=== PATIENT | female | born 1940 | race Caucasian/White ===

== ENCOUNTER 2016-07-26 13:57 | Inpatient (IN) | payer MEDICARE, OTHER ==
[~2016-07-26] VITALS: Ht 165.1 cm; Wt 104.6 kg
[~2016-07-26 13:57] MED LIST: BLOO-129 IN; BUDE10.2 INH; DIAZ5TAB4 PO; ETOMIDATE 20 MG/10 ML VIAL MC ONE; FLUO15CR2 TP; INSU100C4 SQ; INSU3INS6 SQ; KETO120S2 TP; LISI-607 PO; METF10002 PO; NAPR220T66 PO; SENN-92 PO; SIMV40TA2 PO; SUCCINYLCHOLINE CHLORIDE 200 MG/10 ML VIAL MC ONE; [UNRECOGNIZED DRUG - CODE] PO; [UNRECOGNIZED DRUG - MIXTURE] PO
--- NOTE | 2016-07-26 14:03 | NUR ---
Pt brought to bed 1a via ra 88, pt on monitor, dr santana at bedside for exam.
[2016-07-26] MEDS ORDERED: methylPREDNISolone SOD SUCC 125 MG/2 ML VIAL IV ONE (14:15)
[2016-07-26] MEDS ORDERED: ALBUTEROL SULFATE 2.5 MG/3 ML NEBU NEB ONE ×2 (14:15→15:30)
[2016-07-26] MEDS ORDERED: IPRATROPIUM BROMIDE 0.5 MG/2.5 ML NEBU NEB ONE ×2 (14:15→15:30)
[2016-07-26] MEDS ORDERED: IPRATROPIUM BROMIDE 0.5 MG/2.5 ML NEBU ONE ×2 (14:26→18:23)
[2016-07-26] MEDS ORDERED: ALBUTEROL SULFATE 2.5 MG/ 0.5 ML NEBU ONE ×2 (14:27→18:24)
--- NOTE | 2016-07-26 14:31 | NUR ---
IV #20 inserted via right posterior arm, sam snowden
--- NOTE | 2016-07-26 14:32 | NUR ---
is receiving breathing treatment at present.
[2016-07-26 14:36] LABS: BASOPHILS % (AUTO) 0.3 % (0.0-2.0); EOSINOPHILS # (AUTO) 0.1 K/uL (0.0-0.7); EOSINOPHILS % (AUTO) 1.3 % (0.0-7.0); HEMATOCRIT 33.3 % (31.2-41.9); HEMOGLOBIN 10.4 g/dL (10.9-14.3); LYMPHOCYTES # (AUTO) 0.9 K/uL (20.0-40.0); LYMPHOCYTES % (AUTO) 8.7 % (20.5-51.5); MEAN CORPUSCULAR HEMOGLOBIN 25.3 uug (24.7-32.8); MEAN CORPUSCULAR HGB CONC 31 g/dL (32.3-35.6); MEAN CORPUSCULAR VOLUME 81.5 fL (75.5-95.3); MONOCYTES # (AUTO) 0.2 K/uL (2.0-10.0); MONOCYTES % (AUTO) 2.1 % (0.0-11.0); NEUTROPHILS # (AUTO) 9.1 K/uL (1.8-8.9); NEUTROPHILS % (AUTO) 87.6 % (38.5-71.5); PLATELET COUNT (AUTO) 321 K/uL (179-408); RED BLOOD CELL COUNT(AUTO) 4.09 MIL/uL (3.63-4.92); RED CELL DISTRIBUTION WIDTH 16.3 % (12.3-17.7); WHITE BLOOD COUNT (AUTO) 10.3 K/uL (3.8-11.8)
[2016-07-26 15:01] LABS: TROPONIN I 0.022 ng/mL (0.00-0.056)
[2016-07-26 15:02] LABS: ALBUMIN 3.3 g/dL (3.4-5.0); BILIRUBIN,DIRECT 0.1 mg/dL (0.0-0.2); BILIRUBIN,TOTAL 0.5 mg/dL (0.2-1.0); CALCIUM 8.5 mg/dL (8.5-10.1); TOTAL PROTEIN, SERUM 7.5 g/dL (6.4-8.2)
[2016-07-26 15:06] LABS: LACTIC ACID 1.2 mmol/L (0.4-2.0)
[2016-07-26 15:13] LABS: CREATININE 1.5 mg/dL (0.6-1.3)
[2016-07-26 15:14] LABS: POTASSIUM 6.8 mmol/L (3.5-5.1)
[2016-07-26] MEDS ORDERED: INSULIN REGULAR, HUMAN 1,000 UNITS/10 ML VIAL IV ONE (15:30)
[2016-07-26] MEDS ORDERED: DEXTROSE 50% 50 ML DISP.SYRIN IV ONE (15:30)
[2016-07-26] MEDS ORDERED: methylPREDNISolone SOD SUCC 125 MG/2 ML VIAL ONE (15:38)
[2016-07-26] MEDS ORDERED: DEXTROSE 50% 50 ML DISP.SYRIN ONE (15:39)
[2016-07-26] MEDS ORDERED: INSULIN REGULAR, HUMAN 300 UNIT/3 ML VIAL ONE (15:51)
--- NOTE | 2016-07-26 15:51 | NUR ---
methylprednisolone, insulin and d50% given IV.
[2016-07-26 15:59] LABS: ABG BASE EXCESS -5.2 mmol/L; ABG PCO2 70.5 mmHg (35.0-45.0); ABG PH 7.168 (7.350-7.450); ABG PO2 63.3 mmHg (75.0-100.0); ABG SITE RIGHT BRACHIAL; VENT MODE Nasal Cannula
--- NOTE | 2016-07-26 16:00 | NUR ---
patient desaturating down to 78% on 2lnc. MD aware. orders received. placed on 10l mask. to keep sat above 94%
--- NOTE | 2016-07-26 16:15 | NUR ---
placed on bipap / rate 12 fio2 100%
[2016-07-26] MEDS ORDERED: LEVO50TA8 PO (16:34)
[2016-07-26] MEDS ORDERED: LEVA15HF5 INH (16:34)
[2016-07-26] MEDS ORDERED: INSU100C SQ (16:34)
[2016-07-26] MEDS ORDERED: ALBU8HFA4 IH (16:34)
[2016-07-26] MEDS ORDERED: PIOG30TA2 PO (16:34)
[2016-07-26] MEDS ORDERED: FURO20TA4 PO (16:34)
--- NOTE | 2016-07-26 16:35 | NUR ---
PLACED ON BIPAP WITH SETTINGS OF 12/5, RATE 12 AND FI02 100%
[2016-07-26] MEDS ORDERED: PROPOFOL 100 ML IV ONE (16:39)
[2016-07-26] MEDS ORDERED: SUCCINYLCHOLINE CHLORIDE 200 MG/10 ML VIAL IV ONE (16:45)
[2016-07-26] MEDS ORDERED: ETOMIDATE 20 MG/10 ML VIAL IV ONE (16:45)
--- NOTE | 2016-07-26 16:45 | NUR ---
medicated with etomidate and succinylcholine prior to intubation. ett 7.5cm taped at 23cm lip line.vent settings are tv 600, ac 20 [id number], fio2 100%. started on propofol drip at 5mcg and titrated forcomfort.
[2016-07-26] MEDS ORDERED: PROPOFOL 200 MG/20 ML BOTTLE ONE (16:56)
--- NOTE | 2016-07-26 17:00 | NUR ---
propofol titrated up, now at 20mcg/kg/min
--- NOTE | 2016-07-26 17:00 | NUR ---
new IV #20 inserted by Rahel TOLBERT. herminiaribeverly drip started thru this site
[2016-07-26] MEDS ORDERED: PROPOFOL 100 ML ONE ×3 (17:01→23:23)
--- NOTE | 2016-07-26 17:39 | NUR ---
PT IS INTUBATED WITH ET TUBE SIZE 7.5 , TAPED AT APPROX. 23 CM AT MID LIP. PLACED ON SETTINGS OF AC 20, VT 600, FIO2 100% AND PEEP 5. PT IS SEDATED AND LESS RESPONSIVE AT THIS TIME. SUCTIONED FOR SMALL AMOUNT OF THICK WHITISH SECRETION ,SAMPLE COLLECTED FOR SOUND PRINTER. WILL WAIT FOR MORE ORDERS.
--- NOTE | 2016-07-26 18:00 | NUR ---
propofol titrated up to 40mcg/kg/min
[2016-07-26 18:34] LABS: ABG BASE EXCESS -3.3 mmol/L; ABG HCO3 21.3 mmol/L; ABG PCO2 36.6 mmHg (35.0-45.0); ABG PH 7.383 (7.350-7.450); ABG PO2 242.8 mmHg (75.0-100.0); ABG SITE RIGHT RADIAL; ABG TOTAL HEMOGLOBIN 10.3 G/dL (12.0-16.0); COHb 0.6 % (0.5-1.5); MetHb 0.2 % (0.0-1.5); O2Hb 98.4 % (94.0-97.0); VENT MODE VENT - A/C; VT, ABG 600 mL
--- NOTE | 2016-07-26 19:03 | NUR ---
propofol titrated at 50mcg/kg/min patient is comfortable. wrist restraints are intact.
--- NOTE | 2016-07-26 19:05 | NUR ---
fio2 decreased down to 60% per RT OLit
--- NOTE | 2016-07-26 19:06 | NUR ---
report given to pms
--- NOTE | 2016-07-26 20:46 | NUR ---
Pt. admitted to CCU 1 , under care of Dr. Phelan. Dx: Exacerbation of COPD Belongs List completed,
[2016-07-26 21:00] VITALS: BP 142/96
[2016-07-26] MEDS ORDERED: ACETAMINOPHEN 325 MG TABLET NG PRN (21:00)
[2016-07-26 21:23] LABS: CALCIUM 8.6 mg/dL (8.5-10.1)
[2016-07-26 21:26] LABS: CREATININE 1.6 mg/dL (0.6-1.3)
[2016-07-26 21:28] LABS: POTASSIUM 6.4 mmol/L (3.5-5.1)
[2016-07-26] MEDS ORDERED: DEXTROSE 50% 50 ML DISP.SYRIN IV PRN (21:30)
[2016-07-26 21:32] LABS: TROPONIN I 0.026 ng/mL (0.00-0.056)
[2016-07-26 21:34] LABS: LACTIC ACID 2.2 mmol/L (0.4-2.0)
[2016-07-26 21:49] LABS: *OCCULT BLOOD STOOL POSITIVE (NEGATIVE)
[2016-07-26 22:00] VITALS: BP 140/57
[2016-07-26 23:00] VITALS: BP 153/64
[2016-07-26] MEDS: methylPREDNISolone SOD SUCC 40 MG/ML VIAL IV SCH (23:14)
[2016-07-26] MEDS ORDERED: methylPREDNISolone SOD SUCC 40 MG/ML VIAL ONE (23:18)
[2016-07-26 23:23] LABS: *BILIRUBIN,URIN NEGATIVE (NEGATIVE); *BLOOD, URINE NEGATIVE (NEGATIVE); *CLARITY,URINE SLIGHTLY CLOUDY (CLEAR); *COLOR,URINE YELLOW (YELLOW); *KETONES,URINE TRACE (NEGATIVE); *PROTEIN,URINE 1+ (NEGATIVE); *UROBILINOGEN,URINE 0.2 E.U./dl (NORMAL); LEUKOCYTE ESTERASE ,URINE NEGATIVE (NEGATIVE); NITRITE, URINE NEGATIVE (NEGATIVE); UGLUCOSE NEGATIVE (NEGATIVE)
[2016-07-26] MEDS: PROPOFOL 100 ML IV PRN (23:25)
[2016-07-26 23:43] LABS: BACTERIA,URINE MODERATE /HPF (NONE SEEN); SQUAMOUS EPITHELIAL CELL,UR FEW /HPF (NONE SEEN); URINE AMORPHOUS URATE MODERATE /HPF; WBC,URINE 0-3 /HPF (0-3)
[2016-07-27] VITALS (24 sets, daily range): BP systolic 91–166; BP diastolic 37–89
[2016-07-27] MEDS: BLOOD SUGAR DIAGNOSTIC 1 EACH STRIP VI SCH ×5 (00:10→23:47)
--- NOTE | 2016-07-27 00:21 | NUR ---
PT RECEIVED IN ER. TRANSFERRED PT FROM ER TO CCU. ASSISTED BY CURB SETTER AND RT ROSALEE. TRANSFERRED WITH VENT. NO COMPLICATIONS DURING AND AFTER TRANSFER. PATIENT IS INTUBATED WITH ETT SIZE 7.5. SECURED WITH ANCHOR FAST ON THE RIGHT LIP. ETT IS APROX. 23 CM AT THE LIP LASHAWN. PT IS ON THE FOLLOWING SETTINGS THAT ARE CHARTED ON THE MECHANICAL VENT NOTES. ASSISTED DIDI COLON WITH ORAL CARE. SUCTIONED SMALL AMOUNTS OF WHITE SECRETIONS. MOVED ETT TO THE MIDDLE OF THE LIP. NO SOB NOTED AT THIS TIME. WILL CONTINUE TO MONITOR.
[2016-07-27] MEDS ORDERED: INSULIN REGULAR, HUMAN 300 UNIT/3 ML VIAL ONE (00:33)
[2016-07-27] MEDS: INSULIN REGULAR, HUMAN 300 UNIT/3 ML VIAL SQ PRN ×5 (00:43→23:50)
[2016-07-27] MEDS: PROPOFOL 100 ML IV PRN ×8 (02:57→22:17)
[2016-07-27] MEDS ORDERED: PROPOFOL 100 ML ONE ×2 (03:05→06:12)
--- NOTE | 2016-07-27 03:49 | NUR ---
Propofol removed from pyxis at 0305, administered as ordered. See eMAR
[2016-07-27 05:23] LABS: ALBUMIN 2.8 g/dL (3.4-5.0); BILIRUBIN,TOTAL 0.7 mg/dL (0.2-1.0); CALCIUM 8.3 mg/dL (8.5-10.1); CREATININE 1.3 mg/dL (0.6-1.3); PHOSPHOROUS 1.8 mg/dL (2.5-4.9); TOTAL PROTEIN, SERUM 6.1 g/dL (6.4-8.2)
[2016-07-27 05:50] LABS: BASOPHILS % (AUTO) 0.3 % (0.0-2.0); EOSINOPHILS % (AUTO) 0.1 % (0.0-7.0); HEMOGLOBIN 10.1 g/dL (10.9-14.3); LYMPHOCYTES % (AUTO) 8.9 % (20.5-51.5); MEAN CORPUSCULAR HEMOGLOBIN 25.7 uug (24.7-32.8); MEAN CORPUSCULAR HGB CONC 33 g/dL (32.3-35.6); MEAN CORPUSCULAR VOLUME 79.2 fL (75.5-95.3); MONOCYTES # (AUTO) 0.2 K/uL (2.0-10.0); NEUTROPHILS # (AUTO) 9.9 K/uL (1.8-8.9); NEUTROPHILS % (AUTO) 88.7 % (38.5-71.5); PLATELET COUNT (AUTO) 304 K/uL (179-408); RED BLOOD CELL COUNT(AUTO) 3.92 MIL/uL (3.63-4.92); RED CELL DISTRIBUTION WIDTH 15.7 % (12.3-17.7); WHITE BLOOD COUNT (AUTO) 11.1 K/uL (3.8-11.8)
[2016-07-27 06:05] LABS: ABG BASE EXCESS 1.3 mmol/L; ABG HCO3 22.9 mmol/L; ABG PCO2 26.8 mmHg (35.0-45.0); ABG PO2 101.5 mmHg (75.0-100.0); ABG SITE LEFT RADIAL; ABG TOTAL HEMOGLOBIN 10.4 G/dL (12.0-16.0); COHb 0.6 % (0.5-1.5); MetHb 0.2 % (0.0-1.5); O2Hb 97.2 % (94.0-97.0); VENT MODE VENT - A/C; VT, ABG 600 mL
[2016-07-27 06:07] LABS: LYMPHOCYTES % (MANUAL) 14 % (20-40); MONOCYTES % (MANUAL) 3 % (2-10); NEUTROPHILS % (MANUAL) 83 % (42-75)
[2016-07-27 06:08] LABS: ANISOCYTOSIS 1+; HYPOCHROMASIA 1+; PLATELET ESTIMATE ADEQUATE
[2016-07-27] MEDS: methylPREDNISolone SOD SUCC 40 MG/ML VIAL IV SCH ×3 (06:13→22:16)
[2016-07-27] MEDS ORDERED: methylPREDNISolone SOD SUCC 40 MG/ML VIAL ONE (06:20)
--- NOTE | 2016-07-27 06:55 | NUR ---
Propofol and Solumedrol removed from pyxis. Administered as ordered, see eMAR
[2016-07-27] MEDS ORDERED: ALBUTEROL SULFATE 2.5 MG/3 ML NEBU NEB SCH (07:35)
--- NOTE | 2016-07-27 08:06 | NUR ---
RECEIVED ON CURRENT SETTINGS OF AC 20,VT600, PEEP 5AND FI02 60%. IN LINE MEDICATION GIVEN. ORAL CARE GIVEN AND SUCTIONED FOR MINIMAL AMOUNT OF THICK WHITISH SECRETIONS, MINIMAL STREAK OF RED BLOOD OBSERVED DURING SUCTIONING. MOVED ET TUBE TO THE RIGHT AT THIS TIME WILL MONITOR PROGRESS ALL DAY.
[2016-07-27] MEDS ORDERED: FUROSEMIDE 20 MG/2 ML VIAL IV SCH ×2 (09:00→17:00)
[2016-07-27] MEDS: PANTOPRAZOLE SODIUM 40 MG VIAL IV SCH (09:14)
[2016-07-27] MEDS: MORPHINE SULFATE 2 MG/1 ML DISP.SYRIN IV PRN ×2 (09:25→10:51)
[2016-07-27 10:57] LABS: *BILIRUBIN,URIN NEGATIVE (NEGATIVE); *BLOOD, URINE NEGATIVE (NEGATIVE); *CLARITY,URINE CLEAR (CLEAR); *COLOR,URINE YELLOW (YELLOW); *KETONES,URINE 1+ (NEGATIVE); *PROTEIN,URINE NEGATIVE (NEGATIVE); *UROBILINOGEN,URINE 0.2 E.U./dl (NORMAL); LEUKOCYTE ESTERASE ,URINE NEGATIVE (NEGATIVE); NITRITE, URINE NEGATIVE (NEGATIVE); UGLUCOSE NEGATIVE (NEGATIVE)
[2016-07-27 11:01] LABS: *CREATININE,URINE 46.9 mg/dL (30-125); *URINE TOTAL PROTEIN RANDOM 9.7 mg/dL (<150/24HR)
[2016-07-27 11:14] LABS: RBC,URINE 0-3 /HPF (0-3); SQUAMOUS EPITHELIAL CELL,UR FEW /HPF (NONE SEEN); URIC ACID CRYSTALS,URINE RARE /HPF (NONE SEEN); WBC,URINE 0-3 /HPF (0-3)
[2016-07-27 11:15] LABS: BACTERIA,URINE FEW /HPF (NONE SEEN)
[2016-07-27] MEDS ORDERED: FUROSEMIDE 20 MG/2 ML VIAL IV ONE (12:45)
--- NOTE | 2016-07-27 13:54 | NUR ---
WOUND CARE CONSULT: PT PRESENTS WITH FRAGILE SKIN WITH MULTIPLE DRY SCRATCHES. HEALED G TUBE SITE NOTED WITH PSORIATIC PATCH OF SKIN. PT HAS PSORIASIS AND SCRATCHES HER SKIN PER DAUGHTER AT BEDSIDE. RECOMMEND Z GUARD FOR SKIN FOLDS AND BUTTOCK PROTECTION. DISCUSSED WITH NURSING STAFF. PT ON FIRST STEP MATTRESS. PT TO BE TURNED AND REPOSITIONED EVERY 2 HRS PT CONDITION PERMITS, HEELS FLOATED. Addendum: 07/27/16 at 1356 by LARON CARROLL RN Amended: Links added.
[2016-07-27] MEDS: ASPIRIN 81 MG TAB.CHEW GT SCH (14:33)
[2016-07-27] MEDS ORDERED: NEUTRA PHOS PACKET GT ONE (15:00)
[2016-07-27] MEDS: ALBUTEROL SULFATE 2.5 MG/3 ML NEBU NEB SCH ×2 (16:24→20:54)
--- NOTE | 2016-07-27 19:30 | NUR ---
Report received. Patient orally intubated and to mechanical ventilator with settings: AC=15, FIO2=50%, EN=526 ml, PEEP=5cm. Sat above 95%. Sedated; on continuous Diprivan drip currently at 70 mcg/kg/min. Assessment completed. Addendum: 07/27/16 at 2139 by JATINDER COE RN Amended: Links added.
--- NOTE | 2016-07-27 20:00 | NUR ---
Patient's daughter visited. Updated of condition. Addendum: 07/27/16 at 2141 by JATINDER COE RN Amended: Links added.
[2016-07-27] MEDS: ATORVASTATIN 40 MG TABLET PO SCH (20:40)
[2016-07-27] MEDS: FUROSEMIDE 40 MG/4 ML VIAL IVP SCH (20:40)
--- NOTE | 2016-07-27 21:04 | NUR ---
PT ON CONT MIRANDA VENT WITH 7.5 ET/TUBE IN PLACE AND SECURED. SLIGHT MIDLINE ET/TUBE IN PLACE AND SECURED, PT WITH MOSTLY CONTROLLED VENTILATION, DOES ASSIST AFTER YOU SUCTION HER SETTINGS ON VENT, A/C 15, VT 600ML, 50%, PEEP 5, ALL ALARMS OK, AMBU BAG , NEB INLINE Q6 HOURS WITH ALBUTEROL TOLL WELL, PT STABLE AT THIS TIME.Glenny DAILEY RCP Addendum: 07/27/16 at 2108 by ROCK DAILEY RT Amended: Links added.
[2016-07-28] VITALS (24 sets, daily range): BP systolic 86–149; BP diastolic 34–74
--- NOTE | 2016-07-28 | NUR ---
Sedation vacation done: after 5 minutes patient started opening eyes to name, shaking head, gagging on the ETT, coughing and bucking the ventilator. Diprivan drip resumed at 55 mcg/kg/min. Addendum: 07/28/16 at 0129 by JATINDER COE RN Amended: Links added.
[2016-07-28] MEDS: PROPOFOL 100 ML IV PRN ×8 (01:16→23:06)
--- NOTE | 2016-07-28 01:30 | NUR ---
Monitor: SB rate 47-50's with PACS. BP stable.
[2016-07-28] MEDS: ALBUTEROL SULFATE 2.5 MG/3 ML NEBU NEB SCH ×4 (01:37→20:02)
[2016-07-28] MEDS: MORPHINE SULFATE 2 MG/1 ML DISP.SYRIN IV PRN (02:35)
--- NOTE | 2016-07-28 03:42 | NUR ---
PT ON CONT MIRANDA VENT WITH 7.5 ET/TUBE IN PLACE AND SECURED,BAILEY ON LEFT LIP AND SECURED, ORAL CARE DONE, PT DOES ASSIST AT TIMES, WITH SETTINGS, A/C 15, VT 600ML, PEEP 5, 50%, SUCTIONED VERY LIGHT PALE YELL TINGE SECRETIONS, SLIGHTLY WEAK COUGH EFFORT, PT IS SEDATED, ALL ALARMS OK, AMBU BAG AT BEDSIDE, NEB INLINE Q6 WITH ALBUTEROL TOLL WELL, NO VENT CHANGES MADE AT THIS TIME.Glenny DAILEY RCP Addendum: 07/28/16 at 0348 by ROCK DAILEY RT Amended: Links added.
[2016-07-28 05:20] LABS: BASOPHILS % (AUTO) 0.1 % (0.0-2.0); EOSINOPHILS # (AUTO) 0.1 K/uL (0.0-0.7); EOSINOPHILS % (AUTO) 0.7 % (0.0-7.0); HEMATOCRIT 31.4 % (31.2-41.9); LYMPHOCYTES # (AUTO) 0.8 K/uL (20.0-40.0); MEAN CORPUSCULAR HEMOGLOBIN 25.2 uug (24.7-32.8); MEAN CORPUSCULAR HGB CONC 32 g/dL (32.3-35.6); MEAN CORPUSCULAR VOLUME 79.1 fL (75.5-95.3); MONOCYTES # (AUTO) 0.4 K/uL (2.0-10.0); MONOCYTES % (AUTO) 4.3 % (0.0-11.0); NEUTROPHILS # (AUTO) 7.8 K/uL (1.8-8.9); NEUTROPHILS % (AUTO) 85.9 % (38.5-71.5); PLATELET COUNT (AUTO) 320 K/uL (179-408); RED BLOOD CELL COUNT(AUTO) 3.96 MIL/uL (3.63-4.92); RED CELL DISTRIBUTION WIDTH 15.7 % (12.3-17.7); WHITE BLOOD COUNT (AUTO) 9.1 K/uL (3.8-11.8)
[2016-07-28 05:23] LABS: ANISOCYTOSIS 1+
[2016-07-28 05:24] LABS: HYPOCHROMASIA 1+
[2016-07-28 05:29] LABS: ALBUMIN 2.7 g/dL (3.4-5.0); BILIRUBIN,TOTAL 0.7 mg/dL (0.2-1.0); CALCIUM 8.2 mg/dL (8.5-10.1); MAGNESIUM 1.8 mg/dL (1.8-2.4); POTASSIUM 5.4 mmol/L (3.5-5.1); TOTAL PROTEIN, SERUM 6.1 g/dL (6.4-8.2)
[2016-07-28 05:31] LABS: CREATININE 1.5 mg/dL (0.6-1.3)
[2016-07-28] MEDS: BLOOD SUGAR DIAGNOSTIC 1 EACH STRIP VI SCH ×4 (05:50→23:57)
[2016-07-28] MEDS: methylPREDNISolone SOD SUCC 40 MG/ML VIAL IV SCH ×3 (05:52→22:45)
[2016-07-28] MEDS: INSULIN REGULAR, HUMAN 300 UNIT/3 ML VIAL SQ PRN ×4 (05:53→23:59)
--- NOTE | 2016-07-28 06:00 | NUR ---
Remains on Diprivan drip at 55 mcg/kg/min for adequate sedation. Addendum: 07/28/16 at 0733 by JATINDER COE RN Amended: Links added.
[2016-07-28] MEDS: PANTOPRAZOLE SODIUM 40 MG VIAL IV SCH (06:47)
--- NOTE | 2016-07-28 07:45 | NUR ---
Pt.sedated on diprivan,no s/s of acute distress.
[2016-07-28] MEDS: Z GUARD REMEDY PASTE 57 GM TUBE TOP PRN ×2 (08:14→17:14)
[2016-07-28] MEDS: FUROSEMIDE 40 MG/4 ML VIAL IVP SCH (08:14)
[2016-07-28] MEDS: ASPIRIN 81 MG TAB.CHEW GT SCH (08:14)
--- NOTE | 2016-07-28 09:26 | NUR ---
FAMILY AT BEDSIDE,UPDATED WITH PT.CONDITION AND PLAN OF CARE.
--- NOTE | 2016-07-28 09:50 | NUR ---
PT RECEIVED ON MIRANDA VENT, SETTINGS AC 15, Vt 600, +5, FIO2 50%. 7.5 ETT IS PATENT AND SECURED WITH BAILEY TO LEFT SIDE APPROX 23CM AT THE LIP. NO SOB NOTED. PT TOLERATING VENT SETTINGS WELL. SUCTIONED AND LAVAGED SMALL AMOUNT OF WHITE THICK SECRETIONS. ORAL CARE DONE. ALARMS ARE ON AND AUDIBLE, BVM AT BEDSIDE. WILL CONTINUE TO MONITOR.
[2016-07-28 10:38] LABS: ABG BASE EXCESS 2.8 mmol/L; ABG HCO3 25.7 mmol/L; ABG PCO2 33.3 mmHg (35.0-45.0); ABG PH 7.505 (7.350-7.450); ABG PO2 90.5 mmHg (75.0-100.0); ABG SITE RIGHT RADIAL; COHb 0.2 % (0.5-1.5); MetHb 0.1 % (0.0-1.5); O2Hb 96.2 % (94.0-97.0); VENT MODE VENT - A/C; VT, ABG 600 mL
--- NOTE | 2016-07-28 10:55 | NUR ---
PT.WAS SEEN BYHECTOR TONG MD DAUGHTER AT BEDSIDE,UPDATED WITH PT.CONDITION.
--- NOTE | 2016-07-28 12:55 | NUR ---
Pt.was seen by Mylene with new orders.
--- NOTE | 2016-07-28 13:00 | NUR ---
Sedation vacation done pt .following directions,moving all BUE & BLE.diprivan restarted for pt.comfort at lower rate
--- NOTE | 2016-07-28 17:30 | NUR ---
No changes in pt.condition,no s/s of acute distress,daughter at bedside.
--- NOTE | 2016-07-28 19:30 | NUR ---
Report received. Patient orally intubated and to mechanical vent with same settings. Sat above 95%. On continuous Diprivan drip for sedation.
--- NOTE | 2016-07-28 20:40 | NUR ---
Patient's daughter called; updated of condition. Addendum: 07/28/16 at 2041 by JATINDER COE RN Amended: Links added.
[2016-07-28] MEDS ORDERED: FUROSEMIDE 40 MG/4 ML VIAL IVP SCH (21:00)
[2016-07-28] MEDS: FUROSEMIDE 20 MG/2 ML VIAL IV SCH (21:30)
[2016-07-28] MEDS: ATORVASTATIN 40 MG TABLET PO SCH (21:30)
[2016-07-29] VITALS (25 sets, daily range): BP systolic 88–175; BP diastolic 36–96
[2016-07-29] MEDS: INSULIN DETEMIR 300 UNIT/3 ML CARTRIDGE SQ SCH ×2 (00:32→21:00)
[2016-07-29] MEDS ORDERED: INSULIN DETEMIR 300 UNIT/3 ML CARTRIDGE SQ ONE (00:36)
[2016-07-29] MEDS: ALBUTEROL SULFATE 2.5 MG/3 ML NEBU NEB SCH ×4 (00:56→19:12)
[2016-07-29] MEDS: PROPOFOL 100 ML IV PRN ×6 (03:35→22:54)
--- NOTE | 2016-07-29 04:34 | NUR ---
PT ON CONT MIRANDA VENT WITH 7.5 ET/TUBE IN PLACE AND SECURED/ LEFT LIP ANCHOR FAST IN PLACE, SAME CURRENT VENT SETTING, A/C 15, VT 600ML, PEEP 5,40%, PT WAKING UP AT TIMES, SUCTIONED LIGHT PALE YELL TINGE SECRETIONS, WITH GOOD COUGH EFFORT, NEB INLINE WITH ALBUTEROL TOLL WELL, ALL ALARMS OK, AMBU BAG AT BEDSIDE, CHANGE HME AND ORAL CARE DONE, WEAN AT 0600 ON TRIAL ON SIMV 10, PSV 8. D ASHLIE MCINTOSH Addendum: 07/29/16 at 0437 by ROCK DAILEY RT Amended: Links added.
[2016-07-29 05:33] LABS: BASOPHILS % (AUTO) 0.2 % (0.0-2.0); EOSINOPHILS % (AUTO) 0.2 % (0.0-7.0); HEMATOCRIT 38.5 % (31.2-41.9); LYMPHOCYTES # (AUTO) 0.8 K/uL (20.0-40.0); LYMPHOCYTES % (AUTO) 6.7 % (20.5-51.5); MEAN CORPUSCULAR HEMOGLOBIN 24.6 uug (24.7-32.8); MEAN CORPUSCULAR HGB CONC 31 g/dL (32.3-35.6); MEAN CORPUSCULAR VOLUME 78.9 fL (75.5-95.3); MONOCYTES # (AUTO) 0.7 K/uL (2.0-10.0); MONOCYTES % (AUTO) 6.3 % (0.0-11.0); NEUTROPHILS # (AUTO) 10.4 K/uL (1.8-8.9); NEUTROPHILS % (AUTO) 86.6 % (38.5-71.5); PLATELET COUNT (AUTO) 360 K/uL (179-408); RED BLOOD CELL COUNT(AUTO) 4.88 MIL/uL (3.63-4.92); RED CELL DISTRIBUTION WIDTH 15.7 % (12.3-17.7); WHITE BLOOD COUNT (AUTO) 11.9 K/uL (3.8-11.8)
[2016-07-29 05:37] LABS: ALBUMIN 3.2 g/dL (3.4-5.0); BILIRUBIN,TOTAL 0.8 mg/dL (0.2-1.0); CALCIUM 8.7 mg/dL (8.5-10.1); MAGNESIUM 1.9 mg/dL (1.8-2.4); PHOSPHOROUS 6.6 mg/dL (2.5-4.9); POTASSIUM 5.4 mmol/L (3.5-5.1); TOTAL PROTEIN, SERUM 7.3 g/dL (6.4-8.2)
[2016-07-29 05:44] LABS: CREATININE 1.5 mg/dL (0.6-1.3)
--- NOTE | 2016-07-29 06:00 | NUR ---
Khalif haddad titrated down. Placed on SIMV 10, PS=8. Monitored closely. Addendum: 07/29/16 at 0653 by JATINDER COE RN Amended: Links added.
[2016-07-29] MEDS: methylPREDNISolone SOD SUCC 40 MG/ML VIAL IV SCH ×3 (06:29→21:27)
[2016-07-29] MEDS: BLOOD SUGAR DIAGNOSTIC 1 EACH STRIP VI SCH ×3 (06:30→17:29)
[2016-07-29] MEDS: PANTOPRAZOLE SODIUM 40 MG VIAL IV SCH (06:31)
[2016-07-29] MEDS: INSULIN REGULAR, HUMAN 300 UNIT/3 ML VIAL SQ PRN ×3 (06:34→17:31)
--- NOTE | 2016-07-29 07:00 | NUR ---
Patient AA, anxious, clapping hands. Advised appropriately. ABGS drawn.
--- NOTE | 2016-07-29 07:01 | NUR ---
PT WAS RECEIVED ON MIRANDA VENT #006 WITH WEANING SETTING PER INCOME TAX RETURN PREPARER. PT ON SIMV 10, VT 600, PS 8, PEEP +5, FIO2 40%. PT ETT SECURED WITH ANCHOR FAST AT 23CM ETT 7.5 AT CENTER. PT ABG WAS DONE EARLY PER INCOME TAX RETURN PREPARER RN DUE TO PT AGITATION. PT AT THIS TIME IS AWAKE AND ALERT. PT HME WAS CHANGED PT WAS SUCTION. ORAL CARE WAS DONE. TX WAS GIVEN. PT ABG RESULTS ARE IN SYSTEM MD WAS CALLED AT THIS TIME BY RN. PT VENT ALARMS ON AND AUDIBLE, AMBU-BAG AT BED SIDE. PT WILL CONTINUE TO MONITOR PT THROUGHOUT SHIFT AND WAIT FOR MD ORDER TO EXTUBATE.
[2016-07-29 07:05] LABS: ABG HCO3 30.2 mmol/L; ABG PCO2 47.2 mmHg (35.0-45.0); ABG PH 7.424 (7.350-7.450); ABG PO2 99.7 mmHg (75.0-100.0); ABG SITE RIGHT RADIAL; ABG TOTAL HEMOGLOBIN 11.9 G/dL (12.0-16.0); COHb 1.1 % (0.5-1.5); MetHb 0.1 % (0.0-1.5); VENT MODE VENT - SIMV; VT, ABG 600 mL
--- NOTE | 2016-07-29 07:10 | NUR ---
Call placed to Dr. Ramey'sexchange re: ABG results. Awaiting for call back. Patient remains anxious.
--- NOTE | 2016-07-29 07:20 | NUR ---
Placed on high gordon's. Sat 100%. But patient very anxious.
--- NOTE | 2016-07-29 07:23 | NUR ---
Patient received with weaning mode in progress, patient restless agitated, attempting to remove ETT forcefully, educated on weaning criteria and at this point not following commands, Inspector [employer] called and notified by reporting rn. awaiting call back.
--- NOTE | 2016-07-29 07:25 | NUR ---
PT WAS SEDATED AND PLACE BACK TO AC 15, VT 600, PEEP +5, FIO2 40% DUE TO AGITATION. PT AT THIS TIME IS SEDATED AND TOLERATING AC MODE WELL HAS NOT CALLED BACK. WILL CONTINUE TO MONITOR PT RN AWARE OF CHANGES.
--- NOTE | 2016-07-29 07:35 | NUR ---
Patient placed back on previous vent setting due restlessness and agitation.
[2016-07-29] MEDS: ASPIRIN 81 MG TAB.CHEW GT SCH (08:37)
[2016-07-29] MEDS: FUROSEMIDE 20 MG/2 ML VIAL IV SCH (08:37)
--- NOTE | 2016-07-29 10:55 | NUR ---
PER MD, KEEP PT ON SIMV UNTIL TOMORROW TO KEEP WEANING. PER PT IS NOT READY FOR EXTUBATION AT THIS TIME. PER ETT WAS CUT 1 1/2" WAS CUT AT THE 28cm LASHAWN. REMAINING TUBE WAS TAPED ON LEFT SIDE OF VENT RN AWARE PT WAS PLACE BACK ON SEDATION WILL CONTINUE TO MONITOR PT THROUGHOUT SHIFT.
--- NOTE | 2016-07-29 11:00 | NUR ---
Dr. Vincent in the unit to see patient report given, see orders.
[2016-07-29] MEDS ORDERED: hydrALAZINE HCL 20 MG/1 ML VIAL IV PRN (11:15)
--- NOTE | 2016-07-29 11:24 | NUR ---
Dr. Ramey int unit to see patient full report given orders to maintain patient on SIM of 10 PS 8, TV600 , Pee 5 FIO2 of 40%. Patient remains sedated due to restlessness.
[2016-07-29] MEDS: MORPHINE SULFATE 2 MG/1 ML DISP.SYRIN IV PRN (14:06)
--- NOTE | 2016-07-29 17:00 | NUR ---
PT VENT CHECK WAS DONE NO CHANGES A THIS TIME PT TOLERATED VENT WELL WILL CONTINUE WEANING TOMORROW PER MD.
[2016-07-29] MEDS: FUROSEMIDE 20 MG TABLET PO SCH (17:23)
--- NOTE | 2016-07-29 19:12 | NUR ---
Pt received on Dunbar vent with settings of SIMV 10, VT 600, PSV 8, Peep +5, FiO2 40%. Pt is orally intubated with a 7.5 ETT located at the right side of lip, moved to center at this time. Oral care done. No signs of respiratory distress noted at this time. Pt appears to be tolerating vent settings well. Inline tx given per md orders. Suctioned and lavaged pt with moderate amount of thick yellowish secretions. Vent alarms checked, is functioning and audible. Ambu-bag at bedside. Will continue to monitor pt throughout shift.
[2016-07-29] MEDS: ATORVASTATIN 40 MG TABLET PO SCH (21:27)
[2016-07-30] VITALS (26 sets, daily range): BP systolic 85–152; BP diastolic 44–84
[2016-07-30] MEDS: BLOOD SUGAR DIAGNOSTIC 1 EACH STRIP VI SCH ×5 (00:39→21:56)
[2016-07-30] MEDS: INSULIN REGULAR, HUMAN 300 UNIT/3 ML VIAL SQ PRN ×5 (00:44→21:57)
[2016-07-30] MEDS: PROPOFOL 100 ML IV PRN ×3 (01:18→07:41)
[2016-07-30] MEDS: ALBUTEROL SULFATE 2.5 MG/3 ML NEBU NEB SCH ×5 (01:33→19:01)
[2016-07-30] MEDS: PANTOPRAZOLE SODIUM 40 MG VIAL IV SCH (06:02)
[2016-07-30] MEDS: methylPREDNISolone SOD SUCC 40 MG/ML VIAL IV SCH ×3 (06:02→21:15)
[2016-07-30 06:08] LABS: BASOPHILS % (AUTO) 0.2 % (0.0-2.0); EOSINOPHILS % (AUTO) 0.1 % (0.0-7.0); HEMATOCRIT 35.8 % (31.2-41.9); HEMOGLOBIN 11.5 g/dL (10.9-14.3); LYMPHOCYTES # (AUTO) 0.9 K/uL (20.0-40.0); LYMPHOCYTES % (AUTO) 6.1 % (20.5-51.5); MEAN CORPUSCULAR HEMOGLOBIN 25.5 uug (24.7-32.8); MEAN CORPUSCULAR HGB CONC 32 g/dL (32.3-35.6); MEAN CORPUSCULAR VOLUME 79.2 fL (75.5-95.3); MONOCYTES # (AUTO) 1.5 K/uL (2.0-10.0); MONOCYTES % (AUTO) 9.6 % (0.0-11.0); PLATELET COUNT (AUTO) 297 K/uL (179-408); RED BLOOD CELL COUNT(AUTO) 4.51 MIL/uL (3.63-4.92); RED CELL DISTRIBUTION WIDTH 15.6 % (12.3-17.7); WHITE BLOOD COUNT (AUTO) 15.4 K/uL (3.8-11.8)
[2016-07-30 06:12] LABS: CALCIUM 7.6 mg/dL (8.5-10.1); MAGNESIUM 1.8 mg/dL (1.8-2.4); PHOSPHOROUS 7.2 mg/dL (2.5-4.9); POTASSIUM 5.6 mmol/L (3.5-5.1)
[2016-07-30 06:16] LABS: CREATININE 1.5 mg/dL (0.6-1.3)
--- NOTE | 2016-07-30 08:21 | NUR ---
PT RECEIVED ON MIRANDA VENT, SETTINGS SIMV 10, VT 600, PSV 8, Peep +5, FiO2 40%. 7.5 ETT IS PATENT AND SECURED TO LEFT SIDE APPROX 23CM AT THE LIP. INLINE TX TOLERATED WELL. PER ORDERS PLACED ON CPAP PSV 8. ABG TO FOLLOW. DOING WELL AT THIS TIME, NO SOB NOTED. BVM AT BEDSIDE. ALARMS ARE ON AND AUDIBLE. WILL CONTINUE TO MONITOR.
[2016-07-30] MEDS: ASPIRIN 81 MG TAB.CHEW GT SCH (08:24)
[2016-07-30] MEDS: FUROSEMIDE 20 MG TABLET PO SCH ×2 (08:25→17:06)
[2016-07-30 10:10] LABS: ABG BASE EXCESS 0.3 mmol/L; ABG HCO3 27.4 mmol/L; ABG PCO2 56.3 mmHg (35.0-45.0); ABG PH 7.305 (7.350-7.450); ABG PO2 98.5 mmHg (75.0-100.0); ABG SITE RIGHT RADIAL; ABG TOTAL HEMOGLOBIN 11.2 G/dL (12.0-16.0); COHb 1.1 % (0.5-1.5); MetHb 0.2 % (0.0-1.5); O2Hb 94.7 % (94.0-97.0); VENT MODE VENT - CPAP
[2016-07-30] MEDS ORDERED: DC PROPOFOL ONCE EXTUBATED XX PRN (10:45)
--- NOTE | 2016-07-30 11:14 | NUR ---
PT EXTUBATED PER MD ORDERS, PLACED ON 3 LPM VIA NASAL CANNULA, NO SOB AT THIS TIME. WILL CONTINUE TO MONITOR.
[2016-07-30] MEDS: IPRATROPIUM BROMIDE 0.5 MG/2.5 ML NEBU NEB SCH ×3 (12:16→19:01)
[2016-07-30] MEDS: ACETYLCYSTEINE 20% 800 MG/4 ML VIAL NEB SCH ×2 (15:30→22:30)
[2016-07-30] MEDS ORDERED: INSULIN DETEMIR 300 UNIT/3 ML CARTRIDGE SQ SCH (21:00)
[2016-07-30] MEDS: ATORVASTATIN 40 MG TABLET PO SCH (21:09)
--- NOTE | 2016-07-30 21:30 | NUR ---
pt anxious and yelling out md paged new orders given see mar.
[2016-07-30] MEDS ORDERED: INSULIN DETEMIR 300 UNIT/3 ML CARTRIDGE SQ ONE (21:44)
[2016-07-30] MEDS ORDERED: CLOBETASOL PROPIONATE 0.05% CREAM 15 GM TUBE TOP SCH (21:45)
[2016-07-30] MEDS ORDERED: DEXTROSE 50% 50 ML DISP.SYRIN IV PRN (21:45)
[2016-07-30] MEDS: LORAZEPAM 2 MG/1 ML VIAL IV PRN (21:58)
[2016-07-30] MEDS ORDERED: LORAZEPAM 2 MG/1 ML VIAL ONE (22:01)
[2016-07-31] VITALS (15 sets, daily range): BP systolic 103–146; BP diastolic 42–82
[2016-07-31 05:34] LABS: ALBUMIN 3.1 g/dL (3.4-5.0); BILIRUBIN,TOTAL 0.9 mg/dL (0.2-1.0); CALCIUM 8.2 mg/dL (8.5-10.1); MAGNESIUM 2.1 mg/dL (1.8-2.4); PHOSPHOROUS 5.2 mg/dL (2.5-4.9); POTASSIUM 4.7 mmol/L (3.5-5.1); TOTAL PROTEIN, SERUM 7.2 g/dL (6.4-8.2)
[2016-07-31 05:50] LABS: CREATININE 1.4 mg/dL (0.6-1.3)
[2016-07-31 06:01] LABS: ANISOCYTOSIS 1+; HYPOCHROMASIA 1+
[2016-07-31] MEDS: methylPREDNISolone SOD SUCC 40 MG/ML VIAL IV SCH ×3 (06:10→22:46)
[2016-07-31] MEDS: PANTOPRAZOLE SODIUM 40 MG VIAL IV SCH (06:10)
[2016-07-31] MEDS: IPRATROPIUM BROMIDE 0.5 MG/2.5 ML NEBU NEB SCH ×4 (07:07→20:57)
[2016-07-31] MEDS: ACETYLCYSTEINE 20% 800 MG/4 ML VIAL NEB SCH ×3 (07:07→23:22)
[2016-07-31] MEDS: ALBUTEROL SULFATE 2.5 MG/3 ML NEBU NEB SCH ×4 (07:07→20:57)
[2016-07-31] MEDS: BLOOD SUGAR DIAGNOSTIC 1 EACH STRIP VI SCH ×4 (07:49→21:33)
[2016-07-31] MEDS: LORAZEPAM 2 MG/1 ML VIAL IV PRN (08:00)
[2016-07-31] MEDS: FUROSEMIDE 20 MG TABLET PO SCH ×2 (08:00→18:59)
[2016-07-31] MEDS: ASPIRIN 81 MG TAB.CHEW GT SCH (08:00)
[2016-07-31 09:10] LABS: ABG HCO3 33.7 mmol/L; ABG PCO2 67.3 mmHg (35.0-45.0); ABG PH 7.318 (7.350-7.450); ABG PO2 58.2 mmHg (75.0-100.0); ABG SITE RIGHT RADIAL; ABG TOTAL HEMOGLOBIN 10.6 G/dL (12.0-16.0); COHb 1.6 % (0.5-1.5); MetHb 0.2 % (0.0-1.5); O2Hb 85.1 % (94.0-97.0); VENT MODE Nasal Cannula
[2016-07-31] MEDS: CLOBETASOL PROPIONATE 0.05% CREAM 15 GM TUBE TOP SCH ×2 (10:21→21:40)
[2016-07-31 11:39] LABS: LYMPHOCYTES # (AUTO) 0.8 K/uL (20.0-40.0); MEAN CORPUSCULAR HGB CONC 31 g/dL (32.3-35.6); MONOCYTES # (AUTO) 0.9 K/uL (2.0-10.0)
[2016-07-31 11:43] LABS: HEMATOCRIT 33.9 % (31.2-41.9); HEMOGLOBIN 10.5 g/dL (10.9-14.3); MEAN CORPUSCULAR VOLUME 80.6 fL (75.5-95.3); PLATELET COUNT (AUTO) 258 K/uL (179-408); RED CELL DISTRIBUTION WIDTH 15.4 % (12.3-17.7); WHITE BLOOD COUNT (AUTO) 9.9 K/uL (3.8-11.8)
[2016-07-31 11:44] LABS: BASOPHILS % (AUTO) 0.1 % (0.0-2.0); EOSINOPHILS % (AUTO) 0.4 % (0.0-7.0); LYMPHOCYTES % (AUTO) 8.4 % (20.5-51.5); MONOCYTES % (AUTO) 9.3 % (0.0-11.0); NEUTROPHILS # (AUTO) 8.2 K/uL (1.8-8.9); NEUTROPHILS % (AUTO) 81.8 % (38.5-71.5)
[2016-07-31] MEDS: INSULIN REGULAR, HUMAN 300 UNIT/3 ML VIAL SQ PRN ×2 (12:14→19:00)
[2016-07-31 13:20] LABS: BAND % (MANUAL) 7 % (0-10); LYMPHOCYTES % (MANUAL) 11 % (20-40); MONOCYTES % (MANUAL) 9 % (2-10); MYELOCYTES % 1 % (0-0); NEUTROPHILS % (MANUAL) 72 % (42-75)
[2016-07-31 13:21] LABS: PLATELET ESTIMATE ADEQUATE
[2016-07-31] MEDS ORDERED: RIVAROXABAN 15 MG TABLET PO SCH (18:00)
--- NOTE | 2016-07-31 20:00 | NUR ---
PATIENT RECEIVED SITTING UP IN BED AWAKE AND COMFORTABLE WITH DAUGHTER AT BEDSIDE. PT IS AOX3 HYPERVERBAL AND ANXIOUS BUT REFUSING PRN MEDICATION. PATIENT IS ON 3 LITERS OXYGEN VIA NASAL CANULA. MONIQUE CATHETER INTACT AND IN PLACE, URINE YELLOW IN COLOR. PATIENT ALSO HAS HEP LOCK IN LEFT ARM #20 INTACT AND PATENT. HEP LOCK IN RIGHT ARM REMOVED. PATIENT SITTING UP IN BED AND RECEIVING RESPIRATORY TREATMENT ORDERED. BED IN LOW AND LOCKED POSITION, HEAD OF BEAD UP AND CALL LIGHT WITHIN REACH.
[2016-07-31] MEDS ORDERED: INSULIN DETEMIR 300 UNIT/3 ML CARTRIDGE SQ SCH (21:00)
[2016-07-31] MEDS: INSULIN REGULAR, HUMAN 300 UNITS/3 ML VIAL SQ PRN (21:36)
[2016-07-31] MEDS: ATORVASTATIN 40 MG TABLET PO SCH (21:37)
--- NOTE | 2016-07-31 22:30 | NUR ---
PATIENT COMPLIANT WITH MEDICATIONS PO, FINGERSTICK AT BEDTIME 235, REGULAR INSULIN SLIDING SCALE COVERAGE GIVEN AND LEVIMIR ORDERED. NOTED REDNESS TO ABDOMINAL FOLDS AND GROIN AREA, CREAM APPLIED ORDERED. PATIENT ON TELE MONITOR AT THIS TIME, SINUS RHYTH. NO ACUTE DISTRESS NOTED. SAFETY MEASURES MAINTAINED.
[2016-08-01 00:20] VITALS: BP 130/59
--- NOTE | 2016-08-01 02:30 | NUR ---
PATENT AWAKE IN BED, OBSERVED TO BE ANXIOUS/RESTLESS BUT REFUSING PRN MEDICATIONS. PATIENT REPOSITION EVERY TWO HOURS AND ON AIR MATTRESS. COUGH NOTED, RESPIRATORY THERAPY CALLED FOR PRN NEBULIZER TREATMENT. NO ACUTE DISTRESS NOTED. SAFETY MEASURES MAINTAINED.
[2016-08-01] MEDS: ALBUTEROL SULFATE 1.25 MG/3 ML NEBU NEB PRN (03:48)
[2016-08-01 04:00] VITALS: BP 125/54
--- NOTE | 2016-08-01 05:50 | NUR ---
PATIENT SITTING UP IN BED SLEEPING, OBSERVED COUGHING AT TIMES, PATIENT GIVEN NEBULIZER TREATMENT BY RESPIRATORY THERAPY. MONIQUE CATHETER INTACT. REMAINS ON OXYGEN AT 3 LITERS VIA NASAL CANULA. NO ACUTE DISTRESS NOTED. SAFETY MEASURES MAINTAINED.
[2016-08-01] MEDS: PANTOPRAZOLE SODIUM 40 MG VIAL IV SCH (06:14)
[2016-08-01] MEDS: methylPREDNISolone SOD SUCC 40 MG/ML VIAL IV SCH ×3 (06:14→21:00)
[2016-08-01] MEDS: BLOOD SUGAR DIAGNOSTIC 1 EACH STRIP VI SCH ×4 (06:30→21:08)
[2016-08-01] MEDS: ACETYLCYSTEINE 20% 800 MG/4 ML VIAL NEB SCH ×3 (07:11→22:47)
[2016-08-01] MEDS: ALBUTEROL SULFATE 2.5 MG/3 ML NEBU NEB SCH ×4 (07:11→19:54)
[2016-08-01] MEDS: IPRATROPIUM BROMIDE 0.5 MG/2.5 ML NEBU NEB SCH ×4 (07:12→19:54)
[2016-08-01 07:44] LABS: CALCIUM 8.9 mg/dL (8.5-10.1); CREATININE 1.2 mg/dL (0.6-1.3); MAGNESIUM 1.9 mg/dL (1.8-2.4); PHOSPHOROUS 3.9 mg/dL (2.5-4.9); POTASSIUM 5.2 mmol/L (3.5-5.1)
[2016-08-01] MEDS: FUROSEMIDE 20 MG TABLET PO SCH ×2 (07:44→16:13)
[2016-08-01] MEDS: ASPIRIN 81 MG TAB.CHEW GT SCH (07:44)
[2016-08-01 07:49] LABS: BASOPHILS % (AUTO) 0.3 % (0.0-2.0); EOSINOPHILS % (AUTO) 0.4 % (0.0-7.0); HEMATOCRIT 32.8 % (31.2-41.9); HEMOGLOBIN 10.3 g/dL (10.9-14.3); LYMPHOCYTES # (AUTO) 0.7 K/uL (20.0-40.0); LYMPHOCYTES % (AUTO) 8.1 % (20.5-51.5); MEAN CORPUSCULAR HEMOGLOBIN 25.1 uug (24.7-32.8); MEAN CORPUSCULAR HGB CONC 31 g/dL (32.3-35.6); MEAN CORPUSCULAR VOLUME 79.8 fL (75.5-95.3); MONOCYTES # (AUTO) 0.5 K/uL (2.0-10.0); MONOCYTES % (AUTO) 5.9 % (0.0-11.0); NEUTROPHILS # (AUTO) 7.2 K/uL (1.8-8.9); NEUTROPHILS % (AUTO) 85.3 % (38.5-71.5); PLATELET COUNT (AUTO) 292 K/uL (179-408); RED BLOOD CELL COUNT(AUTO) 4.11 MIL/uL (3.63-4.92); RED CELL DISTRIBUTION WIDTH 14.8 % (12.3-17.7); WHITE BLOOD COUNT (AUTO) 8.4 K/uL (3.8-11.8)
[2016-08-01] MEDS: CLOBETASOL PROPIONATE 0.05% CREAM 15 GM TUBE TOP SCH ×2 (07:51→21:06)
[2016-08-01] MEDS: INSULIN REGULAR, HUMAN 300 UNIT/3 ML VIAL SQ PRN ×3 (07:53→16:15)
--- NOTE | 2016-08-01 08:00 | NUR ---
Pt is in no acute distress. Pt alert and oriented. Noted multiple scabs on bilateral arms. IV on left arm intact and patent. Aspiration and Fall precautions implemented. Call light is within reach.
[2016-08-01 09:06] LABS: ABG HCO3 32.2 mmol/L; ABG PH 7.386 (7.350-7.450); ABG PO2 56.7 mmHg (75.0-100.0); ABG SITE RIGHT RADIAL; ABG TOTAL HEMOGLOBIN 11.3 G/dL (12.0-16.0); COHb 1.4 % (0.5-1.5); MetHb 0.2 % (0.0-1.5); O2Hb 87.2 % (94.0-97.0); VENT MODE Nasal Cannula
[2016-08-01 12:00] VITALS: BP 115/50
--- NOTE | 2016-08-01 12:00 | NUR ---
OT saw pt. per OT pt states that she poops on the floor at home and needs frequent help at home. Pt tolerated physical therapy. Call light is within reach.
--- NOTE | 2016-08-01 13:00 | NUR ---
Notified Dr pak that pt's BS has been elevated this am and lunch time above bs 300's and that we are already on agressive sliding scale. New order received to increase her Lantus to 65 units. Call light is within reach.
[2016-08-01] MEDS: GUAIFENESIN/DEXTROMETHORPHAN 5 ML UDC PO PRN ×2 (13:11→22:33)
[2016-08-01 16:00] VITALS: BP 126/62
--- NOTE | 2016-08-01 18:39 | NUR ---
Pt is in no acute distress. Call light is within reach. Pt had good appetite for dinner. Prune Juice non effective and no result of BM. New order received to start colace HS.
--- NOTE | 2016-08-01 20:00 | NUR ---
PATIENT RECEIVED IN BED HEAD OF BED ELEVATED. PT IS AOX3 AND COOPERATIVE. WHEEZING NOTED WITH AUSCULTATION, PT RECEIVING BREATHING TREATMENT VIA RT. HEP LOCK IN LEFT FOREARM, INTACT AND PATENT. MONIQUE CATHETER IN PLACE AND PATENT. NO ACUTE DISTRESS NOTED. DAUGHTER AT BEDSIDE. SAFETY MEASURES MAINTAINED.
[2016-08-01 20:11] VITALS: BP 134/57
[2016-08-01] MEDS: ATORVASTATIN 40 MG TABLET PO SCH (21:00)
[2016-08-01] MEDS ORDERED: INSULIN DETEMIR 300 UNIT/3 ML CARTRIDGE SQ SCH (21:00)
[2016-08-01] MEDS ORDERED: DOCUSATE SODIUM 100 MG CAPSULE PO SCH (21:00)
[2016-08-01] MEDS: INSULIN REGULAR, HUMAN 300 UNITS/3 ML VIAL SQ PRN (21:14)
--- NOTE | 2016-08-01 21:59 | NUR ---
PT LEFT HAND HEP LOCK INFILTRATED, HEP LOCK REMOVED. IV INITIATED IN RIGHT FOREARM #20, INTACT AND PATENT.
--- NOTE | 2016-08-01 23:00 | NUR ---
PATIENT AWAKE AND SITTING UP IN BED. COMPLIANT WITH MEDICATIONS. FINGERSTICK 414MG/DL AT BEDTIME, 10 UNITS REGULAR INSULIN COVERAGE GIVEN AND MD AWARE OF 414MG/DL FINGERSTICK. REMAINS ON O2 AT 3 LITERS VIA NASAL CANULA, COUGH NOTED AND WILL RECEIVED ROBITUSSIN ORDERED. PT TURNED EVERY TWO HOURS. SAFETY MEASURES PROVIDED.
[2016-08-02 00:32] VITALS: BP 157/70
[2016-08-02] MEDS: ALBUTEROL SULFATE 1.25 MG/3 ML NEBU NEB PRN (02:40)
[2016-08-02 04:00] VITALS: BP 137/65
[2016-08-02] MEDS: GUAIFENESIN/DEXTROMETHORPHAN 5 ML UDC PO PRN (05:19)
--- NOTE | 2016-08-02 05:51 | NUR ---
PT AWAKE, SITTING UP IN BED. PT CONTINUES TO COUGH, GIVEN ROBITUSSIN ORDERED. VITAL SIGNS WNL. PT ON OXYGEN 3 LITERS VIA NASAL CANULA. NO ACUTE DISTRESS NOTED. SAFETY MEASURES PROVIDED.
[2016-08-02] MEDS: PANTOPRAZOLE SODIUM 40 MG VIAL IV SCH (06:24)
[2016-08-02] MEDS: methylPREDNISolone SOD SUCC 40 MG/ML VIAL IV SCH (06:25)
[2016-08-02] MEDS: BLOOD SUGAR DIAGNOSTIC 1 EACH STRIP VI SCH (06:31)
--- NOTE | 2016-08-02 06:57 | NUR ---
PT AWAKE AND SITTING UP IN BED. FINGERSTICK 322MG/DL, NO S/S HYPERGLYCEMIA NOTED. COMPLIANT WITH MEDICATIONS. NO ACUTE DISTRESS NOTED. SAFETY MEASURES MAINTAINED.
[2016-08-02 06:58] LABS: BASOPHILS % (AUTO) 0.2 % (0.0-2.0); EOSINOPHILS % (AUTO) 0.5 % (0.0-7.0); HEMATOCRIT 36.4 % (31.2-41.9); HEMOGLOBIN 11.4 g/dL (10.9-14.3); LYMPHOCYTES # (AUTO) 1.1 K/uL (20.0-40.0); LYMPHOCYTES % (AUTO) 12.3 % (20.5-51.5); MEAN CORPUSCULAR HGB CONC 31 g/dL (32.3-35.6); MONOCYTES # (AUTO) 0.6 K/uL (2.0-10.0); MONOCYTES % (AUTO) 6.9 % (0.0-11.0); NEUTROPHILS # (AUTO) 7.6 K/uL (1.8-8.9); NEUTROPHILS % (AUTO) 80.1 % (38.5-71.5); PLATELET COUNT (AUTO) 267 K/uL (179-408); RED BLOOD CELL COUNT(AUTO) 4.55 MIL/uL (3.63-4.92); RED CELL DISTRIBUTION WIDTH 14.6 % (12.3-17.7); WHITE BLOOD COUNT (AUTO) 9.3 K/uL (3.8-11.8)
[2016-08-02] MEDS: ACETYLCYSTEINE 20% 800 MG/4 ML VIAL NEB SCH (07:06)
[2016-08-02] MEDS: ALBUTEROL SULFATE 2.5 MG/3 ML NEBU NEB SCH (07:06)
[2016-08-02 07:16] LABS: CALCIUM 9.5 mg/dL (8.5-10.1); CREATININE 1.2 mg/dL (0.6-1.3); MAGNESIUM 1.8 mg/dL (1.8-2.4); POTASSIUM 4.9 mmol/L (3.5-5.1)
[2016-08-02] MEDS ORDERED: BISACODYL 10 MG SUPP.RECT RC PRN (07:45)
[2016-08-02] MEDS ORDERED: MAGNESIUM HYDROXIDE 30 ML LIQUID UDC PO PRN (07:45)
[2016-08-02] MEDS: INSULIN REGULAR, HUMAN 300 UNIT/3 ML VIAL SQ PRN (07:59)
[2016-08-02] MEDS: FUROSEMIDE 20 MG TABLET PO SCH (08:00)
[2016-08-02] MEDS: ASPIRIN 81 MG TAB.CHEW GT SCH (08:00)
[2016-08-02] MEDS: CLOBETASOL PROPIONATE 0.05% CREAM 15 GM TUBE TOP SCH (08:01)
--- NOTE | 2016-08-02 08:44 | NUR ---
Clinical Provider Trainer: The patient's daughter is currently refusing for her to go to a SNF. [facility] [ ; ] was providing services in the past. Patient will be be transported via private cab arranged by the daughter. The patient and daughter are aware and agreeable with the discharge plans. CM/SW will follow-up.
--- NOTE | 2016-08-02 09:00 | NUR ---
Pt had small bm MOM effective with prune juice.
[2016-08-02 10:03] LABS: ABG BASE EXCESS 8.3 mmol/L; ABG HCO3 34.7 mmol/L; ABG PCO2 57.3 mmHg (35.0-45.0); ABG PO2 62.1 mmHg (75.0-100.0); ABG SITE RIGHT BRACHIAL; ABG TOTAL HEMOGLOBIN 11.6 G/dL (12.0-16.0); COHb 1.4 % (0.5-1.5); MetHb 0.1 % (0.0-1.5); O2Hb 89.4 % (94.0-97.0); VENT MODE Nasal Cannula
--- NOTE | 2016-08-02 11:30 | NUR ---
Discharge instructions given to pt and daughter. Verbalized understanding. Pharmacist educated pt and daughter about medications for home. Notified high school social science teacher that pt was only able to walk a few feet and to check on PT's recommendations. Per industrial workers- pt is to go home with oxygen and home health [facility] set up. Pt is in no acute distress. IV d/c. Pt voided after f/c d/c d @730. Daughter in a hurry to take pt home. Pt refused for pictures of skin updates. "we r leaving now and we dont have time for that". No sob noted upon discharge pt went home through taxi. Pt to f/u with pmd within 1 week.
== END 2016-08-02 11:30 | disposition home health service (06) | DRG 208 ==
LOC: ER 13:57 → CCU 20:07 → TELE 07-31 13:57
PROVIDERS: ADMIT Internal Medicine; ATTEND Internal Medicine
PROC: 5A1945Z Respiratory Ventilation, 24-96 Consecutive Hours (ICD-10-PCS; principal; 2016-07-26)
PROC: 0BH17EZ Insertion of Endotracheal Airway into Trachea, Via Natural or Artificial Opening (ICD-10-PCS; 2016-07-26)
PROC: 5A09357 Assistance with Respiratory Ventilation, Less than 24 Consecutive Hours, Continuous Positive Airway Pressure (ICD-10-PCS; 2016-07-26)
DX: J96.21 Acute and chronic respiratory failure with hypoxia (principal); I50.33 Acute on chronic diastolic (congestive) heart failure; N17.0 Acute kidney failure with tubular necrosis; I13.0 Hypertensive heart and chronic kidney disease with heart failure and stage 1 through stage 4 chronic kidney disease, or unspecified chronic kidney disease; E66.2 Morbid (severe) obesity with alveolar hypoventilation; I48.92 Unspecified atrial flutter; K92.2 Gastrointestinal hemorrhage, unspecified; D68.59 Other primary thrombophilia; E44.0 Moderate protein-calorie malnutrition; J98.11 Atelectasis; J44.1 Chronic obstructive pulmonary disease with (acute) exacerbation; J96.22 Acute and chronic respiratory failure with hypercapnia; N18.9 Chronic kidney disease, unspecified; E87.5 Hyperkalemia; I25.2 Old myocardial infarction; Z87.891 Personal history of nicotine dependence; G47.33 Obstructive sleep apnea (adult) (pediatric); E11.65 Type 2 diabetes mellitus with hyperglycemia; T38.0X5A Adverse effect of glucocorticoids and synthetic analogues, initial encounter; Y92.89 Other specified places as the place of occurrence of the external cause; K59.09 Other constipation; Z68.38 Body mass index [BMI] 38.0-38.9, adult; Z90.49 Acquired absence of other specified parts of digestive tract; G89.4 Chronic pain syndrome; Z87.892 Personal history of anaphylaxis; Z88.1 Allergy status to other antibiotic agents; I25.10 Atherosclerotic heart disease of native coronary artery without angina pectoris; I48.0 Paroxysmal atrial fibrillation; Z86.19 Personal history of other infectious and parasitic diseases; Z79.4 Long term (current) use of insulin; K64.9 Unspecified hemorrhoids; L40.9 Psoriasis, unspecified; Z82.49 Family history of ischemic heart disease and other diseases of the circulatory system; M48.00 Spinal stenosis, site unspecified; I89.0 Lymphedema, not elsewhere classified; T24.30 Burn of third degree of unspecified site of lower limb, except ankle and foot; D50.0 Iron deficiency anemia secondary to blood loss (chronic); Z85.828 Personal history of other malignant neoplasm of skin; I70.0 Atherosclerosis of aorta; E78.5 Hyperlipidemia, unspecified; V89.2XXS Person injured in unspecified motor-vehicle accident, traffic, sequela; Z74.09 Other reduced mobility; T14.90 Injury, unspecified; F41.0 Panic disorder [episodic paroxysmal anxiety]; Z88.0 Allergy status to penicillin; Z88.2 Allergy status to sulfonamides; Z79.84 Long term (current) use of oral hypoglycemic drugs; Z87.01 Personal history of pneumonia (recurrent); Z87.440 Personal history of urinary (tract) infections; Z99.81 Dependence on supplemental oxygen
CPT/HCPCS: 36415; 36600; 70030-TC; 71010; 74000; 76770; 83605; 83735; 84100; 84133; 84156; 84300; 85025; 87040; 87070; 87086; 93005; 93307; 94002; 94003; 94640; 97001; 97003; 97110; 97116; 97530; A4663; C9113; J0330; J1815; J1940; J2060; J2270; J2920; J2930; J3490; J3590; J7050

== ENCOUNTER 2016-12-24 02:34 | Inpatient (IN) | payer MEDICARE, OTHER ==
[~2016-12-24] VITALS: Ht 165.1 cm; Wt 133.8 kg
[2016-12-24] VITALS (32 sets, daily range): BP systolic 69–152; BP diastolic 32–106
[~2016-12-24 02:34] MED LIST changes: +ALBU8HFA4 IH; -ETOMIDATE 20 MG/10 ML VIAL MC ONE; -FLUO15CR2 TP; +INSU100C SQ; -INSU100C4 SQ; -KETO120S2 TP; +LEVA15HF5 INH; +LEVO50TA8 PO; -SUCCINYLCHOLINE CHLORIDE 200 MG/10 ML VIAL MC ONE; -[UNRECOGNIZED DRUG - MIXTURE] PO
[2016-12-24] MEDS ORDERED: FURO20TA4 PO ×2 (03:05)
[2016-12-24] MEDS ORDERED: SIMV10TA6 PO (03:05)
[2016-12-24] MEDS ORDERED: ASPI81TA31 PO (03:05)
[2016-12-24 03:36] LABS: ALANINE AMINOTRANSFERASE 23 U/L (14-59); ALKALINE PHOSPHATASE 43 U/L (50-136); ASPARTATE AMINOTRANSFERASE 22 U/L (15-37); BILIRUBIN,DIRECT 0.1 mg/dL (0.0-0.2); BILIRUBIN,TOTAL 0.4 mg/dL (0.2-1.0); TOTAL PROTEIN, SERUM 7.7 g/dL (6.4-8.2)
--- NOTE | 2016-12-24 03:51 | NUR ---
Pt biba from home for c/o sob. Pt arrived on a NRB on 15L and tachypnic. When removed pt's O2 sats dropped to 77% on RA with in 1-2 mins. Pt placed on monitor, ST. EKG obtained. IV established, labs drawn and sent. Pt seen by Dr. Martini for MSE. Pt received and completed breathing treatment from RT. RT now at bedside to obtain ABG. Pt medicated for sob and discomfort, will monitor for effects of medication. Fluid bolus and magnesium infusing via pump. Family at bedside.
[2016-12-24 04:02] LABS: ABG BASE EXCESS -11.5 mmol/L; ABG HCO3 17.1 mmol/L; ABG PCO2 55.4 mmHg (35.0-45.0); ABG PH 7.107 (7.350-7.450); ABG PO2 48.3 mmHg (75.0-100.0); ABG SITE LEFT BRACHIAL; ABG TOTAL HEMOGLOBIN 6.2 G/dL (12.0-16.0); COHb 1.9 % (0.5-1.5); MetHb 1.4 % (0.0-1.5); VENT MODE Nasal Cannula
[2016-12-24 04:23] LABS: BASOPHILS # (AUTO) 0.1 K/uL (0.0-8.0); BASOPHILS % (AUTO) 0.7 % (0.0-2.0); EOSINOPHILS # (AUTO) 0.3 K/uL (0.0-0.7); EOSINOPHILS % (AUTO) 2.4 % (0.0-7.0); HEMATOCRIT 36.2 % (37-47); HEMOGLOBIN 10.9 G/DL (12.0-16.0); LYMPHOCYTES # (AUTO) 1.4 K/UL (0.8-4.8); LYMPHOCYTES % (AUTO) 11.2 % (20.5-51.5); MEAN CORPUSCULAR HEMOGLOBIN 24.6 UUG (27.0-31.0); MEAN CORPUSCULAR HGB CONC 30 g/dL (32.0-37.0); MEAN CORPUSCULAR VOLUME 81.6 FL (81.0-99.0); MONOCYTES % (AUTO) 7.8 % (0.0-11.0); NEUTROPHILS # (AUTO) 10.1 K/UL (1.8-8.9); NEUTROPHILS % (AUTO) 77.9 % (38.5-71.5); PLATELET COUNT (AUTO) 345 K/UL (150-450); RED BLOOD CELL COUNT(AUTO) 4.44 MIL/UL (4.2-5.4); WHITE BLOOD COUNT (AUTO) 12.9 K/UL (4.0-11.2)
[2016-12-24 04:26] LABS: CARBON DIOXIDE 31 mmol/L (21-32); CHLORIDE 104 mmol/L (98-107); CREATININE 1.3 mg/dL (0.6-1.3); GLUCOSE 265 mg/dL (74-106); UREA NITROGEN, BLOOD 41 mg/dL (7-18)
[2016-12-24 04:28] LABS: POTASSIUM 6.9 mmol/L (3.5-5.1)
--- NOTE | 2016-12-24 04:30 | NUR ---
Pt resting in position of comfort for self. Pt remains tachypnic but maintaining O2 sats > 87% on 3L NC.
--- NOTE | 2016-12-24 05:15 | NUR ---
Pt medicated for elevated potassium. Remains NSR to ST on monitor. Pt appears to be sleeping and intermittently wakes up yelling out but is calmed and reoriented easily. Pt remains diaphortic but is afebrile. Daughter remains at bedside. Admission pending.
--- NOTE | 2016-12-24 05:35 | NUR ---
Report given to DIDI Cartagena. Preparing to transfer pt to the floor.
--- NOTE | 2016-12-24 05:55 | NUR ---
ABT infusion completed, no adverse reactions noted.
--- NOTE | 2016-12-24 07:00 | NUR ---
PT RECEIVED FROM ED, PT WAS DIAPHORETIC, AND TACHYPNEIC, PT WAS CLEANED AND SETTLED INTO ROOM, CALLED MD FOR ADMIT ORDERS, ENDORSED THE PLAN OF CARE TO DAY SHIFT NURSE.
--- NOTE | 2016-12-24 07:40 | NUR ---
PATIENT RECEIVED IN ROOM RESTING IN BED LETHARGIC. SR ON DRIVER SALESMAN. RESPIRATIONS EVEN AND LABORED. 02 SAT 88% IN 4L/NC. SIMPLE MASK APPLIED AND O2 INCREASED TO 6L/NC. UP TO SAT 93%. RT CALLED FOR HHNEB TX.
--- NOTE | 2016-12-24 08:20 | NUR ---
PATIENT DESATURATING LOW 80s. PLACED ON 15L/NON REBREATHER MASK. OXYGEN UP TO 93%. PATIENT ON CONTINUES PULSE OX.
--- NOTE | 2016-12-24 08:30 | NUR ---
PATIENT'S BS [address] CASTILLO NOTIFED. DETAILED REPORT GIVEN. SEE NEW ORDERS. Addendum: 12/24/16 at 1533 by BUBBA THAKUR RN ABG RESULTS GIVEN TO DR. CASTILLO. NO NEW ORDERS RECEIVED. PATIENT CONTINUES ON 15L NON-REBREATHER MASK AT THIS TIME.
--- NOTE | 2016-12-24 09:34 | NUR ---
PATIENT SEEN BY DR. COBB.
--- NOTE | 2016-12-24 10:32 | NUR ---
Pharmacy clinical notes (Vancomycin dosing): S: 75 yo female; admitted with primary diagnosis of hyperkalemia due to Raul-inhibitor and acute renal insufficiency; she is also suffering from COPD exacerbation and PNA. O: BUN/SCR 41/1.3; WBC 12.9, TEMP 98.9 A/P: Since pt has compromised renal fxn; will dose vancomycin by fall of level; will dose @ 1500 mg x 1 dose; will order a level tomorrow and will adjust the dose accordingly
[2016-12-24 11:07] LABS: *CREATININE,URINE 18.9 mg/dL (30-125)
[2016-12-24 11:35] LABS: BASOPHILS % (AUTO) 0.3 % (0.0-2.0); EOSINOPHILS % (AUTO) 0.3 % (0.0-7.0); HEMATOCRIT 38.7 % (37-47); HEMOGLOBIN 11.2 G/DL (12.0-16.0); LYMPHOCYTES # (AUTO) 0.4 K/UL (0.8-4.8); LYMPHOCYTES % (AUTO) 3.7 % (20.5-51.5); MEAN CORPUSCULAR HEMOGLOBIN 24.1 UUG (27.0-31.0); MEAN CORPUSCULAR HGB CONC 29 g/dL (32.0-37.0); MEAN CORPUSCULAR VOLUME 83.6 FL (81.0-99.0); MONOCYTES # (AUTO) 0.2 K/UL (0.1-1.30); MONOCYTES % (AUTO) 1.8 % (0.0-11.0); NEUTROPHILS # (AUTO) 9.4 K/UL (1.8-8.9); NEUTROPHILS % (AUTO) 93.9 % (38.5-71.5); PLATELET COUNT (AUTO) 341 K/UL (150-450); RED BLOOD CELL COUNT(AUTO) 4.63 MIL/UL (4.2-5.4)
[2016-12-24 12:00] LABS: CARBON DIOXIDE 30 mmol/L (21-32); CHLORIDE 102 mmol/L (98-107); CREATININE 1.6 mg/dL (0.6-1.3); UREA NITROGEN, BLOOD 46 mg/dL (7-18)
[2016-12-24 12:02] LABS: GLUCOSE 544 mg/dL (74-106); POTASSIUM 7.6 mmol/L (3.5-5.1)
--- NOTE | 2016-12-24 12:08 | NUR ---
K 7.[address] CASTILLO NOTIFIED. SEE NEW ORDERS.
--- NOTE | 2016-12-24 12:49 | NUR ---
Bedside report received from mike Headley. Patient move from VALDEZ to ICU status at this time. Patient restless agitated and at times screaming. responsive to name only. Attempting to remove face mask and iv line. Edgar banerjee. notified. Addendum: 12/24/16 at 1348 by NASRIN CARR RN IV line to right thumb area noted to be infiltrated upon admitting patient to the unit. IV dcd at this time and a new one restarted to LFA. Right thumb noted to be black purplish cold to touch. Addendum: 12/24/16 at 1359 by NASRIN CARR RN Left thumb. where also another IV that was leaking . Left thumb noted to be purplish in color.
--- NOTE | 2016-12-24 13:59 | NUR ---
left thumb color noted to be increasing with time to other fingers. Dr. Gonzalez notified. Orders for aterial doppler received. Also Orders for picc line received.
--- NOTE | 2016-12-24 14:30 | NUR ---
At this time Dr. Bravo in the unit to examine patient, report given, orders received.
--- NOTE | 2016-12-24 14:50 | NUR ---
Dr. Gonzalez in the unit to examine patient, Dr. Bravo still in the unit.
--- NOTE | 2016-12-24 15:00 | NUR ---
With [address]. Bravo notified and orders to intubate patient, received. Dr. Parker from ER. notified.
--- NOTE | 2016-12-24 15:00 | NUR ---
At this time patient placed on BIPAP of 15/5 Rate of 20, FIO2 of 40% with orders for repeat ABG at 1610.
--- NOTE | 2016-12-24 15:14 | NUR ---
At this time Dr. Parker in the unit and patient placed. on bipap. with her been here, and nursing chief maintenance supervisor. in and aware of pt's condition. Dr. Bravo notified that Dr. Parker is suggested to put patient on BIPAP. Dr. Bravo notified of Dr. Parker suggestion and stated that patient needed to be intubated and did not meet criteria for BIPAP at this time. Dr. Parker informed and aware of plan.
--- NOTE | 2016-12-24 15:15 | NUR ---
PT PLACED ON BIPAP PER DR. BYRNES'S ORDERS. CURRENT BIPAP SETTINGS ARE 15/5, RR 20, 40% FIO2 WITH NO ISSUES. NO S/S OF RESPIRATORY DISTRESS AT THIS TIME. SPO2 93%. AMBU BAG IS AT BEDSIDE. ABG TO BE DONE IN ONE HOUR. WILL CONTINUE TO MONITOR.
--- NOTE | 2016-12-24 15:17 | NUR ---
At this time patient placed on BIPAP 15/5 and 40% FIO2.
--- NOTE | 2016-12-24 15:46 | NUR ---
Dr. Gonzalez called to be notified of low blood pressure.
--- NOTE | 2016-12-24 16:51 | NUR ---
A call from Dr. Bravo and orders to call Dr. Gonzalez and notify abnormal Duplex to ARSENIOE. Dr. Gonzalez called and notified.
--- NOTE | 2016-12-24 17:15 | NUR ---
Dr. Parker in the unit and notified of Repeated ABG's.
--- NOTE | 2016-12-24 17:20 | NUR ---
ATTEMPTED TO INTUBATE PER ABG/DR. BYRNES. ATTEMPT NOT SUCCESSFUL. INTUBATION ATTEMPT ENDED AT 1820. PT PLACED BACK ON BIPAP WITH SAME SETTINGS. WILL REATTEMPT LATER TONIGHT PER DR. BYRNES. AMBU BAG AT BEDSIDE.
--- NOTE | 2016-12-24 17:20 | NUR ---
At this time Dr. Elena HARRY. Physician in the unit and intubation process started. at exactly 1725 Etomidate 20 mg x1 dose administered as ordered. At the 1740 2nd dose of 20mg Etomidate given as ordered, with a total of 2 doses. After more than 5 failed attempts to intubate patient. And X 3 attempts to insert NG/OG tube to decompress stomach that slightly filled with air. Patient placed back on BIPAP 15/5 Rate of 20 and 40% FIO2. saturation above 92%. Heart rate of 78 and SBP of 97/47. will attempt intubation later. Addendum: 12/26/16 at 1918 by NASRIN CARR RN Attempts to intubated X2 with capnography. during intubation process pt's saturation between 88-95%.
[2016-12-24 18:13] LABS: ABG BASE EXCESS -5.5 mmol/L; ABG PCO2 134.3 mmHg (35.0-45.0); ABG PH 6.952 (7.350-7.450); ABG PO2 73.3 mmHg (75.0-100.0); ABG SITE RIGHT BRACHIAL; ABG TOTAL HEMOGLOBIN 11.3 G/dL (12.0-16.0); COHb 1.3 % (0.5-1.5); MetHb 0.4 % (0.0-1.5); O2Hb 90.2 % (94.0-97.0); VENT MODE BIPAP
[2016-12-24 18:18] LABS: ABG HCO3 28.1 mmol/L; ABG PCO2 141.6 mmHg (35.0-45.0); ABG PH 6.916 (7.350-7.450); ABG PO2 87.2 mmHg (75.0-100.0); ABG SITE RIGHT RADIAL; ABG TOTAL HEMOGLOBIN 11.4 G/dL (12.0-16.0); COHb 1.3 % (0.5-1.5); MetHb 0.3 % (0.0-1.5); O2Hb 92.9 % (94.0-97.0)
--- NOTE | 2016-12-24 18:33 | NUR ---
Dr. Gonzalez called to be notified of Blood sugar of 515mmhg. Insulin administered following the protocol. Awaiting call back. Addendum: 12/24/16 at 1905 by NASRIN CARR RN A call back at 1837 and orders to change levemir to 20units Sub Q Q12 hours with first dose to be given at 2100.
--- NOTE | 2016-12-24 18:45 | NUR ---
At this time both Dr. Kohler and Dr. Parker in the unit and patient intubated, 20mg of Etomidate given. patient intubated with first attempt with the help of Glydoscope. Addendum: 12/24/16 at 1854 by NASRIN CARR RN A/C 24 TV 600 FIO2 100%, PEEP of 5.
--- NOTE | 2016-12-24 18:50 | NUR ---
PT INTUBATED AT THIS TIME. DR. STALEY AND DR. BYRNES BOTH PRESENT. INTUBATION ATTEMPT SUCCESSFUL. CHEST RISE IS PRESENT. CO2 DETECTOR POSITIVE. BILATERAL BREATH SOUNDS ARE PRESENT. PT INTUBATED WITH 7.5 ETT, APPROXIMATELY 22CM AT THE LIP. VENT SETTINGS PER DR. STALEY'S ORDERS ARE AC 24, VT 600, PEEP +5, 100% FIO2. AMBU BAG IS AT BEDSIDE. HOSE COUPLING JOINER RT'S PRESENT/ASSISTING IN INTUBATION. HOSE COUPLING JOINER RT'S TO TAKE OVER DUTIES.
--- NOTE | 2016-12-24 19:36 | NUR ---
Pt intubated by ED MD's TS and HL and subsequently placed on Dunbar on settings of AC 24, VT 600, FIO2-100% and PEEP+5. 7.5 ETT is patent and secure at approx. 22cm at the lip. Pt to be monitored throughout the shift. Dunbar alarm parameters have been checked and remain audible at this time. BVM at bedside.
--- NOTE | 2016-12-24 20:00 | NUR ---
RECEIVED PT ORALLY INTUBATED TO VENT W/ SETTINGS OF AC-24,TV-600, FIO2-100%, PEEP-+5, W/ O2 SAT OF 100%.SUCTIONED VIA ETT & ORALLY W/ SCANTY AMT. OF THIN WHITISH MUCOUS. PICC LINE INSERTED ON DEEP. ON LEVOPHED DRIP @ 4MC/MIN. C-SCOPE SR W/ FIRST DEGREE AV BLOCK. F/C IN PLACE DRAINING TO CLEAR KAILA URINE. KEPT HOB ELEVATED.
--- NOTE | 2016-12-24 20:02 | NUR ---
ALDO WARREN DRIP @ 10MCQ/KG/MIN VIA ONE PORT OF PICC LINE. PT TRIED TO PULLED OUT ETT TUBE. ON GUANACO. SOFT WRIST RESTRAINTS.
[2016-12-24 20:20] LABS: ABG BASE EXCESS -6.4 mmol/L; ABG HCO3 21.1 mmol/L; ABG PCO2 50.5 mmHg (35.0-45.0); ABG PH 7.238 (7.350-7.450); ABG PO2 214.5 mmHg (75.0-100.0); ABG SITE LEFT BRACHIAL; ABG TOTAL HEMOGLOBIN 11.5 G/dL (12.0-16.0); MetHb 0.3 % (0.0-1.5); O2Hb 98.3 % (94.0-97.0); VENT MODE VENT - A/C
--- NOTE | 2016-12-24 20:30 | NUR ---
FIO2 to 60% per ABG results. RN RV aware/notified. No resp. distress noted at this time.
[2016-12-24 23:13] LABS: CARBON DIOXIDE 25 mmol/L (21-32); CHLORIDE 102 mmol/L (98-107); UREA NITROGEN, BLOOD 52 mg/dL (7-18)
[2016-12-24 23:17] LABS: GLUCOSE 424 mg/dL (74-106); POTASSIUM 6.9 mmol/L (3.5-5.1)
--- NOTE | 2016-12-24 23:25 | NUR ---
DR. CASTILLO CALLED & NOTIFIED OF REPEAT K+ LEVEL-6.9 W/ ORDERS. D50 1 AMP GIVEN IVP & FOLLOWED BY 10 UNITS OF REGULAR INSULIN IVP ORDERED.
[2016-12-25] VITALS (24 sets, daily range): BP systolic 96–155; BP diastolic 38–76
--- NOTE | 2016-12-25 04:00 | NUR ---
AM CARE DONE. ORAL CARE DONE. REPOSITIONED ON HER SIDE W/ HOB ELEVATED.
[2016-12-25 05:09] LABS: BASOPHILS % (AUTO) 0.4 % (0.0-2.0); EOSINOPHILS % (AUTO) 0.2 % (0.0-7.0); HEMATOCRIT 32.4 % (37-47); HEMOGLOBIN 9.9 G/DL (12.0-16.0); LYMPHOCYTES # (AUTO) 0.8 K/UL (0.8-4.8); LYMPHOCYTES % (AUTO) 7.5 % (20.5-51.5); MEAN CORPUSCULAR HEMOGLOBIN 24.7 UUG (27.0-31.0); MEAN CORPUSCULAR HGB CONC 30 g/dL (32.0-37.0); MEAN CORPUSCULAR VOLUME 81.1 FL (81.0-99.0); MONOCYTES # (AUTO) 0.5 K/UL (0.1-1.30); MONOCYTES % (AUTO) 4.7 % (0.0-11.0); NEUTROPHILS # (AUTO) 9.1 K/UL (1.8-8.9); NEUTROPHILS % (AUTO) 87.2 % (38.5-71.5); PLATELET COUNT (AUTO) 253 K/UL (150-450); RED BLOOD CELL COUNT(AUTO) 3.99 MIL/UL (4.2-5.4); WHITE BLOOD COUNT (AUTO) 10.4 K/UL (4.0-11.2)
--- NOTE | 2016-12-25 05:13 | NUR ---
Pt remains on Dunbar settings AC 24, VT 600, FIO2-60% and PEEP +5. 7.5 ETT remains patent and secure now at the left lip line at approx. 22cm. No resp. distress noted throughout the shift. Pt appeared to tolerate ventilator settings and resp neb txs well. BVM at bedside. Dunbar alarm parameters have been checked and are audible.
[2016-12-25 05:27] LABS: ALANINE AMINOTRANSFERASE 19 U/L (14-59); ALKALINE PHOSPHATASE 45 U/L (50-136); ASPARTATE AMINOTRANSFERASE 22 U/L (15-37); BILIRUBIN,TOTAL 0.9 mg/dL (0.2-1.0); CARBON DIOXIDE 27 mmol/L (21-32); CHLORIDE 105 mmol/L (98-107); CREATININE 1.8 mg/dL (0.6-1.3); GLUCOSE 198 mg/dL (74-106); MAGNESIUM 1.7 mg/dL (1.8-2.4); POTASSIUM 5.6 mmol/L (3.5-5.1); TOTAL PROTEIN, SERUM 6.6 g/dL (6.4-8.2); UREA NITROGEN, BLOOD 52 mg/dL (7-18)
--- NOTE | 2016-12-25 06:13 | NUR ---
PT. REMAINS SEDATED. V/S STABLE . REMAINS OFF OF LEVOPHED.
--- NOTE | 2016-12-25 07:30 | NUR ---
Pt received orally intubated on continuous mechanical ventilation via 7.5 ETT secured at 22cm lip line. Pt received in semi gordon position on Dunbar vent with ordered settings of A/C 24, VT-600, FIO2-60%, PEEP +5. ETT moved from left to right side of mouth. Tolerating vent settings well. Vent alarm parameters checked, on and audible. Bag/valve/mask at bedside. Sxn'd small amts of clear/white secretion. HME changed. PPE used.
[2016-12-25 08:25] LABS: ABG BASE EXCESS 2.5 mmol/L; ABG PCO2 27.2 mmHg (35.0-45.0); ABG PH 7.563 (7.350-7.450); ABG PO2 100.2 mmHg (75.0-100.0); ABG SITE LEFT BRACHIAL; ABG TOTAL HEMOGLOBIN 10.6 G/dL (12.0-16.0); COHb 0.9 % (0.5-1.5); MetHb 0.3 % (0.0-1.5); O2Hb 97.6 % (94.0-97.0); VENT MODE VENT - A/C; VT, ABG 600 mL
--- NOTE | 2016-12-25 10:30 | NUR ---
Krystle Freedman pt's daughter at bedside, and updated on her mother's condition.
--- NOTE | 2016-12-25 10:50 | NUR ---
Dr. Roldan nephrology services in to examine patient; full report given.
--- NOTE | 2016-12-25 11:09 | NUR ---
Clinical Pharmacy Note: Vancomycin Pharmacy to Dose Subjective: To continue vancomycin in this 75 y/o female for indication of r/o pna Objective: height 165 cm weight 231 lb BUN 52 Scr 1.8 Wbc 10.4 temp 97.9 Vanco random level: 17 (drawn at 0600- post 1500mg dose given on 12/24 at 1200) Assessment/Plan Due to unstable (increasing srcr), will continue to dose by fall off level. Since vanco random level is within therapeutic rang of 15-20 mcg/ml this am, will given vancomycin 1500mg IVPB x1 dose today at 1600. Pharmacist shall check srcr in am & decide when to order next random level for further dosing. Will continue to monitor
--- NOTE | 2016-12-25 12:00 | NUR ---
Dr. Long in the unit to examine patient, report given.
--- NOTE | 2016-12-25 12:44 | NUR ---
Dr. Bravo pulmonary services in the unit to examine patient; and pt's daughter updated by . Addendum: 12/25/16 at 1248 by NASRIN CARR RN Ventilator changes received and carried out by RT Ny who is present in the unit. A/C, Rate of 16, TV 550, 50% FIO2, and PEEP of 5.
--- NOTE | 2016-12-25 12:45 | NUR ---
Vent changes made per MD orders. Pt is now on A/C-16, VT-550, FIO2-50%, PEEP +5. Tolerating vent changes well. DIDI glaser.
--- NOTE | 2016-12-25 13:26 | NUR ---
Dr. Gonzalez in to examine patient; report given. and as stated he will up date pt's daughter Ms. MENA in the evening.
--- NOTE | 2016-12-25 19:22 | NUR ---
Pt rec'd on Dunbar settings of AC 16, VT 550, FIO2-40% and PEEP+5. 7.5 ETT is patent and secure at approx. 22cm at the left lip side. Pt to be monitored throughout the shift. Dunbar alarm parameters have been checked and remain audible at this time. BVM at bedside.
--- NOTE | 2016-12-25 20:00 | NUR ---
RECEIVED PT REMAINS SEDATED, ORALLY INTUBATED TO VENT W/ SETTINGS OF AC-16, TV-600, FIO2-40%, PEEP-+5. O2 SAT OF 100%. SUCTIONED ORALLY & VIA ETT W/ SCANTY THIN WHITISH MUCOUS. NGT ON R NARE INTACT & PATENT, REMAINS CLAMPED. PICC LINE ON DEEP INTACT & PATENT. IVF NS @ 100CC/HR. DIPRIVAN DRIP @ 50MCQ/KG/MIN.REPOSITIONED ON HER SIDE W/ HOB.
--- NOTE | 2016-12-25 20:10 | NUR ---
DR FREED CAME IN & SEEN THE RIGHT ARM W/ ORDER. TRIPLE ANTIBIOTIC APPLIED ON R HAND & WRAPPED W/ KERLIX DRSG. PICC LINE DRSG CHANGED.
[2016-12-25 21:42] LABS: *BILIRUBIN,URIN NEGATIVE (NEGATIVE); *BLOOD, URINE NEGATIVE (NEGATIVE); *CLARITY,URINE SLIGHTLY CLOUDY (CLEAR); *COLOR,URINE YELLOW (YELLOW); *KETONES,URINE NEGATIVE (NEGATIVE); *PROTEIN,URINE NEGATIVE (NEGATIVE); *UROBILINOGEN,URINE 0.2 E.U./dl (NORMAL); LEUKOCYTE ESTERASE ,URINE 2+ (NEGATIVE); NITRITE, URINE NEGATIVE (NEGATIVE); PH,URINE 5.5 (5.0-8.0); UGLUCOSE TRACE (NEGATIVE)
[2016-12-25 21:47] LABS: BACTERIA,URINE FEW /HPF (NONE SEEN); RBC,URINE 0-3 /HPF (0-3); SQUAMOUS EPITHELIAL CELL,UR FEW /HPF (NONE SEEN); WBC,URINE 50-80 /HPF (0-3)
--- NOTE | 2016-12-25 22:00 | NUR ---
HS CARE DONE. ORAL CARE DONE. REPOSITIONED W/ HOB ELEVATED.
[2016-12-26] VITALS (24 sets, daily range): BP systolic 92–153; BP diastolic 39–75
--- NOTE | 2016-12-26 04:00 | NUR ---
AM CARE DONE. SUCTIONED VIA ETT & ORALLY. ORAL CARE DONE. REPOSITIONED ON HER FOR CXR.
[2016-12-26 04:57] LABS: ALANINE AMINOTRANSFERASE 18 U/L (14-59); ALKALINE PHOSPHATASE 35 U/L (50-136); ASPARTATE AMINOTRANSFERASE 16 U/L (15-37); BILIRUBIN,TOTAL 0.4 mg/dL (0.2-1.0); CARBON DIOXIDE 25 mmol/L (21-32); CHLORIDE 107 mmol/L (98-107); CREATININE 1.6 mg/dL (0.6-1.3); MAGNESIUM 1.9 mg/dL (1.8-2.4); POTASSIUM 5.2 mmol/L (3.5-5.1); TOTAL PROTEIN, SERUM 5.9 g/dL (6.4-8.2); UREA NITROGEN, BLOOD 50 mg/dL (7-18)
[2016-12-26 05:15] LABS: GLUCOSE 341 mg/dL (74-106)
--- NOTE | 2016-12-26 05:57 | NUR ---
Patient remains on Viasys Dunbar with no changes made to the ventilator settings. No resp. distress noted throughout the shift. 7.[address], patent and secure now at the right lip line at approx. 22cm. Patient appeared to tolerate ventilator settings and resp neb txs well. Resusc. bag is at bedside. Viasys Dunbar alarm parameters have been checked and are audible.
--- NOTE | 2016-12-26 06:00 | NUR ---
SUCTIONED & REPOSITIONED ON HER SIDE W/ HOB ELEVATED. PT. REMAINS SEDATED.
--- NOTE | 2016-12-26 06:55 | NUR ---
Pt received in CCU bed 3, laying semi-Amaya's, sedated - unable to communicate.. Orally intubated with ETT 7.5, aprox 22 at the lip, ETT moved to left side of mouth, minor discoloration / skin abrasion on right side under ETT placement, RN aware.. ETT in place and secure with [place] Fast, no discoloration / irritation under / around face pads.. Mechanically ventilated, vent: Dunbar with settings: A/C 16, Vt 550, PEEP +5, FiO2 40%, tolerating well, no changes made to vent settings at this time.. Vent alarms checked, alarms functioning normally at this time.. Resp meds: 2.5 mg Albuterol + 0.5 mg Atrovent will be given Q6 as ordered by MD.. No s/s of respiratory distress at this time, will continue to monitor..
[2016-12-26 08:03] LABS: RED BLOOD CELL COUNT(AUTO) 3.93 MIL/UL (4.2-5.4); WHITE BLOOD COUNT (AUTO) 9.5 K/UL (4.0-11.2)
[2016-12-26 08:04] LABS: HEMATOCRIT 31.7 % (37-47); HEMOGLOBIN 9.8 G/DL (12.0-16.0); MEAN CORPUSCULAR HGB CONC 31 g/dL (32.0-37.0); MEAN CORPUSCULAR VOLUME 80.6 FL (81.0-99.0); PLATELET COUNT (AUTO) 254 K/UL (150-450)
[2016-12-26 08:05] LABS: LYMPHOCYTES % (AUTO) 6.1 % (20.5-51.5); MONOCYTES % (AUTO) 3.3 % (0.0-11.0); NEUTROPHILS % (AUTO) 90.5 % (38.5-71.5)
[2016-12-26 09:18] LABS: ABG BASE EXCESS -4.6 mmol/L; ABG HCO3 20.1 mmol/L; ABG PCO2 35.7 mmHg (35.0-45.0); ABG PH 7.369 (7.350-7.450); ABG PO2 83.9 mmHg (75.0-100.0); ABG SITE RIGHT BRACHIAL; ABG TOTAL HEMOGLOBIN 10.6 G/dL (12.0-16.0); COHb 0.6 % (0.5-1.5); MetHb 0.3 % (0.0-1.5); O2Hb 95.4 % (94.0-97.0); VENT MODE VENT - A/C; VT, ABG 550 mL
--- NOTE | 2016-12-26 14:05 | NUR ---
Dr. Ramey pulmonary services in the unit; full report given. see orders.
--- NOTE | 2016-12-26 15:57 | NUR ---
Clinical Pharmacy Note: Vancomycin Pharmacy to Dose Subjective: To continue vancomycin in this 75 y/o female for indication of r/o pna Objective: height 165 cm weight 231 lb BUN 50 Scr 1.6 Wbc 9.5 temp 98.9 Vanco random level: 20.1 (drawn at 0600- post 1500mg dose given on 12/25 at 1600) Assessment/Plan Due to unstable (still elevated), will continue to dose by fall off level. Since vanco random level is 20.1 mcg/ml this am, will give vancomycin 1500mg IVPB x1 dose today at 1600. Next Vancomycin random is scheduled to check tomorrow at 1600. Will continue to follow.
--- NOTE | 2016-12-26 19:20 | NUR ---
Pt received orally intubated in semi gordon position, sedated and on continuous mechanical ventilation. Receiving CMV via 7.5 ETT secured at 22cm lip line with [place] fast. No redness, irritation or skin tears noted around areas of [place] fast application. Pt is on Dunbar vent with ordered settings of A/C-16, VT-550, FIO2-30%, PEEP +5. ETT moved from left to right side of mouth. Tolerating vent settings well. In-line nebulizer Txs given as ordered Q6 with Albutero/Atrovent. Txs tolerated well, with no adverse reactions noted. Vent alarm parameters checked, on and audible. Bag/valve/mask at bedside. Sxn'd small amts of clear/white secretion. HME changed. PPE used.
--- NOTE | 2016-12-26 19:30 | NUR ---
Report received. Patient orally intubated and to mechanical ventilator with settings: AC=16, SU=312 ml, FIO2=30% and PEEP=5 cm. Sat above 96%. On continuous Diprivan drip for sedation. Withdraws to pain and with good cough reflex during suctioning, but doesn't open eyes. Assessment completed; see flow sheet for details. Addendum: 12/26/16 at 2312 by JATINDER COE RN Amended: Links added.
--- NOTE | 2016-12-26 22:30 | NUR ---
BP labile. Diprivan drip titrated down. BPs monitored closely. Tips of fingers mildly cyanotic. Radial pulses by doppler. Addendum: 12/27/16 at 0318 by JATINDER COE RN Amended: Links added.
--- NOTE | 2016-12-26 23:00 | NUR ---
Patient's daughter called. Updated of condition.
[2016-12-27] VITALS (51 sets, daily range): BP systolic 76–171; BP diastolic 35–85
--- NOTE | 2016-12-27 01:30 | NUR ---
Mildly agitated, bucking the vent. Still doesn't open eyes to name or painful stimuli. Diprivan drip titrated up for adequate sedation. Addendum: 12/27/16 at 0632 by JATINDER COE RN Amended: Links added.
[2016-12-27 04:56] LABS: CARBON DIOXIDE 24 mmol/L (21-32); CHLORIDE 109 mmol/L (98-107); CREATININE 1.4 mg/dL (0.6-1.3); GLUCOSE 258 mg/dL (74-106); MAGNESIUM 2.1 mg/dL (1.8-2.4); PHOSPHOROUS 4.6 mg/dL (2.5-4.9); POTASSIUM 4.9 mmol/L (3.5-5.1); UREA NITROGEN, BLOOD 46 mg/dL (7-18)
[2016-12-27 06:19] LABS: BASOPHILS % (AUTO) 0.1 % (0.0-2.0); HEMATOCRIT 34.2 % (37-47); HEMOGLOBIN 10.4 G/DL (12.0-16.0); LYMPHOCYTES % (AUTO) 8.9 % (20.5-51.5); MEAN CORPUSCULAR HEMOGLOBIN 24.4 UUG (27.0-31.0); MEAN CORPUSCULAR HGB CONC 31 g/dL (32.0-37.0); MEAN CORPUSCULAR VOLUME 79.9 FL (81.0-99.0); MONOCYTES % (AUTO) 4.1 % (0.0-11.0); NEUTROPHILS % (AUTO) 86.9 % (38.5-71.5); PLATELET COUNT (AUTO) 290 K/UL (150-450); RED BLOOD CELL COUNT(AUTO) 4.28 MIL/UL (4.2-5.4); WHITE BLOOD COUNT (AUTO) 10.2 K/UL (4.0-11.2)
--- NOTE | 2016-12-27 06:19 | NUR ---
No neuro changes. Diprivan drip remains at 50 mcg/kg/min. Continues to grimace to pain such as suctioning but doesn't open eyes. Dressing to L hand/thumb changed. Fingers and hand are edematous with blisters and areas of purple discoloration. Sat 96% and above on current vent settings.
[2016-12-27 06:20] LABS: LYMPHOCYTES # (AUTO) 0.9 K/UL (0.8-4.8); MONOCYTES # (AUTO) 0.4 K/UL (0.1-1.30); NEUTROPHILS # (AUTO) 8.9 K/UL (1.8-8.9)
--- NOTE | 2016-12-27 07:15 | NUR ---
76 yr old female admitted on 12/24/16 for chf to [facility], was readily transferred to CCU for respiratoy distress. Patient is sedated and intubated. IV NS at 100ml/hr. ewing catheter intact with goood urinary output. ngt clamped. arms and legs are elevated secondary to edema. dvt left radial vein noted.PICC line sly intact.ekg is sinus lori to sinus rhythm Addendum: 12/27/16 at 1109 by NANCY MCMAHON RN Amended: Links added.
--- NOTE | 2016-12-27 07:40 | NUR ---
PT REC'D ORALLY INTUBATED 7.0 ETT SECURE WITH TUBE BAILEY @ APPROX 22 LIP LINE, PT SEDATED ON MIRANDA VENT AC16 550VT PEEP5 30%FiO2. CONDITION OF SKIN AROUND TUBE HOLD INTACT NO REDNESS NOTED. PT TOLERATING CURRENT VENT SETTINGS WELL. IN LINE NEB MEDS TO BE GIVEN PER MD ORDER. ORAL CARE TO BE PERFORMED. BS GUANACO DIM CRACKLES NOTED, SXN'ING DONE THICK WHITISH SECRETIONS NOTED. NO WEANING ORDERED FOR THIS AM. VENT ALARMS AUDIBLE CHECKED AND RESET. BVM AT BEDSIDE.
--- NOTE | 2016-12-27 08:42 | NUR ---
medicated for restlessness while off diprivan drip for sedation vacation Addendum: 12/27/16 at 1229 by NANCY MCMAHON RN Amended: Links added. Addendum: 12/27/16 at 1230 by NANCY MCMAHON RN Amended: Links added.
--- NOTE | 2016-12-27 08:45 | NUR ---
seen by dr isabel with no new orders Addendum: 12/27/16 at 1113 by NANCY MCMAHON RN Amended: Angelito latif. Addendum: 12/27/16 at 1116 by NANCY MCMAHON RN Amended: Angelito latif.
[2016-12-27 09:38] LABS: ABG BASE EXCESS -4.3 mmol/L; ABG HCO3 20.3 mmol/L; ABG PCO2 35.6 mmHg (35.0-45.0); ABG PH 7.374 (7.350-7.450); ABG PO2 79.2 mmHg (75.0-100.0); ABG SITE LEFT RADIAL; COHb 0.8 % (0.5-1.5); MetHb 0.3 % (0.0-1.5); O2Hb 94.5 % (94.0-97.0); VENT MODE VENT - A/C16; VT, ABG 550 mL
--- NOTE | 2016-12-27 10:45 | NUR ---
seen by RAMIN Balderas. MILD DISABILITIES TEACHER talked to patient's daughter re plan of care. Family allowed to ask questions. daughter mainly concerned with DVT and swelling of the arm. Addendum: 12/27/16 at 1116 by NANCY MCMAHON RN Amended: Links added.
--- NOTE | 2016-12-27 12:20 | NUR ---
lj Zhao, covered with 8units katerine R SQ Addendum: 12/27/16 at 1230 by NANCY MCMAHON RN Amended: Links added.
--- NOTE | 2016-12-27 13:55 | NUR ---
Sherrie FAUSTIN here, reevaluated patient. bumex 1 mg given IV, IV fluid NS decreased to 75ml/hr as ordered Addendum: 12/27/16 at 1425 by NANCY MCMAHON RN Amended: Links added.
--- NOTE | 2016-12-27 15:30 | NUR ---
had hypotensive episodes from 78-80/30-50 with lori 39/min. levophed drip started at 1 mcg and titrated tokeep sbp >90 Addendum: 12/27/16 at 1552 by NANCY MCMAHON RN Amended: Links added.
--- NOTE | 2016-12-27 16:30 | NUR ---
seen by dr Ramey. orders received. ac down to 12. tomorrow will attempt cpap Addendum: 12/27/16 at 1812 by NANCY MCMAHON RN Amended: Links added.
--- NOTE | 2016-12-27 16:59 | NUR ---
Clinical Pharmacy Note: Vancomycin Pharmacy to Dose Subjective: To continue vancomycin in this 75 y/o female for indication of r/o pna Objective: height 165 cm weight 231 lb BUN 46 Scr 1.4 Wbc 10.2 temp 97.8 Vanco random level: 19.8 (drawn at 1600- post 1500mg dose given on 12/26 at 1600) Assessment/Plan Due to unstable (still elevated), will continue to dose by fall off level. Since vanco random level is 19.8 mcg/ml this am, will give vancomycin 1500mg IVPB x1 dose today at 1800. Next Vancomycin random is scheduled to check tomorrow at 1800. Will continue to follow.
--- NOTE | 2016-12-27 17:30 | NUR ---
lj 184, covered with 4 units humulin R SQ Addendum: 12/27/16 at 1810 by NANCY MCMAHON RN Amended: Links added. Addendum: 12/27/16 at 1812 by NANCY MCMAHON RN Amended: Links added.
--- NOTE | 2016-12-27 19:00 | NUR ---
Patient was received on Dunbar ventilator with prescribed settings of AC 12, Vt 550, +5, 30% FiO2. She is orally intubated with a size 7.5 Ettube, ~22cm Lip line, secured with Anchorfast. No signs of respiratory distress noted at this time. Inline HHN Txs administered and tolerated well; no adverse reactions noted. Suctioned small amounts of pale white thin secretions. Oral care rendered. HME changed. Alarm parameters assessed and are on and audible. Ambu bag at bedside. Will continue to monitor throughout shift.
--- NOTE | 2016-12-27 19:12 | NUR ---
CLAUDE report given to [email or web address]. Addendum: 12/27/16 at 1913 by NANCY MCMAHON RN Amended: Links added.
--- NOTE | 2016-12-27 19:30 | NUR ---
Report received. Patient orally intubated, mechanically ventilated with settings: AC=12, FIO2=30%, DA=905 ml and PEEP=5 cm. Sat above 96%. Sedated, with continuous Diprivan drip @ 35 mcg/kg/min. BOI=577's. Levophed drip dc'd. Will monitor BPs closely. Assessment completed. Addendum: 12/27/16 at 4160 by JATINDER COE RN Amended: Links added.
--- NOTE | 2016-12-27 20:00 | NUR ---
NGT feedings in progress at 10 ml/H. Residual=5ml. Suctioned; with good cough and gag reflexes during oral care and suctioning. Able to move arms up toward ETT. Still doesn't open eyes. HOB elevated above 30 degrees at all times. Addendum: 12/27/16 at 2240 by JATINDER COE RN Amended: Links added.
--- NOTE | 2016-12-27 21:00 | NUR ---
BP 70's systole. Levophed drip restarted at 0.5 mcg/min for BP support. Addendum: 12/27/16 at 2243 by JATINDER COE RN Amended: Links added.
--- NOTE | 2016-12-27 23:00 | NUR ---
Coughing, grimacing. Medicated with Ativan. BPs in the 140's-150's systole with Levophed drip @ only 0.5 mcg/min. Will continue to monitor for now. Addendum: 12/28/16 at 0140 by JATINDER COE RN Amended: Links added.
--- NOTE | 2016-12-27 23:30 | NUR ---
Ativan effective. Levophed drip turned off. BPs 130's-150's systole.
[2016-12-28] VITALS (45 sets, daily range): BP systolic 83–153; BP diastolic 40–92
--- NOTE | 2016-12-28 01:30 | NUR ---
BPs very labile; now in the 80's systole when off Levophed. Drip restarted @ 0.3 mcg/min.
[2016-12-28 04:50] LABS: BASOPHILS # (AUTO) 0.1 K/uL (0.0-8.0); BASOPHILS % (AUTO) 0.9 % (0.0-2.0); EOSINOPHILS % (AUTO) 0.1 % (0.0-7.0); HEMATOCRIT 33.9 % (37-47); HEMOGLOBIN 10.4 G/DL (12.0-16.0); LYMPHOCYTES # (AUTO) 0.7 K/UL (0.8-4.8); LYMPHOCYTES % (AUTO) 7.9 % (20.5-51.5); MEAN CORPUSCULAR HEMOGLOBIN 24.4 UUG (27.0-31.0); MEAN CORPUSCULAR HGB CONC 31 g/dL (32.0-37.0); MEAN CORPUSCULAR VOLUME 79.8 FL (81.0-99.0); MONOCYTES # (AUTO) 0.4 K/UL (0.1-1.30); MONOCYTES % (AUTO) 4.8 % (0.0-11.0); NEUTROPHILS # (AUTO) 7.6 K/UL (1.8-8.9); NEUTROPHILS % (AUTO) 86.3 % (38.5-71.5); PLATELET COUNT (AUTO) 334 K/UL (150-450); RED BLOOD CELL COUNT(AUTO) 4.25 MIL/UL (4.2-5.4); WHITE BLOOD COUNT (AUTO) 8.8 K/UL (4.0-11.2)
[2016-12-28 04:56] LABS: CARBON DIOXIDE 24 mmol/L (21-32); CHLORIDE 110 mmol/L (98-107); CREATININE 1.3 mg/dL (0.6-1.3); POTASSIUM 4.9 mmol/L (3.5-5.1); UREA NITROGEN, BLOOD 45 mg/dL (7-18)
[2016-12-28 04:59] LABS: GLUCOSE 301 mg/dL (74-106)
--- NOTE | 2016-12-28 06:45 | NUR ---
Levophed drip dc'd. BPs monitored closely. Diprivan drip titrated down to 25 mcg/kg/min. CPAP this am.Tolerating NGT feedings at 20 ml/H. HOB above 30 degrees at all times. Monitor: SB rate 50's. Addendum: 12/28/16 at 0650 by JATINDER COE RN Amended: Links added.
--- NOTE | 2016-12-28 07:20 | NUR ---
Patient received intubated with vent settings AC 12, TV 550, PEEP 5, FiO2 30% With oxygen sat 100%. E. Tube 7.5, at 22cm Lip line. Sinus Navneet with hr 47-56 on bed side monitor. Sedated on Diprivan drip at 25 mcg/min. Patient able to follow simple commands. NGT in place to right nare receiving Diabeticsource at 20 ml/hr. hob elevated. Ewing cath in place with yellow clear urine in ewing cath bag. C/d/i dressing to left first finger. Picture in chart. Heels elevated on pillows. PICC line to DEEP with dressing C/D/I. Running NS at 75c/hr. First step mattress and dvt pumps in place. Will continue monitoring.
--- NOTE | 2016-12-28 07:36 | NUR ---
PT RECEIVED ON CMV WITH ETT SECURED AND AIRWAY PATENT. PT COMFORTABLE AND REMAINS SEDATED . VENT ALARM SET AND AUDIBLE. PT TO BE WEANED AND PLACED ON CPAP AT 0900.
--- NOTE | 2016-12-28 07:40 | NUR ---
GT feedings off.
--- NOTE | 2016-12-28 08:47 | NUR ---
Patient attempting to reach for ETTube. Acute medical restrains ordered for safety. Addendum: 12/28/16 at 0849 by BUBBA THAKUR RN To prevent forceful extubation.
[2016-12-28 09:21] LABS: ABG BASE EXCESS -5.8 mmol/L; ABG HCO3 23.5 mmol/L; ABG PCO2 66.5 mmHg (35.0-45.0); ABG PH 7.166 (7.350-7.450); ABG PO2 61.7 mmHg (75.0-100.0); ABG SITE RIGHT RADIAL; ABG TOTAL HEMOGLOBIN 11.5 G/dL (12.0-16.0); COHb 0.9 % (0.5-1.5); CPAP,BG 8 cmH20; MetHb 0.3 % (0.0-1.5); VENT MODE CPAP
--- NOTE | 2016-12-28 09:26 | NUR ---
0900 PT PLACED ON CPAP 8. PT DID NOT APPEAR COMFORTABLE ON CPAP TRIAL. PT BECAME TACHYPNEIC AND ADEQUATE TIDAL VOLUMES WERE NOT BEING MET. SPO2 WAS FALLING BELOW 88%. 0915 ABG DRAWN. PER RESULTS, PT PLACED BACK ON PREVIOUS AC MODE. RN DEEP AWARE AND NOTIFIED. PT MORE COMFORTABLE WITH SPO2 96%.
--- NOTE | 2016-12-28 09:30 | NUR ---
Weaning trial started at 0900. Patient able to follow commands. At 0910 Patient 02 sat down to 78%- 84%, rr 33, HR 85. Patient with labored and shallow breathing, restlessness, agitation and coughing observed. 15 ABG drawn. Patient placed back on previous vent settings. VSS at this time. Awaiting for book repairer to arrive. Will continue monitoring.
--- NOTE | 2016-12-28 09:50 | NUR ---
Patient seen by Saadia Bañuelos NP. Detailed report given.
--- NOTE | 2016-12-28 10:00 | NUR ---
Patient back on AC mode. Diprivan titrated up for adequate sedation per protocol.
--- NOTE | 2016-12-28 10:10 | NUR ---
Call received from DR. Ramey. ABG results after weaning trial reported. No new orders at this time.
--- NOTE | 2016-12-28 13:38 | NUR ---
Patient seen by dr. Ramey. Report given.
--- NOTE | 2016-12-28 13:47 | NUR ---
Clinical Pharmacy Note: Vancomycin Pharmacy to Dose Subjective: To continue vancomycin in this 75 y/o female for indication of r/o pna Objective: height 165 cm weight 231 lb BUN 45 Scr 1.3 Wbc 10.4 temp 97.8 Vanco random level: pending today at 1800 Assessment/Plan Due to unstable (still elevated), will continue to dose by fall off level. Last dose of vancomycin 1500mg IVPB x1 was given yesterday at 1800. Next Vancomycin random is scheduled to check today at 1800. Will check level later today and re-dose as needed. Will continue to follow. Addendum: 12/28/16 at 1904 by PUNEET LUBIN VANCOMYCIN RANDOM IS 20.0 TODAY AT 1800. WILL GIVE 1500MGX 1 TONIGHT AT 2300. CONTINUE DOSING BY LEVEL ( NOT ORDERED YET). WILL CONTINUE TO FOLLOW.
--- NOTE | 2016-12-28 19:10 | NUR ---
Report received. Spoke to Carine Bañuelos NP re: result of MRSA swab and Bumex dose. Orders received. 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 Addendum: 12/28/16 at 2106 by JATINDER COE RN Amended: Links added.
--- NOTE | 2016-12-28 19:12 | NUR ---
PT RECEIVED ON MIRANDA VENT WITH CURRENT SETTINGS OF AC 12, VT 550, PEEP +5, 30% FIO2. PT APPEARS TO BE TOLERATING CURRENT SETTINGS AT THIS TIME. NO CHANGES MADE. PT IS ORALLY INTUBATED WITH SIZE 7.5 ETT, APPROXIMATELY 23CM AT THE LIP. ORAL CARE WAS DONE. ADMINISTERED Q6 ALBUTEROL/ATROVENT TX ORDERED. PT TOLERATED WELL. SUCTIONED A SMALL AMOUNT OF THIN, PALE SECRETIONS. HME CHANGED. ALARMS CHECKED, ARE ON AND AUDIBLE. AMBU BAG IS AT BEDSIDE. VENT IS PLUGGED INTO RED EMERGENCY OUTLET. NO S/S OF RESPIRATORY DISTRESS AT THIS TIME. WILL CONTINUE TO MONITOR.
--- NOTE | 2016-12-28 19:30 | NUR ---
Patient mildly restless; coughing and bucking the vent. Able to follow simple commands; reoriented. RT at bedside. Suctioned. Diprivan drip titrated for adequate sedation. Addendum: 12/28/16 at 2114 by JATINDER COE RN Amended: Links added.
--- NOTE | 2016-12-28 21:00 | NUR ---
Adequately sedated now with Diprivan drip @ 40mcg/kg/min. chemical laboratory tester: SB rate 50's. Addendum: 12/29/16 at 0011 by JATINDER COE RN Amended: Links added. Addendum: 12/29/16 at 0012 by JATINDER COE RN Amended: Links added.
--- NOTE | 2016-12-28 23:00 | NUR ---
Diprivan drip titrated down to 35 mcg/kg/min; SAS=3. Addendum: 12/29/16 at 0644 by JATINDER COE RN Amended: Links added. Addendum: 12/29/16 at 0646 by JATINDER COE RN Amended: Links added.
[2016-12-29] VITALS (25 sets, daily range): BP systolic 77–158; BP diastolic 41–72
--- NOTE | 2016-12-29 01:02 | NUR ---
Stable on current vent settings. Sat above 95%. Diprivan drip titrated down. SAS =3 Addendum: 12/29/16 at 0646 by JATINDER COE RN Amended: Links added.
[2016-12-29 05:06] LABS: BASOPHILS # (AUTO) 0.1 K/uL (0.0-8.0); BASOPHILS % (AUTO) 0.9 % (0.0-2.0); EOSINOPHILS % (AUTO) 0.1 % (0.0-7.0); HEMATOCRIT 31.9 % (37-47); HEMOGLOBIN 9.8 G/DL (12.0-16.0); LYMPHOCYTES # (AUTO) 0.7 K/UL (0.8-4.8); MEAN CORPUSCULAR HEMOGLOBIN 24.5 UUG (27.0-31.0); MEAN CORPUSCULAR HGB CONC 31 g/dL (32.0-37.0); MEAN CORPUSCULAR VOLUME 79.8 FL (81.0-99.0); MONOCYTES # (AUTO) 0.5 K/UL (0.1-1.30); MONOCYTES % (AUTO) 7.1 % (0.0-11.0); NEUTROPHILS # (AUTO) 5.9 K/UL (1.8-8.9); NEUTROPHILS % (AUTO) 82.9 % (38.5-71.5); PLATELET COUNT (AUTO) 283 K/UL (150-450); WHITE BLOOD COUNT (AUTO) 7.2 K/UL (4.0-11.2)
[2016-12-29 05:14] LABS: ALANINE AMINOTRANSFERASE 27 U/L (14-59); ALKALINE PHOSPHATASE 33 U/L (50-136); ASPARTATE AMINOTRANSFERASE 28 U/L (15-37); BILIRUBIN,TOTAL 0.4 mg/dL (0.2-1.0); CARBON DIOXIDE 26 mmol/L (21-32); CHLORIDE 110 mmol/L (98-107); CREATININE 1.2 mg/dL (0.6-1.3); MAGNESIUM 2.2 mg/dL (1.8-2.4); POTASSIUM 4.6 mmol/L (3.5-5.1); TOTAL PROTEIN, SERUM 5.5 g/dL (6.4-8.2); UREA NITROGEN, BLOOD 47 mg/dL (7-18)
[2016-12-29 05:19] LABS: GLUCOSE 317 mg/dL (74-106)
--- NOTE | 2016-12-29 06:00 | NUR ---
Am care rendered. Patient coughs when stimulated. Able to move both arms up to the level of the ETT but weak. Remains on Diprivan drip at 30 mcg/kg/min. Responded well to Bumex 1 mg IV. Tolerating NGT feedings; rate is now at 50 ml/H; HOB elevated above 30 degrees at all times. Contact isolation maintained. Addendum: 12/29/16 at 0616 by JATINDER COE RN Amended: Links added.
--- NOTE | 2016-12-29 07:10 | NUR ---
PATIENT RECEIVED SEDATED. SB ON BEDSIDE MONITOR. TOLERATING VENT SETTINGS. VSS. CONTINUES WITH G- TUBE FEEDINGS, DIABETICSOURCE RUNNING AT 50 CC/HR. HOB ELEVATED. MONIQUE CATH IN PLACE WITH URINE YELLOW AND CLEAR NOTED IN MONIQUE CATH BAG. C/D/I DRESSING NOTED TO RIGHT HAND AND ELEVATED ON PILLOWS. HEELS FLOATED ON PILLOWS. DVT PUMPS IN PLACE.
--- NOTE | 2016-12-29 07:37 | NUR ---
PT RECEIVED ON MIRANDA VENT, SETTINGS AC 12, Vt 550, +5, 30% FIO2. 7.5 ETT IS PATENT AND SECURED APPROX. 23CM AT THE LIP WITH ANCHOR FAST. PT TOLERATING VENT SETTINGS WELL AT THIS TIME. INLINE TX TOLERATED WELL. MINIMAL AMOUNT OF WHITE THIN SECRETIONS. ALARMS ARE ON AND AUDIBLE, BVM AT BEDSIDE. WILL CONTINUE TO MONITOR.
--- NOTE | 2016-12-29 10:00 | NUR ---
PATIENT SEEN BY ARIELLE DE DIOS. DETAILED REPORT GIVEN.
[2016-12-29 10:10] LABS: ABG BASE EXCESS -1.9 mmol/L; ABG HCO3 25.7 mmol/L; ABG PCO2 57.7 mmHg (35.0-45.0); ABG PH 7.266 (7.350-7.450); ABG PO2 82.4 mmHg (75.0-100.0); ABG SITE RIGHT RADIAL; COHb 0.8 % (0.5-1.5); MetHb 0.2 % (0.0-1.5); O2Hb 93.9 % (94.0-97.0); VENT MODE CPAP
--- NOTE | 2016-12-29 10:18 | NUR ---
ABG RESULTS RECEIVED. PATIENT PLACED BACK ON AC MODE ORDERED. DIPRIVAN DRIP TITRATED PER PROTOCOL.
--- NOTE | 2016-12-29 11:00 | NUR ---
DIPRIVAN TITRATED UP PER PROTOCOL UNTIL ADEQUATE SEDATION ACHIEVED.
--- NOTE | 2016-12-29 11:03 | NUR ---
Clinical Pharmacy Note: Vancomycin Pharmacy to Dose Subjective: To continue vancomycin in this 75 y/o female for indication of r/o pna Objective: height 165 cm weight 231 lb BUN 47 Scr 1.2 Wbc 7.2 temp 98.6 Vanco random level: 20.0 yesterday at 1800 Assessment/Plan Due to unstable (still elevated), will continue to dose by fall off level. Last dose of vancomycin 1500mg IVPB x1 was given yesterday at 2300. Next Vancomycin random is scheduled for tomorrow at 0600 with am labs. Will check level tomorrow am and re-dose as needed. Will continue to follow.
--- NOTE | 2016-12-29 14:54 | NUR ---
PATIENT WITH LOW BP 81/40. G-TUBE FEEDINGS STOPPED, LOWERED HOB AND DIPRIVAN TITRATED DOWN PER PROTOCOL. BP IMPROVED 107/51.
--- NOTE | 2016-12-29 17:50 | NUR ---
SPUTUM RESULTS REPORTED TO ARIELLE DE DIOS NP. SEE NEW ORDERS.
--- NOTE | 2016-12-29 19:25 | NUR ---
PT RECEIVED AND REPORT FROM DAY SHIFT DIDI MAC ; PT REASSESSED AND NO CHGS RT AT BEDSIDE TO CHECK PT AND VENT VSS AND SATS WNL PT SEDATED ON DIPRIVAN IV ALL LINES AND TUBES PATENT ; GAG REFLEX POSITIVE
--- NOTE | 2016-12-29 19:56 | NUR ---
Patient received on Viasys Dunbar settings of AC 12, VT 550, FIO2-30% and PEEP +5. 7.5 ETT is patent and secure at approx. 23cm at the lip. No resp. distress noted at this time. Oral care done. Patient to be administered resp neb txs per MD orders and monitored throughout the shift. Dunbar alarm parameters have been checked and remain audible at this time. Resusc. bag is at bedside.
--- NOTE | 2016-12-29 21:00 | NUR ---
pt skin care given as ordered
--- NOTE | 2016-12-29 21:30 | NUR ---
ORAL CARE PM CARE GIVEN REPOSITIONED
[2016-12-30] VITALS (23 sets, daily range): BP systolic 94–155; BP diastolic 34–64
--- NOTE | 2016-12-30 | NUR ---
pt accu ck 274 humulin R 12 units given as ordered sq and after checked with nursing staff development coordinator
--- NOTE | 2016-12-30 02:00 | NUR ---
ORAL CARE REPOSITIONED PT
--- NOTE | 2016-12-30 04:35 | NUR ---
LAB HERE AND BLOOD DRAW FROM PICC LINE PER PROTOCOL
--- NOTE | 2016-12-30 05:00 | NUR ---
RT TO CHECK ON PT AND VENT
--- NOTE | 2016-12-30 05:01 | NUR ---
Patient remains on Dunbar with no changes made to the ventilator settings. No resp. distress noted throughout the shift. 7.[address], patent and secure now at the right lip line at approx. 23 cm. Patient appeared to tolerate ventilator settings and resp neb txs well. BVM at bedside. Dunbar alarm parameters have been checked and are audible.
--- NOTE | 2016-12-30 05:19 | NUR ---
PCXRAY DONE PER RADIOLOGY
[2016-12-30 09:07] LABS: ABG BASE EXCESS 1.1 mmol/L; ABG HCO3 27.3 mmol/L; ABG PCO2 50.9 mmHg (35.0-45.0); ABG PH 7.347 (7.350-7.450); ABG PO2 70.1 mmHg (75.0-100.0); ABG SITE LEFT RADIAL; ABG TOTAL HEMOGLOBIN 10.6 G/dL (12.0-16.0); COHb 0.9 % (0.5-1.5); MetHb 0.2 % (0.0-1.5); O2Hb 92.4 % (94.0-97.0); VENT MODE VENT - A/C; VT, ABG 550 mL
[2016-12-30 09:10] LABS: EOSINOPHILS % (AUTO) 0.1 % (0.0-7.0); HEMATOCRIT 31.2 % (31.2-41.9); HEMOGLOBIN 9.7 g/dL (10.9-14.3); LYMPHOCYTES # (AUTO) 0.6 K/uL (20.0-40.0); LYMPHOCYTES % (AUTO) 9.3 % (20.5-51.5); MEAN CORPUSCULAR HEMOGLOBIN 24.9 uug (24.7-32.8); MEAN CORPUSCULAR HGB CONC 31 g/dL (32.3-35.6); MEAN CORPUSCULAR VOLUME 79.7 fL (75.5-95.3); MONOCYTES # (AUTO) 0.5 K/uL (2.0-10.0); MONOCYTES % (AUTO) 6.7 % (0.0-11.0); NEUTROPHILS # (AUTO) 5.7 K/uL (1.8-8.9); NEUTROPHILS % (AUTO) 83.9 % (38.5-71.5); PLATELET COUNT (AUTO) 218 K/uL (179-408); RED BLOOD CELL COUNT(AUTO) 3.92 MIL/uL (3.63-4.92); WHITE BLOOD COUNT (AUTO) 6.8 K/uL (3.8-11.8)
[2016-12-30 09:11] LABS: CARBON DIOXIDE 30 mmol/L (21-32); CHLORIDE 112 mmol/L (98-107); CREATININE 1.1 mg/dL (0.6-1.3); GLUCOSE 260 mg/dL (74-106); POTASSIUM 5.2 mmol/L (3.5-5.1); UREA NITROGEN, BLOOD 50 mg/dL (7-18)
--- NOTE | 2016-12-30 10:44 | NUR ---
RAMIN DE DIOS came and visited pt .updated with pts status and condition .informed about patients labs and vital signs .see orders
--- NOTE | 2016-12-30 11:23 | NUR ---
FARM CONTRACTOR MD DOCTOR STEINBERG came and updated with patients condition see orders.
--- NOTE | 2016-12-30 11:29 | NUR ---
:DUC came and spoked with pts daughter with regards to patients condition and plan of treatment updated md with patient condition.
--- NOTE | 2016-12-30 14:12 | NUR ---
Clinical Pharmacy Note: Vancomycin Pharmacy to Dose Subjective: To continue vancomycin in this 75 y/o female for indication of pneumonia, uti with early sepsis Objective: height 165 cm weight 231 lb BUN 50 Scr 1.1 Wbc 6.8 temp 99.2 Vanco random level: 20.4 today at 0440 Assessment/Plan Due to unstable (still elevated), will continue to dose by fall off level. Vancomycin 1500mg IVPB x1 was given today at 1300. Next Vancomycin random is not ordered yet(will decide upon getting tomorrow's lab result). Will continue to follow.
--- NOTE | 2016-12-30 14:16 | NUR ---
pt transported to cat scan department via bed with 2 RN ,respiratory therapist and cat scan fire extinguisher technician for chest ct with out contrast,pt tolerated the text back to room .
--- NOTE | 2016-12-30 15:26 | NUR ---
DR: GEOVANNA came and visited pt ,updated md with patients condition .
--- NOTE | 2016-12-30 16:23 | NUR ---
Received pt stable on current settings. In line treatment given and tolerated well. Suctioned as needed for small amount of thick whitish secretions. transferred to CCU bed 2 due to monitor not working in CCU 3. Brought down to CT for chest scan and back to room CCU 2 without incident. Weaning order was cancelled in the morning. abg was drawn with result called to Kim High RN.
[2016-12-30 16:26] LABS: CARBON DIOXIDE 30 mmol/L (21-32); CHLORIDE 110 mmol/L (98-107); CREATININE 1.1 mg/dL (0.6-1.3); POTASSIUM 4.6 mmol/L (3.5-5.1); UREA NITROGEN, BLOOD 50 mg/dL (7-18)
[2016-12-30 16:37] LABS: GLUCOSE 307 mg/dL (74-106)
--- NOTE | 2016-12-30 19:26 | NUR ---
Pt received on Dunbar settings of AC 12, VT 550, FIO2-30% and PEEP +5. 7.5 ETT is patent and secure at approx. 23cm at the lip. No resp. distress noted at this time. Oral care done. Patient to be administered resp neb txs per MD orders and monitored throughout the shift. Dunbar alarm parameters have been checked and remain audible at this time. Resusc. bag is at bedside.
[2016-12-31] VITALS (24 sets, daily range): BP systolic 90–177; BP diastolic 34–73
--- NOTE | 2016-12-31 00:01 | NUR ---
Left hand color has improved still swollen. Continues aggressive scale / Insulin coverage. Adequate urine output per Jain. Tolerates NGT feeding; with minimal residual. ETT to vent; settings as ordered. Right upper arm PICC; site clear. SCD leg squeezers. Woke up easily & responded appropriately, during sedation vacation. Daughter had called to check on patient.
[2016-12-31 05:00] LABS: BASOPHILS % (AUTO) 0.3 % (0.0-2.0); EOSINOPHILS % (AUTO) 0.8 % (0.0-7.0); HEMATOCRIT 30.9 % (37-47); HEMOGLOBIN 9.2 G/DL (12.0-16.0); LYMPHOCYTES # (AUTO) 0.8 K/UL (0.8-4.8); LYMPHOCYTES % (AUTO) 13.3 % (20.5-51.5); MEAN CORPUSCULAR HEMOGLOBIN 24.1 UUG (27.0-31.0); MEAN CORPUSCULAR HGB CONC 30 g/dL (32.0-37.0); MEAN CORPUSCULAR VOLUME 80.4 FL (81.0-99.0); MONOCYTES # (AUTO) 0.4 K/UL (0.1-1.30); MONOCYTES % (AUTO) 6.2 % (0.0-11.0); NEUTROPHILS % (AUTO) 79.4 % (38.5-71.5); PLATELET COUNT (AUTO) 230 K/UL (150-450); RED BLOOD CELL COUNT(AUTO) 3.84 MIL/UL (4.2-5.4); WHITE BLOOD COUNT (AUTO) 6.2 K/UL (4.0-11.2)
[2016-12-31 05:08] LABS: CARBON DIOXIDE 31 mmol/L (21-32); CHLORIDE 110 mmol/L (98-107); CREATININE 1.1 mg/dL (0.6-1.3); MAGNESIUM 2.4 mg/dL (1.8-2.4); PHOSPHOROUS 3.4 mg/dL (2.5-4.9); POTASSIUM 4.8 mmol/L (3.5-5.1); TRIGLYCERIDES 173 MG/DL (30-150); UREA NITROGEN, BLOOD 48 mg/dL (7-18)
[2016-12-31 05:12] LABS: GLUCOSE 326 mg/dL (74-106)
--- NOTE | 2016-12-31 06:04 | NUR ---
Patient remains on Dunbar with no changes made to the ventilator settings. No resp. distress noted throughout the shift. 7.[address], patent and secure now at left side of the pt's mouth at approx. 23 cm at the lip. Patient appeared to tolerate ventilator settings and resp neb txs well. BVM at bedside. Dunbar alarm parameters have been checked and are audible.
[2016-12-31 09:19] LABS: ABG BASE EXCESS 3.6 mmol/L; ABG HCO3 29.4 mmol/L; ABG PCO2 50.4 mmHg (35.0-45.0); ABG PH 7.384 (7.350-7.450); ABG SITE LEFT BRACHIAL; ABG TOTAL HEMOGLOBIN 10.9 G/dL (12.0-16.0); COHb 0.9 % (0.5-1.5); MetHb 0.1 % (0.0-1.5); O2Hb 93.2 % (94.0-97.0); VENT MODE VENT - A/C; VT, ABG 550 mL
--- NOTE | 2016-12-31 13:10 | NUR ---
seen by Sherrie FAUSTIN, talked to patient's daughter at the bedside re plan of care. Propofol drip decreased down to 5 mcg for ventilator weaning procedure. Addendum: 12/31/16 at 1310 by NANCY MCMAHON RN Amended: Links added.
--- NOTE | 2016-12-31 13:36 | NUR ---
IV propofol turned off per weaning trial protocol. Pt placed on CPAP, PSV-8 by respiratory therapist. ABG to be done in 2hrs.
[2016-12-31 15:41] LABS: ABG BASE EXCESS 3.2 mmol/L; ABG HCO3 30.1 mmol/L; ABG PCO2 57.8 mmHg (35.0-45.0); ABG PH 7.335 (7.350-7.450); ABG SITE LEFT BRACHIAL; CPAP,BG 8 cmH20; MetHb 0.4 % (0.0-1.5); O2Hb 93.5 % (94.0-97.0); VENT MODE CPAP
--- NOTE | 2016-12-31 15:59 | NUR ---
Spoke with RAMIN Bañuelos and made aware of pt's ABG results. PRECISION AGRONOMIST stated to let pt rest and place pt back on AC 12, TV-550, 30% FiO2, and PEEP-5. Addendum: 12/31/16 at 1602 by ALANA WESTBROOK RN AC-14 not 12*
--- NOTE | 2016-12-31 16:10 | NUR ---
Pt placed back on continuous ventilation settings as follows by respiratory therapist: AC 14, TV-550ml, 30% FiO2, and PEEP-5. IV propofol resumed per protocol for pt comfort and safety.
--- NOTE | 2016-12-31 19:25 | NUR ---
RECEIVED PT ON CONTINUOUS VENT AC 14 VT 550 PEEP 5 FIO2 30% . ETT 7.5 SECURED VIA ANCHOR FAST AT 23 CM LIP LINE. BS DIMINISHED BILAT. IN LINE TX GIVEN WITH UD ALBUTEROL + UD ATROVENT ORDERED. ORAL CARE DONE. SUCTION PRN. VENT CHECKED, ALARMS WORKING WELL AND AUDIBLE. AMBU BAG AT BEDSIDE. NO VENT CHANGES MADE AT THIS TIME. WILL CONTINUE TO MONITOR.
[2017-01-01] VITALS (23 sets, daily range): BP systolic 95–158; BP diastolic 51–79
--- NOTE | 2017-01-01 00:01 | NUR ---
Adequate urine output per Jain. Left hand color has improved still swollen. Continues aggressive scale / Insulin coverage. Tolerates NGT feeding; with minimal residual. ETT to vent; settings as ordered. Right upper arm PICC; site clear. SCD leg squeezers. Woke up easily & responded appropriately, during sedation vacation. Daughter had called to check on patient.
[2017-01-01 05:02] LABS: BASOPHILS % (AUTO) 0.3 % (0.0-2.0); EOSINOPHILS % (AUTO) 0.1 % (0.0-7.0); HEMATOCRIT 29.9 % (37-47); HEMOGLOBIN 9.5 G/DL (12.0-16.0); LYMPHOCYTES # (AUTO) 0.8 K/UL (0.8-4.8); LYMPHOCYTES % (AUTO) 8.5 % (20.5-51.5); MEAN CORPUSCULAR HEMOGLOBIN 25.2 UUG (27.0-31.0); MEAN CORPUSCULAR HGB CONC 32 g/dL (32.0-37.0); MEAN CORPUSCULAR VOLUME 79.5 FL (81.0-99.0); MONOCYTES # (AUTO) 0.6 K/UL (0.1-1.30); MONOCYTES % (AUTO) 6.7 % (0.0-11.0); NEUTROPHILS # (AUTO) 7.7 K/UL (1.8-8.9); NEUTROPHILS % (AUTO) 84.4 % (38.5-71.5); PLATELET COUNT (AUTO) 228 K/UL (150-450); RED BLOOD CELL COUNT(AUTO) 3.76 MIL/UL (4.2-5.4); WHITE BLOOD COUNT (AUTO) 9.1 K/UL (4.0-11.2)
[2017-01-01 05:15] LABS: CARBON DIOXIDE 33 mmol/L (21-32); CHLORIDE 108 mmol/L (98-107); CREATININE 1.2 mg/dL (0.6-1.3); MAGNESIUM 2.2 mg/dL (1.8-2.4); PHOSPHOROUS 4.3 mg/dL (2.5-4.9); POTASSIUM 4.5 mmol/L (3.5-5.1); UREA NITROGEN, BLOOD 53 mg/dL (7-18)
[2017-01-01 05:19] LABS: GLUCOSE 333 mg/dL (74-106)
--- NOTE | 2017-01-01 07:45 | NUR ---
Pt received orally intubated on continuous mechanical ventilation via 7.5 ETT secured at approximately 23cm lip line. Pt received in semi gordon position on Dunbar vent with ordered settings of A/C 14, VT-550, FIO2-30%, PEEP +5. ETT moved from left to right side of mouth. Tolerating vent settings well. Sxn'd for small amts of white/yellowish secretions. Vent alarm parameters checked, on and audible. Bag/valve/mask at bedside. Sxn'd small amts of clear/white secretion. HME changed. Oral care done. Proper isolation precaution equipment used. Will continue to monitor.
--- NOTE | 2017-01-01 07:45 | NUR ---
Pt received this am on ETT 7.5 @ 22cm lip on continuous ventilation settings as follows: AC-14, TV-550ml, 30% FiO2, and PEEP-5. client relationship consultant and ventilation alarms working properly wnl. IV propofol at 40mcg/kg/min. IVF tko. Jain catheter intact and draining properly. Right nares nasogastric tube with 10ml of gastric residual and kept clamped and turned off in light of cpap weaning trial for 0800. Pt stable and nad noted.
--- NOTE | 2017-01-01 08:00 | NUR ---
IV propofol turned off per cpap weaning trial protocol. Pt placed on CPAP with PSV-8 as ordered. ABG's to be done in 1hr.
--- NOTE | 2017-01-01 08:00 | NUR ---
Pt placed on CPAP PS 8, PEEP +5, FIO2 35%. Will continue monitoring.
[2017-01-01 08:58] LABS: ABG BASE EXCESS 4.4 mmol/L; ABG HCO3 30.2 mmol/L; ABG PCO2 51.1 mmHg (35.0-45.0); ABG PO2 78.2 mmHg (75.0-100.0); ABG SITE LEFT BRACHIAL; ABG TOTAL HEMOGLOBIN 10.6 G/dL (12.0-16.0); CPAP,BG 8 cmH20; MetHb 0.4 % (0.0-1.5); O2Hb 93.6 % (94.0-97.0); VENT MODE CPAP
--- NOTE | 2017-01-01 09:25 | NUR ---
Dr. Ramey here to see pt and daughter at the bedside. All questions answered by MD. Pt to be extubated today per MD. New orders received and carried out.
--- NOTE | 2017-01-01 09:40 | NUR ---
Pt extubated and placed on 4L NC by respiratory therapist as ordered by Dr. Ramey.
--- NOTE | 2017-01-01 09:45 | NUR ---
Pt extubated and placed on 3LPM Nasal cannula. No complications. No respiratory distress noted. Daughter at bedsided. Will continue to monitor.
--- NOTE | 2017-01-01 18:51 | NUR ---
End of shift: Pt resting and dozing off in bed on 0.5L nasal cannula oxygen. rehab therapist and alarms working properly wnl. IVF tko. Jain catheter intact and draining properly. Tube feeding infusing as ordered with gastric residual less than 10ml. HOB kept elevated. Pt hemodynamically stable and nad noted.
--- NOTE | 2017-01-01 23:16 | NUR ---
Note to pharmacy: Morphine given & charted; elsewhere, in eMar.
--- NOTE | 2017-01-01 23:36 | NUR ---
Note to pharmacy: Tylenol given & charted; elsewhere, in eMar.
[2017-01-02] VITALS (23 sets, daily range): BP systolic 111–180; BP diastolic 50–81
--- NOTE | 2017-01-02 00:01 | NUR ---
Daughter had called to check on patient; this evening. Adequate urine output per Jain. Left hand color has improved still swollen. Continues aggressive scale / Insulin coverage. Tolerates NGT feeding; with minimal residual. Right upper arm PICC; site clear. SCD leg squeezers.
[2017-01-02 05:05] LABS: HEMATOCRIT 30.6 % (37-47); HEMOGLOBIN 9.2 G/DL (12.0-16.0); MEAN CORPUSCULAR HEMOGLOBIN 24.1 UUG (27.0-31.0); MEAN CORPUSCULAR HGB CONC 30 g/dL (32.0-37.0); MEAN CORPUSCULAR VOLUME 80.3 FL (81.0-99.0); NEUTROPHILS % (AUTO) 84.2 % (38.5-71.5); PLATELET COUNT (AUTO) 263 K/UL (150-450); RED BLOOD CELL COUNT(AUTO) 3.81 MIL/UL (4.2-5.4); WHITE BLOOD COUNT (AUTO) 7.6 K/UL (4.0-11.2)
[2017-01-02 05:06] LABS: BASOPHILS % (AUTO) 0.3 % (0.0-2.0); EOSINOPHILS % (AUTO) 0.1 % (0.0-7.0); LYMPHOCYTES # (AUTO) 0.7 K/UL (0.8-4.8); LYMPHOCYTES % (AUTO) 9.2 % (20.5-51.5); MONOCYTES # (AUTO) 0.5 K/UL (0.1-1.30); MONOCYTES % (AUTO) 6.2 % (0.0-11.0); NEUTROPHILS # (AUTO) 6.4 K/UL (1.8-8.9)
[2017-01-02 05:20] LABS: CARBON DIOXIDE 38 mmol/L (21-32); CHLORIDE 108 mmol/L (98-107); CREATININE 0.9 mg/dL (0.6-1.3); GLUCOSE 244 mg/dL (74-106); MAGNESIUM 2.6 mg/dL (1.8-2.4); PHOSPHOROUS 5.1 mg/dL (2.5-4.9); UREA NITROGEN, BLOOD 49 mg/dL (7-18)
[2017-01-02 09:44] LABS: ABG BASE EXCESS 8.1 mmol/L; ABG HCO3 34.8 mmol/L; ABG PCO2 61.5 mmHg (35.0-45.0); ABG PH 7.371 (7.350-7.450); ABG PO2 51.6 mmHg (75.0-100.0); ABG SITE RIGHT RADIAL; ABG TOTAL HEMOGLOBIN 9.9 G/dL (12.0-16.0); COHb 1.1 % (0.5-1.5); MetHb 0.4 % (0.0-1.5); O2Hb 83.6 % (94.0-97.0); VENT MODE Nasal Cannula
--- NOTE | 2017-01-02 11:54 | NUR ---
Dr. Ramey pulmonary services in the unit to examine patient, and also updated pt's daughter who remains at bedside. Report given, see orders.
--- NOTE | 2017-01-02 13:10 | NUR ---
Speech therapist in the unit to evaluate patient. After the rest recommendations for 1 ounce of ice chip received. During this time patient desaturated all the way down to 78-79 oxygen increased to 1 liter since it was done to 1/2 liter via nasal canula.
--- NOTE | 2017-01-02 15:45 | NUR ---
Saadia Bañuelos [employer] at bedside examining patient, report given. Orders received.
--- NOTE | 2017-01-02 19:30 | NUR ---
report received on nasal cannula at 1 liter /min. no sob tolerating oxygen saturation 88 % to 89 %. Addendum: 01/03/17 at 0158 by ALYSON DALE RN Amended: Links added.
--- NOTE | 2017-01-02 20:00 | NUR ---
turned and repositioned ,skin care provided .found right lower abdomen with small raise area and discoloration picture taken and documented. Addendum: 01/03/17 at 0206 by ALYSON DALE RN Amended: Links added.
--- NOTE | 2017-01-02 21:00 | NUR ---
pt desaturating to 87% to 88% ,pt mouth breathing o2 titrated to 2 liters pt saturation improved. Addendum: 01/03/17 at 0212 by ALYSON DALE RN Amended: Angelito added. Addendum: 01/03/17 at 217 by ALYSON DALE RN Amended: Links added. Addendum: 01/03/17 at 0221 by ALYSON DALE RN Amended: Links added. Addendum: 01/03/17 at 0224 by ALYSON DALE RN Amended: Links added.
--- NOTE | 2017-01-02 23:22 | NUR ---
pt was restless,screaming and facial grimace noted .bp elevated .unable to described pain levels medicated with morphine prn with good results for pain control after 30 minutes patient was quiet and calm intermittently.advised pt to sleep . Addendum: 01/03/17 at 0218 by ALYSON DALE RN Amended: Links added. Addendum: 01/03/17 at 0221 by ALYSON DALE RN Amended: Links added. Addendum: 09/26/17 at 0224 by ALYSON DALE RN Amended: Links added.
--- NOTE | 2017-01-02 23:22 | NUR ---
pt in bed restless ,screaming , facial grimace and patient started to cry patient is very anxious and bp 180/76 map 114,when asked if she is in pain pt unable to described pain levels medicated with Morphine prn for pain and continue to monitor levels of comfort and vital signs .
[2017-01-03] VITALS (8 sets, daily range): BP systolic 130–163; BP diastolic 61–84
--- NOTE | 2017-01-03 01:00 | NUR ---
continue to observed MRSA isolation . respiratory therapist at bedside for treatment . pt advised to sleep so that she can participate with plan of care in am . Addendum: 01/03/17 at 0221 by ALYSON DALE RN Amended: Links added. Addendum: 01/03/17 at 0224 by ALYSON DALE RN Amended: Links added.
[2017-01-03 04:51] LABS: BASOPHILS % (AUTO) 0.8 % (0.0-2.0); EOSINOPHILS % (AUTO) 0.1 % (0.0-7.0); HEMATOCRIT 28.8 % (37-47); HEMOGLOBIN 8.6 G/DL (12.0-16.0); LYMPHOCYTES # (AUTO) 0.6 K/UL (0.8-4.8); LYMPHOCYTES % (AUTO) 10.1 % (20.5-51.5); MEAN CORPUSCULAR HGB CONC 30 g/dL (32.0-37.0); MEAN CORPUSCULAR VOLUME 80.1 FL (81.0-99.0); MONOCYTES # (AUTO) 0.4 K/UL (0.1-1.30); MONOCYTES % (AUTO) 6.3 % (0.0-11.0); NEUTROPHILS # (AUTO) 5.1 K/UL (1.8-8.9); NEUTROPHILS % (AUTO) 82.7 % (38.5-71.5); PLATELET COUNT (AUTO) 236 K/UL (150-450); WHITE BLOOD COUNT (AUTO) 6.1 K/UL (4.0-11.2)
[2017-01-03 05:00] LABS: CARBON DIOXIDE 39 mmol/L (21-32); CHLORIDE 109 mmol/L (98-107); CREATININE 0.9 mg/dL (0.6-1.3); GLUCOSE 269 mg/dL (74-106); MAGNESIUM 2.5 mg/dL (1.8-2.4); PHOSPHOROUS 3.8 mg/dL (2.5-4.9); POTASSIUM 5.1 mmol/L (3.5-5.1); UREA NITROGEN, BLOOD 47 mg/dL (7-18)
--- NOTE | 2017-01-03 06:38 | NUR ---
stable on 1 liter nasal cannula . saturation at 96 %.pt on off emotionally labile, uses profanity at times. patient states sobbing "i spent my birthday in the hospital". patient advised appropriately. tolerated tube feedings all night; stopped at 0600 and will resume at 0800. morning care done patient tolerated will. left hand dressing changed no unusual drainage. Addendum: 01/03/17 at 0648 by ALYSON DALE RN Amended: Links added.
--- NOTE | 2017-01-03 08:40 | NUR ---
Dr. Urbano in the unit to examine patient, report given see orders.
--- NOTE | 2017-01-03 10:10 | NUR ---
Dr. Ramey pulmonary services in the unit to examine patient; and at the same time updating pt's daughter Wendy Nugent who arrived at this minute.
[2017-01-03 10:32] LABS: MetHb 0.3 % (0.0-1.5)
[2017-01-03 12:15] LABS: ABG BASE EXCESS 11.7 mmol/L; ABG HCO3 36.9 mmol/L; ABG PCO2 52.7 mmHg (35.0-45.0); ABG PH 7.463 (7.350-7.450); ABG PO2 71.8 mmHg (75.0-100.0); ABG SITE LEFT BRACHIAL; ABG TOTAL HEMOGLOBIN 9.2 G/dL (12.0-16.0); COHb 1.5 % (0.5-1.5); O2Hb 93.1 % (94.0-97.0); VENT MODE Nasal Cannula
--- NOTE | 2017-01-03 12:45 | NUR ---
Speech storm sash maker at bedside as follow up on swallow eval. As reported and observed patient passed swallow evaluation. and recommendations received. Dr. Urbano callled, awaiting call back.
--- NOTE | 2017-01-03 13:30 | NUR ---
Physical therapist in the unit to assess patient.
--- NOTE | 2017-01-03 13:35 | NUR ---
As reported by nursing supervisor functional testing Agustin Urbano returned call and orders for mechanical soft diet received and patient down graded to telemetry.
--- NOTE | 2017-01-03 14:58 | NUR ---
Bedside report given to mike Nova. patient awake, alert oriented X3. just ate a late lunch orders.
--- NOTE | 2017-01-03 18:46 | NUR ---
Pt tolerated mechanical soft diet. No aspiration noted. Pt is in no acute distress. Call light is within reach.
--- NOTE | 2017-01-03 19:30 | NUR ---
RECEIVED PATIENT LAYING IN BED. HOB ELEVATED. NO ACUTE DISTRESS NOTED. PATIENT IS A&O X 4 BUT FORGETFUL. PATIENT STARTED TO CRY, SHE FEELS SAD BECAUSE BEST FRIEND IS DYING. NOTED DRY SCALP. PICC LINE OIN THE RIGHT UPPER ARM TRIPLE LUMEN PATENT AND INTACT. NOTED LEFT THUMB KIRLEX DRESSING WITH BROWNISH DRAINAGE. TELE SR WITH PVC PAC. NOTED MULTIPLE BRUISING ON BILATERAL ARMS AND ABDOMEN. DVT PUMPS IN PLACE. MONIQUE CARE PROVIDED. NON AMBULATORY. PATIENT IS CONTACT ISOLATION FOR MRSA ON THE NARES. SAFETY INITIATED. CALL LIGHT WITHIN REACH. WILL CONTINUE TO MONITOR.
--- NOTE | 2017-01-03 21:50 | NUR ---
NEW ORDERS FOR SEROQUEL 25 MG. FOR DEPRESSION.
--- NOTE | 2017-01-03 23:00 | NUR ---
PATIENT C/O BUTTOCKS PAIN 11/17. REFUSED PAIN MEDS. REPOSITIONED AND RELEASE PRESSURE FROM HER BUTTOCKS.
[2017-01-04] VITALS (74 sets, daily range): BP systolic 38–125; BP diastolic 25–70
--- NOTE | 2017-01-04 01:30 | NUR ---
B/P DECREASED FROM BASELINE OF 130/61. 0000 B/P: 108/49 HR: 69 O2: 97 ON 2L O2 TEMP: 98.8 TELE: SR, PATIENT AWAKE AND ORIENTED X4. ABLE TO ANSWER QUESTIONS. RAISED LOWER EXTREMITIES 0030 B/P: 83/36 HR: 70 O2: 98 ON 2L O2 TEMP: 98.8 TELE: SR 0100 B/P 83/53 HR: 68 O2: 95 ON 2L O2 TEMP: 98.8 TELE: SR 0105 ICU NURSE TRINY AT BEDSIDE FOR RE-ASSESSMENT. PATIENT REMAINS AWAKE AND ORIENTED X4. ABLE TO ANSWER QUESTIONS. [address] XIAO OSMAN, NEW ORDERS PLACED NS @ 100 ML/HR. WILL CONTINUE TO MONITOR.
--- NOTE | 2017-01-04 03:23 | NUR ---
PAGED DR. XIAO OSMAN. PATIENT BP WAS 86/29. TELE SR AT 66. NEW ORDERS: BLADDER SCAN AND IF BLADDER IS NOT FULL. GIVE 500 CC BOLUS. WILL CONTINUE TO MONITOR.
--- NOTE | 2017-01-04 03:41 | NUR ---
CALLED BACK DR. XIAO OSMAN. REPORTED B/P NOT INCREASING. NEW ORDERS TO GIVE 1L BOLUS. WILL CONTINUE TO MONITOR.
--- NOTE | 2017-01-04 04:15 | NUR ---
DR. OSMAN ORDERS TO TRANSFER TO CCU. B/P WAS NOT CLIMBING DESPITE IV BOLUS AND REVERSE TRENDELENBURG. GAVE REPORT TO DIDI AGOSTO.
--- NOTE | 2017-01-04 04:45 | NUR ---
Received patient from MS2 via bed to CCU 2 due to hypotension. AA but disoriented. Follows commands well. C/o being hungry. Attached to bedside monitor. Assessment completed. On contact isolation for MRSA nares.
--- NOTE | 2017-01-04 05:00 | NUR ---
Sugar free Jell-o served. Patient ate well, no swallowing difficulty. HOB elevated as tolerated.
[2017-01-04 05:01] LABS: BASOPHILS % (AUTO) 0.3 % (0.0-2.0); EOSINOPHILS % (AUTO) 0.1 % (0.0-7.0); LYMPHOCYTES # (AUTO) 1.6 K/UL (0.8-4.8); LYMPHOCYTES % (AUTO) 15.1 % (20.5-51.5); MEAN CORPUSCULAR HEMOGLOBIN 25.1 UUG (27.0-31.0); MEAN CORPUSCULAR HGB CONC 31 g/dL (32.0-37.0); MEAN CORPUSCULAR VOLUME 79.8 FL (81.0-99.0); MONOCYTES % (AUTO) 9.6 % (0.0-11.0); NEUTROPHILS # (AUTO) 7.8 K/UL (1.8-8.9); NEUTROPHILS % (AUTO) 74.9 % (38.5-71.5); PLATELET COUNT (AUTO) 214 K/UL (150-450); WHITE BLOOD COUNT (AUTO) 10.4 K/UL (4.0-11.2)
[2017-01-04 05:14] LABS: CARBON DIOXIDE 39 mmol/L (21-32); CHLORIDE 104 mmol/L (98-107); CREATININE 1.4 mg/dL (0.6-1.3); GLUCOSE 285 mg/dL (74-106); POTASSIUM 5.5 mmol/L (3.5-5.1); UREA NITROGEN, BLOOD 55 mg/dL (7-18)
[2017-01-04 05:33] LABS: RED BLOOD CELL COUNT(AUTO) 2.29 MIL/UL (4.2-5.4)
[2017-01-04 05:34] LABS: HEMATOCRIT 18.3 % (37-47)
[2017-01-04 05:35] LABS: HEMOGLOBIN 5.7 G/DL (12.0-16.0)
[2017-01-04 05:45] LABS: EOSINOPHILS % (MANUAL) 1 % (0-8); LYMPHOCYTES % (MANUAL) 16 % (20-40); MONOCYTES % (MANUAL) 9 % (2-10); NEUTROPHILS % (MANUAL) 74 % (42-75)
--- NOTE | 2017-01-04 05:45 | NUR ---
Spoke to Dr. Lee re: H/H. Orders received. Stat repeat CBC ordered; lab notified. Am care rendered.
[2017-01-04 06:04] LABS: MAGNESIUM 2.3 mg/dL (1.8-2.4); PHOSPHOROUS 4.6 mg/dL (2.5-4.9)
[2017-01-04 06:20] LABS: BASOPHILS % (AUTO) 0.5 % (0.0-2.0); EOSINOPHILS % (AUTO) 0.1 % (0.0-7.0); LYMPHOCYTES # (AUTO) 1.4 K/UL (0.8-4.8); LYMPHOCYTES % (AUTO) 14.9 % (20.5-51.5); MEAN CORPUSCULAR HEMOGLOBIN 23.9 UUG (27.0-31.0); MEAN CORPUSCULAR HGB CONC 30 g/dL (32.0-37.0); MEAN CORPUSCULAR VOLUME 79.3 FL (81.0-99.0); MONOCYTES # (AUTO) 0.9 K/UL (0.1-1.30); MONOCYTES % (AUTO) 9.1 % (0.0-11.0); NEUTROPHILS # (AUTO) 7.2 K/UL (1.8-8.9); NEUTROPHILS % (AUTO) 75.4 % (38.5-71.5); PLATELET COUNT (AUTO) 234 K/UL (150-450); WHITE BLOOD COUNT (AUTO) 9.5 K/UL (4.0-11.2)
--- NOTE | 2017-01-04 06:30 | NUR ---
laborer cook house here for repeat CBC.
[2017-01-04 06:44] LABS: HEMATOCRIT 19.4 % (37-47); HEMOGLOBIN 5.9 G/DL (12.0-16.0); RED BLOOD CELL COUNT(AUTO) 2.44 MIL/UL (4.2-5.4)
--- NOTE | 2017-01-04 06:45 | NUR ---
Repeated H/H=5.9/19.4. No active bleeding. Patient's daughter notified of transfer. Consent for blood transfusion obtained.
--- NOTE | 2017-01-04 06:55 | NUR ---
Blood ordered. Spoke to blood bank re: order. Patient sleeping; easily arouses to name.
[2017-01-04 08:58] LABS: IRON, SERUM 57 ug/dL (50-175)
[2017-01-04 09:25] LABS: FERRITIN 32 ng/mL (8-252)
[2017-01-04 11:02] LABS: BAND % (MANUAL) 4 % (0-10); LYMPHOCYTES % (MANUAL) 12 % (20-40); MONOCYTES % (MANUAL) 9 % (2-10); NEUTROPHILS % (MANUAL) 75 % (42-75)
--- NOTE | 2017-01-04 11:11 | NUR ---
Dr. Ramiro gomez in the unit to examine patient; report given and he draw a blood gas ordered stat. Rt department notified to bean picker the specimen.
[2017-01-04 11:20] LABS: ABG BASE EXCESS 6.7 mmol/L; ABG HCO3 30.9 mmol/L; ABG PCO2 42.8 mmHg (35.0-45.0); ABG PH 7.476 (7.350-7.450); ABG PO2 59.1 mmHg (75.0-100.0); ABG SITE RIGHT RADIAL; MetHb 1.2 % (0.0-1.5); O2Hb 86.9 % (94.0-97.0); VENT MODE Nasal Cannula 0.5L
--- NOTE | 2017-01-04 12:00 | NUR ---
Dr. Rubio informed of zero urine output for the last 2 hours. No orders received.
--- NOTE | 2017-01-04 12:17 | NUR ---
Dr. Ramey pulmonary services in the unit to examine patient; full report given. See orders.
--- NOTE | 2017-01-04 12:18 | NUR ---
Dr. Ramiro Mejia in the unit. ABG's reported orders to stop lovenox.
--- NOTE | 2017-01-04 13:03 | NUR ---
Blood sugar of [address] Rubio for further orders. Awaiting call back. Report for lunch given at this time mike Headley will follow up. Addendum: 01/04/17 at 1623 by NASRIN CARR RN 1630. 8 additonal units ordered medication administered by mike Headley
--- NOTE | 2017-01-04 20:00 | NUR ---
received patient in bed verbally responsive alert x2 needs reorientation to time and place. noted patient very weak . on oxygen nasal cannula at 0.5 liter /min . no respiratory distress noted.hob up .norepinephrine drip on progress to keep SBP >90 MM/HG . pm care done ,turned and reposition patient .skin care done and elevated upper and lower extremities with pillow .called blood band still waitig for the blood from red [facility]od[facility] . Addendum: 01/04/17 at 2256 by ALYSON DALE RN Amended: Links added.
--- NOTE | 2017-01-04 21:00 | NUR ---
continue to monitor labs and continue to follow up with blood bank with regards to the PRBC availability . Addendum: 01/04/17 at 2258 by ALYSON DALE RN Amended: Links added.
--- NOTE | 2017-01-04 21:00 | NUR ---
excoriation to bilateral breast area resolved.keep skin clean and dry . Addendum: 01/05/17 at 0136 by ALYSON DALE RN Amended: Links added. Addendum: 01/05/17 at 0137 by ALYSON DALE RN Amended: Links added.
--- NOTE | 2017-01-04 22:00 | NUR ---
continue to monitor vital signs and continue with norepinephrine drip to keep sbp >90 mm/hg Addendum: 01/04/17 at 2301 by ALYSON DALE RN Amended: Links added.
--- NOTE | 2017-01-04 23:12 | NUR ---
no respiratory distress noted.no sob .continue with oxygen nasal cannula at 0.5 liter /min.patient in bed sleeping no signs and symptoms of pain or discomfort. Addendum: 01/04/17 at 2313 by ALYSON DALE RN Amended: Links added.
--- NOTE | 2017-01-04 23:30 | NUR ---
afebrile. continue with antibiotic and continue to monitor signs and symptoms of infection . Addendum: 01/04/17 at 2357 by ALYSON DALE RN Amended: Links added.
[2017-01-05] VITALS (98 sets, daily range): BP systolic 58–197; BP diastolic 3–101
--- NOTE | 2017-01-05 | NUR ---
medicated patient for pain noted to be very anxious ,agitated when asked patient claimed shes in pain but unable to locate pain but claimed its a generalized pain.patient unable to described the intensity of pain . continue to monitor and levels of comfort. Addendum: 01/05/17 at 0005 by ALYSON DALE RN Amended: Links added.
--- NOTE | 2017-01-05 00:51 | NUR ---
called blood bank and checked PRBC as per photo equipment technician 10 more minutes .
--- NOTE | 2017-01-05 01:10 | NUR ---
1 unit of PRBC started ,vital signs monitoring done and monitor for blood transfusion reaction. Addendum: 01/05/17 at 0129 by ALYSON DALE RN Amended: Links added. Addendum: 01/05/17 at 0136 by ALYSON DALE RN Amended: Links added. Addendum: 01/05/17 at 0137 by ALYSON DALE RN Amended: Links added.
--- NOTE | 2017-01-05 04:00 | NUR ---
blood transfusion completed no blood transfusion reaction observed .
--- NOTE | 2017-01-05 05:00 | NUR ---
am labs drawn from [facility] LINE .
--- NOTE | 2017-01-05 06:15 | NUR ---
LAB called blood sample hemolyze will redraw.
--- NOTE | 2017-01-05 06:20 | NUR ---
collaborative teacher at bedside attempted to stick for blood draw but unable pt is very hard stick .so bllod sample was taken from PICC line .
--- NOTE | 2017-01-05 06:45 | NUR ---
syrup machine laborer MEHRAN called and stated that the lab results are unreadable need to re draw am labs again .
--- NOTE | 2017-01-05 06:50 | NUR ---
called [facility] service .awaiting for call back .
--- NOTE | 2017-01-05 07:20 | NUR ---
second call to [facility] service .
--- NOTE | 2017-01-05 07:30 | NUR ---
DR: GAURANG called back and updated of patient's status including low bp despite norepinephrine drip at 22mcg /min,low urinary output,accucheck 410 mg/dl,on and off pain even after morphine prn given and still awaiting for am labs to be drawn .orders received .am RN made aware of all new orders.
[2017-01-05 09:04] LABS: EOSINOPHILS % (AUTO) 0.1 % (0.0-7.0); LYMPHOCYTES # (AUTO) 3.1 K/UL (0.8-4.8); LYMPHOCYTES % (AUTO) 7.1 % (20.5-51.5); MEAN CORPUSCULAR HEMOGLOBIN 28.7 UUG (27.0-31.0); MEAN CORPUSCULAR HGB CONC 34 g/dL (32.0-37.0); MEAN CORPUSCULAR VOLUME 85.1 FL (81.0-99.0); MONOCYTES # (AUTO) 3.8 K/UL (0.1-1.30); MONOCYTES % (AUTO) 8.6 % (0.0-11.0); NEUTROPHILS # (AUTO) 37.3 K/UL (1.8-8.9); NEUTROPHILS % (AUTO) 84.2 % (38.5-71.5)
[2017-01-05 09:16] LABS: WHITE BLOOD COUNT (AUTO) 44.2 K/UL (4.0-11.2)
[2017-01-05 09:17] LABS: HEMOGLOBIN 6.6 G/DL (12.0-16.0); RED BLOOD CELL COUNT(AUTO) 2.29 MIL/UL (4.2-5.4)
[2017-01-05 09:18] LABS: HEMATOCRIT 19.5 % (37-47); PLATELET COUNT (AUTO) 300 K/UL (150-450)
[2017-01-05 09:30] LABS: ALANINE AMINOTRANSFERASE 144 U/L (14-59); ALKALINE PHOSPHATASE 34 U/L (50-136); ASPARTATE AMINOTRANSFERASE 163 U/L (15-37); BILIRUBIN,TOTAL 1.2 mg/dL (0.2-1.0); CARBON DIOXIDE 17 mmol/L (21-32); CHLORIDE 99 mmol/L (98-107); CREATININE 3.1 mg/dL (0.6-1.3); MAGNESIUM 2.7 mg/dL (1.8-2.4); TOTAL PROTEIN, SERUM 4.9 g/dL (6.4-8.2)
[2017-01-05 09:48] LABS: GLUCOSE 440 mg/dL (74-106); POTASSIUM 6.5 mmol/L (3.5-5.1)
[2017-01-05 09:49] LABS: PHOSPHOROUS 10.1 mg/dL (2.5-4.9); UREA NITROGEN, BLOOD 87 mg/dL (7-18)
--- NOTE | 2017-01-05 12:15 | NUR ---
hemo dialysis line placed by dr. gomez RN at [facility] tolerated well no s/s of distress no complaints vs stable. RRR.
--- NOTE | 2017-01-05 13:15 | NUR ---
art line placed by dr. gomez with rn at bedside. no s/s of distress not complaints noted tolerated well. SK
[2017-01-05 14:18] LABS: ABG BASE EXCESS -18.2 mmol/L; ABG HCO3 9.4 mmol/L; ABG PCO2 28.6 mmHg (35.0-45.0); ABG PH 7.133 (7.350-7.450); ABG PO2 133.1 mmHg (75.0-100.0); ABG SITE RIGHT BRACHIAL; ABG TOTAL HEMOGLOBIN 8.1 G/dL (12.0-16.0); COHb 1.6 % (0.5-1.5); MetHb 0.5 % (0.0-1.5); O2Hb 96.3 % (94.0-97.0); VENT MODE Nasal Cannula
[2017-01-05 14:55] LABS: BAND % (MANUAL) 3 % (0-10); LYMPHOCYTES % (MANUAL) 1 % (20-40); MONOCYTES % (MANUAL) 4 % (2-10); MYELOCYTES % 1 % (0-0); NEUTROPHILS % (MANUAL) 91 % (42-75)
--- NOTE | 2017-01-05 19:45 | NUR ---
Received call from radiologist, Dr. Rachel Rocha, regarding results of CT abdomen at 1920. Per radiologist request, informed Dr. Yolie Lee of results. Orders received and implemented.
[2017-01-05 20:49] LABS: CREATINE KINASE, TOTAL 171 U/L (26-192)
--- NOTE | 2017-01-05 21:50 | NUR ---
SOLU-MEDROL PULLED FROM [facility], OVERRIDE DUE TO DRAWER MALFUNCTION IN UNIT. ADMINISTERED ORDERED
--- NOTE | 2017-01-05 23:06 | NUR ---
Per radiology, STAT US of Abdomen will be done in AM; needs NPO status
[2017-01-06] VITALS (94 sets, daily range): BP systolic 62–177; BP diastolic 19–115
--- NOTE | 2017-01-06 | NUR ---
NG tube placed to right nare for low-intermittent suction, per MD order. Positive placement via auscultation/aspiration with two RNs. CXR to be completed. Manual disimpaction done as ordered by MD. However, no impacted stool present. Will continue to monitor.
[2017-01-06 05:12] LABS: LYMPHOCYTES # (AUTO) 2.5 K/UL (0.8-4.8); LYMPHOCYTES % (AUTO) 4.7 % (20.5-51.5); MEAN CORPUSCULAR HEMOGLOBIN 29.1 UUG (27.0-31.0); MEAN CORPUSCULAR HGB CONC 35 g/dL (32.0-37.0); MEAN CORPUSCULAR VOLUME 83.8 FL (81.0-99.0); MONOCYTES % (AUTO) 3.7 % (0.0-11.0); NEUTROPHILS # (AUTO) 48.6 K/UL (1.8-8.9); NEUTROPHILS % (AUTO) 91.6 % (38.5-71.5); PLATELET COUNT (AUTO) 133 K/UL (150-450)
[2017-01-06 05:17] LABS: WHITE BLOOD COUNT (AUTO) 53.1 K/UL (4.0-11.2)
[2017-01-06 05:18] LABS: HEMATOCRIT 16.3 % (37-47); HEMOGLOBIN 5.7 G/DL (12.0-16.0); RED BLOOD CELL COUNT(AUTO) 1.94 MIL/UL (4.2-5.4)
[2017-01-06 05:25] LABS: ALANINE AMINOTRANSFERASE 756 U/L (14-59); ALKALINE PHOSPHATASE 34 U/L (50-136); ASPARTATE AMINOTRANSFERASE 791 U/L (15-37); BILIRUBIN,TOTAL 1.5 mg/dL (0.2-1.0); CARBON DIOXIDE 28 mmol/L (21-32); CHLORIDE 99 mmol/L (98-107); CREATININE 2.8 mg/dL (0.6-1.3); GLUCOSE 203 mg/dL (74-106); MAGNESIUM 2.1 mg/dL (1.8-2.4); PHOSPHOROUS 7.1 mg/dL (2.5-4.9); TOTAL PROTEIN, SERUM 4.9 g/dL (6.4-8.2); UREA NITROGEN, BLOOD 79 mg/dL (7-18)
--- NOTE | 2017-01-06 07:45 | NUR ---
shift superintendent unable to place order for blood transf. of 2 units of PRBC-blue slip BYPASS form was send for stat 2 units of PRBC
[2017-01-06 08:31] LABS: BAND % (MANUAL) 4 % (0-10); LYMPHOCYTES % (MANUAL) 2 % (20-40); MONOCYTES % (MANUAL) 5 % (2-10); NEUTROPHILS % (MANUAL) 89 % (42-75)
--- NOTE | 2017-01-06 08:47 | NUR ---
X-ray/Radiologist call with notification that NG -tube not in good place and PICC LINE need to be advance, DNP:Ramiro Mejia was notified,will see Pt.
[2017-01-06 09:15] LABS: HEMATOCRIT 15.3 % (37-47); HEMOGLOBIN 4.9 G/DL (12.0-16.0)
--- NOTE | 2017-01-06 09:15 | NUR ---
Pt was seen by ,Family at bedside,updated with pt.condition and plan of care.
[2017-01-06 09:40] LABS: ABG BASE EXCESS 0.2 mmol/L; ABG HCO3 25.3 mmol/L; ABG PCO2 43.2 mmHg (35.0-45.0); ABG PH 7.385 (7.350-7.450); ABG PO2 70.8 mmHg (75.0-100.0); ABG SITE LEFT BRACHIAL; ABG TOTAL HEMOGLOBIN 5.1 G/dL (12.0-16.0); COHb 2.4 % (0.5-1.5); MetHb 1.2 % (0.0-1.5); O2Hb 88.6 % (94.0-97.0); VENT MODE Nasal Cannula
--- NOTE | 2017-01-06 11:00 | NUR ---
Pt.was seen by with new orders,ask to call to order 3rd unit of PRBC, call back,ordered to give one foreman unit of PRBC total of 3units with HD.Was'nt able to order blood on computer ,IT was notified,working on it to fix system problem.blue slip/bypass done,for stat blood.
--- NOTE | 2017-01-06 11:00 | NUR ---
HD was started, 3units of PRBC was double check with me and 2nd RN:Rachel Coulter,unable to chart due system blocking. IT was notified. total of 3 units PRBC was given by HD RN. 04/1114- [id number]; 05/1144-[id number]; 06/1204-[id number].see HD-record for charting.
--- NOTE | 2017-01-06 14:10 | NUR ---
[id number] under playground monitor,tolerated well.
--- NOTE | 2017-01-06 15:00 | NUR ---
Pt.was seen by DNP:Ramiro Mejia with new orders. Addendum: 01/06/17 at 195 by SHANIQUA CALDERA RN DNP:Ramiro Mejia will reinsert PICC line in AM.OK to keep PICC line till.
--- NOTE | 2017-01-06 16:00 | NUR ---
Family at bedside,updated with CT scan and pt.condition.
--- NOTE | 2017-01-06 18:55 | NUR ---
Pt.was seen by with new orders.
--- NOTE | 2017-01-06 21:00 | NUR ---
Levemir held for low glucose
[2017-01-06 21:59] LABS: HEMOGLOBIN 7.8 G/DL (12.0-16.0)
[2017-01-06 22:11] LABS: HEMATOCRIT 23.4 % (37-47)
--- NOTE | 2017-01-06 23:04 | NUR ---
Order of cryoprecipitate administration will be delayed. Requires special send out, per lab team. Will administer as soon as available. Currently pending. Standing order to transfuse 1 unit of PRBCs fulfilled, Hgb 7.8 at this time. Unable to order via [employer] due to computer/communication error. Paper order sent to blood bank, copy placed in chart.
[2017-01-07] VITALS (48 sets, daily range): BP systolic 93–145; BP diastolic 31–65
--- NOTE | 2017-01-07 01:38 | NUR ---
CRYOPRECIPITATE ORDER No available 5 unit bags of cryoprecipitate. Order changed from 2 orders of 5 unit bags to 10 orders of 1 unit bags. TOTAL TO BE TRANSFUSED REMAINS THE SAME, 10 UNITS
--- NOTE | 2017-01-07 05:00 | NUR ---
Glucose 139, however insulin held for trend of lower glucose levels through shift and no meals at this time. Schedule Accu-check to be done again at 0800
[2017-01-07 08:22] LABS: ALANINE AMINOTRANSFERASE 712 U/L (14-59); ALKALINE PHOSPHATASE 40 U/L (50-136); ASPARTATE AMINOTRANSFERASE 494 U/L (15-37); BILIRUBIN,TOTAL 1.3 mg/dL (0.2-1.0); CARBON DIOXIDE 31 mmol/L (21-32); CHLORIDE 106 mmol/L (98-107); CREATININE 1.8 mg/dL (0.6-1.3); GLUCOSE 146 mg/dL (74-106); POTASSIUM 3.5 mmol/L (3.5-5.1); TOTAL PROTEIN, SERUM 4.5 g/dL (6.4-8.2); UREA NITROGEN, BLOOD 55 mg/dL (7-18)
[2017-01-07 08:26] LABS: BASOPHILS # (AUTO) 0.1 K/uL (0.0-8.0); BASOPHILS % (AUTO) 0.3 % (0.0-2.0); EOSINOPHILS % (AUTO) 0.1 % (0.0-7.0); HEMATOCRIT 24.2 % (37-47); HEMOGLOBIN 8.1 G/DL (12.0-16.0); LYMPHOCYTES # (AUTO) 0.6 K/UL (0.8-4.8); LYMPHOCYTES % (AUTO) 3.5 % (20.5-51.5); MEAN CORPUSCULAR HEMOGLOBIN 29.1 UUG (27.0-31.0); MEAN CORPUSCULAR HGB CONC 33 g/dL (32.0-37.0); MEAN CORPUSCULAR VOLUME 87.1 FL (81.0-99.0); MONOCYTES # (AUTO) 1.2 K/UL (0.1-1.30); MONOCYTES % (AUTO) 6.8 % (0.0-11.0); NEUTROPHILS # (AUTO) 15.9 K/UL (1.8-8.9); NEUTROPHILS % (AUTO) 89.3 % (38.5-71.5)
[2017-01-07 09:07] LABS: WHITE BLOOD COUNT (AUTO) 17.8 K/UL (4.0-11.2)
[2017-01-07 09:08] LABS: PLATELET COUNT (AUTO) 50 K/UL (150-450); RED BLOOD CELL COUNT(AUTO) 2.78 MIL/UL (4.2-5.4)
[2017-01-07 09:15] LABS: BAND % (MANUAL) 1 % (0-10); LYMPHOCYTES % (MANUAL) 5 % (20-40); MONOCYTES % (MANUAL) 5 % (2-10); NEUTROPHILS % (MANUAL) 89 % (42-75)
--- NOTE | 2017-01-07 09:30 | NUR ---
Dr. mehta ID in the unit to examine patient; full report given. No orders received.
--- NOTE | 2017-01-07 10:20 | NUR ---
Dr. Hugo Capellan. in the unit to examine patient, report given with no orders received.
--- NOTE | 2017-01-07 12:15 | NUR ---
Dr. rey Mejia in the unit to examine patient; and updated pt's daughter TRINA. who remains at bedside.
--- NOTE | 2017-01-07 13:38 | NUR ---
hands off report given to mike Ramos.
--- NOTE | 2017-01-07 17:33 | NUR ---
TOLERATING CURRENT DIET,EATING <50% OF MEALS. INOCULATOR OBTAINED FOOD PREFERENCES, OFFER BOOST GLUCOSE, PATIENT AGREE, WILL SEND ONE BOOST W/DINNER AND F/U ON PO INTAKE. LAB : WBC 17.8-TRENDING DOWN,RBC-2.78,HGB/HCT-8.1/24.2, POC 191, ON STEROID, PATIENT NON COMPLIANCE WITH CURRENT DIET ORDER, REQUESTING TOO MUCH FOOD. SPOKE TO THE NURSE, AND REQUEST CHANGE DIET TO CCHO 75 GM PER MD IF PATIENT C/O OF BEING HUNGRY WILL F/U WITH PO AND NEW LABS Addendum: 01/07/17 at [address] Amended: Links added.
[2017-01-08] VITALS (23 sets, daily range): BP systolic 108–167; BP diastolic 47–78
[2017-01-08 05:21] LABS: BASOPHILS % (AUTO) 0.1 % (0.0-2.0); HEMATOCRIT 25.1 % (37-47); HEMOGLOBIN 8.2 G/DL (12.0-16.0); LYMPHOCYTES # (AUTO) 0.4 K/UL (0.8-4.8); LYMPHOCYTES % (AUTO) 2.9 % (20.5-51.5); MEAN CORPUSCULAR HEMOGLOBIN 28.9 UUG (27.0-31.0); MEAN CORPUSCULAR HGB CONC 33 g/dL (32.0-37.0); MEAN CORPUSCULAR VOLUME 88.5 FL (81.0-99.0); MONOCYTES # (AUTO) 0.8 K/UL (0.1-1.30); MONOCYTES % (AUTO) 5.1 % (0.0-11.0); NEUTROPHILS # (AUTO) 14.3 K/UL (1.8-8.9); NEUTROPHILS % (AUTO) 91.9 % (38.5-71.5); PLATELET COUNT (AUTO) 52 K/UL (150-450); RED BLOOD CELL COUNT(AUTO) 2.84 MIL/UL (4.2-5.4); WHITE BLOOD COUNT (AUTO) 15.5 K/UL (4.0-11.2)
[2017-01-08 05:39] LABS: PHOSPHOROUS 4.2 mg/dL (2.5-4.9)
[2017-01-08 05:45] LABS: ALANINE AMINOTRANSFERASE 734 U/L (14-59); ALKALINE PHOSPHATASE 51 U/L (50-136); ASPARTATE AMINOTRANSFERASE 354 U/L (15-37); BILIRUBIN,TOTAL 1.3 mg/dL (0.2-1.0); CARBON DIOXIDE 32 mmol/L (21-32); CHLORIDE 107 mmol/L (98-107); CREATININE 1.6 mg/dL (0.6-1.3); GLUCOSE 210 mg/dL (74-106); POTASSIUM 3.1 mmol/L (3.5-5.1); TOTAL PROTEIN, SERUM 4.8 g/dL (6.4-8.2); UREA NITROGEN, BLOOD 46 mg/dL (7-18)
--- NOTE | 2017-01-08 11:55 | NUR ---
Dr. Roldan in the unit to examine patient. Report given no orders received.
--- NOTE | 2017-01-08 12:00 | NUR ---
Jon FAUSTIN for Infectious Disease in the unit to examine patient and update pt's daughter who remains at bedside.
--- NOTE | 2017-01-08 12:23 | NUR ---
Dr. Rubio in the unit to examine patient; full report given and also updated MJ. pt's daughter who remains at bedside.
[2017-01-09] VITALS (21 sets, daily range): BP systolic 146–183; BP diastolic 62–91
--- NOTE | 2017-01-09 02:09 | NUR ---
Pt is a/o x4. No cardiopulmonary distress. NSR on monitor. voiding per urinal. at midnight pt put on his CPAP. Sats in high 90s. Addendum: 01/09/17 at 0213 by FORTUNATO PEREZ RN ignore above note. Charted on wrong pt.
--- NOTE | 2017-01-09 02:13 | NUR ---
Shift note. Pt is A/O x 4, No respiratory distress. on 1L Oxygen NC, Sats low to mid 90s. talks to herself. needy. NSR with PACs on monitor. denies any pain at this time. ewing output qs. continue to loose stools. skin red on buttocks cream applied. assessment done and charted. Continue to monitor. Addendum: 01/09/17 at 0509 by FORTUNATO PEREZ RN 0500: Pt slept on and off. She is anxious. Talked to her daughter on phone, she too is very anxious and concern about her mother. Reassured both mother and daughter. please reevaluated for her anxiety issue. will endorse it to day shift. No changes. continue to monitor. Addendum: 01/09/17 at 0511 by FORTUNATO PEREZ RN Please ignore above note. charted on wrong pt. Mr. Villalba is resting comfortably. He is on CPAP. No issues tonight. NSR.
--- NOTE | 2017-01-09 05:12 | NUR ---
Shift note. Pt is A/O x 4, No respiratory distress. on 1L Oxygen NC, Sats low to mid 90s. talks to herself. needy. NSR with PACs on monitor. denies any pain at this time. ewing output qs. continue to loose stools. skin red on buttocks cream applied. assessment done and charted. Continue to monitor.
[2017-01-09 05:18] LABS: BASOPHILS # (AUTO) 0.2 K/uL (0.0-8.0); BASOPHILS % (AUTO) 1.6 % (0.0-2.0); EOSINOPHILS % (AUTO) 0.1 % (0.0-7.0); HEMATOCRIT 25.4 % (37-47); HEMOGLOBIN 8.3 G/DL (12.0-16.0); LYMPHOCYTES # (AUTO) 0.5 K/UL (0.8-4.8); LYMPHOCYTES % (AUTO) 3.5 % (20.5-51.5); MEAN CORPUSCULAR HEMOGLOBIN 29.1 UUG (27.0-31.0); MEAN CORPUSCULAR HGB CONC 33 g/dL (32.0-37.0); MEAN CORPUSCULAR VOLUME 89.5 FL (81.0-99.0); MONOCYTES # (AUTO) 0.7 K/UL (0.1-1.30); MONOCYTES % (AUTO) 4.6 % (0.0-11.0); NEUTROPHILS # (AUTO) 13.1 K/UL (1.8-8.9); NEUTROPHILS % (AUTO) 90.2 % (38.5-71.5); PLATELET COUNT (AUTO) 62 K/UL (150-450); RED BLOOD CELL COUNT(AUTO) 2.84 MIL/UL (4.2-5.4); WHITE BLOOD COUNT (AUTO) 14.5 K/UL (4.0-11.2)
[2017-01-09 05:24] LABS: ALANINE AMINOTRANSFERASE 643 U/L (14-59); ALKALINE PHOSPHATASE 48 U/L (50-136); ASPARTATE AMINOTRANSFERASE 211 U/L (15-37); BILIRUBIN,TOTAL 0.9 mg/dL (0.2-1.0); CARBON DIOXIDE 30 mmol/L (21-32); CHLORIDE 113 mmol/L (98-107); CREATININE 1.4 mg/dL (0.6-1.3); GLUCOSE 106 mg/dL (74-106); PHOSPHOROUS 3.8 mg/dL (2.5-4.9); POTASSIUM 3.4 mmol/L (3.5-5.1); TOTAL PROTEIN, SERUM 5.1 g/dL (6.4-8.2); UREA NITROGEN, BLOOD 43 mg/dL (7-18)
--- NOTE | 2017-01-09 19:00 | NUR ---
Received SBAR report from DIDI Doe. Patient is A/O x 3, however forgetful. Anxiety and restlessness noted. NSR with PAC on monitor technician. Hypertensive, will notify MD. RR and SpO2 WNL with 2L/min O2 via NC. Jain cath in place, draining. DEEP PICC line in place and patent running IVF as ordered. Will continue plan of care.
--- NOTE | 2017-01-09 20:18 | NUR ---
Dr. Munoz at bedside for assessment. Updates given.
--- NOTE | 2017-01-09 20:48 | NUR ---
Call to Dr. Yolie Lee. Notified of consistently high BP with SBP > 160 since this afternoon. New orders received and implemented. Will continue to monitor.
--- NOTE | 2017-01-09 21:05 | NUR ---
Metoprolol removed from pyxis, administered as ordered. See eMAR
[2017-01-10] VITALS (23 sets, daily range): BP systolic 130–178; BP diastolic 56–81
--- NOTE | 2017-01-10 03:56 | NUR ---
Accu-check done, glucose 90. No coverage per ordered insulin scale. Encouraged patient to drink juice
[2017-01-10 05:02] LABS: BASOPHILS # (AUTO) 0.1 K/uL (0.0-8.0); BASOPHILS % (AUTO) 0.7 % (0.0-2.0); EOSINOPHILS % (AUTO) 0.1 % (0.0-7.0); HEMATOCRIT 27.1 % (37-47); HEMOGLOBIN 8.7 G/DL (12.0-16.0); LYMPHOCYTES # (AUTO) 0.6 K/UL (0.8-4.8); LYMPHOCYTES % (AUTO) 4.3 % (20.5-51.5); MEAN CORPUSCULAR HEMOGLOBIN 29.1 UUG (27.0-31.0); MEAN CORPUSCULAR HGB CONC 32 g/dL (32.0-37.0); MEAN CORPUSCULAR VOLUME 90.5 FL (81.0-99.0); MONOCYTES # (AUTO) 0.9 K/UL (0.1-1.30); MONOCYTES % (AUTO) 5.9 % (0.0-11.0); NEUTROPHILS # (AUTO) 13.3 K/UL (1.8-8.9); PLATELET COUNT (AUTO) 84 K/UL (150-450); RED BLOOD CELL COUNT(AUTO) 2.99 MIL/UL (4.2-5.4); WHITE BLOOD COUNT (AUTO) 14.9 K/UL (4.0-11.2)
[2017-01-10 05:20] LABS: CARBON DIOXIDE 33 mmol/L (21-32); CHLORIDE 113 mmol/L (98-107); CREATININE 1.1 mg/dL (0.6-1.3); GLUCOSE 76 mg/dL (74-106); PHOSPHOROUS 3.5 mg/dL (2.5-4.9); POTASSIUM 3.8 mmol/L (3.5-5.1); UREA NITROGEN, BLOOD 41 mg/dL (7-18)
--- NOTE | 2017-01-10 08:00 | NUR ---
Pt received this am resting and dozing off in bed with fall precautions and safety measures maintained. computer technical support specialist and alarms working properly wnl. Pt on 2L with humidifier. Jain catheter intact and draining properly. IVF infusing as ordered. Pt hemodynamically stable and nad noted.
[2017-01-10 09:13] LABS: ABG BASE EXCESS 0.1 mmol/L; ABG HCO3 27.2 mmol/L; ABG PCO2 57.1 mmHg (35.0-45.0); ABG PH 7.295 (7.350-7.450); ABG PO2 57.2 mmHg (75.0-100.0); ABG SITE RIGHT RADIAL; ABG TOTAL HEMOGLOBIN 9.7 G/dL (12.0-16.0); COHb 1.8 % (0.5-1.5); MetHb 0.4 % (0.0-1.5); O2Hb 87.5 % (94.0-97.0); VENT MODE Nasal Cannula
--- NOTE | 2017-01-10 09:35 | NUR ---
At 0915, pt's BS was 55. IV D50 given as ordered per protocol. At 0935, pt's BS 145. IVD50 proven effective.
--- NOTE | 2017-01-10 09:40 | NUR ---
Pt placed on BiPAP per respiratory therapist with settings as follows: 15/5, rate of 16, and 30% FiO2.
--- NOTE | 2017-01-10 09:49 | NUR ---
MORNING ABG DONE AND IS VIEWABLE ON [facility]. PER RESULTS PT PLACED ON PREVIOUS BIPAP SETTINGS OF 15/5/ RATE 16. PT PLACED ON 30% FIO2 WITH SPO2 AT 95%. PT AWAKE ALERT RESPONSIVE AND IS SPONTANEOUSLY BREATHING. DIDI WESTBROOK AWARE AND NOTIFIED. PT COMFORTABLE ON BIPAP . PROTECTA GEL PLACED ON PT FACE. WILL CONTINUE TO MONITOR.
[2017-01-10 10:14] LABS: BAND % (MANUAL) 2 % (0-10); LYMPHOCYTES % (MANUAL) 4 % (20-40); MONOCYTES % (MANUAL) 4 % (2-10); NEUTROPHILS % (MANUAL) 90 % (42-75)
[2017-01-10 12:05] LABS: ABG BASE EXCESS 1.9 mmol/L; ABG HCO3 29.4 mmol/L; ABG PCO2 62.7 mmHg (35.0-45.0); ABG PH 7.289 (7.350-7.450); ABG PO2 66.1 mmHg (75.0-100.0); ABG SITE RIGHT RADIAL; ABG TOTAL HEMOGLOBIN 9.6 G/dL (12.0-16.0); COHb 1.7 % (0.5-1.5); MetHb 0.3 % (0.0-1.5); O2Hb 91.4 % (94.0-97.0); VENT MODE BIPAP
--- NOTE | 2017-01-10 12:25 | NUR ---
POST BIPAP ABG DONE. RESULTS VIEWABLE ON [facility]. DR REYNA NOTIFIED BY DIDI CRUZ. PER DR REYNA BIPAP SETTING CHANGES WERE CHANGED TO 18/5/RATE 18/ 30% FIO2.
--- NOTE | 2017-01-10 12:30 | NUR ---
abg results on bipap relayed to dr riley. with new orders. changes done by Russell Addendum: 01/10/17 at 1230 by NANCY MCMAHON RN Amended: Links added.
--- NOTE | 2017-01-10 15:49 | NUR ---
Dr. Ramey here to see pt. Full report given. New orders received.
--- NOTE | 2017-01-10 16:21 | NUR ---
PT TAKEN OFF OF BIPAP AND PLACED ON 1LPM NASAL CANULA. PT AWAKE ALERT RESPONSIVE WITH NO DISTRESS OR SIGNS OF SOB
--- NOTE | 2017-01-10 20:00 | NUR ---
A/A/ o times 4, c/o of being hungry
--- NOTE | 2017-01-10 21:21 | NUR ---
CODE STATUS CLARIFIED WITH FAMILY. CONTINUE FULL CODE Call between Dr. Phelan and Jazmine (daughter) regarding code status. Per MD, continue full code.
[2017-01-11] VITALS (17 sets, daily range): BP systolic 145–175; BP diastolic 61–83
[2017-01-11 05:14] LABS: BASOPHILS # (AUTO) 0.1 K/uL (0.0-8.0); BASOPHILS % (AUTO) 0.7 % (0.0-2.0); EOSINOPHILS % (AUTO) 0.1 % (0.0-7.0); HEMATOCRIT 26.5 % (37-47); HEMOGLOBIN 8.3 G/DL (12.0-16.0); LYMPHOCYTES # (AUTO) 0.7 K/UL (0.8-4.8); LYMPHOCYTES % (AUTO) 5.3 % (20.5-51.5); MEAN CORPUSCULAR HEMOGLOBIN 28.4 UUG (27.0-31.0); MEAN CORPUSCULAR HGB CONC 31 g/dL (32.0-37.0); MEAN CORPUSCULAR VOLUME 90.7 FL (81.0-99.0); MONOCYTES # (AUTO) 0.8 K/UL (0.1-1.30); NEUTROPHILS # (AUTO) 11.4 K/UL (1.8-8.9); NEUTROPHILS % (AUTO) 87.9 % (38.5-71.5); PLATELET COUNT (AUTO) 101 K/UL (150-450); RED BLOOD CELL COUNT(AUTO) 2.93 MIL/UL (4.2-5.4)
[2017-01-11 05:26] LABS: CARBON DIOXIDE 32 mmol/L (21-32); CHLORIDE 111 mmol/L (98-107); CREATININE 0.9 mg/dL (0.6-1.3); GLUCOSE 141 mg/dL (74-106); MAGNESIUM 1.7 mg/dL (1.8-2.4); PHOSPHOROUS 2.7 mg/dL (2.5-4.9); POTASSIUM 4.2 mmol/L (3.5-5.1); UREA NITROGEN, BLOOD 37 mg/dL (7-18)
--- NOTE | 2017-01-11 07:29 | NUR ---
Slept very little,was up most of the night/turned every two hrs
[2017-01-11 07:51] LABS: *BILIRUBIN,URIN NEGATIVE (NEGATIVE); *BLOOD, URINE Trace-intact (NEGATIVE); *CLARITY,URINE SLIGHTLY CLOUDY (CLEAR); *COLOR,URINE YELLOW (YELLOW); *KETONES,URINE NEGATIVE (NEGATIVE); *PROTEIN,URINE 1+ (NEGATIVE); *UROBILINOGEN,URINE 0.2 E.U./dl (NORMAL); LEUKOCYTE ESTERASE ,URINE NEGATIVE (NEGATIVE); NITRITE, URINE NEGATIVE (NEGATIVE); UGLUCOSE NEGATIVE (NEGATIVE)
[2017-01-11 08:35] LABS: BACTERIA,URINE FEW /HPF (NONE SEEN); RBC,URINE 0-3 /HPF (0-3); SQUAMOUS EPITHELIAL CELL,UR FEW /HPF (NONE SEEN); WBC,URINE 0-3 /HPF (0-3)
[2017-01-11 08:55] LABS: ABG HCO3 27.4 mmol/L; ABG PCO2 53.1 mmHg (35.0-45.0); ABG PH 7.331 (7.350-7.450); ABG PO2 60.5 mmHg (75.0-100.0); ABG SITE RIGHT RADIAL; ABG TOTAL HEMOGLOBIN 9.3 G/dL (12.0-16.0); COHb 2.2 % (0.5-1.5); MetHb 0.3 % (0.0-1.5); O2Hb 88.9 % (94.0-97.0); VENT MODE Nasal Cannula 1L
--- NOTE | 2017-01-11 14:45 | NUR ---
report given to Dr. Gonzalez on pt condition, agitation, and VS elevated BP again. orders received. SK
--- NOTE | 2017-01-11 20:05 | NUR ---
PPATIENT ALERT, ANXIOUS,ABLE FOLLOW SIMPLE INSTRUCTIONS,ON O2 2L/M VIA N/C,O2 SAT 95%,BLOOD SUGAR 66, ORANGE JUICE AND HS SNACK GIVEN TOLERATED WELL, NO NAUSEA NOTED,HELD LEVEMIR ,WILL CONTINUE TO MONITOR BS .
--- NOTE | 2017-01-11 23:55 | NUR ---
patient restless,agitated,c/o generalized pain,moaning, morphine 2 mg iv admin for pain.
[2017-01-12] VITALS: BP 137/65
--- NOTE | 2017-01-12 | NUR ---
blood sugar 72,snack given.patient has good urine out put,bp stable,SR on tele monitor,continue breathing tx as ordered.
--- NOTE | 2017-01-12 01:25 | NUR ---
Seroquel 25 mg po admin for agitation ,turn and reposition for comfort.
[2017-01-12 04:00] VITALS: BP 142/37
--- NOTE | 2017-01-12 06:00 | NUR ---
patient in no acute distress,has moderate bowel movement,on o2 1l/m via n/c o2 sat 93%
[2017-01-12 07:44] LABS: LYMPHOCYTES # (AUTO) 0.6 K/uL (20.0-40.0); MEAN CORPUSCULAR VOLUME 90.9 fL (75.5-95.3); MONOCYTES # (AUTO) 0.6 K/uL (2.0-10.0)
[2017-01-12 07:47] LABS: ALANINE AMINOTRANSFERASE 257 U/L (14-59); ALKALINE PHOSPHATASE 48 U/L (50-136); ASPARTATE AMINOTRANSFERASE 43 U/L (15-37); BILIRUBIN,TOTAL 0.8 mg/dL (0.2-1.0); CARBON DIOXIDE 35 mmol/L (21-32); CHLORIDE 111 mmol/L (98-107); CREATININE 1.1 mg/dL (0.6-1.3); GLUCOSE 105 mg/dL (74-106); MAGNESIUM 1.7 mg/dL (1.8-2.4); PHOSPHOROUS 3.6 mg/dL (2.5-4.9); POTASSIUM 5.2 mmol/L (3.5-5.1); TOTAL PROTEIN, SERUM 4.9 g/dL (6.4-8.2); UREA NITROGEN, BLOOD 37 mg/dL (7-18)
[2017-01-12 07:56] LABS: BASOPHILS % (AUTO) 0.2 % (0.0-2.0); EOSINOPHILS # (AUTO) 0.1 K/uL (0.0-0.7); EOSINOPHILS % (AUTO) 0.5 % (0.0-7.0); HEMATOCRIT 26.1 % (31.2-41.9); HEMOGLOBIN 8.5 g/dL (10.9-14.3); LYMPHOCYTES % (AUTO) 5.4 % (20.5-51.5); MEAN CORPUSCULAR HEMOGLOBIN 29.5 uug (24.7-32.8); MEAN CORPUSCULAR HGB CONC 33 g/dL (32.3-35.6); MONOCYTES % (AUTO) 5.2 % (0.0-11.0); NEUTROPHILS # (AUTO) 9.8 K/uL (1.8-8.9); NEUTROPHILS % (AUTO) 88.7 % (38.5-71.5); RED BLOOD CELL COUNT(AUTO) 2.87 MIL/uL (3.63-4.92)
[2017-01-12 08:00] VITALS: BP 161/51
--- NOTE | 2017-01-12 08:00 | NUR ---
Awake, alert, oriented x 4. Repositioned in bed comfortably. O2 at 1L/NC with O2 sat of 97%. Assisted with meal, able to remain awake during meal, verbalized needs.
[2017-01-12 08:03] LABS: PLATELET COUNT (AUTO) 99 K/uL (179-408)
--- NOTE | 2017-01-12 11:00 | NUR ---
Noted drowsiness, but easily aroused and responds to verbal stimuli.
[2017-01-12 11:56] VITALS: BP 110/46
[2017-01-12 12:27] LABS: LYMPHOCYTES % (MANUAL) 8 % (20-40); MONOCYTES % (MANUAL) 4 % (2-10); NEUTROPHILS % (MANUAL) 88 % (42-75)
--- NOTE | 2017-01-12 14:00 | NUR ---
Sponge bath given. Skin care done. Repositioned comfortably. Lunch given
[2017-01-12 16:03] VITALS: BP 125/50
[2017-01-12 17:09] LABS: COMPLEMENT, C3 SERUM 37 < mg/dL (82-167); COMPLEMENT, C4 SERUM <2 mg/dL (14-44)
--- NOTE | 2017-01-12 18:30 | NUR ---
Assisted with meal by daughter, with fair appetite. Kept dry and comfortable. Tele SB 50 with PAC
[2017-01-12 20:00] VITALS: BP 126/52
--- NOTE | 2017-01-12 20:00 | NUR ---
RECEIVED IN BED WITH DAUGHTER AT BEDSIDE. PLAN OF CARE DISCUSSED, PT UNDERSTOOD.
[2017-01-13] VITALS: BP 103/66
[2017-01-13 04:00] VITALS: BP 160/70
[2017-01-13 07:00] LABS: BASOPHILS % (AUTO) 0.2 % (0.0-2.0); EOSINOPHILS # (AUTO) 0.1 K/uL (0.0-0.7); EOSINOPHILS % (AUTO) 0.4 % (0.0-7.0); HEMATOCRIT 27.2 % (31.2-41.9); HEMOGLOBIN 8.9 g/dL (10.9-14.3); LYMPHOCYTES % (AUTO) 6.6 % (20.5-51.5); MEAN CORPUSCULAR HEMOGLOBIN 29.5 uug (24.7-32.8); MEAN CORPUSCULAR HGB CONC 33 g/dL (32.3-35.6); MEAN CORPUSCULAR VOLUME 90.2 fL (75.5-95.3); MONOCYTES % (AUTO) 6.4 % (0.0-11.0); NEUTROPHILS % (AUTO) 86.4 % (38.5-71.5); RED BLOOD CELL COUNT(AUTO) 3.01 MIL/uL (3.63-4.92)
[2017-01-13 07:04] LABS: CARBON DIOXIDE 32 mmol/L (21-32); CHLORIDE 110 mmol/L (98-107); GLUCOSE 111 mg/dL (74-106); MAGNESIUM 1.9 mg/dL (1.8-2.4); PHOSPHOROUS 3.2 mg/dL (2.5-4.9); POTASSIUM 5.6 mmol/L (3.5-5.1); UREA NITROGEN, BLOOD 42 mg/dL (7-18)
[2017-01-13 07:29] LABS: PLATELET COUNT (AUTO) 139 K/uL (179-408); WHITE BLOOD COUNT (AUTO) 15.1 K/uL (3.8-11.8)
--- NOTE | 2017-01-13 07:30 | NUR ---
NO SIGNS OF DISTRESS OR ACUTE PAIN. O2 3L NC SATURATING 89-91%
--- NOTE | 2017-01-13 07:45 | NUR ---
REPORT TO DAY SHIFT NURSE. NO DISTRESS NOTED.
[2017-01-13 07:57] VITALS: BP 137/57
[2017-01-13 09:11] LABS: ABG BASE EXCESS 0.6 mmol/L; ABG HCO3 27.1 mmol/L; ABG PCO2 52.8 mmHg (35.0-45.0); ABG PH 7.328 (7.350-7.450); ABG PO2 58.3 mmHg (75.0-100.0); ABG SITE LEFT BRACHIAL; ABG TOTAL HEMOGLOBIN 9.9 G/dL (12.0-16.0); COHb 2.4 % (0.5-1.5); MetHb 0.4 % (0.0-1.5); O2Hb 88.2 % (94.0-97.0); VENT MODE Nasal Cannula
--- NOTE | 2017-01-13 11:00 | NUR ---
CONTINUE CLOSE MONITORING FOR RESPIRATORY STATUS. O2 3L NC SATURATING 92
[2017-01-13 11:56] VITALS: BP 158/59
[2017-01-13 13:33] LABS: *CHLORIDE RNDM,URINE 130 mmol/L (100-250); *POTASSIUM RNDM,URINE 16 mmol/L (25-125)
[2017-01-13 13:41] LABS: LYMPHOCYTES % (MANUAL) 6 % (20-40); METAMYELOCYTES % 2 % (0-1); MONOCYTES % (MANUAL) 6 % (2-10); MYELOCYTES % 4 % (0-0); NEUTROPHILS % (MANUAL) 82 % (42-75)
--- NOTE | 2017-01-13 14:22 | NUR ---
CONTINUE BREATHING TX ORDERED, POORLY TOLERATED PHYSICAL THERAPY SEE NOTES
[2017-01-13 16:05] VITALS: BP 154/52
--- NOTE | 2017-01-13 19:39 | NUR ---
RECEIVED IN BED A/OX3, PLAN OF CARE DISCUSSED, PT UNDERSTOOD. DENIES. WILL CONTINUE TOMONITOR FOR COMFORT AND SAFETY.
[2017-01-13 20:00] VITALS: BP 149/55
[2017-01-14] VITALS: BP 139/44
[2017-01-14 04:00] VITALS: BP 146/95
[2017-01-14 06:43] LABS: BASOPHILS % (AUTO) 0.1 % (0.0-2.0); EOSINOPHILS % (AUTO) 0.2 % (0.0-7.0); HEMATOCRIT 28.6 % (37-47); HEMOGLOBIN 9.4 G/DL (12.0-16.0); LYMPHOCYTES # (AUTO) 1.2 K/UL (0.8-4.8); MEAN CORPUSCULAR HEMOGLOBIN 29.6 UUG (27.0-31.0); MEAN CORPUSCULAR HGB CONC 33 g/dL (32.0-37.0); MEAN CORPUSCULAR VOLUME 90.2 FL (81.0-99.0); MONOCYTES # (AUTO) 0.7 K/UL (0.1-1.30); MONOCYTES % (AUTO) 4.7 % (0.0-11.0); NEUTROPHILS # (AUTO) 13.1 K/UL (1.8-8.9); PLATELET COUNT (AUTO) 162 K/UL (150-450); RED BLOOD CELL COUNT(AUTO) 3.18 MIL/UL (4.2-5.4)
[2017-01-14 07:02] LABS: CARBON DIOXIDE 32 mmol/L (21-32); CHLORIDE 108 mmol/L (98-107); CREATININE 0.9 mg/dL (0.6-1.3); GLUCOSE 97 mg/dL (74-106); MAGNESIUM 1.6 mg/dL (1.8-2.4); PHOSPHOROUS 3.3 mg/dL (2.5-4.9); POTASSIUM 4.9 mmol/L (3.5-5.1); UREA NITROGEN, BLOOD 43 mg/dL (7-18)
--- NOTE | 2017-01-14 07:13 | NUR ---
SLEEPING COMFORTABLY. NO DISTRESS NOTED.
[2017-01-14 07:44] VITALS: BP 131/41
[2017-01-14 10:02] LABS: BAND % (MANUAL) 3 % (0-10); LYMPHOCYTES % (MANUAL) 6 % (20-40); MONOCYTES % (MANUAL) 4 % (2-10); NEUTROPHILS % (MANUAL) 87 % (42-75)
[2017-01-14 11:35] VITALS: BP 152/54
[2017-01-14 16:14] VITALS: BP 134/46
--- NOTE | 2017-01-14 18:55 | NUR ---
End of shift: Pt resting and dozing off in bed with fall precautions and safety measures maintained. IVF infusing as ordered. Jain catheter intact and draining properly. Pt on 1L nc. Right femoral hemodialysis catheter kept c/d/i. Pt stable and nad noted.
--- NOTE | 2017-01-14 19:41 | NUR ---
Pt awake. No distress noted. Pt refused HHN tx. DIDI Abad notified.
--- NOTE | 2017-01-14 19:52 | NUR ---
RECEIVED PT IN BED A/OX3. PLAN OF CARE DISCUSSED, PT UNDERSTOOD. REFUSED RESP TX AT THIS TIME. WILL CONTINUE TO MONITOR CLOSELY.
[2017-01-15 00:24] VITALS: BP 139/59
--- NOTE | 2017-01-15 01:27 | NUR ---
Pt refused HHN tx. DIDI Abad notified.
--- NOTE | 2017-01-15 02:30 | NUR ---
MONIQUE CATH REINSERTED. COMPLETE BED BATH. PT IS RESTING COMFORTABLY
[2017-01-15 04:00] VITALS: BP 143/48
[2017-01-15 07:21] VITALS: BP 120/43
--- NOTE | 2017-01-15 07:56 | NUR ---
BLOOD SUGAR 68 AWAKE ALERT AND RESPONSIVE. ORANGE JUICE GIVEN WILL RECHECK BS
[2017-01-15 08:07] LABS: *IMMUNOGLOBULIN G, SERUM 608 mg/dL (700-1600); IMMUNOGLOBULIN A, SERUM 269 mg/dL (64-422); IMMUNOGLOBULIN M, SERUM 61 mg/dL (26-217)
--- NOTE | 2017-01-15 11:00 | NUR ---
PATIENT C/O ON AND OFF SOB CLOSELY MONITORED, BREATHING TX GIVEN BY RESPIRATORY THERAPIST THERAPIST
[2017-01-15 12:01] VITALS: BP 127/45
[2017-01-15 13:24] LABS: ABG BASE EXCESS 4.3 mmol/L; ABG HCO3 33.9 mmol/L; ABG PH 7.219 (7.350-7.450); ABG PO2 69.8 mmHg (75.0-100.0); ABG SITE RIGHT RADIAL; ABG TOTAL HEMOGLOBIN 10.3 G/dL (12.0-16.0); COHb 2.9 % (0.5-1.5); MetHb 0.5 % (0.0-1.5); O2Hb 88.6 % (94.0-97.0); VENT MODE Nasal Cannula
--- NOTE | 2017-01-15 13:30 | NUR ---
SEEN BY DR HILL WITH ABG ORDER, PCO2 85 STARTED ON BIPAP18/5, FIO2 25%
--- NOTE | 2017-01-15 15:04 | NUR ---
SEEN BY DR CARDENAS SEE NOTES
[2017-01-15 15:55] VITALS: BP 101/33
--- NOTE | 2017-01-15 17:21 | NUR ---
RESTING COMFORTABLY WITH CURRENT SETTINGS OF BIPAP 18/5, FIO2 OF 25 SATURATING 96%
[2017-01-15 20:00] VITALS: BP 112/30
[2017-01-16] VITALS: BP 134/55
[2017-01-16 04:00] VITALS: BP 107/36
[2017-01-16 08:00] VITALS: BP 108/40
[2017-01-16 09:07] LABS: A/G RATIO 1.3 (0.7-1.7); ALBUMIN 2.7 g/dL (2.9-4.4); ALPHA-1-GLOBULIN 0.2 g/dL (0.0-0.4); ALPHA-2-GLOBULIN 0.4 g/dL (0.4-1.0); BETA GLOBULIN 0.8 g/dL (0.7-1.3); GAMMA GLOBULIN 0.5 g/dL (0.4-1.8); M-SPIKE Not Observed g/dL (Not Observed)
[2017-01-16 09:56] LABS: BASOPHILS # (AUTO) 0.1 K/uL (0.0-8.0); BASOPHILS % (AUTO) 0.7 % (0.0-2.0); EOSINOPHILS % (AUTO) 0.3 % (0.0-7.0); LYMPHOCYTES # (AUTO) 0.9 K/UL (0.8-4.8); LYMPHOCYTES % (AUTO) 8.5 % (20.5-51.5); MEAN CORPUSCULAR HEMOGLOBIN 29.1 UUG (27.0-31.0); MEAN CORPUSCULAR HGB CONC 32 g/dL (32.0-37.0); MEAN CORPUSCULAR VOLUME 89.8 FL (81.0-99.0); MONOCYTES # (AUTO) 0.6 K/UL (0.1-1.30); MONOCYTES % (AUTO) 5.7 % (0.0-11.0); NEUTROPHILS # (AUTO) 8.8 K/UL (1.8-8.9); NEUTROPHILS % (AUTO) 84.8 % (38.5-71.5); PLATELET COUNT (AUTO) 154 K/UL (150-450); RED BLOOD CELL COUNT(AUTO) 3.16 MIL/UL (4.2-5.4); WHITE BLOOD COUNT (AUTO) 10.4 K/UL (4.0-11.2)
[2017-01-16 09:57] LABS: HEMATOCRIT 28.9 % (37-47); HEMOGLOBIN 9.1 G/DL (12.0-16.0)
[2017-01-16 10:10] LABS: CARBON DIOXIDE 29 mmol/L (21-32); CHLORIDE 106 mmol/L (98-107); CREATININE 1.2 mg/dL (0.6-1.3); GLUCOSE 147 mg/dL (74-106); MAGNESIUM 1.5 mg/dL (1.8-2.4); PHOSPHOROUS 4.7 mg/dL (2.5-4.9); UREA NITROGEN, BLOOD 52 mg/dL (7-18)
[2017-01-16 11:56] VITALS: BP 146/45
[2017-01-16 16:06] VITALS: BP 123/46
--- NOTE | 2017-01-16 20:00 | NUR ---
Received patient in high gordon's in bed, alert and oriented x4 but gets confuse at times. NC 1 L o2 sats at 92% with mild sob with activity (talking and eating). rt arm picc and rt fem cath (hd cath) in placed. ewing in draining clear yellow urine. daughter at bedside. vital signs are stable. call light within reach.
[2017-01-16 20:44] VITALS: BP 136/43
--- NOTE | 2017-01-16 23:30 | NUR ---
Pt placed on BIPAP at this time settings IPAP 18, EPAP 5, resp. rate 18 and FIO2-30%. No resp. distress noted at this time. Pt to be monitored for the duration of the shift. Vision alarm parameters have been checked and remain audible.
--- NOTE | 2017-01-16 23:40 | NUR ---
patient is agitated getting restless refusing bipap. daughter is refusing seroquel prn noted to Dr. Gonzalez ordered to stop seroqueal. given iv ativan one dose. placed on bipap at 2330 hrs. at this time patient is sleeping. vital signs are stable. kept safe and monitored.
[2017-01-17 00:43] VITALS: BP 121/47
[2017-01-17 04:00] VITALS: BP 118/45
--- NOTE | 2017-01-17 06:26 | NUR ---
Patient slept good on bipap for 6 hrs. otherwise no apparent problem noted no respiratory distress. kept safe and monitored. call light within reach.
[2017-01-17 06:54] LABS: BASOPHILS % (AUTO) 0.1 % (0.0-2.0); EOSINOPHILS % (AUTO) 0.1 % (0.0-7.0); HEMATOCRIT 26.1 % (31.2-41.9); HEMOGLOBIN 8.6 g/dL (10.9-14.3); LYMPHOCYTES # (AUTO) 0.6 K/uL (20.0-40.0); LYMPHOCYTES % (AUTO) 7.3 % (20.5-51.5); MEAN CORPUSCULAR HEMOGLOBIN 29.8 uug (24.7-32.8); MEAN CORPUSCULAR HGB CONC 33 g/dL (32.3-35.6); MEAN CORPUSCULAR VOLUME 90.8 fL (75.5-95.3); MONOCYTES # (AUTO) 0.5 K/uL (2.0-10.0); MONOCYTES % (AUTO) 5.9 % (0.0-11.0); NEUTROPHILS # (AUTO) 7.2 K/uL (1.8-8.9); NEUTROPHILS % (AUTO) 86.6 % (38.5-71.5); PLATELET COUNT (AUTO) 122 K/uL (179-408); RED BLOOD CELL COUNT(AUTO) 2.88 MIL/uL (3.63-4.92); WHITE BLOOD COUNT (AUTO) 8.3 K/uL (3.8-11.8)
[2017-01-17 06:58] LABS: CARBON DIOXIDE 32 mmol/L (21-32); CHLORIDE 109 mmol/L (98-107); CREATININE 1.1 mg/dL (0.6-1.3); GLUCOSE 146 mg/dL (74-106); UREA NITROGEN, BLOOD 54 mg/dL (7-18)
[2017-01-17 06:59] LABS: ALANINE AMINOTRANSFERASE 90 U/L (14-59); ALKALINE PHOSPHATASE 55 U/L (50-136); ASPARTATE AMINOTRANSFERASE 33 U/L (15-37); BILIRUBIN,DIRECT 0.2 mg/dL (0.0-0.2); BILIRUBIN,TOTAL 0.9 mg/dL (0.2-1.0); MAGNESIUM 1.8 mg/dL (1.8-2.4); PHOSPHOROUS 3.9 mg/dL (2.5-4.9); TOTAL PROTEIN, SERUM 4.8 g/dL (6.4-8.2)
[2017-01-17 07:26] VITALS: BP 117/48
[2017-01-17 09:36] LABS: ABG BASE EXCESS -0.3 mmol/L; ABG HCO3 27.2 mmol/L; ABG PH 7.274 (7.350-7.450); ABG PO2 52.6 mmHg (75.0-100.0); ABG SITE RIGHT RADIAL; ABG TOTAL HEMOGLOBIN 9.8 G/dL (12.0-16.0); MetHb 0.5 % (0.0-1.5); O2Hb 82.9 % (94.0-97.0); VENT MODE Nasal Cannula
[2017-01-17 11:43] VITALS: BP 119/45
--- NOTE | 2017-01-17 13:06 | NUR ---
Faxed patients home health order to [facility], contact Sarah at [facility] . Awaiting referral information.
--- NOTE | 2017-01-17 15:05 | NUR ---
Contact made with Lolis at [facility] regarding transportation for patient home. Home health order faxed with recommendations. telegraphic instrument supervisor will be between 8-10. Patient pharmacy information in the computer discharge section. Prescriptions to be faxed.
[2017-01-17 15:11] VITALS: BP 135/43
--- NOTE | 2017-01-17 16:12 | NUR ---
Lolis at [facility] is in the process of scheduling fruit picker. It is an issue since patient is going home but she will continue to attempt to schedule. Patient permacath being removed by RN at this time. T.O. orders from Ramiro Mejia who originally inserted it.
--- NOTE | 2017-01-17 18:00 | NUR ---
Tele automated equipment engineer technician states v tach. Pt was asymptomatic vsS B/P 130/40, resp 21, 98.8 temp.
[2017-01-17 20:03] VITALS: BP 137/55
--- NOTE | 2017-01-17 22:10 | NUR ---
Was called by RN to place pt on BIPAP, pt placed on BIPAP with previous settings of IPAP 18, EPAP 5, respiratory rate 18, FiO2 25%. No respiratory distress noted at this time, pt tolerating BIPAP settings and mask well. Family member at bedside. RN aware pt is now on BIPAP. BIPAP alarms functioning and audible. Will continue to monitor pt throughout shift.
[2017-01-18 00:26] VITALS: BP 131/50
[2017-01-18 04:00] VITALS: BP 108/56
[2017-01-18 07:32] VITALS: BP 123/51
--- NOTE | 2017-01-18 08:00 | NUR ---
AWAKE ALERT AND VERBALLY RESPONSIVE WITH O2 2L NC SAT 91% NO SIGNS OF DISTRESS, NO ACUTE PAIN DC PLANNING IN PROGRESS
[2017-01-18 11:51] VITALS: BP 125/56
--- NOTE | 2017-01-18 12:00 | NUR ---
KADEN CATH RIGHT GROIN AND PICC LINE DCD PRESSURE DRESSING APPLIED NO SIGNS OF BLEEDING
--- NOTE | 2017-01-18 12:13 | NUR ---
Spoke to Lolis at [facility] and she has arranged an ambulance serve, [facility]. Now we are waiting for daughter to arrange for family and friends to assist with transferring patient from wheelchair to bed once ambulance brings patient home.
--- NOTE | 2017-01-18 13:00 | NUR ---
DR RODRIGUEZ IN WITH DISCHARGE ORDER, DIESEL DINKEY OPERATOR SPOKE WITH DAUGHTER OF DISCHARGE TO HOME
[2017-01-18] MEDS ORDERED: FAMO20TA8 PO (14:09)
[2017-01-18] MEDS ORDERED: ACET325T53 PO (14:09)
[2017-01-18] MEDS ORDERED: METH4TAB3 PO (14:09)
[2017-01-18] MEDS ORDERED: METO-304 PO (14:09)
[2017-01-18] MEDS ORDERED: ACID1TAB4 GT (14:09)
[2017-01-18] MEDS ORDERED: NYST15OI TOP (14:09)
--- NOTE | 2017-01-18 14:30 | NUR ---
Patient in the process of being discharged. Daughter set up mother with a caregiver. [facility] arranged transportation and picking machine operator helper for 3 pm. Daughter continues to refuse snf even though it is recommended. Patient given pros and cons of going home versus being placed. Continues to state, "I'd rather my mother go home and than go to a SNF".
--- NOTE | 2017-01-18 14:56 | NUR ---
PATIENT REFUSED PICTURE TAKEN ON ALL WOUNDS, EXPLAINED POLICIES AND PROCEDURES BUT PT FLATLY REFUSED.
--- NOTE | 2017-01-18 15:29 | NUR ---
DCD HOME WITH HOME HEALTH FOLLOW-UP WITH DAUGHTER STABLE
== END 2017-01-18 15:30 | disposition home health service (06) | DRG 870 ==
LOC: ER 02:36 → TELE-TD 03:00 → CCU 12:28 → TELE 01-03 15:35 → CCU 01-04 04:31 → TELE-TD 01-11 15:53
PROVIDERS: ADMIT Internal Medicine; ATTEND Internal Medicine
PROC: 0BH18EZ Insertion of Endotracheal Airway into Trachea, Via Natural or Artificial Opening Endoscopic (ICD-10-PCS; principal; 2016-12-24)
PROC: 5A1955Z Respiratory Ventilation, Greater than 96 Consecutive Hours (ICD-10-PCS; 2016-12-24)
PROC: 02HV33Z Insertion of Infusion Device into Superior Vena Cava, Percutaneous Approach (ICD-10-PCS; 2016-12-24)
PROC: 5A1D70Z Performance of Urinary Filtration, Intermittent, Less than 6 Hours Per Day (ICD-10-PCS; 2017-01-05)
PROC: 30233N1 Transfusion of Nonautologous Red Blood Cells into Peripheral Vein, Percutaneous Approach (ICD-10-PCS; 2017-01-05)
PROC: 03HC33Z Insertion of Infusion Device into Left Radial Artery, Percutaneous Approach (ICD-10-PCS; 2017-01-05)
PROC: 06HY33Z Insertion of Infusion Device into Lower Vein, Percutaneous Approach (ICD-10-PCS; 2017-01-05)
PROC: 5A1D70Z Performance of Urinary Filtration, Intermittent, Less than 6 Hours Per Day (ICD-10-PCS; 2017-01-06)
PROC: 30233M1 Transfusion of Nonautologous Plasma Cryoprecipitate into Peripheral Vein, Percutaneous Approach (ICD-10-PCS; 2017-01-07)
PROC: 5A09357 Assistance with Respiratory Ventilation, Less than 24 Consecutive Hours, Continuous Positive Airway Pressure (ICD-10-PCS; 2017-01-10)
DX: A41.9 Sepsis, unspecified organism (principal); J69.0 Pneumonitis due to inhalation of food and vomit; J96.21 Acute and chronic respiratory failure with hypoxia; K72.00 Acute and subacute hepatic failure without coma; N17.0 Acute kidney failure with tubular necrosis; R65.21 Severe sepsis with septic shock; G92 Toxic encephalopathy; E11.22 Type 2 diabetes mellitus with diabetic chronic kidney disease; D62 Acute posthemorrhagic anemia; J96.22 Acute and chronic respiratory failure with hypercapnia; I50.33 Acute on chronic diastolic (congestive) heart failure; D68.59 Other primary thrombophilia; E66.2 Morbid (severe) obesity with alveolar hypoventilation; I82.622 Acute embolism and thrombosis of deep veins of left upper extremity; I13.0 Hypertensive heart and chronic kidney disease with heart failure and stage 1 through stage 4 chronic kidney disease, or unspecified chronic kidney disease; N39.0 Urinary tract infection, site not specified; E44.0 Moderate protein-calorie malnutrition; J44.1 Chronic obstructive pulmonary disease with (acute) exacerbation; M79.81 Nontraumatic hematoma of soft tissue; I27.20 Pulmonary hypertension, unspecified; I80.9 Phlebitis and thrombophlebitis of unspecified site; N18.9 Chronic kidney disease, unspecified; Z79.4 Long term (current) use of insulin; E11.65 Type 2 diabetes mellitus with hyperglycemia; Z68.38 Body mass index [BMI] 38.0-38.9, adult; Z71.3 Dietary counseling and surveillance; I25.2 Old myocardial infarction; I89.0 Lymphedema, not elsewhere classified; F41.0 Panic disorder [episodic paroxysmal anxiety]; Z99.81 Dependence on supplemental oxygen; G47.33 Obstructive sleep apnea (adult) (pediatric); K74.60 Unspecified cirrhosis of liver; Z22.322 Carrier or suspected carrier of Methicillin resistant Staphylococcus aureus; M48.00 Spinal stenosis, site unspecified; T14.90XS Injury, unspecified, sequela; V49.9XXS Car occupant (driver) (passenger) injured in unspecified traffic accident, sequela; G89.29 Other chronic pain; Z85.828 Personal history of other malignant neoplasm of skin; T24.30 Burn of third degree of unspecified site of lower limb, except ankle and foot; T79.8XXS Other early complications of trauma, sequela; X08.8XXS Exposure to other specified smoke, fire and flames, sequela; Z87.891 Personal history of nicotine dependence; Z88.2 Allergy status to sulfonamides; Z88.1 Allergy status to other antibiotic agents; Z88.0 Allergy status to penicillin; Z87.892 Personal history of anaphylaxis; L40.9 Psoriasis, unspecified; E11.51 Type 2 diabetes mellitus with diabetic peripheral angiopathy without gangrene; I25.10 Atherosclerotic heart disease of native coronary artery without angina pectoris; I48.0 Paroxysmal atrial fibrillation; K59.09 Other constipation; K64.9 Unspecified hemorrhoids; M16.0 Bilateral primary osteoarthritis of hip; Z87.440 Personal history of urinary (tract) infections; Z82.49 Family history of ischemic heart disease and other diseases of the circulatory system; Z79.899 Other long term (current) drug therapy; Z79.84 Long term (current) use of oral hypoglycemic drugs; Z79.51 Long term (current) use of inhaled steroids; G89.4 Chronic pain syndrome; Z90.49 Acquired absence of other specified parts of digestive tract; E11.69 Type 2 diabetes mellitus with other specified complication; E78.5 Hyperlipidemia, unspecified; E87.5 Hyperkalemia; E86.9 Volume depletion, unspecified; D73.1 Hypersplenism; I52 Other heart disorders in diseases classified elsewhere
CPT/HCPCS: 36415; 36569; 36600; 70030-TC; 71010; 71250; 72193; 76700; 82746; 82784; 83010; 83520; 83550; 83605; 83735; 84100; 84133; 84155; 84165; 84300; 84478; 85018; 85025; 85610; 85651; 85730; 86160; 86162; 86256; 86334; 86850; 86870; 86880; 86900; 86901; 86920; 87040; 87070; 87086; 87400; 90937; 92526; 92610; 93005; 94002; 94003; 94640; 94660; 97110; 97530; A4217; A4663; C1751; C9113; J1450; J1650; J1815; J1940; J2020; J2060; J2185; J2248; J2270; J2370; J2405; J2920; J2930; J3370; J3475; J3480; J3486; J3490; J3590; J7030; J7040; J7050; J7060; P9012-BL; P9016-BL; P9021; P9047; Q9967

== ENCOUNTER 2017-01-31 20:13 | Inpatient (IN) | payer MEDICARE, OTHER ==
[~2017-01-31] VITALS: Ht 165.1 cm; Wt 115.7 kg
[~2017-01-31 20:13] MED LIST changes: +ACET325T53 PO; +ACID1TAB4 GT; +ASPI81TA31 PO; +FAMO20TA8 PO; +FURO20TA4 PO; +METH4TAB3 PO; +METO-304 PO; -NAPR220T66 PO; +NYST15OI TOP; +SIMV10TA6 PO; -SIMV40TA2 PO
--- NOTE | 2017-01-31 20:20 | NUR ---
Pt biba for hypotension and low O2 sats. Per medics pt's blood pressure sailboat captain was in the 70's and pt's O2 sats were in the 60's-70's. Upon arrival pt's RA O2 sats 78%, pt placed on NRB. Pts blood pressure was in the 80's. Pt however speaking full sentences, diminished lung sounds, slightly tachypnic but even and unlabored. Pt ST to NSR on the monitor. Pt resting in position of comfort for self. Awaiting further eval.
[2017-01-31] MEDS ORDERED: IV NORMAL SALINE 1000 ML BAG IV ONE (20:30)
[2017-01-31 20:57] LABS: ABG BASE EXCESS 17.8 mmol/L; ABG HCO3 45.8 mmol/L; ABG PCO2 78.7 mmHg (35.0-45.0); ABG PH 7.383 (7.350-7.450); ABG SITE LEFT RADIAL; COHb 2.7 % (0.5-1.5); MetHb 0.3 % (0.0-1.5); O2Hb 91.6 % (94.0-97.0)
[2017-01-31] MEDS ORDERED: LORAZEPAM 2 MG/1 ML VIAL IV ONE ×2 (21:15→23:00)
--- NOTE | 2017-01-31 21:17 | NUR ---
pt placed on bipap. Pt having a hard time staying calm, not wanting to keep the mask on. Dr. Parker at bedside. Awaiting further orders.
[2017-01-31 21:20] LABS: BASOPHILS # (AUTO) 0.1 K/uL (0.0-8.0); BASOPHILS % (AUTO) 1.1 % (0.0-2.0); EOSINOPHILS # (AUTO) 0.1 K/uL (0.0-0.7); EOSINOPHILS % (AUTO) 1.4 % (0.0-7.0); HEMATOCRIT 28.9 % (37-47); HEMOGLOBIN 9.1 G/DL (12.0-16.0); LYMPHOCYTES # (AUTO) 1.4 K/UL (0.8-4.8); LYMPHOCYTES % (AUTO) 18.9 % (20.5-51.5); MEAN CORPUSCULAR HEMOGLOBIN 29.8 UUG (27.0-31.0); MEAN CORPUSCULAR HGB CONC 32 g/dL (32.0-37.0); MEAN CORPUSCULAR VOLUME 94.7 FL (81.0-99.0); MONOCYTES % (AUTO) 13.7 % (0.0-11.0); NEUTROPHILS # (AUTO) 4.8 K/UL (1.8-8.9); NEUTROPHILS % (AUTO) 64.9 % (38.5-71.5); PLATELET COUNT (AUTO) 305 K/UL (150-450); RED BLOOD CELL COUNT(AUTO) 3.05 MIL/UL (4.2-5.4); WHITE BLOOD COUNT (AUTO) 7.4 K/UL (4.0-11.2)
[2017-01-31] MEDS ORDERED: ONDANSETRON 4 MG/2 ML VIAL IV ONE (21:30)
[2017-01-31] MEDS ORDERED: MORPHINE SULFATE 2 MG/1 ML DISP.SYRIN IV ONE ×2 (21:30→22:15)
--- NOTE | 2017-01-31 21:32 | NUR ---
Pt cont to have difficulty tolerating bipap mask. Pt sat's dropped to the 70's. Dr. Parker notified and to bedside. 02 increased to 50%, will monitor for effects. Pt medicated for discomfort, will monitor for effects of medication. Daughter at bedside attempting to keep pt calm.
[2017-01-31 21:34] LABS: ALANINE AMINOTRANSFERASE 22 U/L (14-59); ALKALINE PHOSPHATASE 46 U/L (50-136); ASPARTATE AMINOTRANSFERASE 23 U/L (15-37); BILIRUBIN,DIRECT 0.5 mg/dL (0.0-0.2); BILIRUBIN,TOTAL 1.3 mg/dL (0.2-1.0); CHLORIDE 99 mmol/L (98-107); CREATININE 1.9 mg/dL (0.6-1.3); GLUCOSE 106 mg/dL (74-106); LIPASE 128 U/L (73-393); POTASSIUM 5.2 mmol/L (3.5-5.1); TOTAL PROTEIN, SERUM 5.2 g/dL (6.4-8.2); UREA NITROGEN, BLOOD 36 mg/dL (7-18)
[2017-01-31] MEDS ORDERED: LORAZEPAM 2 MG/1 ML VIAL ONE ×2 (21:35→23:05)
[2017-01-31] MEDS ORDERED: MORPHINE SULFATE 2 MG/1 ML DISP.SYRIN ONE ×2 (21:42→22:22)
[2017-01-31] MEDS ORDERED: ONDANSETRON 4 MG/2 ML VIAL ONE (21:42)
--- NOTE | 2017-01-31 21:45 | NUR ---
Pt conts to be having difficulty tolerating bipap mask. Pt wanting it off, restless in bed, tearful and also c/o pain. Cont reassuring pt, daughter remains at bedside. Dr. Parker aware
[2017-01-31 21:46] LABS: CARBON DIOXIDE 47 mmol/L (21-32)
--- NOTE | 2017-01-31 22:10 | NUR ---
Pt pulled bipap off. Mask placed back on pt. Pt cont c/o generalized discomfort. Remains tearful and upset with mask. Pt medicated for discomfort, will monitor for effects of medication. DIDI Kapoor sitting with pt one to one to help calm pt and keep pt from pulling mask off.
[2017-01-31 22:24] LABS: BAND % (MANUAL) 14 % (0-10); EOSINOPHILS % (MANUAL) 1 % (0-8); LYMPHOCYTES % (MANUAL) 15 % (20-40); MONOCYTES % (MANUAL) 13 % (2-10); NEUTROPHILS % (MANUAL) 57 % (42-75)
--- NOTE | 2017-01-31 22:35 | NUR ---
DIDI Kapoor remains at bedside to monitor pt. Pt appears less tearful but conts to have episodes of anxiety. Yelling out " I cant take it anymore, take it off. When can it come off." Pt reassured and diversion tactics cont. Dr. Parker aware.
[2017-01-31] MEDS ORDERED: NOREPINEPHRINE BITARTRATE 4 MG/4 ML VIAL IV ONE (23:03)
[2017-01-31] MEDS: NOREPINEPHRINE BITARTRATE 16 MG in IV DEXTROSE 5% 500 ML IV PRN (23:05)
--- NOTE | 2017-01-31 23:05 | NUR ---
Pt started on levophed to maintain a blood pressure > 100. Pt also given ativan for her anxiety, will monitor for effects of medications.
--- NOTE | 2017-01-31 23:20 | NUR ---
Pt's blood pressure maintaining >100, pt appears more calm. Resting in position of comfort for self with eyes closed, resp even and unlabored.
--- NOTE | 2017-01-31 23:35 | NUR ---
Daughter returned to bedside. Pt appears to be asleep at this time. Resp even and unlabored. No obvious signs of distress at this time.
[2017-02-01] VITALS (78 sets, daily range): BP systolic 81–131; BP diastolic 33–75
[2017-02-01] MEDS ORDERED: HYDR-3980 PO (00:17)
[2017-02-01] MEDS ORDERED: ALBU18HF2 IH (00:17)
--- NOTE | 2017-02-01 00:33 | NUR ---
Pt to and from CT on monitor with RN. Pt resting in position of comfort for self with eyes closed, resp even and unlabored. Daughter at bedside.
[2017-02-01] MEDS ORDERED: AZITHROMYCIN IV 500 MG in IV DEXTROSE 5% 250 ML IV ONE (01:00)
[2017-02-01] MEDS: NOREPINEPHRINE BITARTRATE 16 MG in IV DEXTROSE 5% 500 ML IV PRN ×2 (01:06→01:41)
[2017-02-01] MEDS ORDERED: AZITHROMYCIN 500 MG VIAL IV ONE (01:24)
--- NOTE | 2017-02-01 01:24 | NUR ---
Blood pressure improving with increased dose of levo. ABT infusion started, will monitor for any adverse reactions. Pt appears to be asleep, resp even andunlabored. No obvious signs of distress at this time.
[2017-02-01] MEDS ORDERED: BUMETANIDE INJ 2 MG in IV DEXTROSE 5% 32 ML IV ONE (01:30)
[2017-02-01] MEDS ORDERED: ONDANSETRON 4 MG/2 ML VIAL IV PRN (01:30)
[2017-02-01] MEDS ORDERED: MAGNESIUM HYDROXIDE 30 ML LIQUID UDC PO PRN (01:30)
[2017-02-01] MEDS ORDERED: ACETAMINOPHEN 325 MG TABLET PO PRN (01:30)
[2017-02-01] MEDS ORDERED: HYDROCODONE/APAP 5-325MG TABLET PO PRN (01:30)
[2017-02-01] MEDS ORDERED: ALBUTEROL SULFATE 8 GM HFA.AER.AD IH PRN (01:45)
[2017-02-01] MEDS ORDERED: HYDROCODONE/APAP 10-325 MG TABLET PO PRN (01:45)
[2017-02-01] MEDS ORDERED: DIAZEPAM 5 MG TABLET PO PRN (01:45)
[2017-02-01] MEDS ORDERED: FLUCONAZOLE 400 MG /NS 200 ML PIGGYBACK IV ONE (02:15)
--- NOTE | 2017-02-01 02:37 | NUR ---
Pt cleaned and changed. 16fr indwelling ewing inserted. Both IV's infilitrated. Dr. Parker notified and at bedside to place a central line. Consent signed and in chart.
[2017-02-01 02:41] LABS: *BILIRUBIN,URIN 1+ (NEGATIVE); *BLOOD, URINE Trace-lysed (NEGATIVE); *CLARITY,URINE SLIGHTLY CLOUDY (CLEAR); *COLOR,URINE DARK YELLOW (YELLOW); *KETONES,URINE NEGATIVE (NEGATIVE); *PROTEIN,URINE 1+ (NEGATIVE); LEUKOCYTE ESTERASE ,URINE 1+ (NEGATIVE); NITRITE, URINE NEGATIVE (NEGATIVE); PH,URINE 5.5 (5.0-8.0); UGLUCOSE NEGATIVE (NEGATIVE)
[2017-02-01 02:48] LABS: BACTERIA,URINE MODERATE /HPF (NONE SEEN); SQUAMOUS EPITHELIAL CELL,UR MANY /HPF (NONE SEEN); WBC,URINE 20-50 /HPF (0-3); YEAST,URINE MANY /HPF (NONE SEEN)
--- NOTE | 2017-02-01 02:59 | NUR ---
Report called to DIDI Serrano. Once central line is placed pt to go to the floor.
[2017-02-01] MEDS ORDERED: INSULIN REGULAR, HUMAN 300 UNIT/3 ML VIAL SQ PRN ×2 (03:00→08:15)
[2017-02-01] MEDS ORDERED: DEXTROSE 50% 50 ML DISP.SYRIN IV PRN ×3 (03:00→10:00)
[2017-02-01] MEDS ORDERED: NOREPINEPHRINE BITARTRATE 8 MG in IV DEXTROSE 5% 500 ML IV PRN (03:15)
--- NOTE | 2017-02-01 03:30 | NUR ---
7fr triple lumen central line placed by Dr. Parker in the [facility].
[2017-02-01 03:39] LABS: ABG BASE EXCESS 12.3 mmol/L; ABG HCO3 42.1 mmol/L; ABG PCO2 92.9 mmHg (35.0-45.0); ABG PH 7.274 (7.350-7.450); ABG PO2 61.7 mmHg (75.0-100.0); ABG SITE LEFT RADIAL; ABG TOTAL HEMOGLOBIN 10.6 G/dL (12.0-16.0); COHb 2.7 % (0.5-1.5); MetHb 0.4 % (0.0-1.5); O2Hb 88.3 % (94.0-97.0); VENT MODE BIPAP
--- NOTE | 2017-02-01 03:45 | NUR ---
Dr. Cordon at bedside.
[2017-02-01] MEDS ORDERED: NOREPINEPHRINE BITARTRATE 16 MG in IV DEXTROSE 5% 500 ML IV PRN (04:00)
[2017-02-01] MEDS ORDERED: ENOXAPARIN SODIUM 30 MG/0.3 ML DISP.SYRIN SUBCUT ONE (04:15)
[2017-02-01] MEDS ORDERED: FLUCONAZOLE 200 MG/NS 100ML IV 200 MG in PREMIXED 1 EACH IV SCH (04:15)
[2017-02-01 04:56] LABS: BASOPHILS # (AUTO) 0.1 K/uL (0.0-8.0); BASOPHILS % (AUTO) 1.3 % (0.0-2.0); EOSINOPHILS # (AUTO) 0.1 K/uL (0.0-0.7); EOSINOPHILS % (AUTO) 1.3 % (0.0-7.0); HEMATOCRIT 32.2 % (37-47); HEMOGLOBIN 10.1 G/DL (12.0-16.0); LYMPHOCYTES # (AUTO) 1.1 K/UL (0.8-4.8); LYMPHOCYTES % (AUTO) 12.2 % (20.5-51.5); MEAN CORPUSCULAR HGB CONC 31 g/dL (32.0-37.0); MEAN CORPUSCULAR VOLUME 95.6 FL (81.0-99.0); MONOCYTES % (AUTO) 11.6 % (0.0-11.0); NEUTROPHILS # (AUTO) 6.7 K/UL (1.8-8.9); NEUTROPHILS % (AUTO) 73.6 % (38.5-71.5); PLATELET COUNT (AUTO) 402 K/UL (150-450); RED BLOOD CELL COUNT(AUTO) 3.37 MIL/UL (4.2-5.4)
[2017-02-01 05:08] LABS: CHLORIDE 97 mmol/L (98-107); CHOLESTEROL 106 mg/dL (<200); GLUCOSE 240 mg/dL (74-106); HDL CHOLESTEROL 64 mg/dL (40-60); POTASSIUM 5.5 mmol/L (3.5-5.1); TRIGLYCERIDES 92 MG/DL (30-150); UREA NITROGEN, BLOOD 39 mg/dL (7-18)
[2017-02-01 05:11] LABS: CARBON DIOXIDE 44 mmol/L (21-32); MAGNESIUM 1.1 mg/dL (1.8-2.4)
[2017-02-01] MEDS ORDERED: ENOXAPARIN SODIUM 30 MG/0.3 ML DISP.SYRIN ONE (05:31)
--- NOTE | 2017-02-01 05:35 | NUR ---
Pt remains on BIPAP Vision settings IPAP 25, EPAP 5, set resp. rate 15 and FIO2-50%. No resp. distress noted throughout the shift. BVM at bedside. Vision alarm parameters have been checked and remain audible.
[2017-02-01] MEDS ORDERED: METRONIDAZOLE 500 MG/NS 100ML 100 ML IV ONE (05:49)
[2017-02-01] MEDS ORDERED: VANCOMYCIN FOR PO/GT/NG USE PO SCH (06:00)
[2017-02-01] MEDS: METRONIDAZOLE 500 MG/NS 100ML 500 MG in PREMIXED 1 EACH IV SCH ×3 (06:10→22:21)
--- NOTE | 2017-02-01 06:47 | NUR ---
Diflucan IV not administered for 414. Patient received dose in ER. Vancomycin PO dose to be given late. No med available at this time. Will endorse to day shift nurse.
[2017-02-01] MEDS ORDERED: ALBUTEROL SULFATE 2.5 MG/3 ML NEBU NEB PRN ×3 (07:15→17:30)
[2017-02-01] MEDS ORDERED: BLOOD SUGAR DIAGNOSTIC 1 EACH STRIP VI SCH ×3 (07:30→12:00)
--- NOTE | 2017-02-01 07:50 | NUR ---
PT REC'D ON BiPAP 25/5 RR20 40%FiO2. FULL FACE MASK. WITH LEAK 20-25. CONT TO MONITOR AND REPORT ANY CHANGES.
[2017-02-01] MEDS: MAGNESIUM SULFATE/D5W 100 ML IV SCH ×4 (08:07→15:39)
[2017-02-01] MEDS: SENNOSIDES/DOCUSATE SODIUM TABLET PO SCH ×2 (08:09→20:25)
[2017-02-01] MEDS ORDERED: ASPIRIN 81 MG TAB.CHEW PO SCH (09:00)
[2017-02-01] MEDS ORDERED: IV NS 1000 ML 1,000 ML IV PRN (09:00)
[2017-02-01] MEDS ORDERED: LISINOPRIL 5 MG TABLET PO SCH (09:00)
[2017-02-01] MEDS ORDERED: Medication Not On Formulary EA (Metformin Hcl 1,000 MG) PO SCH (09:00)
[2017-02-01] MEDS ORDERED: SIMVASTATIN 10 MG TABLET PO SCH (09:00)
[2017-02-01] MEDS ORDERED: ACETAMINOPHEN 650 MG SUPP.RECT RC PRN (10:00)
[2017-02-01] MEDS: FLUCONAZOLE 200 MG/NS 100ML IV 100 MG in PREMIXED 1 EACH IV SCH (10:55)
--- NOTE | 2017-02-01 12:15 | NUR ---
PT.WAS SEEN BY .
[2017-02-01] MEDS: BLOOD SUGAR DIAGNOSTIC 1 EACH STRIP VI SCH ×3 (12:19→23:30)
[2017-02-01] MEDS: INSULIN REGULAR, HUMAN 300 UNIT/3 ML VIAL SQ PRN (12:21)
[2017-02-01] MEDS: Z GUARD REMEDY PASTE 57 GM TUBE TOP PRN ×2 (12:22→17:22)
--- NOTE | 2017-02-01 13:20 | NUR ---
PT.WAS SEEN BY HECTOR TONG MD WITH NEW ORDERS.
--- NOTE | 2017-02-01 13:30 | NUR ---
PT.DAUGHTER AT BEDSIDE UPDATED WITH PT.CONDITION AND PLAN OF CARE.
--- NOTE | 2017-02-01 17:05 | NUR ---
PT.WAS SEEN BY WITH NEW ORDERS.
[2017-02-01 18:43] LABS: *BLOOD, URINE Trace-intact (NEGATIVE); *CLARITY,URINE SLIGHTLY CLOUDY (CLEAR); *COLOR,URINE YELLOW (YELLOW); *KETONES,URINE TRACE (NEGATIVE); *PROTEIN,URINE 1+ (NEGATIVE); *UROBILINOGEN,URINE 0.2 E.U./dl (NORMAL); LEUKOCYTE ESTERASE ,URINE 2+ (NEGATIVE); NITRITE, URINE NEGATIVE (NEGATIVE); UGLUCOSE NEGATIVE (NEGATIVE)
[2017-02-01 18:56] LABS: *CREATININE,URINE 60.3 mg/dL (30-125); *URINE TOTAL PROTEIN RANDOM 68.9 mg/dL (<150/24HR)
--- NOTE | 2017-02-01 19:00 | NUR ---
Received patient in stable condition. Noted anxiety, will attempt non-pharm calming measures. On BiPAP mask, stable on current settings. Central line to right femoral vein running Levophed at 4 mcg/min, BP stable. NSR on monitor. Jain cath intact, draining. SCD pumps in place. On 1st step mattress. SBAR received from Qing CALDERA RN. Will continue plan of care.
[2017-02-01] MEDS: ALBUTEROL SULFATE 2.5 MG/ 0.5 ML NEBU NEB SCH (19:11)
[2017-02-01] MEDS: IPRATROPIUM BROMIDE 0.5 MG/2.5 ML NEBU NEB SCH (19:11)
[2017-02-01] MEDS ORDERED: ALBUTEROL SULFATE 2.5 MG/3 ML NEBU NEB SCH (19:30)
[2017-02-01] MEDS: methylPREDNISolone SOD SUCC 40 MG/ML VIAL IV SCH (20:28)
[2017-02-01] MEDS: LORAZEPAM 2 MG/1 ML VIAL IV PRN (20:28)
--- NOTE | 2017-02-01 20:37 | NUR ---
Noted anxiety evidenced by hyperventilation, crying, and statement by patient "I'm scared." Reorientation, education, and support provided. However, patient receptive to non-pharm calming efforts for only a few minutes before anxiety returns. PRNs as appropriate.
[2017-02-01] MEDS ORDERED: SIMVASTATIN 40 MG TABLET PO SCH (21:00)
[2017-02-01 21:44] LABS: *BILIRUBIN,URIN NEGATIVE (NEGATIVE)
[2017-02-01 21:45] LABS: BACTERIA,URINE FEW /HPF (NONE SEEN); MUCUS,URINE FEW /LPF (0-FEW); SQUAMOUS EPITHELIAL CELL,UR MODERATE /HPF (NONE SEEN); WBC,URINE 20-50 /HPF (0-3); YEAST,URINE MANY /HPF (NONE SEEN)
--- NOTE | 2017-02-01 23:30 | NUR ---
Elevated Glucose level, however patient NPO at this time. Will hold insulin and reassess glucose at 0600
[2017-02-02] VITALS (45 sets, daily range): BP systolic 78–124; BP diastolic 35–78
[2017-02-02 05:01] LABS: BASOPHILS % (AUTO) 0.2 % (0.0-2.0); EOSINOPHILS % (AUTO) 0.2 % (0.0-7.0); HEMATOCRIT 31.3 % (37-47); LYMPHOCYTES # (AUTO) 0.5 K/UL (0.8-4.8); LYMPHOCYTES % (AUTO) 7.5 % (20.5-51.5); MEAN CORPUSCULAR HEMOGLOBIN 30.4 UUG (27.0-31.0); MEAN CORPUSCULAR HGB CONC 32 g/dL (32.0-37.0); MONOCYTES # (AUTO) 0.1 K/UL (0.1-1.30); MONOCYTES % (AUTO) 1.1 % (0.0-11.0); NEUTROPHILS # (AUTO) 5.6 K/UL (1.8-8.9); PLATELET COUNT (AUTO) 355 K/UL (150-450); RED BLOOD CELL COUNT(AUTO) 3.29 MIL/UL (4.2-5.4); WHITE BLOOD COUNT (AUTO) 6.2 K/UL (4.0-11.2)
[2017-02-02 05:13] LABS: ALANINE AMINOTRANSFERASE 22 U/L (14-59); ALKALINE PHOSPHATASE 49 U/L (50-136); ASPARTATE AMINOTRANSFERASE 21 U/L (15-37); BILIRUBIN,TOTAL 1.2 mg/dL (0.2-1.0); CARBON DIOXIDE 38 mmol/L (21-32); CHLORIDE 95 mmol/L (98-107); CREATINE KINASE, TOTAL 23 U/L (26-192); CREATININE 1.5 mg/dL (0.6-1.3); PHOSPHOROUS 3.4 mg/dL (2.5-4.9); POTASSIUM 5.4 mmol/L (3.5-5.1); TOTAL PROTEIN, SERUM 5.9 g/dL (6.4-8.2); UREA NITROGEN, BLOOD 34 mg/dL (7-18)
[2017-02-02 05:19] LABS: GLUCOSE 317 mg/dL (74-106)
[2017-02-02] MEDS: BLOOD SUGAR DIAGNOSTIC 1 EACH STRIP VI SCH ×4 (05:25→23:34)
[2017-02-02] MEDS: INSULIN REGULAR, HUMAN 300 UNIT/3 ML VIAL SQ PRN ×4 (05:37→23:36)
[2017-02-02] MEDS: METRONIDAZOLE 500 MG/NS 100ML 500 MG in PREMIXED 1 EACH IV SCH ×3 (05:54→21:47)
--- NOTE | 2017-02-02 06:00 | NUR ---
Glucose increased. Covered with insulin as ordered.
--- NOTE | 2017-02-02 07:00 | NUR ---
Patient is resting in bed. No significant events overnights. Levophed restarted at 0700 for decreased BP. Comfortable on BiPAP current settings. Noted anxiety during shift, managed with PRN medications and education. Accu-checks q6hrs, covered as ordered. Jain intact, 850 mL total during shift. Skin care provided. On 1st step mattress. DVT pumps in place. SBAR given to Dank Vera RN.
[2017-02-02 08:54] LABS: *OCCULT BLOOD STOOL NEGATIVE (NEGATIVE)
[2017-02-02] MEDS ORDERED: FUROSEMIDE 20 MG/2 ML VIAL IV ONE (09:00)
[2017-02-02] MEDS ORDERED: IV NORMAL SALINE 250 ML IV ONE (09:00)
[2017-02-02] MEDS: SENNOSIDES/DOCUSATE SODIUM TABLET PO SCH (09:00)
[2017-02-02] MEDS: methylPREDNISolone SOD SUCC 40 MG/ML VIAL IV SCH ×2 (09:10→20:48)
[2017-02-02 09:15] LABS: ABG BASE EXCESS 11.5 mmol/L; ABG PCO2 68.7 mmHg (35.0-45.0); ABG PH 7.372 (7.350-7.450); ABG PO2 69.2 mmHg (75.0-100.0); ABG SITE RIGHT RADIAL; ABG TOTAL HEMOGLOBIN 10.7 G/dL (12.0-16.0); COHb 1.9 % (0.5-1.5); MetHb 0.3 % (0.0-1.5); O2Hb 91.7 % (94.0-97.0); VENT MODE Nasal Cannula
[2017-02-02] MEDS: IPRATROPIUM BROMIDE 0.5 MG/2.5 ML NEBU NEB SCH ×4 (09:26→19:05)
[2017-02-02] MEDS: ALBUTEROL SULFATE 2.5 MG/ 0.5 ML NEBU NEB SCH ×4 (09:26→19:04)
--- NOTE | 2017-02-02 09:55 | NUR ---
Dr. Roldan in to examine patien; full report given orders to bolus 250cc NS and 20mg lasix received.
[2017-02-02] MEDS: FLUCONAZOLE 200 MG/NS 100ML IV 100 MG in PREMIXED 1 EACH IV SCH (10:00)
--- NOTE | 2017-02-02 10:28 | NUR ---
Dr. Vincent in the unit to examine patient; report given, orders to continue monitor sbp received.
--- NOTE | 2017-02-02 11:25 | NUR ---
Dr. Ramey pulmonary services in the unit to examine patient; report given.
--- NOTE | 2017-02-02 13:01 | NUR ---
WOUND CARE CONSULT: PT PRESENTS WITH INCONTINENCE OF STOOL AND MULTIPLE SKIN ISSUES, PRESENT ON ADMISSION. PT HAS LEFT THUMB ESCHAR, LEFT ABDOMEN SCAB, MIDBACK ABRASION AND RASH TO BUTTOCKS, ALL PRESENT ON ADMISSION. RECOMMENDATIONS MADE FOR SKIN PROTECTION. DISCUSSED WITH NURSING STAFF. PT ON FIRST STEP MATTRESS. ALL SKIN PROTECTION MEASURES IN PLACE. DEFER TO MD FOR LEFT THUMB ESCHAR. WILL SEE PRN. MARIO IN AGREEMENT WITH PLAN OF CARE. Addendum: 02/02/17 at 1303 by LARON CARROLL RN Amended: Links added. Addendum: 02/02/17 at 1307 by LARON CARROLL RN PT STATES THAT SHE SCRATCHES HER SKIN.
--- NOTE | 2017-02-02 13:45 | NUR ---
For a blood sugar above 400 at this time was not called to be notified as recommended per protocol. Blood sugar tested after patient ate lunch. Addendum: 02/02/17 at 1733 by NASRIN CARR RN and procedure done past time.
[2017-02-02] MEDS: FLUTICASONE/VILANTEROL 1 EACH BLST.W.DEV INH SCH (13:47)
[2017-02-02] MEDS: CLOTRIMAZOLE 1% CREAM 30 GM TUBE TOP SCH ×2 (13:55→16:27)
[2017-02-02] MEDS: BACITRACIN/POLYMYXIN B OINT 15 GM TUBE TOP SCH (13:56)
[2017-02-02] MEDS: LOPERAMIDE HCL 2 MG CAPSULE PO PRN ×2 (16:24→20:52)
--- NOTE | 2017-02-02 17:00 | NUR ---
Pt's daughter MJ at bedside.
--- NOTE | 2017-02-02 17:00 | NUR ---
Dr. Gonzalez in to examine patient, full report given. No orders received.
--- NOTE | 2017-02-02 18:11 | NUR ---
PT TAKEN OFF BIPAP THIS MORNING, DOING WELL ON NASAL CANNULA WITH NO S/S OF RESPIRATORY DISTRESS NOTED. WILL CONTINUE TO MONITOR FOR DISTRESS.
--- NOTE | 2017-02-02 20:00 | NUR ---
RECEIVED PT. ALERT & ORIENTED X3 , C/O HAVING A CONT. LOOSE STOOL. CLEANED PT. THEN Z-GUARD CREAM APPLIED. ON O2 @ 4LNC W/ O2 SAT OF 97%. KEPT HOB ELEVATED. TLC ON R FEMORAL , INTACT & ALL PORTS ARE PATENT.REPOSITIONED ON HER SIDE. NOT IN ANY DISTRESS.
[2017-02-02] MEDS: INSULIN DETEMIR 300 UNIT/3 ML CARTRIDGE SQ SCH (20:45)
[2017-02-02] MEDS: ACETAMINOPHEN 325 MG TABLET PO PRN (21:11)
[2017-02-02] MEDS ORDERED: ACETAMINOPHEN 325 MG TABLET ONE (21:25)
--- NOTE | 2017-02-02 21:42 | NUR ---
FLEXISEAL INSERTED, LIQUIDISH CONT.STOOL MODERATE AMT. NOTED.
--- NOTE | 2017-02-02 22:06 | NUR ---
RECEIVED PATIENT AWAKE AND ALERT ON 3LPM VIA NASAL CANNULA. NO SOB NOTED AT THIS TIME. PATIENT STATES THAT SHE DOES NOT WANT TO BE ON THE BIPAP AT THIS TIME. WILL CONTINUE TO MONITOR.
--- NOTE | 2017-02-02 23:00 | NUR ---
HS SNACK GIVEN, KEPT HOB ELEVATED AT ALL TIMES.
[2017-02-02] MEDS: LORAZEPAM 2 MG/1 ML VIAL IV PRN (23:54)
[2017-02-03] VITALS (23 sets, daily range): BP systolic 88–111; BP diastolic 41–63
[2017-02-03] MEDS ORDERED: DEXTROSE 50% 50 ML DISP.SYRIN IV PRN (00:30)
--- NOTE | 2017-02-03 02:00 | NUR ---
SLEEPING WELL. V/S STABLE.
--- NOTE | 2017-02-03 04:00 | NUR ---
AM CARE DONE. ORAL CARE DONE. FLEXISEAL INTACT & IRRIGATED. REPOSITIONED ON HER BACK FOR CXR.
[2017-02-03 05:27] LABS: HEMATOCRIT 27.3 % (37-47); HEMOGLOBIN 8.7 G/DL (12.0-16.0); LYMPHOCYTES # (AUTO) 0.3 K/UL (0.8-4.8); MEAN CORPUSCULAR HEMOGLOBIN 30.6 UUG (27.0-31.0); MEAN CORPUSCULAR HGB CONC 32 g/dL (32.0-37.0); MEAN CORPUSCULAR VOLUME 96.4 FL (81.0-99.0); MONOCYTES # (AUTO) 0.4 K/UL (0.1-1.30); MONOCYTES % (AUTO) 6.3 % (0.0-11.0); NEUTROPHILS # (AUTO) 5.6 K/UL (1.8-8.9); NEUTROPHILS % (AUTO) 88.7 % (38.5-71.5); PLATELET COUNT (AUTO) 332 K/UL (150-450); RED BLOOD CELL COUNT(AUTO) 2.83 MIL/UL (4.2-5.4); WHITE BLOOD COUNT (AUTO) 6.3 K/UL (4.0-11.2)
[2017-02-03] MEDS: METRONIDAZOLE 500 MG/NS 100ML 500 MG in PREMIXED 1 EACH IV SCH ×3 (05:32→21:24)
[2017-02-03 05:40] LABS: CHLORIDE 97 mmol/L (98-107); CREATININE 1.5 mg/dL (0.6-1.3); MAGNESIUM 1.9 mg/dL (1.8-2.4); PHOSPHOROUS 3.2 mg/dL (2.5-4.9); POTASSIUM 4.1 mmol/L (3.5-5.1); UREA NITROGEN, BLOOD 40 mg/dL (7-18)
[2017-02-03 05:45] LABS: CARBON DIOXIDE 43 mmol/L (21-32); GLUCOSE 363 mg/dL (74-106)
--- NOTE | 2017-02-03 06:17 | NUR ---
RESTING QUITE AFTER REPOSITIONED TO SIDE W/ HOB ELEVATED. V/S STABLE.
[2017-02-03] MEDS: ALBUTEROL SULFATE 2.5 MG/ 0.5 ML NEBU NEB SCH ×4 (07:22→19:47)
[2017-02-03] MEDS: IPRATROPIUM BROMIDE 0.5 MG/2.5 ML NEBU NEB SCH ×4 (07:22→19:46)
[2017-02-03] MEDS: BLOOD SUGAR DIAGNOSTIC 1 EACH STRIP VI SCH ×4 (07:38→21:00)
[2017-02-03] MEDS: methylPREDNISolone SOD SUCC 40 MG/ML VIAL IV SCH ×2 (08:09→21:24)
[2017-02-03] MEDS: CLOTRIMAZOLE 1% CREAM 30 GM TUBE TOP SCH ×2 (08:12→16:21)
[2017-02-03] MEDS: BACITRACIN/POLYMYXIN B OINT 15 GM TUBE TOP SCH (08:12)
[2017-02-03] MEDS: FLUTICASONE/VILANTEROL 1 EACH BLST.W.DEV INH SCH (08:19)
[2017-02-03] MEDS: INSULIN REGULAR, HUMAN 300 UNIT/3 ML VIAL SQ PRN ×3 (08:41→16:24)
[2017-02-03] MEDS: LOPERAMIDE HCL 2 MG CAPSULE PO PRN (09:28)
[2017-02-03 09:37] LABS: ABG BASE EXCESS 13.1 mmol/L; ABG HCO3 42.2 mmol/L; ABG PCO2 87.2 mmHg (35.0-45.0); ABG PH 7.303 (7.350-7.450); ABG SITE LEFT BRACHIAL; ABG TOTAL HEMOGLOBIN 10.1 G/dL (12.0-16.0); COHb 1.5 % (0.5-1.5); MetHb 0.5 % (0.0-1.5); O2Hb 89.5 % (94.0-97.0); VENT MODE Nasal Cannula
--- NOTE | 2017-02-03 10:50 | NUR ---
Dr. Ramey pulmonary services in the unit to examine patient; full report given see orders.
[2017-02-03] MEDS: INSULIN DETEMIR 300 UNIT/3 ML CARTRIDGE SQ SCH ×2 (10:56→21:17)
[2017-02-03] MEDS: IV NORMAL SALINE 250 ML IV PRN (11:00)
[2017-02-03] MEDS: FLUCONAZOLE 200 MG/NS 100ML IV 100 MG in PREMIXED 1 EACH IV SCH (11:21)
[2017-02-03] MEDS: ACETAMINOPHEN 325 MG TABLET PO PRN (11:57)
[2017-02-03] MEDS ORDERED: MORPHINE SULFATE 2 MG/1 ML DISP.SYRIN IVP PRN (12:00)
[2017-02-03] MEDS: FUROSEMIDE 20 MG/2 ML VIAL IV SCH (15:24)
--- NOTE | 2017-02-03 18:05 | NUR ---
A call from Stephen from [facility] [place] [employer], requesting information for delivery of BIPAP machine. PT's daughter Santa Nugent at bedside and her phone number and address provided.
--- NOTE | 2017-02-03 18:24 | NUR ---
Dr. Chowdhury vascular services in the room to examine pt's left thumb. Pt's daughter Jignesh Chatterjee at bedside. Addendum: 02/03/17 at 1842 by NASRIN CARR RN as recommended by . no ABG or IV insertion or lab draws to be done on left hand. a Sign posted at bedside, and orders will be endorse to incoming shift.
--- NOTE | 2017-02-03 18:42 | NUR ---
A call from [facility] and instructions to call [facility] at .(respiratory company in charge of delivering BIPAP machine.) the day of pt's discharge home to coordinate BIPAP delivery and measurement. Recommendations will be endorse.
[2017-02-03] MEDS: INSULIN REGULAR, HUMAN 300 UNITS/3 ML VIAL SQ PRN ×2 (21:15→22:00)
[2017-02-03] MEDS ORDERED: INSULIN REGULAR, HUMAN 300 UNIT/3 ML VIAL SQ ONE (22:00)
--- NOTE | 2017-02-03 22:00 | NUR ---
Refused the ordered BiPaP for tonight --- Dr Phelan aware.
--- NOTE | 2017-02-03 22:00 | NUR ---
NOTE TO PHARMACY: EXTRA --- INSULIN 10u SQ given & charted elsewhere in eMar.
[2017-02-04] VITALS (24 sets, daily range): BP systolic 100–141; BP diastolic 45–80
[2017-02-04] MEDS: IPRATROPIUM BROMIDE 0.5 MG/2.5 ML NEBU NEB PRN ×2 (00:17→04:42)
[2017-02-04] MEDS: ALBUTEROL SULFATE 2.5 MG/ 0.5 ML NEBU NEB PRN ×2 (00:18→04:42)
[2017-02-04 05:22] LABS: BASOPHILS % (AUTO) 0.1 % (0.0-2.0); EOSINOPHILS % (AUTO) 0.1 % (0.0-7.0); HEMATOCRIT 30.6 % (37-47); HEMOGLOBIN 9.6 G/DL (12.0-16.0); LYMPHOCYTES # (AUTO) 0.3 K/UL (0.8-4.8); LYMPHOCYTES % (AUTO) 5.3 % (20.5-51.5); MEAN CORPUSCULAR HEMOGLOBIN 30.4 UUG (27.0-31.0); MEAN CORPUSCULAR HGB CONC 31 g/dL (32.0-37.0); MEAN CORPUSCULAR VOLUME 97.1 FL (81.0-99.0); MONOCYTES # (AUTO) 0.3 K/UL (0.1-1.30); MONOCYTES % (AUTO) 4.6 % (0.0-11.0); NEUTROPHILS # (AUTO) 5.9 K/UL (1.8-8.9); NEUTROPHILS % (AUTO) 89.9 % (38.5-71.5); PLATELET COUNT (AUTO) 379 K/UL (150-450); RED BLOOD CELL COUNT(AUTO) 3.15 MIL/UL (4.2-5.4); WHITE BLOOD COUNT (AUTO) 6.5 K/UL (4.0-11.2)
[2017-02-04 05:40] LABS: CHLORIDE 97 mmol/L (98-107); CREATININE 1.7 mg/dL (0.6-1.3); PHOSPHOROUS 2.6 mg/dL (2.5-4.9); POTASSIUM 4.9 mmol/L (3.5-5.1); UREA NITROGEN, BLOOD 45 mg/dL (7-18)
[2017-02-04 05:45] LABS: CARBON DIOXIDE 45 mmol/L (21-32); GLUCOSE 444 mg/dL (74-106)
[2017-02-04] MEDS: IV NORMAL SALINE 250 ML IV PRN (06:00)
[2017-02-04] MEDS: METRONIDAZOLE 500 MG/NS 100ML 500 MG in PREMIXED 1 EACH IV SCH (06:00)
[2017-02-04] MEDS: IPRATROPIUM BROMIDE 0.5 MG/2.5 ML NEBU NEB SCH ×4 (07:21→19:01)
[2017-02-04] MEDS: ALBUTEROL SULFATE 2.5 MG/ 0.5 ML NEBU NEB SCH ×4 (07:21→19:01)
[2017-02-04] MEDS: BLOOD SUGAR DIAGNOSTIC 1 EACH STRIP VI SCH ×4 (07:40→21:01)
[2017-02-04] MEDS: INSULIN REGULAR, HUMAN 300 UNIT/3 ML VIAL SQ PRN ×3 (07:40→17:01)
[2017-02-04] MEDS: FUROSEMIDE 20 MG/2 ML VIAL IV SCH (08:28)
[2017-02-04] MEDS: BACITRACIN/POLYMYXIN B OINT 15 GM TUBE TOP SCH (08:28)
[2017-02-04] MEDS: methylPREDNISolone SOD SUCC 40 MG/ML VIAL IV SCH ×2 (08:28→21:01)
[2017-02-04] MEDS: CLOTRIMAZOLE 1% CREAM 30 GM TUBE TOP SCH ×2 (08:28→16:57)
[2017-02-04] MEDS: FLUTICASONE/VILANTEROL 1 EACH BLST.W.DEV INH SCH (08:30)
[2017-02-04] MEDS: INSULIN DETEMIR 300 UNIT/3 ML CARTRIDGE SQ SCH ×2 (08:34→21:07)
--- NOTE | 2017-02-04 08:40 | NUR ---
At this time patient with c/of feeling dizzy and requesting to be placed on BIPAP. RT called and patient placed on BIPAP 25/5, Rate of 15 and FIO2 50% as ordered.
[2017-02-04] MEDS ORDERED: INSULIN DETEMIR 300 UNIT/3 ML CARTRIDGE SQ ONE (09:00)
[2017-02-04 09:24] LABS: ABG BASE EXCESS 15.1 mmol/L; ABG HCO3 42.8 mmol/L; ABG PCO2 74.9 mmHg (35.0-45.0); ABG PH 7.375 (7.350-7.450); ABG PO2 64.1 mmHg (75.0-100.0); ABG SITE RIGHT RADIAL; ABG TOTAL HEMOGLOBIN 9.6 G/dL (12.0-16.0); COHb 1.7 % (0.5-1.5); MetHb 0.2 % (0.0-1.5); O2Hb 92.5 % (94.0-97.0); VENT MODE BIPAP
--- NOTE | 2017-02-04 09:45 | NUR ---
Dr. Ramey in the unit to examine patient; full report given routine lab orders received.
--- NOTE | 2017-02-04 11:00 | NUR ---
Patient back on nasal canula and this time 2 liters.
[2017-02-04] MEDS: FLUCONAZOLE 200 MG/NS 100ML IV 100 MG in PREMIXED 1 EACH IV SCH (11:34)
[2017-02-04] MEDS ORDERED: MORPHINE SULFATE 4 MG/1 ML DISP.SYRIN IV PRN (13:30)
--- NOTE | 2017-02-04 15:00 | NUR ---
DR. Gonzalez in the unit to examine patient; report given. See orders.
[2017-02-04] MEDS: METRONIDAZOLE 500 MG TABLET PO SCH ×2 (16:56→21:08)
[2017-02-04] MEDS: INSULIN REGULAR, HUMAN 300 UNITS/3 ML VIAL SQ PRN (21:06)
[2017-02-05] VITALS (20 sets, daily range): BP systolic 121–153; BP diastolic 53–124
[2017-02-05] MEDS: ACETAMINOPHEN 325 MG TABLET PO PRN (00:02)
[2017-02-05] MEDS: METRONIDAZOLE 500 MG TABLET PO SCH ×3 (06:06→21:24)
[2017-02-05] MEDS: IV NORMAL SALINE 250 ML IV PRN (06:22)
[2017-02-05 06:59] LABS: ALANINE AMINOTRANSFERASE 24 U/L (14-59); ALKALINE PHOSPHATASE 47 U/L (50-136); ASPARTATE AMINOTRANSFERASE 21 U/L (15-37); BILIRUBIN,TOTAL 0.6 mg/dL (0.2-1.0); CHLORIDE 100 mmol/L (98-107); CREATININE 1.5 mg/dL (0.6-1.3); GLUCOSE 281 mg/dL (74-106); MAGNESIUM 1.8 mg/dL (1.8-2.4); PHOSPHOROUS 2.1 mg/dL (2.5-4.9); POTASSIUM 4.3 mmol/L (3.5-5.1); TOTAL PROTEIN, SERUM 6.1 g/dL (6.4-8.2); UREA NITROGEN, BLOOD 48 mg/dL (7-18)
[2017-02-05 07:01] LABS: CARBON DIOXIDE 43 mmol/L (21-32)
[2017-02-05 07:06] LABS: EOSINOPHILS % (AUTO) 0.1 % (0.0-7.0); HEMATOCRIT 30.2 % (37-47); HEMOGLOBIN 9.6 G/DL (12.0-16.0); LYMPHOCYTES # (AUTO) 0.4 K/UL (0.8-4.8); LYMPHOCYTES % (AUTO) 6.8 % (20.5-51.5); MEAN CORPUSCULAR HEMOGLOBIN 30.5 UUG (27.0-31.0); MEAN CORPUSCULAR HGB CONC 32 g/dL (32.0-37.0); MEAN CORPUSCULAR VOLUME 95.8 FL (81.0-99.0); MONOCYTES # (AUTO) 0.3 K/UL (0.1-1.30); MONOCYTES % (AUTO) 5.1 % (0.0-11.0); NEUTROPHILS # (AUTO) 5.9 K/UL (1.8-8.9); PLATELET COUNT (AUTO) 307 K/UL (150-450); RED BLOOD CELL COUNT(AUTO) 3.16 MIL/UL (4.2-5.4); WHITE BLOOD COUNT (AUTO) 6.6 K/UL (4.0-11.2)
[2017-02-05] MEDS: IPRATROPIUM BROMIDE 0.5 MG/2.5 ML NEBU NEB SCH ×4 (07:35→20:02)
[2017-02-05] MEDS: ALBUTEROL SULFATE 2.5 MG/ 0.5 ML NEBU NEB SCH ×4 (07:35→20:02)
[2017-02-05] MEDS: BLOOD SUGAR DIAGNOSTIC 1 EACH STRIP VI SCH ×5 (08:09→21:19)
[2017-02-05] MEDS: INSULIN REGULAR, HUMAN 300 UNIT/3 ML VIAL SQ PRN ×4 (08:12→16:29)
[2017-02-05] MEDS: methylPREDNISolone SOD SUCC 40 MG/ML VIAL IV SCH ×2 (08:18→21:24)
[2017-02-05] MEDS: INSULIN DETEMIR 300 UNIT/3 ML CARTRIDGE SQ SCH ×2 (08:18→21:17)
[2017-02-05] MEDS: FUROSEMIDE 20 MG/2 ML VIAL IV SCH (08:18)
[2017-02-05] MEDS: BACITRACIN/POLYMYXIN B OINT 15 GM TUBE TOP SCH (08:19)
[2017-02-05] MEDS: CLOTRIMAZOLE 1% CREAM 30 GM TUBE TOP SCH ×2 (08:20→16:27)
[2017-02-05] MEDS: FLUTICASONE/VILANTEROL 1 EACH BLST.W.DEV INH SCH (08:21)
[2017-02-05] MEDS ORDERED: NEUTRA PHOS PACKET PO ONE (09:00)
[2017-02-05 09:03] LABS: ABG BASE EXCESS 13.4 mmol/L; ABG HCO3 41.6 mmol/L; ABG PCO2 75.5 mmHg (35.0-45.0); ABG PH 7.359 (7.350-7.450); ABG PO2 57.7 mmHg (75.0-100.0); ABG SITE RIGHT BRACHIAL; ABG TOTAL HEMOGLOBIN 11.1 G/dL (12.0-16.0); COHb 1.7 % (0.5-1.5); MetHb 0.3 % (0.0-1.5); O2Hb 88.4 % (94.0-97.0); VENT MODE Nasal Cannula
--- NOTE | 2017-02-05 10:30 | NUR ---
Dr. Ramey pulmonary services in the unit to examine patient, full report given. orders received.
--- NOTE | 2017-02-05 10:30 | NUR ---
Spoke with Dr. Gonzalez and inform him of pulmonary clearance order by Dr. Ramey. Orders to down-grade patient to Telemetry status received.
[2017-02-05] MEDS: FLUCONAZOLE 200 MG/NS 100ML IV 100 MG in PREMIXED 1 EACH IV SCH (11:34)
--- NOTE | 2017-02-05 15:43 | NUR ---
Dr. Gonzalez attending physician in the unit to examine patient; full report given.
--- NOTE | 2017-02-05 19:55 | NUR ---
Continues: TELEMETRY status. Moved to room 210. Bedside report to DIDI Albright. Patient stated she will contact her family concerning this move.
--- NOTE | 2017-02-05 20:26 | NUR ---
PT RECEIVED FROM UNIT ACCOMPANIED BY STAFF. PT ON AIR MATTRESS, RECEIVING 3LITERS OXYGEN VIA NASAL CANULA. AOX3, SOMEWHAT IRRITABLE AND HYPERVERBAL. PT ON MONIQUE, INTACT AND URINE YELLOW IN COLOR. TRIPLE LUMEN NOTED TO RIGHT FEMORAL, INTACT. NO ACUTE DISTRESS NOTED. COMFORT MEASURES PROVIDED.
[2017-02-05] MEDS: INSULIN REGULAR, HUMAN 300 UNITS/3 ML VIAL SQ PRN (21:19)
[2017-02-06] VITALS: BP 137/75
[2017-02-06 04:00] VITALS: BP 129/72
[2017-02-06] MEDS: METRONIDAZOLE 500 MG TABLET PO SCH ×2 (06:04→13:40)
[2017-02-06 06:40] LABS: CHLORIDE 102 mmol/L (98-107); CREATININE 1.4 mg/dL (0.6-1.3); GLUCOSE 137 mg/dL (74-106); MAGNESIUM 1.8 mg/dL (1.8-2.4); PHOSPHOROUS 2.1 mg/dL (2.5-4.9); POTASSIUM 3.7 mmol/L (3.5-5.1); UREA NITROGEN, BLOOD 46 mg/dL (7-18)
[2017-02-06 06:44] LABS: CARBON DIOXIDE 41 mmol/L (21-32)
[2017-02-06] MEDS: BLOOD SUGAR DIAGNOSTIC 1 EACH STRIP VI SCH ×3 (06:48→17:34)
--- NOTE | 2017-02-06 06:52 | NUR ---
PER LAB PT CO2 41 WILL NOTIFY . NO ACUTE DISTRESS NOTED. PT ON 3 LITERS NASAL CANULA Addendum: 02/06/17 at 0657 by AYUSH GUZMAN RN ERROR CARBON DIOXIDE 41
[2017-02-06] MEDS: IPRATROPIUM BROMIDE 0.5 MG/2.5 ML NEBU NEB SCH ×3 (07:54→15:04)
[2017-02-06] MEDS: ALBUTEROL SULFATE 2.5 MG/ 0.5 ML NEBU NEB SCH ×3 (07:54→15:03)
--- NOTE | 2017-02-06 08:00 | NUR ---
AWAKE ALERT COOPERATE WELL NO SOB CONTINUE O2 AT 2L /MIN O2 SAT WAS 96% ON FALL PRECAUTION BED ALARM ON AND CALL LIGHT WITHIN REACH AND REMIND TO CALL WHEN NEEDED
[2017-02-06] MEDS: LOPERAMIDE HCL 2 MG CAPSULE PO PRN ×2 (08:12→13:42)
[2017-02-06] MEDS: methylPREDNISolone SOD SUCC 40 MG/ML VIAL IV SCH (08:12)
[2017-02-06] MEDS: FUROSEMIDE 20 MG/2 ML VIAL IV SCH (08:12)
[2017-02-06] MEDS: FLUTICASONE/VILANTEROL 1 EACH BLST.W.DEV INH SCH (08:13)
[2017-02-06] MEDS: INSULIN DETEMIR 300 UNIT/3 ML CARTRIDGE SQ SCH (08:16)
[2017-02-06] MEDS: BACITRACIN/POLYMYXIN B OINT 15 GM TUBE TOP SCH (08:17)
[2017-02-06] MEDS: CLOTRIMAZOLE 1% CREAM 30 GM TUBE TOP SCH ×2 (08:18→17:35)
[2017-02-06] MEDS: Z GUARD REMEDY PASTE 57 GM TUBE TOP PRN (08:18)
--- NOTE | 2017-02-06 09:00 | NUR ---
DR REYNA SEEN PATIENT TODAY PLAN D/C HOME TODAY AFTER DR CASTILLO SEE HER
--- NOTE | 2017-02-06 10:00 | NUR ---
REPOSITION PICTURE TAKEN PRIOR D/C TODAY AND WOUND CARE APPLY CREAM LOTRIMIN ,REMEDY AND ANTIBIOTICS OINTMENT ORDER
[2017-02-06] MEDS: POTASSIUM PHOSPHATE MM 5 MMOL in IV DEXTROSE 5% 100 ML IV SCH ×2 (10:40→11:48)
[2017-02-06] MEDS: FLUCONAZOLE 200 MG/NS 100ML IV 100 MG in PREMIXED 1 EACH IV SCH (11:48)
[2017-02-06 11:50] VITALS: BP 141/63
--- NOTE | 2017-02-06 12:00 | NUR ---
D/C INSTRUCTION REGARDING NEED TO F/U WITH OWN PMD ,CONTINUE HOME MEDICINE ORDER ,VERBALIZES UNDERSTAND
[2017-02-06] MEDS ORDERED: INFLUENZA VACCINE 2017-2018 0.5 ML DISP.SYRIN IM ONE (14:15)
--- NOTE | 2017-02-06 14:30 | NUR ---
C/O OF UNCOMFORTABLE RT LEG BUT REFUSED TO PUT DVT PUMP ON RTYLENOL PRN GIVEN AND REPOSITION LEGS STATE FEEL BETTER
[2017-02-06] MEDS: ACETAMINOPHEN 325 MG TABLET PO PRN (14:45)
[2017-02-06 15:42] VITALS: BP 141/63
--- NOTE | 2017-02-06 17:00 | NUR ---
DR CASTILLO WAS ORDER OK TO D/C HOME VIA AMBULANCE AND PATIENT HAVE BED ,O2 AND BIPAP TO USE AT HOME D/C INSTRUCTION GIVEN TO PATIENT AND DAUGHTER REGARDING CONTINUE HOME MED AND F/U WITH OWN PMD EDUCATION PK GAVE ,VERBALIZES UNDERSTAND PHAMACY EXPLAINED ALL HOME MEDICINE PRIOR D/C HOME IV CENTRAL LINE RT GROIN D/C AND F/C WAS DISCONTINUE TOO
[2017-02-06] MEDS: INSULIN REGULAR, HUMAN 300 UNIT/3 ML VIAL SQ PRN (17:34)
[2017-02-06] MEDS ORDERED: METH4TAB3 PO (17:45)
[2017-02-06] MEDS ORDERED: BACI15OI3 TOP (17:45)
[2017-02-06] MEDS ORDERED: CLOT30CR24 TOP (17:45)
--- NOTE | 2017-02-06 19:10 | NUR ---
D/C TO HOME WITH NURSE TO F/U REPORT GIVE TO AMBULANCE CONDITION STABLE ACCOMPANIES WITH DAUGHTER
[2017-02-07] MEDS ORDERED: predniSONE 20 MG TABLET PO SCH (08:00)
--- NOTE | 2017-02-07 16:18 | NUR ---
Received a call from the patient's daughter, Jovanna [[phone]; [phone]; [phone]], about contacting [employer] [ ; ] to request for an air mattress. Spoke to Priyank from [employer] and he requested for the patient's information and order to be faxed and they will try to get authorization from the insurance. Faxed him all the papers needed. Spoke to Jovanna and updated her on the situation. She was very thankful for the services and care that the patient received in the hospital and she stated to give a big thanks to all the staff in [place].
== END 2017-02-06 19:10 | disposition home health service (06) | DRG 871 ==
LOC: ER 20:13 → CCU 22:41 → TELE 02-05 20:15
PROVIDERS: ADMIT Family Medicine; ATTEND Family Medicine
PROC: 5A09557 Assistance with Respiratory Ventilation, Greater than 96 Consecutive Hours, Continuous Positive Airway Pressure (ICD-10-PCS; principal; 2017-02-01)
DX: A41.9 Sepsis, unspecified organism (principal); J96.21 Acute and chronic respiratory failure with hypoxia; N17.0 Acute kidney failure with tubular necrosis; R65.21 Severe sepsis with septic shock; E43 Unspecified severe protein-calorie malnutrition; E44.0 Moderate protein-calorie malnutrition; G92 Toxic encephalopathy; B49 Unspecified mycosis; I96 Gangrene, not elsewhere classified; I50.33 Acute on chronic diastolic (congestive) heart failure; R53.2 Functional quadriplegia; J96.22 Acute and chronic respiratory failure with hypercapnia; D68.59 Other primary thrombophilia; I13.0 Hypertensive heart and chronic kidney disease with heart failure and stage 1 through stage 4 chronic kidney disease, or unspecified chronic kidney disease; I82.622 Acute embolism and thrombosis of deep veins of left upper extremity; R18.8 Other ascites; J44.1 Chronic obstructive pulmonary disease with (acute) exacerbation; A09 Infectious gastroenteritis and colitis, unspecified; E66.2 Morbid (severe) obesity with alveolar hypoventilation; B37.49 Other urogenital candidiasis; J98.11 Atelectasis; E11.52 Type 2 diabetes mellitus with diabetic peripheral angiopathy with gangrene; D62 Acute posthemorrhagic anemia; Z93.0 Tracheostomy status; E11.22 Type 2 diabetes mellitus with diabetic chronic kidney disease; E11.65 Type 2 diabetes mellitus with hyperglycemia; I27.20 Pulmonary hypertension, unspecified; E78.5 Hyperlipidemia, unspecified; E83.41 Hypermagnesemia; I25.10 Atherosclerotic heart disease of native coronary artery without angina pectoris; I25.2 Old myocardial infarction; K74.60 Unspecified cirrhosis of liver; N18.9 Chronic kidney disease, unspecified; Z87.891 Personal history of nicotine dependence; Z87.01 Personal history of pneumonia (recurrent); Z86.718 Personal history of other venous thrombosis and embolism; Z87.440 Personal history of urinary (tract) infections; Z85.828 Personal history of other malignant neoplasm of skin; Z82.49 Family history of ischemic heart disease and other diseases of the circulatory system; Z79.899 Other long term (current) drug therapy; Z79.51 Long term (current) use of inhaled steroids; L40.9 Psoriasis, unspecified; I70.0 Atherosclerosis of aorta; I11.0 Hypertensive heart disease with heart failure; E87.5 Hyperkalemia; M48.00 Spinal stenosis, site unspecified; E66.9 Obesity, unspecified; Z74.09 Other reduced mobility; I89.0 Lymphedema, not elsewhere classified; T24.30 Burn of third degree of unspecified site of lower limb, except ankle and foot; X08.8XXS Exposure to other specified smoke, fire and flames, sequela; K59.09 Other constipation; K64.9 Unspecified hemorrhoids; F41.0 Panic disorder [episodic paroxysmal anxiety]; Z88.1 Allergy status to other antibiotic agents; Z88.0 Allergy status to penicillin; Z88.2 Allergy status to sulfonamides; G89.4 Chronic pain syndrome; D63.8 Anemia in other chronic diseases classified elsewhere; Z79.82 Long term (current) use of aspirin; Z79.4 Long term (current) use of insulin; I48.0 Paroxysmal atrial fibrillation
CPT/HCPCS: 36415; 36600; 70030-TC; 71010; 83605; 83690; 83735; 84100; 84156; 84300; 84443; 85025; 85730; 86625; 86850; 86870; 86900; 86901; 87040; 87046; 87086; 87177; 89055; 90686; 93005; 93307; 94640; 94660; A4663; C1751; J0456; J1450; J1650; J1815; J1940; J2060; J2270; J2405; J2920; J3370; J3475; J3490; J3590; J7030; J7050; J7060

== ENCOUNTER 2018-10-09 18:05 | Inpatient (IN) | payer MEDICARE ==
[~2018-10-09] VITALS: Ht 167.6 cm; Wt 103.9 kg
[~2018-10-09 18:05] MED LIST changes: -ACID1TAB4 GT; -ALBU8HFA4 IH; +BACI15OI3 TOP; -BLOO-129 IN; +CLOT30CR24 TOP; -FAMO20TA8 PO; +HYDR-3980 PO; -INSU100C SQ; -LEVO50TA8 PO; -LISI-607 PO; -METF10002 PO; -METO-304 PO; -NYST15OI TOP; -[UNRECOGNIZED DRUG - CODE] PO
[2018-10-09] MEDS ORDERED: methylPREDNISolone SOD SUCC 125 MG/2 ML VIAL ONE (18:14)
[2018-10-09] MEDS ORDERED: IPRATROPIUM BROMIDE 0.5 MG/2.5 ML NEBU NEB ONE (18:15)
[2018-10-09] MEDS ORDERED: ALBUTEROL SULFATE 2.5 MG/3 ML NEBU NEB ONE (18:15)
[2018-10-09] MEDS ORDERED: methylPREDNISolone SOD SUCC 125 MG/2 ML VIAL IV ONE (18:15)
--- NOTE | 2018-10-09 18:16 | NUR ---
PT BIB RA88 FROM PRIVATE RESIDENCE, C/O SOB W/ SHALLOW BREATHING AND WHEEZING. RECEIVED PT ON HIGH FLOW O2 VIA NRB MASK. PT SCREAMING OUT "I CAN'T BREATHE!" AND VISIBLY AGITATED. ALERT BUT IN DISTRESS. ER MD AT BEDSIDE FOR MSE. PT PLACED ON BIPAP PER ER MD ORDERS. RT AT BEDSIDE FOR BIPAP APPLICATION.
[2018-10-09 18:25] LABS: BASOPHILS # (AUTO) 0.1 K/uL (0.0-8.0); BASOPHILS % (AUTO) 0.7 % (0.0-2.0); EOSINOPHILS # (AUTO) 0.1 K/uL (0.0-0.7); EOSINOPHILS % (AUTO) 1.2 % (0.0-7.0); HEMATOCRIT 33.4 % (31.2-41.9); HEMOGLOBIN 10.3 g/dL (10.9-14.3); LYMPHOCYTES # (AUTO) 1.4 K/uL (20.0-40.0); LYMPHOCYTES % (AUTO) 12.9 % (20.5-51.5); MEAN CORPUSCULAR HEMOGLOBIN 24.6 uug (24.7-32.8); MEAN CORPUSCULAR HGB CONC 31 g/dL (32.3-35.6); MEAN CORPUSCULAR VOLUME 80.1 fL (75.5-95.3); MONOCYTES # (AUTO) 0.4 K/uL (2.0-10.0); MONOCYTES % (AUTO) 3.3 % (0.0-11.0); NEUTROPHILS # (AUTO) 8.8 K/uL (1.8-8.9); NEUTROPHILS % (AUTO) 81.9 % (38.5-71.5); PLATELET COUNT (AUTO) 334 K/uL (179-408); RED BLOOD CELL COUNT(AUTO) 4.17 MIL/uL (3.63-4.92); WHITE BLOOD COUNT (AUTO) 10.7 K/uL (3.8-11.8)
[2018-10-09] MEDS ORDERED: IV NORMAL SALINE 500 ML BAG IV ONE (18:30)
[2018-10-09] MEDS ORDERED: MEROPENEM 1 G in IV NORMAL SALINE 100 ML IV ONE (18:30)
[2018-10-09] MEDS ORDERED: AZITHROMYCIN IV 500 MG in IV DEXTROSE 5% 250 ML IV ONE (18:30)
[2018-10-09 18:33] LABS: CARBON DIOXIDE 28 mmol/L (21-32); CHLORIDE 100 mmol/L (98-107); GLUCOSE 172 mg/dL (74-106); POTASSIUM 5.9 mmol/L (3.5-5.1); UREA NITROGEN, BLOOD 36 mg/dL (7-18)
[2018-10-09] MEDS ORDERED: MEROPENEM 1 G VIAL IV ONE (18:37)
[2018-10-09 18:45] LABS: ALANINE AMINOTRANSFERASE 55 U/L (14-59); ALKALINE PHOSPHATASE 62 U/L (50-136); ASPARTATE AMINOTRANSFERASE 83 U/L (15-37); BILIRUBIN,DIRECT 0.3 mg/dL (0.0-0.2); BILIRUBIN,TOTAL 0.9 mg/dL (0.2-1.0)
[2018-10-09] MEDS ORDERED: FUROSEMIDE 20 MG/2 ML VIAL IV ONE (18:45)
[2018-10-09] MEDS ORDERED: FUROSEMIDE 20 MG/2 ML VIAL ONE (19:00)
--- NOTE | 2018-10-09 19:02 | NUR ---
PT PULLING AT BIPAP MASK SCREAMING CONSISTENTLY. ER MD NOTIFIED. BIPAP MASK REMOVED PER ER MD ORDER, PT PLACED ON O2 4LPM VIA N/C PER ER MD ORDER. SPO2 MAINTAINING BETWEEN 96-98%.
--- NOTE | 2018-10-09 19:11 | NUR ---
SHIFT REPORT GIVEN TO LM Avila RN. PT STILL RESTLESS AND AGITATED, BUT TOLERATING SUPPLEMENTAL O2 4LPM VIA N/C. SPO2 MAINTAINING AT 96%.
--- NOTE | 2018-10-09 19:15 | NUR ---
Received report from Luan TOLBERT, assumed care of pt., pt. resting in bed on NC, pt. is alert but visibly agitated - shouting at demanding of staff w/ no specific concerns,
[2018-10-09] MEDS ORDERED: AZITHROMYCIN 500 MG VIAL IV ONE (19:26)
[2018-10-09] MEDS ORDERED: IPRATROPIUM BROMIDE 0.5 MG/2.5 ML NEBU ONE (19:30)
[2018-10-09] MEDS ORDERED: ALBUTEROL SULFATE 2.5 MG/3 ML NEBU ONE (19:30)
[2018-10-09] MEDS ORDERED: SIMVASTATIN PO (19:39)
[2018-10-09] MEDS ORDERED: LANTUS SUBCUT (19:39)
--- NOTE | 2018-10-09 19:39 | NUR ---
PATIENT IS A/OX3. AGITATED,YELLING AT STAFF MEMBER. UNHAPPY SHE IS IN THE ER. PATIENT DOES NOT REMENBER ALL MEDICATION NAME AND DOSAGES AT THIS TIME.
--- NOTE | 2018-10-09 19:50 | NUR ---
Redness noted at L FA IV site, abx paused, IV removed,
--- NOTE | 2018-10-09 19:58 | NUR ---
New 20g IV started in L lower FA, IV abx continued,
--- NOTE | 2018-10-09 19:58 | NUR ---
MRSA nares swab collected and sent to lab, pt. belongings list completed, copied and put in chart,
[2018-10-09] MEDS ORDERED: ACETAMINOPHEN 325 MG TABLET PO PRN (20:15)
[2018-10-09] MEDS ORDERED: ONDANSETRON 4 MG/2 ML VIAL IV PRN (20:15)
[2018-10-09] MEDS ORDERED: DEXTROSE 50% 50 ML DISP.SYRIN IV PRN (20:15)
--- NOTE | 2018-10-09 20:18 | NUR ---
Phleb. tech. at bedside for blood draw,
[2018-10-09] MEDS ORDERED: INSULIN GLARGINE,HUM 300 UNITS/3 ML CARTRIDGE SQ SCH (21:00)
--- NOTE | 2018-10-09 21:09 | NUR ---
Attempted to give report to Elisabeth in CCU, told they were unable to take report for 45 min., will attempt again
--- NOTE | 2018-10-09 21:30 | NUR ---
Gave report to Elisabeth in CCU,
--- NOTE | 2018-10-09 21:45 | NUR ---
Pt. placed on portable compliance monitor, taken off unit via stretcher, NAD
[2018-10-09 22:00] VITALS: BP 118/50
--- NOTE | 2018-10-09 22:00 | NUR ---
Received pt in CCU BED 4, under the care of MD CHRISTEL. Dx: Severe Sepsis/Pneumonia. Pt awake, alert and oriented x4, able to follow commands. Pt denies SOB or discomfort at this time. O2 sats up to 99% via NC 3L. Tele placed and noted to be SR with HR 76. PIV on right FA intact and patent. Full assessment completed. VSS, afebrile. Skin check done, pt turned and repositioned. Kept clean and dry. HOB elevated at all times. Aspiration precautions and safety measures in place. Will continue to monitor closely.
[2018-10-09] MEDS: IV NS 1000 ML 1,000 ML IV PRN (22:46)
[2018-10-09] MEDS: BLOOD SUGAR DIAGNOSTIC 1 EACH STRIP VI SCH (22:54)
[2018-10-09] MEDS: SIMVASTATIN 10 MG TABLET PO SCH (22:54)
[2018-10-09 23:00] VITALS: BP 131/93
[2018-10-09] MEDS ORDERED: ENOXAPARIN SODIUM 30 MG/0.3 ML DISP.SYRIN SQ ONE (23:00)
[2018-10-09] MEDS ORDERED: SODIUM POLYSTYRENE SULFONATE 15 G/60 ML LIQUID UDC PO ONE (23:00)
[2018-10-09] MEDS ORDERED: VANCOMYCIN IV 2,000 MG in IV DEXTROSE 5% 500 ML IV ONE (23:00)
[2018-10-09] MEDS: INSULIN GLARGINE,HUM 300 UNITS/3 ML CARTRIDGE SQ SCH (23:00)
--- NOTE | 2018-10-09 23:00 | NUR ---
Pt was not administered LANTUS 60 UNITS as ordered during shift. Pt states she had not eaten and is not hungry at this time. Will administer HUMULIN R 4 UNITS, will continue to monitor closely.
[2018-10-09] MEDS: methylPREDNISolone SOD SUCC 125 MG/2 ML VIAL IV SCH (23:02)
[2018-10-09] MEDS ORDERED: VANCOMYCIN 1000 MG VIAL ONE (23:36)
[2018-10-09] MEDS ORDERED: MEROPENEM 500 MG VIAL IV ONE (23:37)
[2018-10-09] MEDS ORDERED: INSULIN REGULAR, HUMAN 300 UNIT/3 ML VIAL ONE (23:37)
[2018-10-09] MEDS ORDERED: INSULIN GLARGINE,HUM 300 UNITS/3 ML CARTRIDGE SQ ONE (23:37)
[2018-10-09] MEDS ORDERED: SODIUM POLYSTYRENE SULF POWDER 15 GM UDC ONE (23:39)
[2018-10-09] MEDS: INSULIN REGULAR, HUMAN 300 UNITS/3 ML VIAL SQ PRN (23:53)
[2018-10-10] VITALS (17 sets, daily range): BP systolic 90–120; BP diastolic 36–57
[2018-10-10] MEDS ORDERED: Z GUARD REMEDY PASTE 57 GM TUBE TOP PRN ×2 (01:45→15:15)
[2018-10-10 05:04] LABS: BASOPHILS % (AUTO) 0.3 % (0.0-2.0); HEMATOCRIT 30.2 % (31.2-41.9); HEMOGLOBIN 9.4 g/dL (10.9-14.3); LYMPHOCYTES # (AUTO) 0.5 K/uL (20.0-40.0); LYMPHOCYTES % (AUTO) 7.5 % (20.5-51.5); MEAN CORPUSCULAR HEMOGLOBIN 24.8 uug (24.7-32.8); MEAN CORPUSCULAR HGB CONC 31 g/dL (32.3-35.6); MEAN CORPUSCULAR VOLUME 79.3 fL (75.5-95.3); MONOCYTES # (AUTO) 0.1 K/uL (2.0-10.0); MONOCYTES % (AUTO) 1.3 % (0.0-11.0); NEUTROPHILS # (AUTO) 5.9 K/uL (1.8-8.9); NEUTROPHILS % (AUTO) 90.9 % (38.5-71.5); PLATELET COUNT (AUTO) 257 K/uL (179-408); WHITE BLOOD COUNT (AUTO) 6.5 K/uL (3.8-11.8)
[2018-10-10 05:06] LABS: ALANINE AMINOTRANSFERASE 46 U/L (14-59); ALKALINE PHOSPHATASE 60 U/L (50-136); ASPARTATE AMINOTRANSFERASE 59 U/L (15-37); BILIRUBIN,TOTAL 0.9 mg/dL (0.2-1.0); CARBON DIOXIDE 30 mmol/L (21-32); CHLORIDE 100 mmol/L (98-107); CHOLESTEROL 98 mg/dL (<200); HDL CHOLESTEROL 60 mg/dL (40-60); POTASSIUM 5.1 mmol/L (3.5-5.1); TOTAL PROTEIN, SERUM 6.9 g/dL (6.4-8.2); TRIGLYCERIDES 46 MG/DL (30-150); UREA NITROGEN, BLOOD 41 mg/dL (7-18)
[2018-10-10 05:15] LABS: THYROID STIMULATING HORMONE 1.378 mIU/mL (0.358-3.740)
[2018-10-10 05:18] LABS: GLUCOSE 432 mg/dL (74-106)
[2018-10-10] MEDS: methylPREDNISolone SOD SUCC 125 MG/2 ML VIAL IV SCH (05:21)
--- NOTE | 2018-10-10 05:30 | NUR ---
Lab called for critical value of GLUCOSE level 436. Paged Epic on-call MALGORZATA MARIO, regarding high GLUCOSE level. Report given. Order to administer 10 UNITS of HUMULIN R now to pt. No other orders given. Will continue plan of care.
[2018-10-10] MEDS: INSULIN REGULAR, HUMAN 300 UNITS/3 ML VIAL SQ PRN ×3 (05:32→20:30)
[2018-10-10] MEDS ORDERED: MEROPENEM 0.5 G in IV NORMAL SALINE 50 ML IV SCH (06:00)
[2018-10-10] MEDS: BLOOD SUGAR DIAGNOSTIC 1 EACH STRIP VI SCH ×5 (07:35→23:40)
[2018-10-10] MEDS: ASPIRIN 81 MG TAB.CHEW PO SCH (08:03)
[2018-10-10] MEDS: PANTOPRAZOLE SODIUM 40 MG VIAL IV SCH (08:03)
[2018-10-10] MEDS: SENNOSIDES/DOCUSATE SODIUM TABLET PO SCH ×3 (09:01→20:58)
[2018-10-10] MEDS: IV NS 1000 ML 1,000 ML IV PRN (11:32)
[2018-10-10] MEDS ORDERED: FLUTICASONE/SALMETEROL 250/50 INHALER INH SCH (11:45)
[2018-10-10] MEDS: INSULIN REGULAR, HUMAN 300 UNIT/3 ML VIAL SQ PRN ×2 (12:06→15:55)
--- NOTE | 2018-10-10 12:30 | NUR ---
Patient seen and examine by pulmonary serviced, Dr. Ramey . report given orders received. See order hx.
--- NOTE | 2018-10-10 12:40 | NUR ---
Clinical pharmacy note-Vancomycin dosing per pharmacy Subjective: To start Vancomycin dosing on this patient for pneumonia Objective: BUN 41 Scr 2.0 WBC 6.5 Ht 167.64 cm Wt 98.883kg Assessment/Plan: Patient had Vancomycin 2 gram today at 0001. Since renal function is unstable, will dose by random level for now(level is on order for tomorrow am). Will follow the level for further dosing.
--- NOTE | 2018-10-10 13:25 | NUR ---
Nephrology services Dr. Mcgowan in the unit to examine patient.
[2018-10-10] MEDS: FLUTICASONE/VILANTEROL 1 EACH BLST.W.DEV INH SCH ×2 (13:31→20:20)
[2018-10-10] MEDS: MEROPENEM 0.5 G in IV NORMAL SALINE 50 ML IV SCH ×2 (13:38→21:28)
--- NOTE | 2018-10-10 14:06 | NUR ---
WOUND CARE CONSULT: PT PRESENTS WITH MULTIPLE DRY SCABS AND SCARS AND RT LATERAL BUTTOCK AND THIGH OPEN SKIN TEARS,PRESENT ON ADMISSION. PT STATES THAT SHE SCRATCHES AND PICKS AT HER SKIN. RECOMMENDATIONS MADE FOR SKIN PROTECTION AND WOUND CARE. DISCUSSED WITH NURSING STAFF. PT AMBULATES WITH P.T. USING WALKER. PT BECOMES VERY EMOTIONAL AT TIMES AND STATES THAT SHE RECENTLY LOST HER DAUGHTER. CURRENT ANJANA SCORE IS 17. IN AGREEMENT WITH PLAN OF CARE. Addendum: 10/10/18 at 1408 by LARON CARROLL RN Amended: Links added.
[2018-10-10] MEDS: TRIAMCINOLONE ACET 0.1% CREAM 15 GM TUBE TOP SCH ×2 (15:23→16:28)
--- NOTE | 2018-10-10 17:54 | NUR ---
Attending physician called to be notified of BS of 405 DrTrena informed that patient was covered per protocol. No additional orders received will continue to monitor.
--- NOTE | 2018-10-10 18:10 | NUR ---
1700 med not administered medication not available.
--- NOTE | 2018-10-10 19:30 | NUR ---
RECEIVED PT ON BED. ALERT AND ORIENTEDX3. PT SHOWS NO SIGNS OF ACUTE DISTRESS. PT IV INTACT. PT ON 2L NASAL CANNULA. SAFETY AND COMFORT PROVIDED. WILL CONTINUE TO MONITOR.
[2018-10-10] MEDS: SIMVASTATIN 10 MG TABLET PO SCH (20:20)
[2018-10-10] MEDS: methylPREDNISolone SOD SUCC 40 MG/ML VIAL IV SCH (20:20)
[2018-10-10] MEDS: ENOXAPARIN SODIUM 30 MG/0.3 ML DISP.SYRIN SQ SCH (20:22)
[2018-10-10] MEDS: INSULIN GLARGINE,HUM 300 UNITS/3 ML CARTRIDGE SQ SCH (20:31)
[2018-10-10] MEDS ORDERED: methylPREDNISolone SOD SUCC 125 MG/2 ML VIAL IV SCH (21:00)
--- NOTE | 2018-10-10 21:00 | NUR ---
Pt refused the first step mattress. Pt stable and in no acute distress.
[2018-10-10] MEDS: HYDROCODONE/APAP 5-325MG TABLET PO PRN (23:28)
[2018-10-11] VITALS: BP 115/57
[2018-10-11 00:57] LABS: *BILIRUBIN,URIN NEGATIVE (NEGATIVE); *CLARITY,URINE SLIGHTLY CLOUDY (CLEAR); *COLOR,URINE YELLOW (YELLOW); *KETONES,URINE NEGATIVE (NEGATIVE); *UROBILINOGEN,URINE 0.2 E.U./dl (NORMAL); LEUKOCYTE ESTERASE ,URINE 1+ (NEGATIVE); NITRITE, URINE NEGATIVE (NEGATIVE); PH,URINE 5.5 (5.0-8.0)
[2018-10-11 01:01] LABS: *BLOOD, URINE TRACE (NEGATIVE); UGLUCOSE 3+ (NEGATIVE)
[2018-10-11 01:05] LABS: BACTERIA,URINE MODERATE /HPF (NONE SEEN); SQUAMOUS EPITHELIAL CELL,UR MANY /HPF (NONE SEEN); WBC,URINE 20-50 /HPF (0-3)
[2018-10-11 04:00] VITALS: BP 110/42
[2018-10-11] MEDS: IPRATROPIUM BROMIDE 0.5 MG/2.5 ML NEBU NEB PRN ×2 (04:41→23:20)
[2018-10-11] MEDS: ALBUTEROL SULFATE 2.5 MG/3 ML NEBU NEB PRN ×2 (04:41→23:20)
[2018-10-11] MEDS: MEROPENEM 0.5 G in IV NORMAL SALINE 50 ML IV SCH ×2 (05:33→13:36)
[2018-10-11] MEDS: IV NS 1000 ML 1,000 ML IV PRN ×2 (05:36→22:42)
[2018-10-11] MEDS: BLOOD SUGAR DIAGNOSTIC 1 EACH STRIP VI SCH ×4 (06:35→21:02)
--- NOTE | 2018-10-11 06:38 | NUR ---
PT SLEPT THROUGHOUT THE SHIFT. PT SHOWS NO SIGNS OF ACUTE DISTRESS. IV INTACT. PRESCRIBED MEDICATION GIVEN AND PT TOLERATED IT WELL. PT TURNED AND REPOSITIONED ACCORDINGLY. PT HAD EPISODES OF CRYING BECAUSE SHE THINKS OF HER DAUGHTER. AT 2351 H NOTIFY NERISSA MCALLISTER REGARDING BLOOD SUGAR OF PT FROM 425 TO 331. AT 2353 H XIAO OSMAN NOTIFIED REGARDING BLOOD SUGAR OF PT FROM 425 TO 331. RECENT BLOOD SUGAR WAS 342. SAFETY AND COMFORT PROVIDED. ALL NEEDS ARE MET. WILL ENDORSE ACCORDINGLY TO INCOMING NURSE FOR CONTINUITY OF CARE.
[2018-10-11 07:23] LABS: BASOPHILS % (AUTO) 0.1 % (0.0-2.0); HEMATOCRIT 28.8 % (31.2-41.9); HEMOGLOBIN 9.1 g/dL (10.9-14.3); LYMPHOCYTES # (AUTO) 0.8 K/uL (20.0-40.0); LYMPHOCYTES % (AUTO) 7.8 % (20.5-51.5); MEAN CORPUSCULAR HGB CONC 32 g/dL (32.3-35.6); MEAN CORPUSCULAR VOLUME 79.3 fL (75.5-95.3); MONOCYTES # (AUTO) 0.5 K/uL (2.0-10.0); MONOCYTES % (AUTO) 5.4 % (0.0-11.0); NEUTROPHILS # (AUTO) 8.4 K/uL (1.8-8.9); NEUTROPHILS % (AUTO) 86.7 % (38.5-71.5); PLATELET COUNT (AUTO) 297 K/uL (179-408); RED BLOOD CELL COUNT(AUTO) 3.63 MIL/uL (3.63-4.92); WHITE BLOOD COUNT (AUTO) 9.7 K/uL (3.8-11.8)
[2018-10-11 07:30] LABS: CARBON DIOXIDE 27 mmol/L (21-32); CHLORIDE 105 mmol/L (98-107); CREATININE 1.8 mg/dL (0.6-1.3); MAGNESIUM 2.2 mg/dL (1.8-2.4); PHOSPHOROUS 3.2 mg/dL (2.5-4.9); POTASSIUM 4.6 mmol/L (3.5-5.1); UREA NITROGEN, BLOOD 41 mg/dL (7-18); VANCOMYCIN,RANDOM 9.9 ug/mL (18.0-26.0)
[2018-10-11 07:35] LABS: GLUCOSE 348 mg/dL (74-106)
[2018-10-11] MEDS: methylPREDNISolone SOD SUCC 40 MG/ML VIAL IV SCH (08:22)
[2018-10-11] MEDS: ASPIRIN 81 MG TAB.CHEW PO SCH (08:22)
[2018-10-11] MEDS: FLUTICASONE/VILANTEROL 1 EACH BLST.W.DEV INH SCH ×2 (08:22→20:26)
[2018-10-11] MEDS: SENNOSIDES/DOCUSATE SODIUM TABLET PO SCH ×2 (08:22→17:05)
[2018-10-11] MEDS: PANTOPRAZOLE SODIUM 40 MG VIAL IV SCH (08:22)
[2018-10-11] MEDS: TRIAMCINOLONE ACET 0.1% CREAM 15 GM TUBE TOP SCH ×2 (08:23→17:05)
[2018-10-11 09:56] LABS: ABG HCO3 25.4 mmol/L; ABG PCO2 45.2 mmHg (35.0-45.0); ABG PH 7.368 (7.350-7.450); ABG PO2 77.2 mmHg (75.0-100.0); ABG SITE LEFT RADIAL; ABG TOTAL HEMOGLOBIN 9.5 G/dL (12.0-16.0); COHb 1.3 % (0.5-1.5); O2Hb 93.4 % (94.0-97.0); VENT MODE Nasal Cannula
[2018-10-11] MEDS ORDERED: VANCOMYCIN IV 1,500 MG in IV DEXTROSE 5% 500 ML IV ONE (10:00)
[2018-10-11 11:06] VITALS: BP 106/48
--- NOTE | 2018-10-11 13:34 | NUR ---
Clinical pharmacy note-Vancomycin dosing per pharmacy Subjective: To continue Vancomycin dosing on this patient for pneumonia Objective: BUN 41 Scr 1.8 WBC 9.7 Ht 167.64 cm Wt 98.883kg vanco random today with am labs: 9.9 Assessment/Plan: As renal function is still compromised, will continue to dose per level. Per today's random, dosed 1500mg vanco x 1 at 1000. Next random due with am labs tomorrow. Will follow and redose tomorrow as needed.
[2018-10-11] MEDS ORDERED: MINERAL OIL FLEET ENEMA 133 ML BOTTLE RC ONE (14:45)
[2018-10-11 15:03] VITALS: BP 111/52
--- NOTE | 2018-10-11 16:30 | NUR ---
Accu-check with blood sugar of 477 called and reported to attending physician no additional orders received. Patient covered PP.
[2018-10-11] MEDS: INSULIN REGULAR, HUMAN 300 UNIT/3 ML VIAL SQ PRN (16:34)
--- NOTE | 2018-10-11 16:47 | NUR ---
fleets enema given and patient able to pass 1 medium bowel movement.
[2018-10-11] MEDS: predniSONE 20 MG TABLET PO SCH (17:05)
--- NOTE | 2018-10-11 17:17 | NUR ---
MRSA nares positive results called to attending physician, see order hx.
[2018-10-11] MEDS: GUAIFENESIN SUGAR FREE 100 MG/5 ML UDC PO PRN (18:55)
--- NOTE | 2018-10-11 19:30 | NUR ---
patient received lying in bed. a/o x3. no signs of acute distress. nasal canula on at 2L. safety and comfort measures provided. will continue care.
[2018-10-11 20:00] VITALS: BP 125/54
[2018-10-11] MEDS: SIMVASTATIN 10 MG TABLET PO SCH (20:24)
[2018-10-11] MEDS: MEROPENEM 1 G in IV NORMAL SALINE 100 ML IV SCH (20:24)
[2018-10-11] MEDS: MUPIROCIN 2% OINT 22 GM TUBE TP SCH (20:25)
[2018-10-11] MEDS: INSULIN REGULAR, HUMAN 300 UNITS/3 ML VIAL SQ PRN (21:00)
[2018-10-11] MEDS: INSULIN GLARGINE,HUM 300 UNITS/3 ML CARTRIDGE SQ SCH (21:00)
--- NOTE | 2018-10-11 21:00 | NUR ---
critical lab value received for procalcitonin at 12.56 will f/u with the doctor rivka head.
[2018-10-11] MEDS: ENOXAPARIN SODIUM 30 MG/0.3 ML DISP.SYRIN SQ SCH (21:01)
--- NOTE | 2018-10-11 21:30 | NUR ---
dr. rivka head aware of critical value for procalcitonin. no new orders at this time.
--- NOTE | 2018-10-11 22:00 | NUR ---
Patient took off dressing for open wound on lateral thigh placed on previous shift. patient is refusing and wound treatment on the lateral buttock or lateral thigh at this time despite education.
[2018-10-11] MEDS: DIAZEPAM 5 MG TABLET PO PRN (23:47)
[2018-10-12] VITALS: BP 124/53
[2018-10-12] MEDS: GUAIFENESIN SUGAR FREE 100 MG/5 ML UDC PO PRN ×2 (02:49→12:01)
[2018-10-12 04:00] VITALS: BP 131/62
--- NOTE | 2018-10-12 06:10 | NUR ---
patient slept intermittently. a/o x3. safety and comfort measures provided. bed in lowest position, side rails up x2, call light within reach. all medications administered and tolerated well. will endorse care to morning nurse. c/o of anxiety. Valium administered at 2347. patient tolerated well.
[2018-10-12] MEDS: PANTOPRAZOLE SODIUM 40 MG TABLET.DR PO SCH (06:44)
[2018-10-12 06:55] LABS: CARBON DIOXIDE 32 mmol/L (21-32); CHLORIDE 105 mmol/L (98-107); CREATININE 1.6 mg/dL (0.6-1.3); POTASSIUM 4.5 mmol/L (3.5-5.1); UREA NITROGEN, BLOOD 39 mg/dL (7-18)
[2018-10-12] MEDS: BLOOD SUGAR DIAGNOSTIC 1 EACH STRIP VI SCH ×4 (06:57→21:57)
[2018-10-12 07:14] LABS: GLUCOSE 300 mg/dL (74-106)
--- NOTE | 2018-10-12 07:30 | NUR ---
critical lab value of glucose 300 reported to me from lab. contacted . endorsed to morning nurse to f/u with .
--- NOTE | 2018-10-12 07:30 | NUR ---
report received from Christi TOLBERT.was admitted on 10/09/18 for sepsis, pneumonia and UTI. patient awake and emotional at times. tele status Addendum: 10/12/18 at 0813 by NANCY MCMAHON RN Amended: Links added.
[2018-10-12] MEDS: ALBUTEROL SULFATE 2.5 MG/3 ML NEBU NEB PRN ×2 (07:58→23:25)
[2018-10-12] MEDS: IPRATROPIUM BROMIDE 0.5 MG/2.5 ML NEBU NEB PRN ×2 (07:58→23:24)
[2018-10-12] MEDS: INSULIN REGULAR, HUMAN 300 UNIT/3 ML VIAL SQ PRN ×3 (08:23→22:02)
[2018-10-12] MEDS: predniSONE 20 MG TABLET PO SCH ×2 (08:25→18:32)
[2018-10-12] MEDS: DIAZEPAM 5 MG TABLET PO PRN (08:25)
[2018-10-12] MEDS: SENNOSIDES/DOCUSATE SODIUM TABLET PO SCH ×2 (08:25→17:30)
[2018-10-12] MEDS: MUPIROCIN 2% OINT 22 GM TUBE TP SCH ×2 (08:26→21:32)
[2018-10-12] MEDS: FLUTICASONE/VILANTEROL 1 EACH BLST.W.DEV INH SCH ×2 (08:26→21:32)
[2018-10-12] MEDS: MEROPENEM 1 G in IV NORMAL SALINE 100 ML IV SCH ×2 (08:42→21:31)
[2018-10-12] MEDS ORDERED: VANCOMYCIN IV 1,500 MG in IV DEXTROSE 5% 500 ML IV ONE (09:00)
[2018-10-12] MEDS: ASPIRIN 81 MG TAB.CHEW PO SCH (09:56)
[2018-10-12] MEDS: TRIAMCINOLONE ACET 0.1% CREAM 15 GM TUBE TOP SCH ×2 (09:57→17:30)
[2018-10-12] MEDS ORDERED: LORAZEPAM 2 MG/1 ML VIAL IV ONE ×2 (11:15→23:00)
--- NOTE | 2018-10-12 11:30 | NUR ---
patient sleeping. rosy, caregiver is at the bedside. Addendum: 10/12/18 at 1130 by NANCY MCMAHON RN Amended: Links added.
[2018-10-12 11:40] VITALS: BP 134/47
--- NOTE | 2018-10-12 11:48 | NUR ---
lj 351, covered with 15 units katerine R SQ Addendum: 10/12/18 at 1148 by NANCY MCMAHON RN Amended: Links added. Addendum: 10/12/18 at 1151 by NANCY MCMAHON RN duplicated entry
--- NOTE | 2018-10-12 11:48 | NUR ---
lj 351, covered with 15 units humulin R SQ Addendum: 10/12/18 at 1148 by NANCY MCMAHON RN Amended: Links added.
--- NOTE | 2018-10-12 13:16 | NUR ---
report given to Jacquelyn RN Addendum: 10/12/18 at 1316 by NANCY MCMAHON RN Amended: Links added.
--- NOTE | 2018-10-12 13:30 | NUR ---
Received patient awake in bed. AAOx4. Patient is anxious and expressing the need to go home. Discharge orders in place. Collaborating with case finisher and charge nurse for continuity of care at home with home health.
--- NOTE | 2018-10-12 13:55 | NUR ---
Clinical pharmacy note-Vancomycin dosing per pharmacy Subjective: To continue Vancomycin dosing on this patient for pneumonia Objective: BUN 39 Scr 1.6 WBC 9.7 (10/11) temp 97.7 Ht 167.64 cm Wt 98.883kg vanco random today with am labs: 17.6 Assessment/Plan: As renal function is still compromised, will continue to dose per level. Per today's random, dosed 1500mg vanco x 1 at 0900. Next random due with am labs tomorrow. Will follow and redose tomorrow as needed.
[2018-10-12 15:58] VITALS: BP 126/58
--- NOTE | 2018-10-12 18:00 | NUR ---
Tolerated medications. Blood sugar of 162. Patient refusing to eat dinner because she wants to go home. Held insulin per charge nurse. Patient to be picked up via cab soon to be discharged home.
--- NOTE | 2018-10-12 19:00 | NUR ---
Patient became SOB when transferring from bed to wheelchair. Desaturated to 86% on 1L o2. Discussed the need for oxygen for transfer and how it is unsafe to be discharged at this time with MD. MD stated to hold discharge order for tonight. Charge nurse aware. Will endorse to shift leader nurse accordingly.
--- NOTE | 2018-10-12 19:30 | NUR ---
patient received in wheelchair with agitation and anxiety. transfer to home stayed for the night and will reassess tomorrow.
[2018-10-12 20:42] VITALS: BP 144/60
[2018-10-12] MEDS: INSULIN GLARGINE,HUM 300 UNITS/3 ML CARTRIDGE SQ SCH (21:00)
[2018-10-12] MEDS: SIMVASTATIN 10 MG TABLET PO SCH (21:31)
[2018-10-12] MEDS: IV NS 1000 ML 1,000 ML IV PRN (22:00)
--- NOTE | 2018-10-12 22:00 | NUR ---
patient did not eat dinner tonight. blood sugar is at 146. lisette soto. will f/u with only sliding scale insulin administered and tolerated well. Addendum: 10/13/18 at 0631 by DORA GARDUNO RN charge nurse jailyn soto.
--- NOTE | 2018-10-12 22:00 | NUR ---
Dr. Patricio contacted for patient acting violently and yelling at nurses and other staff members on the floor. patient was throwing her oxygen tank to the floor and screaming hysterically.
[2018-10-12] MEDS: ENOXAPARIN SODIUM 30 MG/0.3 ML DISP.SYRIN SQ SCH (22:03)
--- NOTE | 2018-10-12 22:30 | NUR ---
Dr. Patricio ordered Ativan to be administered once. at this time patients violence, anxiety, and aggression has gone down. will observe and give Ativan as needed.
[2018-10-12] MEDS: HYDROCODONE/APAP 5-325MG TABLET PO PRN (23:13)
[2018-10-13 05:14] VITALS: BP 125/55
[2018-10-13] MEDS: PANTOPRAZOLE SODIUM 40 MG TABLET.DR PO SCH (06:28)
--- NOTE | 2018-10-13 06:30 | NUR ---
patient slept intermittently throughout night. a/ox 4. no signs of acute distress. safety and comfort measures provided. bed in lowest position, side rails up x2, call light within reach. all medications administered and tolerated well. will endorse care to morning nurse. c/o of pain, [place] administered 2313. tolerated well.
[2018-10-13] MEDS: BLOOD SUGAR DIAGNOSTIC 1 EACH STRIP VI SCH (07:02)
--- NOTE | 2018-10-13 07:20 | NUR ---
received report from cage shift manager nurse,patient in bed awake, no distress noted at this time, bed in low position, side rails up x2. bed alarm installation superintendent light in reach.
[2018-10-13] MEDS: predniSONE 20 MG TABLET PO SCH (08:31)
[2018-10-13] MEDS: ASPIRIN 81 MG TAB.CHEW PO SCH (08:31)
[2018-10-13] MEDS: SENNOSIDES/DOCUSATE SODIUM TABLET PO SCH (08:31)
[2018-10-13] MEDS: FLUTICASONE/VILANTEROL 1 EACH BLST.W.DEV INH SCH (08:32)
[2018-10-13] MEDS: TRIAMCINOLONE ACET 0.1% CREAM 15 GM TUBE TOP SCH (08:32)
[2018-10-13] MEDS: MUPIROCIN 2% OINT 22 GM TUBE TP SCH (08:32)
[2018-10-13] MEDS: MEROPENEM 1 G in IV NORMAL SALINE 100 ML IV SCH (08:52)
[2018-10-13] MEDS: DIAZEPAM 5 MG TABLET PO PRN (09:46)
[2018-10-13] MEDS: INSULIN REGULAR, HUMAN 300 UNIT/3 ML VIAL SQ PRN (09:49)
[2018-10-13] MEDS ORDERED: VANCOMYCIN IV 1,500 MG in IV DEXTROSE 5% 500 ML IV ONE (10:00)
--- NOTE | 2018-10-13 12:30 | NUR ---
patient was transferred to wheelchair, pictures taken of wounds on discharge, and all belongings accounted for. Right upper arm midline intact and patent for home administration of iv antibiotics previously arranged with home health. Patient's caregiver was called and informed that patient should be met at the entry with a wheelchair and walker.
[2018-10-13] MEDS ORDERED: INSULIN REGULAR, HUMAN 300 UNIT/3 ML VIAL ONE (20:45)
== END 2018-10-13 12:30 | disposition home health service (06) | DRG 871 ==
LOC: ER 18:06 → CCU 21:30 → TELE3 10-10 16:40 → MEDSURG3 10-13 02:27
PROC: 5A09357 Assistance with Respiratory Ventilation, Less than 24 Consecutive Hours, Continuous Positive Airway Pressure (ICD-10-PCS; principal; 2018-10-09)
PROC: 05H933Z Insertion of Infusion Device into Right Brachial Vein, Percutaneous Approach (ICD-10-PCS; 2018-10-12)
DX: A41.9 Sepsis, unspecified organism (principal); J96.21 Acute and chronic respiratory failure with hypoxia; J96.22 Acute and chronic respiratory failure with hypercapnia; J18.9 Pneumonia, unspecified organism; J44.1 Chronic obstructive pulmonary disease with (acute) exacerbation; J44.0 Chronic obstructive pulmonary disease with (acute) lower respiratory infection; N17.9 Acute kidney failure, unspecified; J98.11 Atelectasis; I50.32 Chronic diastolic (congestive) heart failure; I13.0 Hypertensive heart and chronic kidney disease with heart failure and stage 1 through stage 4 chronic kidney disease, or unspecified chronic kidney disease; E66.2 Morbid (severe) obesity with alveolar hypoventilation; N39.0 Urinary tract infection, site not specified; E87.2 Acidosis; D68.59 Other primary thrombophilia; Z88.1 Allergy status to other antibiotic agents; Z88.0 Allergy status to penicillin; Z88.2 Allergy status to sulfonamides; R65.20 Severe sepsis without septic shock; Z22.322 Carrier or suspected carrier of Methicillin resistant Staphylococcus aureus; Z99.81 Dependence on supplemental oxygen; Z90.49 Acquired absence of other specified parts of digestive tract; Z87.891 Personal history of nicotine dependence; I89.0 Lymphedema, not elsewhere classified; Z86.718 Personal history of other venous thrombosis and embolism; Z82.49 Family history of ischemic heart disease and other diseases of the circulatory system; Z85.828 Personal history of other malignant neoplasm of skin; E11.22 Type 2 diabetes mellitus with diabetic chronic kidney disease; E11.65 Type 2 diabetes mellitus with hyperglycemia; N18.9 Chronic kidney disease, unspecified; Z79.4 Long term (current) use of insulin; Z79.82 Long term (current) use of aspirin; L40.9 Psoriasis, unspecified; Z86.19 Personal history of other infectious and parasitic diseases; I48.0 Paroxysmal atrial fibrillation; I25.2 Old myocardial infarction; I25.10 Atherosclerotic heart disease of native coronary artery without angina pectoris; F41.0 Panic disorder [episodic paroxysmal anxiety]; E87.5 Hyperkalemia; G89.4 Chronic pain syndrome; E78.5 Hyperlipidemia, unspecified; E78.00 Pure hypercholesterolemia, unspecified; Z68.37 Body mass index [BMI] 37.0-37.9, adult; Z79.51 Long term (current) use of inhaled steroids; M48.00 Spinal stenosis, site unspecified; D64.9 Anemia, unspecified; Z74.09 Other reduced mobility; Z87.01 Personal history of pneumonia (recurrent)
CPT/HCPCS: 36415; 36600; 70030-TC; 71045; 76770; 83605; 83735; 84100; 84443; 85025; 87040; 87086; 93005; 93307; 94640; 94664; 97110; 97116; 97530; A4663; C1751; C9113; G0378; J0456; J1650; J1815; J1940; J2060; J2185; J2920; J2930; J3370; J3490; J3590; J7030; J7040; J7060; J7512

== ENCOUNTER 2018-10-23 14:24 | Inpatient (IN) | payer MEDICARE ==
[~2018-10-23] VITALS: Ht 167.6 cm; Wt 102.1 kg
[~2018-10-23 14:24] MED LIST changes: -BACI15OI3 TOP; -INSU3INS6 SQ; +LANTUS SUBCUT; -METH4TAB3 PO; -SIMV10TA6 PO; +SIMVASTATIN PO
[2018-10-23] MEDS ORDERED: ROCURONIUM BROMIDE 50 MG/5 ML VIAL IV ONE ×2 (14:25→17:45)
[2018-10-23] MEDS ORDERED: ETOMIDATE 20 MG/10 ML VIAL IV ONE ×2 (14:25→17:45)
[2018-10-23] MEDS ORDERED: VECURONIUM BROMIDE 10 MG VIAL IV ONE (14:25)
--- NOTE | 2018-10-23 14:30 | NUR ---
PT BIB RA 88 FROM HOME CO SOB, LOSS OF APETITE, AND LETHARGY. PT CAME ROBERT LETHARGIC, ANSWERING ONE WORD, PT CAME WITH O2 4 LITRE FROM HOME SAT 88%. PT RETAIL ASSISTANT AT BEDSIDE PROVIDING INFO.
[2018-10-23] MEDS ORDERED: IV NORMAL SALINE 500 ML BAG IV ONE ×2 (14:45→16:30)
[2018-10-23] MEDS ORDERED: ALBUTEROL SULFATE 2.5 MG/3 ML NEBU ONE (14:51)
[2018-10-23] MEDS ORDERED: methylPREDNISolone SOD SUCC 125 MG/2 ML VIAL ONE (14:55)
--- NOTE | 2018-10-23 14:58 | NUR ---
PATIENT WAS PLACED ON BIPAP WITH SETTINGS OF 20/5, 28% FIO2 PER MD ORDERS. BREATHING TX ALSO ADMINISTERED PER MD ORDER. NO ADVERSE REACTIONS NOTED. B/S BILATERALLY DIMINISHED. PT SLEEPING, RESPONSIVE TO TOUCH. BIPAP ALARMS ARE ON AND AUDIBLE. AMBUBAG AT BEDSIDE. WILL CONTINUE TO MONITOR AND REPORT ANY CHANGES.
[2018-10-23] MEDS ORDERED: ALBUTEROL SULFATE 2.5 MG/3 ML NEBU NEB ONE (15:00)
[2018-10-23] MEDS ORDERED: IPRATROPIUM BROMIDE 0.5 MG/2.5 ML NEBU NEB ONE (15:00)
[2018-10-23] MEDS ORDERED: methylPREDNISolone SOD SUCC 125 MG/2 ML VIAL IV ONE (15:00)
[2018-10-23 15:10] LABS: BASOPHILS # (AUTO) 0.1 K/uL (0.0-8.0); BASOPHILS % (AUTO) 0.9 % (0.0-2.0); CHLORIDE 100 mmol/L (98-107); CREATININE 1.4 mg/dL (0.6-1.3); EOSINOPHILS # (AUTO) 0.1 K/uL (0.0-0.7); GLUCOSE 270 mg/dL (74-106); HEMATOCRIT 30.2 % (31.2-41.9); HEMOGLOBIN 9.2 g/dL (10.9-14.3); LYMPHOCYTES # (AUTO) 0.9 K/uL (20.0-40.0); LYMPHOCYTES % (AUTO) 8.9 % (20.5-51.5); MEAN CORPUSCULAR HEMOGLOBIN 25.1 uug (24.7-32.8); MEAN CORPUSCULAR HGB CONC 31 g/dL (32.3-35.6); MEAN CORPUSCULAR VOLUME 82.5 fL (75.5-95.3); MONOCYTES # (AUTO) 0.7 K/uL (2.0-10.0); NEUTROPHILS # (AUTO) 8.4 K/uL (1.8-8.9); NEUTROPHILS % (AUTO) 82.2 % (38.5-71.5); PLATELET COUNT (AUTO) 225 K/uL (179-408); POTASSIUM 5.4 mmol/L (3.5-5.1); RED BLOOD CELL COUNT(AUTO) 3.66 MIL/uL (3.63-4.92); UREA NITROGEN, BLOOD 32 mg/dL (7-18); WHITE BLOOD COUNT (AUTO) 10.2 K/uL (3.8-11.8)
[2018-10-23] MEDS ORDERED: ACET325T53 PO (15:17)
[2018-10-23] MEDS ORDERED: SIMV5TAB59 PO (15:17)
[2018-10-23] MEDS ORDERED: LEVO50TA8 PO (15:17)
[2018-10-23] MEDS ORDERED: FURO-152 PO (15:17)
[2018-10-23] MEDS ORDERED: DOCU-141 PO (15:17)
[2018-10-23 15:20] LABS: CARBON DIOXIDE 42 mmol/L (21-32)
[2018-10-23 15:24] LABS: ALANINE AMINOTRANSFERASE 52 U/L (14-59); ALKALINE PHOSPHATASE 68 U/L (50-136); ASPARTATE AMINOTRANSFERASE 46 U/L (15-37); BILIRUBIN,DIRECT 0.2 mg/dL (0.0-0.2); BILIRUBIN,TOTAL 0.6 mg/dL (0.2-1.0); TOTAL PROTEIN, SERUM 7.5 g/dL (6.4-8.2)
[2018-10-23 15:31] LABS: BAND % (MANUAL) 1 % (0-10); EOSINOPHILS % (MANUAL) 3 % (0-8); LYMPHOCYTES % (MANUAL) 8 % (20-40); MONOCYTES % (MANUAL) 12 % (2-10); NEUTROPHILS % (MANUAL) 76 % (42-75)
[2018-10-23] MEDS ORDERED: NALOXONE HCL 0.4 MG/ML AMPUL IV ONE (15:45)
[2018-10-23] MEDS ORDERED: NALOXONE HCL 0.4 MG/ML AMPUL ONE (15:49)
[2018-10-23 16:11] LABS: ABG BASE EXCESS 9.9 mmol/L; ABG HCO3 39.7 mmol/L; ABG PCO2 96.1 mmHg (35.0-45.0); ABG PH 7.234 (7.350-7.450); ABG PO2 69.9 mmHg (75.0-100.0); ABG SITE RIGHT RADIAL; ABG TOTAL HEMOGLOBIN 9.3 G/dL (12.0-16.0); COHb 2.2 % (0.5-1.5); MetHb 0.2 % (0.0-1.5); O2Hb 89.9 % (94.0-97.0); VENT MODE VENT - BILEVEL
[2018-10-23] MEDS: FUROSEMIDE 20 MG/2 ML VIAL IV ONE ×2 (16:23→16:40)
[2018-10-23] MEDS ORDERED: FUROSEMIDE 40 MG/4 ML VIAL ONE (16:40)
--- NOTE | 2018-10-23 16:40 | NUR ---
PT AROUSABLE NODDED WHEN ER MD ASKED HER IF SHE WANTS TO BE INTUBATED.
--- NOTE | 2018-10-23 16:53 | NUR ---
ER MD INTUBATRED THE PT WITHOUT DIFFICULTY.
--- NOTE | 2018-10-23 16:55 | NUR ---
AT 1653 PATIENT WAS INTUBATED DUE TO LETHARGY AND HIGH CO2 (ABG). ASSISTED ER DR CALDWELL ALONG WITH ANOTHER RT. PATIENT WAS INTUBATED WITH OUT ANY COMPLICATIONS. PATIENT HAS A SIZE 7.0 ETT, SECURED AT APPROXIMATELY 23CM AT THE LIP. PT WAS PLACED ON A VENT WITH SETTINGS OF AC18, VT 550, 50% FIO2. PT TOLERATING CURRENT VENT SETTINGS WELL. NO SOB NOTED. B/S CLEAR BILATERALLY. VENT ALARMS ARE ON AND AUDIBLE. VENT IS PLUGGED INTO RED EMERGENCY OUTLET. AMBUBAG AT BEDSIDE. WILL CONTINUE TO MONITOR AND REPORT ANY CHANGES.
[2018-10-23] MEDS ORDERED: AZITHROMYCIN IV 500 MG in IV DEXTROSE 5% 250 ML IV ONE (17:00)
[2018-10-23] MEDS ORDERED: AZITHROMYCIN 500 MG VIAL IV ONE (17:02)
[2018-10-23] MEDS ORDERED: PROPOFOL 100 ML ONE (18:36)
[2018-10-23] MEDS ORDERED: PROPOFOL 200 MG/20 ML BOTTLE IV ONE ×2 (18:45→19:15)
--- NOTE | 2018-10-23 19:00 | NUR ---
PT TRANSFERED TO CCU IN STABLE CONDITION.
--- NOTE | 2018-10-23 19:08 | NUR ---
Pt arrived to unit Ventilated with ET tube size 7 23cm at the lip. Ventilator settings AC 18, VT 550 50%. Sinus Rhythm on monitor. Noted with Double lumen PICC on RFA and LFA 20g. 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 No caregiver during the day. Noted to have loss of appetite x 2 days and shortness of breathe. Pt normally on O2 at 2lpm at home. Arrived to ER with O2 sat of 88%. ABG done noted with elevated carbon dioxide and subsequently intubated. Pt received lasix 40meq, Zithromax 500 and 1 liter [place] fluids[place] [address]. Addendum: 10/24/18 at 0010 by LITO VIDAL RN CORRECTION: [id number]
[2018-10-23 19:30] VITALS: BP 98/71
[2018-10-23] MEDS: PROPOFOL 100 ML IV PRN ×2 (19:46→22:22)
[2018-10-23 20:00] VITALS: BP 104/48
[2018-10-23] MEDS ORDERED: ALBUTEROL SULFATE 2.5 MG/3 ML NEBU NEB PRN (20:15)
[2018-10-23] MEDS ORDERED: ONDANSETRON 4 MG/2 ML VIAL IV PRN (20:15)
[2018-10-23] MEDS ORDERED: BUMETANIDE INJ 4 MG in IV DEXTROSE 5% 24 ML IV ONE (20:15)
--- NOTE | 2018-10-23 20:15 | NUR ---
Upon arrival, noted: No cell phone & pest control worker helper found as indicated on belongings list. Contacted ER department & stated they couldn't locate them either.
[2018-10-23 20:30] VITALS: BP 134/52
[2018-10-23] MEDS ORDERED: DEXTROSE 50% 50 ML DISP.SYRIN IV PRN (20:30)
[2018-10-23 21:00] VITALS: BP 99/47
[2018-10-23] MEDS: BLOOD SUGAR DIAGNOSTIC 1 EACH STRIP VI SCH ×2 (21:14→23:46)
[2018-10-23] MEDS: FAMOTIDINE. 20 MG/2 ML VIAL IV SCH (21:15)
[2018-10-23] MEDS: methylPREDNISolone SOD SUCC 125 MG/2 ML VIAL IV SCH (21:15)
[2018-10-23] MEDS: ENOXAPARIN SODIUM 40 MG/0.4 ML DISP.SYRIN SQ SCH (21:16)
[2018-10-23] MEDS: IPRATROPIUM BROMIDE 0.5 MG/2.5 ML NEBU NEB SCH ×2 (21:44→23:22)
[2018-10-23 22:00] VITALS: BP 94/42
[2018-10-23] MEDS: INSULIN REGULAR, HUMAN 300 UNIT/3 ML VIAL SQ PRN ×2 (22:11→23:47)
[2018-10-23 23:00] VITALS: BP 95/44
[2018-10-24] VITALS (45 sets, daily range): BP systolic 75–146; BP diastolic 31–81
--- NOTE | 2018-10-24 02:00 | NUR ---
Am care provided, oral care done with moderate amount of thin to thick white secretions. Pt tolerated current vent settings. O2 sats up to 100 %. Pt turned and repositioned. Aspiration precautions and safety measures observed. Continue to monitor.
[2018-10-24] MEDS: IV NORMAL SALINE 250 ML IV PRN (02:14)
--- NOTE | 2018-10-24 02:58 | NUR ---
PT ON CONT MIRANDA VENT WITH 7.0 ET/TUBE IN PLACE WITH ANCHOR FAST IN PLACE AND SECURED, WITH CURRENT VENT SETTINGS, A/C 18, VT 550ML, 50%, PT DOES ASSIST AT TIMES , GOOD COUGH EFFORT, SUCTIONED VERY LIGHT PALE YELL TINGE SECRETIONS, SUCTION MOUTH WITH YANKAUER, NEB INLINE WITH ATROVENT, TOLL WELL, ALL VENT ALARMS GOOD, ORAL CARE DONE, CHANGE HME, PT IS SEDATED , SAT 100% , AMBU BAG AT BEDSIDE.Glenny SLATERP Addendum: 10/24/18 at 0302 by ROCK DAILEY RT Amended: Links added.
[2018-10-24] MEDS: BLOOD SUGAR DIAGNOSTIC 1 EACH STRIP VI SCH ×5 (03:41→23:16)
[2018-10-24] MEDS: INSULIN REGULAR, HUMAN 300 UNIT/3 ML VIAL SQ PRN ×3 (03:52→23:18)
[2018-10-24 04:12] LABS: *BILIRUBIN,URIN NEGATIVE (NEGATIVE); *CLARITY,URINE CLEAR (CLEAR); *COLOR,URINE YELLOW (YELLOW); *KETONES,URINE NEGATIVE (NEGATIVE); *UROBILINOGEN,URINE 0.2 E.U./dl (NORMAL); LEUKOCYTE ESTERASE ,URINE NEGATIVE (NEGATIVE); NITRITE, URINE NEGATIVE (NEGATIVE); PH,URINE 6.5 (5.0-8.0); UGLUCOSE NEGATIVE (NEGATIVE)
[2018-10-24 04:15] LABS: *BLOOD, URINE TRACE (NEGATIVE)
[2018-10-24] MEDS: IPRATROPIUM BROMIDE 0.5 MG/2.5 ML NEBU NEB SCH ×4 (04:24→19:09)
[2018-10-24 04:26] LABS: BACTERIA,URINE FEW /HPF (NONE SEEN); SQUAMOUS EPITHELIAL CELL,UR FEW /HPF (NONE SEEN)
[2018-10-24 04:27] LABS: MUCUS,URINE FEW /LPF (0-FEW)
[2018-10-24] MEDS: methylPREDNISolone SOD SUCC 125 MG/2 ML VIAL IV SCH ×3 (05:09→21:02)
[2018-10-24 05:20] LABS: BASOPHILS % (AUTO) 0.2 % (0.0-2.0); HEMATOCRIT 28.9 % (31.2-41.9); HEMOGLOBIN 9.4 g/dL (10.9-14.3); LYMPHOCYTES # (AUTO) 0.8 K/uL (20.0-40.0); LYMPHOCYTES % (AUTO) 9.5 % (20.5-51.5); MEAN CORPUSCULAR HEMOGLOBIN 26.5 uug (24.7-32.8); MEAN CORPUSCULAR HGB CONC 32 g/dL (32.3-35.6); MEAN CORPUSCULAR VOLUME 81.8 fL (75.5-95.3); MONOCYTES # (AUTO) 0.3 K/uL (2.0-10.0); MONOCYTES % (AUTO) 3.9 % (0.0-11.0); NEUTROPHILS # (AUTO) 7.7 K/uL (1.8-8.9); NEUTROPHILS % (AUTO) 86.4 % (38.5-71.5); PLATELET COUNT (AUTO) 229 K/uL (179-408); RED BLOOD CELL COUNT(AUTO) 3.54 MIL/uL (3.63-4.92); WHITE BLOOD COUNT (AUTO) 8.9 K/uL (3.8-11.8)
[2018-10-24] MEDS: PROPOFOL 100 ML IV PRN ×3 (05:37→18:36)
[2018-10-24 05:38] LABS: ALANINE AMINOTRANSFERASE 41 U/L (14-59); ALKALINE PHOSPHATASE 59 U/L (50-136); ASPARTATE AMINOTRANSFERASE 39 U/L (15-37); BILIRUBIN,TOTAL 0.9 mg/dL (0.2-1.0); CARBON DIOXIDE 38 mmol/L (21-32); CHLORIDE 101 mmol/L (98-107); CHOLESTEROL 105 mg/dL (<200); CREATININE 1.7 mg/dL (0.6-1.3); GLUCOSE 171 mg/dL (74-106); HDL CHOLESTEROL 57 mg/dL (40-60); MAGNESIUM 1.6 mg/dL (1.8-2.4); POTASSIUM 4.1 mmol/L (3.5-5.1); TOTAL PROTEIN, SERUM 6.4 g/dL (6.4-8.2); TRIGLYCERIDES 101 MG/DL (30-150); UREA NITROGEN, BLOOD 37 mg/dL (7-18)
[2018-10-24 05:46] LABS: PHOSPHOROUS 0.9 mg/dL (2.5-4.9)
[2018-10-24] MEDS: LEVOTHYROXINE SODIUM 50 MCG TABLET PO SCH (06:13)
--- NOTE | 2018-10-24 07:30 | NUR ---
RECIEVED PT LYING IN BED SEDATED, ON PROPOFOL DRIP AT 20MCG/KG/MIN ORDERED. HOB UP AT 35DEGREES. OPENS EYES WITH SUCTIONING AND TURNING. COLOR IS SLIGHTLY PALE, WARM AND DRY TO TOUCH. HR IS SB MOSTLY, TO SR , NO ECTOPICS. PICC LINE ON DEEP PATENT AND INTACT. ETT INTACT AND CONNECTED TO VENT WITH SETTING OF AC-18, VT-550, FIO2-50%. SATURATION OF 100%. LUNGS ARE CLEAR. SUCTIONED WITH VERY LITTLE SECRETIONS. NGT RT NARES IN PLACE AND INTACT.NPO FOR NOW AND NGT IS CLAMPED. BDOMEN IS BIG AND SLIGHTLY SOFT TO TOUCH. HYPOACTIVE BS. FOLEYCATHETER IN PLACE AND DRAINING MOD AMOUNT OF CLEAR YELLOW URINE.
--- NOTE | 2018-10-24 07:47 | NUR ---
PT RECEIVED ORALLY INTUBATED ETT 7.0 SECURED AT 23 CM LIP LINE VIA ANCHOR FAST. BS DIMINISHED, IN LINE TX GIVEN ORDERED. TOLERATED TX WELL WITHOUT ADVERSE REACTION NOTED. SUCTION PRN TRACE AMOUNT THIN WHITE SECRETIONS. VENT CHECKED, ALARMS WOKING WELL AND AUDIBLE. NO DISTRESS NOTED AT THIS TIME. WILL CONTINUE TO MONITOR.
[2018-10-24 08:08] LABS: ABG BASE EXCESS 15.9 mmol/L; ABG HCO3 38.7 mmol/L; ABG PCO2 39.4 mmHg (35.0-45.0); ABG PO2 96.2 mmHg (75.0-100.0); ABG SITE LEFT BRACHIAL; ABG TOTAL HEMOGLOBIN 9.6 G/dL (12.0-16.0); COHb 1.1 % (0.5-1.5); MetHb 0.4 % (0.0-1.5); O2Hb 96.7 % (94.0-97.0); VENT MODE VENT - A/C; VT, ABG 550 mL
[2018-10-24] MEDS: ASPIRIN 81 MG TAB.CHEW PO SCH (08:26)
[2018-10-24] MEDS: FUROSEMIDE 20 MG/2 ML VIAL IV SCH ×2 (08:27→20:29)
[2018-10-24] MEDS: FAMOTIDINE. 20 MG/2 ML VIAL IV SCH ×2 (08:27→20:29)
[2018-10-24] MEDS: CLOTRIMAZOLE 1% CREAM 30 GM TUBE TOP SCH ×2 (08:28→17:13)
[2018-10-24] MEDS: MAGNESIUM SULFATE/D5W 100 ML IV SCH ×2 (08:28→11:07)
--- NOTE | 2018-10-24 08:30 | NUR ---
SEEN AND EXAMINED BY DR TONG WITH NEW ORDERS. NOTIFIED DR FIELDS ABOUT THE LOW PHOSPHORUS LEVEL RESULT OF 0.9. ORDERED 4GMS OF NEUTROPHOS VIA NGT. AND MAGNESIUM OF 2GMS.
[2018-10-24] MEDS ORDERED: NEUTRA PHOS PACKET NG ONE (08:45)
--- NOTE | 2018-10-24 09:00 | NUR ---
PT TURNED TO SIDES. HAS 1 LARGE PASTY BROWN BM AND CLEANED UP. SKIN IS VERY EXCORIATED AND RES AROUND THE PERINEAL AREAS. LOTRIMIN CREAM APPLIED AND FOLLOWED BY SUDHIR.
--- NOTE | 2018-10-24 09:30 | NUR ---
SEEN AND EXAMINED BY DR REYNA WITH NEW ORDERS.
[2018-10-24] MEDS: NEUTRA PHOS PACKET PO SCH ×2 (09:33→17:12)
--- NOTE | 2018-10-24 09:40 | NUR ---
ABG RESULT SEEN BY DR REYNA WITH NEW ORDERS.
--- NOTE | 2018-10-24 10:00 | NUR ---
PT BP IS VERY LABILE, DOWN IN THE 60'S AND 70'S AND DR DOUGLAS FIELDS AWARE. TAPERED DOWN THE PROPOFOL PRN.
--- NOTE | 2018-10-24 10:30 | NUR ---
US OF THE MEDIASTIUM DONE AT THE BEDSIDE ORDERED.
--- NOTE | 2018-10-24 11:03 | NUR ---
Clinical pharmacy note-Vancomycin dosing per pharmacy Subjective: To dose Vancomycin for this patient for COPD exacerbation and Pneumonia and SOB. Pt on Merrem and Zithromax as well. Objective: BUN 37 Scr 1.7 WBC 8.9; temp 99.5 Ht 167.64 cm Wt 226 lb= 102 kg Assessment/Plan: As renal function is compromised, will dose per level. Will administer Vancomycin 2000 mg IVPB x 1 today. Next random level due with am labs tomorrow. Will follow and redose tomorrow as needed.
[2018-10-24] MEDS ORDERED: GLUCERNA 1.2 1000ML LIQUID NG PRN (11:30)
[2018-10-24] MEDS ORDERED: NOREPINEPHRINE BITARTRATE 16 MG in IV DEXTROSE 5% 500 ML IV PRN (11:30)
[2018-10-24] MEDS ORDERED: VANCOMYCIN IV 2,000 MG in IV DEXTROSE 5% 500 ML IV ONE (12:00)
--- NOTE | 2018-10-24 12:05 | NUR ---
WOUND CARE CONSULT: PT PRESENTS WITH SEVERE RASH TO ENTIRE SACRAL/BUTTOCKS AREA, GROIN AREAS, PERINEUM, POSTERIOR THIGHS WELL DRY ABRASIONS, BRUISES AND HEALED FRAGILE SKIN TO RT THIGH, PRESENT ON ADMISSION. RECOMMENDATIONS MADE FOR SKIN PROTECTION AND CARE. DISCUSSED WITH NURSING STAFF. FIRST STEP LOW AIRLOSS MATTRESS ON ORDER. PT IS CURRENTLY INTUBATED. PT INCONTINENT OF STOOL. WILL SEE PRN. MARIO IN AGREEMENT WITH PLAN OF CARE. Addendum: 10/24/18 at 1208 by LARON CARROLL RN Amended: Links added.
[2018-10-24] MEDS: ACETAzolamide SODIUM 500 MG VIAL IV SCH (12:11)
[2018-10-24] MEDS ORDERED: DEXTROSE 50% 50 ML DISP.SYRIN IV PRN (12:45)
[2018-10-24] MEDS: ALBUTEROL SULFATE 1.25 MG/3 ML NEBU NEB SCH ×2 (13:03→19:09)
[2018-10-24] MEDS: MORPHINE SULFATE 2 MG/1 ML DISP.SYRIN IV PRN ×2 (14:49→23:21)
[2018-10-24] MEDS: MEROPENEM 1 G in IV NORMAL SALINE 100 ML IV SCH ×2 (14:50→21:02)
--- NOTE | 2018-10-24 15:00 | NUR ---
PT IS GRIMACING AND SOMEWHAT AGITATED. MEDICATED WITH MORPHINE 2MG SLOW IVP ORDERED AND LOWERD PROPOFOL DOWN TO 10MCG/KG/MIN.
[2018-10-24] MEDS: GLUCERNA 1.2 1000ML LIQUID NG PRN (15:46)
--- NOTE | 2018-10-24 16:00 | NUR ---
TUBE FEEDING GLUCERNA 1.2 STARTED ORDERED.
--- NOTE | 2018-10-24 16:10 | NUR ---
PT''S BP KEEP DROPPING IN THE 70'-80'S. STARTED ON LEVOPHED DRIP AT 2MCG/MIN ORDERED. PM CARE RENDERED. TOLERATING TUBE FEEDING. CONDITION IS UNCHANGED.
[2018-10-24] MEDS: AZITHROMYCIN IV 500 MG in IV DEXTROSE 5% 250 ML IV SCH (17:12)
--- NOTE | 2018-10-24 19:30 | NUR ---
Received pt HOB elevated, on 1st step mattress, orally intubated at 24 cm lip line. Pt on vent with settings AC 18, TV 550, FIO2 50%. DEEP PICC line double lumen intact and patent. Pt sedated with Diprivan drip running at 25 mcg/kg/min. Pt also on Levophed at 2 mcg/min, SBP > 90s. Tele monitor noted SB with HR up to 58. NG tube intact in right nare. Tube feedings running at 30 cc/hr, no residuals noted. F/C in place. Pt afebrile. Assessment completed, pt kept clean and dry, repositioned. Oral care done. Aspiration precautions and safety measures implemented. Will continue to monitor closely.
--- NOTE | 2018-10-24 20:30 | NUR ---
Sedation vacation started. After 15 minutes, pt became mildly agitated. Reorientation and redirection provided. Pt was able to follow simple commands such as open eyes and squeeze hands. After 10 minutes, Diprivan restarted.
[2018-10-24] MEDS: ENOXAPARIN SODIUM 40 MG/0.4 ML DISP.SYRIN SQ SCH (21:03)
--- NOTE | 2018-10-24 23:29 | NUR ---
Pt with facial grimacing and agitated. Morphine 2mg administered slow IVP. Diprivan decreased to 10 mcg/min. Continue to monitor closely.
[2018-10-25] VITALS (43 sets, daily range): BP systolic 88–135; BP diastolic 34–87
[2018-10-25] MEDS: ALBUTEROL SULFATE 1.25 MG/3 ML NEBU NEB SCH ×4 (01:10→19:11)
--- NOTE | 2018-10-25 01:10 | NUR ---
Call made to on-call MYNOR MARIO regarding SB with HR as low as 47 but not sustained. No orders received but to continue to monitor. Will carry out order.
[2018-10-25] MEDS: IPRATROPIUM BROMIDE 0.5 MG/2.5 ML NEBU NEB SCH ×4 (01:11→19:11)
[2018-10-25] MEDS: PROPOFOL 100 ML IV PRN ×5 (02:19→20:30)
--- NOTE | 2018-10-25 03:40 | NUR ---
Pts cell phone and phone gate cutter found wrapped in plastic bag on top of crash cart. Belongings list updated.
--- NOTE | 2018-10-25 03:47 | NUR ---
RECEIVED PATIENT ORALLY INTUBATED ON A MIRANDA VENTILATOR. SIZE 7.0 ET TUBE IS SECURED AT 23-24 CM LIP LINE VIA ANCHOR FAST. HME CHANGED. HHN TX GIVEN PER MD ORDER'S AND WAS TOLERATED WELL W/ NO ADVERSE REACTIONS. SUCTIONED SMALL AMOUNTS OF THIN WHITE/YELLOW SECRETIONS. VENTILATOR ALARMS ARE ON AND LOUD. VENTILATOR IS PLUGGED IN THE RED EMERGENCY OUTLET. AMBU BAG IS BY BEDSIDE. PATIENT IS TOLERATING CURRENT VENTILATOR SETTINGS WELL AT THIS TIME WITH NO SOB NOTED. WILL CONTINUE TO MONITOR.
[2018-10-25] MEDS: IV NORMAL SALINE 250 ML IV PRN (04:01)
[2018-10-25 04:55] LABS: BASOPHILS % (AUTO) 0.1 % (0.0-2.0); HEMATOCRIT 31.2 % (31.2-41.9); HEMOGLOBIN 9.6 g/dL (10.9-14.3); LYMPHOCYTES # (AUTO) 0.7 K/uL (20.0-40.0); LYMPHOCYTES % (AUTO) 8.1 % (20.5-51.5); MEAN CORPUSCULAR HEMOGLOBIN 25.1 uug (24.7-32.8); MEAN CORPUSCULAR HGB CONC 31 g/dL (32.3-35.6); MEAN CORPUSCULAR VOLUME 81.8 fL (75.5-95.3); MONOCYTES # (AUTO) 0.3 K/uL (2.0-10.0); MONOCYTES % (AUTO) 3.2 % (0.0-11.0); NEUTROPHILS # (AUTO) 8.2 K/uL (1.8-8.9); NEUTROPHILS % (AUTO) 88.6 % (38.5-71.5); PLATELET COUNT (AUTO) 247 K/uL (179-408); RED BLOOD CELL COUNT(AUTO) 3.81 MIL/uL (3.63-4.92); WHITE BLOOD COUNT (AUTO) 9.2 K/uL (3.8-11.8)
[2018-10-25] MEDS: MEROPENEM 1 G in IV NORMAL SALINE 100 ML IV SCH ×3 (05:01→21:03)
[2018-10-25 05:04] LABS: CARBON DIOXIDE 31 mmol/L (21-32); CHLORIDE 98 mmol/L (98-107); CREATININE 2.5 mg/dL (0.6-1.3); MAGNESIUM 2.4 mg/dL (1.8-2.4); POTASSIUM 4.3 mmol/L (3.5-5.1); UREA NITROGEN, BLOOD 54 mg/dL (7-18)
[2018-10-25] MEDS: methylPREDNISolone SOD SUCC 125 MG/2 ML VIAL IV SCH (05:10)
[2018-10-25 05:12] LABS: GLUCOSE 412 mg/dL (74-106)
[2018-10-25] MEDS: BLOOD SUGAR DIAGNOSTIC 1 EACH STRIP VI SCH ×4 (05:12→23:16)
[2018-10-25] MEDS: INSULIN REGULAR, HUMAN 300 UNIT/3 ML VIAL SQ PRN ×4 (05:21→23:32)
[2018-10-25] MEDS: LEVOTHYROXINE SODIUM 50 MCG TABLET PO SCH (06:20)
--- NOTE | 2018-10-25 07:20 | NUR ---
PT RECEIVED ORALLY INTUBATED WITH A SIZE 7.0 ETT SECURED WITH ANCHOR-FAST APPROX 23CM AT THE LIP. PT IS ON A MIRANDA VENT ON SETTINGS OF A/C 18, VT 550, AND 50% FIO2. VENT PARAMETERS AND ALARMS CHECKED, ALARMS ARE AUDIBLE. IN-LINE TX TOLERATED WELL, NO ADVERSE REACTION NOTED. HME CHANGED. PT IS TOLERATING VENT SETTINGS WELL, NO RESP. DISTRESS NOTED AT THIS TIME. AMBU-BAG AT BEDSIDE. VENT PLUGGED INTO RED OUTLET. SUCTION PRN. WILL CONTINUE TO MONITOR.
--- NOTE | 2018-10-25 07:45 | NUR ---
Dr. Vincent here to see pt. Full report given. No new orders received.
[2018-10-25] MEDS: GLUCERNA 1.2 1000ML LIQUID NG PRN ×2 (08:00→09:53)
[2018-10-25] MEDS: ACETAzolamide SODIUM 500 MG VIAL IV SCH (08:03)
[2018-10-25] MEDS: FAMOTIDINE. 20 MG/2 ML VIAL IV SCH (08:03)
[2018-10-25] MEDS: CLOTRIMAZOLE 1% CREAM 30 GM TUBE TOP SCH ×2 (08:04→16:13)
[2018-10-25] MEDS: ASPIRIN 81 MG TAB.CHEW PO SCH (08:04)
[2018-10-25 09:24] LABS: ABG BASE EXCESS 9.1 mmol/L; ABG HCO3 32.1 mmol/L; ABG PCO2 37.5 mmHg (35.0-45.0); ABG PH 7.551 (7.350-7.450); ABG PO2 132.5 mmHg (75.0-100.0); ABG SITE RIGHT RADIAL; MetHb 0.2 % (0.0-1.5); O2Hb 97.5 % (94.0-97.0); VENT MODE VENT - A/C; VT, ABG 550 mL
--- NOTE | 2018-10-25 09:31 | NUR ---
Dr. Ramey here to see pt. Full report given. New orders received.
--- NOTE | 2018-10-25 10:59 | NUR ---
Clinical pharmacy note-Vancomycin dosing per pharmacy Subjective: To dose Vancomycin for this patient for COPD exacerbation and Pneumonia and SOB. Objective: BUN 54 Scr 2.5 WBC 9.2; temp 97.8 Vanco random level on 10/25 with am labs: 27.3 (post vanco 2gm IV x1 on 10/24 at 1300) Ht 167.64 cm Wt 226 lb= 102 kg Assessment/Plan: As renal function is compromised, will continue to dose per level. Since vanco random level this am is 27.3, No dose shall be given today. Next random level due with am labs tomorrow. Will follow and re-dose tomorrow as needed.
[2018-10-25] MEDS: AZITHROMYCIN IV 500 MG in IV DEXTROSE 5% 250 ML IV SCH (16:14)
[2018-10-25] MEDS: methylPREDNISolone SOD SUCC 40 MG/ML VIAL IV SCH (20:40)
[2018-10-25] MEDS: ENOXAPARIN SODIUM 30 MG/0.3 ML DISP.SYRIN SUBCUT SCH (20:43)
[2018-10-25] MEDS ORDERED: methylPREDNISolone SOD SUCC 125 MG/2 ML VIAL IV SCH (21:00)
[2018-10-26] VITALS (23 sets, daily range): BP systolic 83–143; BP diastolic 35–106
[2018-10-26] MEDS: ALBUTEROL SULFATE 1.25 MG/3 ML NEBU NEB SCH ×4 (01:21→19:22)
[2018-10-26] MEDS: IPRATROPIUM BROMIDE 0.5 MG/2.5 ML NEBU NEB SCH ×4 (01:21→19:22)
[2018-10-26] MEDS: PROPOFOL 100 ML IV PRN (01:32)
--- NOTE | 2018-10-26 04:17 | NUR ---
NURSES NOTES-SEDATED WITH DIPRIVAN.30MCG/KG/MIN. VENTED VIA ORAL ETT.NGT INTACT WITH GLUCERNA 65ML/HR.TOLERATED. HOB- ELEVATED. BOTH SOFT RESTRAINT INTACT TO BILATERAL ARMS. REPOSITIONED,
[2018-10-26] MEDS: MEROPENEM 1 G in IV NORMAL SALINE 100 ML IV SCH ×3 (05:02→20:55)
[2018-10-26 05:20] LABS: BASOPHILS % (AUTO) 0.1 % (0.0-2.0); HEMATOCRIT 27.7 % (31.2-41.9); HEMOGLOBIN 8.8 g/dL (10.9-14.3); LYMPHOCYTES # (AUTO) 0.7 K/uL (20.0-40.0); LYMPHOCYTES % (AUTO) 7.4 % (20.5-51.5); MEAN CORPUSCULAR HEMOGLOBIN 25.4 uug (24.7-32.8); MEAN CORPUSCULAR HGB CONC 32 g/dL (32.3-35.6); MEAN CORPUSCULAR VOLUME 80.1 fL (75.5-95.3); MONOCYTES # (AUTO) 0.6 K/uL (2.0-10.0); MONOCYTES % (AUTO) 6.3 % (0.0-11.0); NEUTROPHILS # (AUTO) 7.7 K/uL (1.8-8.9); NEUTROPHILS % (AUTO) 86.2 % (38.5-71.5); PLATELET COUNT (AUTO) 244 K/uL (179-408); RED BLOOD CELL COUNT(AUTO) 3.46 MIL/uL (3.63-4.92); WHITE BLOOD COUNT (AUTO) 8.9 K/uL (3.8-11.8)
[2018-10-26 05:23] LABS: CARBON DIOXIDE 32 mmol/L (21-32); CHLORIDE 101 mmol/L (98-107); CREATININE 2.8 mg/dL (0.6-1.3); MAGNESIUM 2.5 mg/dL (1.8-2.4); PHOSPHOROUS 5.1 mg/dL (2.5-4.9); POTASSIUM 4.4 mmol/L (3.5-5.1); UREA NITROGEN, BLOOD 71 mg/dL (7-18)
[2018-10-26 05:26] LABS: GLUCOSE 346 mg/dL (74-106)
[2018-10-26] MEDS: BLOOD SUGAR DIAGNOSTIC 1 EACH STRIP VI SCH ×6 (05:59→23:35)
[2018-10-26] MEDS: LEVOTHYROXINE SODIUM 50 MCG TABLET PO SCH (06:07)
[2018-10-26] MEDS: INSULIN REGULAR, HUMAN 300 UNIT/3 ML VIAL SQ PRN ×6 (06:19→23:41)
--- NOTE | 2018-10-26 07:30 | NUR ---
IV propofol turned off per weaning protocol.
[2018-10-26] MEDS: methylPREDNISolone SOD SUCC 40 MG/ML VIAL IV SCH ×2 (07:31→20:54)
[2018-10-26] MEDS: ASPIRIN 81 MG TAB.CHEW PO SCH (07:32)
[2018-10-26] MEDS: CLOTRIMAZOLE 1% CREAM 30 GM TUBE TOP SCH ×2 (07:32→16:02)
[2018-10-26] MEDS: ACETAzolamide SODIUM 500 MG VIAL IV SCH (07:32)
[2018-10-26] MEDS: FAMOTIDINE. 20 MG/2 ML VIAL IV SCH (07:34)
--- NOTE | 2018-10-26 08:00 | NUR ---
Pt more awake and alert, following commands. Pt placed on CPAP for weaning trial with settings as follows: 40% FiO2, PSV-8.
--- NOTE | 2018-10-26 08:15 | NUR ---
Dr. Vincent here to see pt. Full report given. No new orders received.
[2018-10-26 09:00] LABS: ABG BASE EXCESS 2.9 mmol/L; ABG HCO3 28.6 mmol/L; ABG PH 7.376 (7.350-7.450); ABG PO2 132.9 mmHg (75.0-100.0); ABG SITE RIGHT RADIAL; ABG TOTAL HEMOGLOBIN 9.6 G/dL (12.0-16.0); COHb 1.1 % (0.5-1.5); CPAP,BG 0 cmH20; MetHb 0.3 % (0.0-1.5); O2Hb 96.8 % (94.0-97.0); VENT MODE VENT - CPAP PS8
--- NOTE | 2018-10-26 09:00 | NUR ---
Dr. Paredes here to see pt. Full report given. No new orders received at this time.
[2018-10-26] MEDS: INSULIN GLARGINE,HUM 300 UNITS/3 ML CARTRIDGE SQ SCH ×2 (09:39→20:51)
--- NOTE | 2018-10-26 09:48 | NUR ---
Dr. Ramey here to see pt. Full report given. New orders received. Okay to extubate pt per .
--- NOTE | 2018-10-26 09:50 | NUR ---
Pt extubated and placed on 3L nasal cannula. Pt saturating wnl. Pt stable and nad noted upon extubation.
[2018-10-26] MEDS ORDERED: DC PROPOFOL ONCE EXTUBATED XX PRN (09:55)
[2018-10-26] MEDS ORDERED: PHENOL/SODIUM PHENOLATE SPRAY 177 ML BOTTLE MM PRN (10:00)
[2018-10-26] MEDS: GLUCERNA 1.2 1000ML LIQUID NG PRN (10:28)
--- NOTE | 2018-10-26 11:06 | NUR ---
Clinical pharmacy note-Vancomycin dosing per pharmacy Subjective: To dose Vancomycin for this patient for COPD exacerbation and Pneumonia and SOB. Objective: BUN 71 Scr 2.8 WBC 8.9; temp 99 Vanco random level on 10/25 with am labs: 27.3 (post vanco 2gm IV x1 on 10/24 at 1300) Random today with am labs: 21.5 Ht 167.64 cm Wt 226 lb= 102 kg Assessment/Plan: As renal function is compromised, will continue to dose per level. Per today's random level, no dose shall be given today. Next random level due with am labs tomorrow. Will follow and re-dose tomorrow as needed.
--- NOTE | 2018-10-26 15:30 | NUR ---
Found pt with nasogastric tube removed. Nad noted.
--- NOTE | 2018-10-26 15:40 | NUR ---
Speech therapist here to see pt for swallow eval.
[2018-10-26] MEDS: AZITHROMYCIN IV 500 MG in IV DEXTROSE 5% 250 ML IV SCH (16:01)
[2018-10-26] MEDS: ENOXAPARIN SODIUM 30 MG/0.3 ML DISP.SYRIN SUBCUT SCH (20:54)
[2018-10-26] MEDS: IV NORMAL SALINE 250 ML IV PRN (20:55)
[2018-10-26] MEDS: MORPHINE SULFATE 2 MG/1 ML DISP.SYRIN IV PRN ×2 (23:09→23:34)
[2018-10-27] VITALS (24 sets, daily range): BP systolic 90–133; BP diastolic 31–70
[2018-10-27] MEDS: IPRATROPIUM BROMIDE 0.5 MG/2.5 ML NEBU NEB SCH ×4 (01:06→20:44)
[2018-10-27] MEDS: ALBUTEROL SULFATE 1.25 MG/3 ML NEBU NEB SCH ×4 (01:07→20:44)
--- NOTE | 2018-10-27 04:17 | NUR ---
nurses notes- 1999- alert, oriented, o2 3l /min nc no sob noted, blood sugar 361 covered with sliding scale- 0000 b/s 423- covered with 20 units reg insulin.0400- bs239- 8 units sq given conversant nosob noted close monitoring
[2018-10-27] MEDS: BLOOD SUGAR DIAGNOSTIC 1 EACH STRIP VI SCH ×5 (04:40→20:47)
[2018-10-27] MEDS: INSULIN REGULAR, HUMAN 300 UNIT/3 ML VIAL SQ PRN ×5 (04:48→20:48)
[2018-10-27] MEDS: MEROPENEM 1 G in IV NORMAL SALINE 100 ML IV SCH ×3 (06:03→20:52)
[2018-10-27] MEDS: LEVOTHYROXINE SODIUM 50 MCG TABLET PO SCH (06:19)
[2018-10-27 07:38] LABS: BASOPHILS # (AUTO) 0.1 K/uL (0.0-8.0); BASOPHILS % (AUTO) 0.6 % (0.0-2.0); EOSINOPHILS % (AUTO) 0.1 % (0.0-7.0); HEMATOCRIT 28.9 % (31.2-41.9); HEMOGLOBIN 8.9 g/dL (10.9-14.3); LYMPHOCYTES # (AUTO) 0.7 K/uL (20.0-40.0); LYMPHOCYTES % (AUTO) 7.5 % (20.5-51.5); MEAN CORPUSCULAR HEMOGLOBIN 25.4 uug (24.7-32.8); MEAN CORPUSCULAR HGB CONC 31 g/dL (32.3-35.6); MEAN CORPUSCULAR VOLUME 82.7 fL (75.5-95.3); MONOCYTES # (AUTO) 0.5 K/uL (2.0-10.0); NEUTROPHILS # (AUTO) 8.6 K/uL (1.8-8.9); NEUTROPHILS % (AUTO) 86.8 % (38.5-71.5); PLATELET COUNT (AUTO) 244 K/uL (179-408); RED BLOOD CELL COUNT(AUTO) 3.49 MIL/uL (3.63-4.92); WHITE BLOOD COUNT (AUTO) 9.9 K/uL (3.8-11.8)
[2018-10-27 08:04] LABS: ABG HCO3 31.4 mmol/L; ABG PCO2 64.7 mmHg (35.0-45.0); ABG PH 7.304 (7.350-7.450); ABG PO2 98.8 mmHg (75.0-100.0); ABG SITE RIGHT RADIAL; ABG TOTAL HEMOGLOBIN 9.4 G/dL (12.0-16.0); COHb 1.3 % (0.5-1.5); MetHb 0.1 % (0.0-1.5); O2Hb 95.4 % (94.0-97.0); VENT MODE Nasal Cannula
[2018-10-27 08:07] LABS: CARBON DIOXIDE 33 mmol/L (21-32); CHLORIDE 104 mmol/L (98-107); GLUCOSE 233 mg/dL (74-106); PHOSPHOROUS 6.8 mg/dL (2.5-4.9); POTASSIUM 4.6 mmol/L (3.5-5.1); UREA NITROGEN, BLOOD 64 mg/dL (7-18)
[2018-10-27] MEDS: ASPIRIN 81 MG TAB.CHEW PO SCH (08:19)
[2018-10-27] MEDS: methylPREDNISolone SOD SUCC 40 MG/ML VIAL IV SCH ×2 (08:19→20:33)
[2018-10-27] MEDS: FAMOTIDINE. 20 MG/2 ML VIAL IV SCH (08:20)
[2018-10-27] MEDS: CLOTRIMAZOLE 1% CREAM 30 GM TUBE TOP SCH ×2 (08:22→17:05)
[2018-10-27] MEDS ORDERED: VANCOMYCIN IV 1,500 MG in IV DEXTROSE 5% 500 ML IV ONE (09:00)
--- NOTE | 2018-10-27 09:29 | NUR ---
Clinical pharmacy note-Vancomycin dosing per pharmacy Subjective: To dose Vancomycin for this patient for COPD exacerbation and Pneumonia and SOB. Objective: BUN 64 Scr 2.0 WBC 9.9; temp 98 Vanco random level on 10/25 with am labs: 27.3 (post vanco 2gm IV x1 on 10/24 at 1300) Random 10/26 with am labs: 21.5 Random today with am labs: 15 Ht 167.64 cm Wt 226 lb= 102 kg Assessment/Plan: As renal function is compromised, will continue to dose per level. Per today's random level, dosed one time 1500mg vanco for 0900. Will check renal function in am and decide when to order next random. Will follow
--- NOTE | 2018-10-27 10:20 | NUR ---
A call from pt's PEACE Reis, call transferred to pt's room.
[2018-10-27] MEDS ORDERED: MAGNESIUM HYDROXIDE 30 ML LIQUID UDC PO PRN (11:45)
[2018-10-27] MEDS ORDERED: BISACODYL 10 MG SUPP.RECT RC PRN (11:45)
[2018-10-27] MEDS: AZITHROMYCIN IV 500 MG in IV DEXTROSE 5% 250 ML IV SCH (17:04)
--- NOTE | 2018-10-27 17:08 | NUR ---
Pulmonary services Dr. Reeves in the unit to examine patient, report given.
[2018-10-27] MEDS ORDERED: ALPRAZOLAM 0.5 MG TABLET PO SCH (17:30)
--- NOTE | 2018-10-27 18:00 | NUR ---
Attending game operator Dr. Ramiro Mejia in the unit to examine patient; full report given. Orders to continue ICU monitoring received.
[2018-10-27] MEDS: ALPRAZOLAM 0.5 MG TABLET PO PRN ×2 (18:01→20:31)
[2018-10-27] MEDS: CULTURELLE CAPSULE PO SCH (20:32)
[2018-10-27] MEDS: ENOXAPARIN SODIUM 30 MG/0.3 ML DISP.SYRIN SUBCUT SCH (20:33)
[2018-10-27] MEDS: INSULIN GLARGINE,HUM 300 UNITS/3 ML CARTRIDGE SQ SCH (20:46)
[2018-10-27] MEDS: HYDROCORTISONE RECTAL SUPP 25 MG EACH RC SCH ×2 (20:52→22:08)
[2018-10-27] MEDS: MORPHINE SULFATE 2 MG/1 ML DISP.SYRIN IV PRN (22:08)
[2018-10-28] VITALS (22 sets, daily range): BP systolic 91–128; BP diastolic 34–84
[2018-10-28] MEDS: BLOOD SUGAR DIAGNOSTIC 1 EACH STRIP VI SCH ×6 (00:23→19:59)
[2018-10-28] MEDS: INSULIN REGULAR, HUMAN 300 UNIT/3 ML VIAL SQ PRN ×5 (00:28→20:04)
[2018-10-28] MEDS: ALBUTEROL SULFATE 1.25 MG/3 ML NEBU NEB SCH ×4 (01:52→21:12)
[2018-10-28] MEDS: IPRATROPIUM BROMIDE 0.5 MG/2.5 ML NEBU NEB SCH ×4 (01:52→21:12)
--- NOTE | 2018-10-28 05:13 | NUR ---
nurses notes-2000- awake ,alert, oriented when received. fed self with her dinner . ate well.2100- large amount of incontinent stool noted. pt dig buttom with feces all over. washed patient . libia area still with rashes noted skin care done.0000 asleep no distress noted. 0200- awaken. alert oriented.ate snacks.0400- blood sugar-118. apple sauce and apple juice given. am care done. repositioned . close monitoring
[2018-10-28] MEDS: MEROPENEM 1 G in IV NORMAL SALINE 100 ML IV SCH ×3 (05:32→21:31)
[2018-10-28] MEDS: LEVOTHYROXINE SODIUM 50 MCG TABLET PO SCH (06:19)
[2018-10-28] MEDS: IV NORMAL SALINE 250 ML IV PRN (06:50)
[2018-10-28] MEDS: methylPREDNISolone SOD SUCC 40 MG/ML VIAL IV SCH ×2 (08:00→20:15)
[2018-10-28] MEDS: ASPIRIN 81 MG TAB.CHEW PO SCH (08:00)
[2018-10-28] MEDS: FAMOTIDINE 20 MG TABLET PO SCH (08:00)
[2018-10-28] MEDS: CULTURELLE CAPSULE PO SCH ×2 (08:00→20:16)
[2018-10-28] MEDS: CLOTRIMAZOLE 1% CREAM 30 GM TUBE TOP SCH ×2 (08:01→16:26)
[2018-10-28] MEDS: HYDROCORTISONE RECTAL SUPP 25 MG EACH RC SCH ×2 (08:02→20:16)
[2018-10-28 09:21] LABS: BASOPHILS # (AUTO) 0.1 K/uL (0.0-8.0); BASOPHILS % (AUTO) 0.5 % (0.0-2.0); HEMATOCRIT 30.3 % (31.2-41.9); HEMOGLOBIN 9.2 g/dL (10.9-14.3); LYMPHOCYTES # (AUTO) 0.9 K/uL (20.0-40.0); LYMPHOCYTES % (AUTO) 7.8 % (20.5-51.5); MEAN CORPUSCULAR HEMOGLOBIN 25.2 uug (24.7-32.8); MEAN CORPUSCULAR HGB CONC 30 g/dL (32.3-35.6); MEAN CORPUSCULAR VOLUME 83.1 fL (75.5-95.3); MONOCYTES # (AUTO) 0.4 K/uL (2.0-10.0); MONOCYTES % (AUTO) 3.2 % (0.0-11.0); NEUTROPHILS # (AUTO) 9.8 K/uL (1.8-8.9); NEUTROPHILS % (AUTO) 88.5 % (38.5-71.5); PLATELET COUNT (AUTO) 179 K/uL (179-408); RED BLOOD CELL COUNT(AUTO) 3.65 MIL/uL (3.63-4.92); WHITE BLOOD COUNT (AUTO) 11.1 K/uL (3.8-11.8)
[2018-10-28 09:59] LABS: CARBON DIOXIDE 32 mmol/L (21-32); CHLORIDE 103 mmol/L (98-107); CREATININE 1.5 mg/dL (0.6-1.3); GLUCOSE 231 mg/dL (74-106); PHOSPHOROUS 5.4 mg/dL (2.5-4.9)
[2018-10-28 10:00] LABS: UREA NITROGEN, BLOOD 60 mg/dL (7-18)
--- NOTE | 2018-10-28 12:45 | NUR ---
Pulmonary services, Dr. Reeves in the unit to examine patient; full report given. No new orders received.
--- NOTE | 2018-10-28 12:47 | NUR ---
Clinical pharmacy note-Vancomycin dosing per pharmacy Subjective: To dose Vancomycin for this patient for COPD exacerbation and Pneumonia and SOB. Objective: BUN 64 (10/27) Scr 2.0 (10/27) WBC 11.1; temp 97.8 Vanco random level on 10/25 with am labs: 27.3 (post vanco 2gm IV x1 on 10/24 at 1300) Random 10/26 with am labs: 21.5 Random 10/27 with am labs: 15 Ht 167.64 cm Wt 226 lb= 102 kg Assessment/Plan: As renal function is compromised, will continue to dose per level. Last dose of 1500mg vanco given 10/27 @0900. Next random ordered for tomorrow with am labs. Will check level and re-dose as needed. Will follow
--- NOTE | 2018-10-28 13:03 | NUR ---
Nephrology services, Dr. Guy in the unit to examine patient.
--- NOTE | 2018-10-28 13:18 | NUR ---
Cardiology services, Dr. Booker in the unit to examine patient, report given.
--- NOTE | 2018-10-28 15:00 | NUR ---
Call from Smiley monreal's DPOA and she was updated on pt's condition, and called transfer for her to speak with pt.
[2018-10-28] MEDS: ALPRAZOLAM 0.5 MG TABLET PO PRN (15:54)
--- NOTE | 2018-10-28 16:19 | NUR ---
Accu-check of 419 covered with 20 units of regular insulin SS. Attending physician notified orders to give her an additional 12 units of regular insulin received and carried it.
[2018-10-28] MEDS: AZITHROMYCIN IV 500 MG in IV DEXTROSE 5% 250 ML IV SCH (16:24)
[2018-10-28] MEDS ORDERED: INSULIN REGULAR, HUMAN 300 UNIT/3 ML VIAL SQ ONE ×2 (16:30)
--- NOTE | 2018-10-28 19:13 | NUR ---
Initial shift report: Received patient in bed on 2L nasal cannula, with no signs and symptoms of respiratory distress. Patient denies any pain/discomfort at this time. repositioned the patient. Patient is confused, forgetful and shows minimal anxiety at this time. will continue to monitor.
--- NOTE | 2018-10-28 19:44 | NUR ---
PEACE Sorto, called to discuss about the status of the patient. She would like to speak to Physician to get an update on patient status.
[2018-10-28] MEDS: INSULIN GLARGINE,HUM 300 UNITS/3 ML CARTRIDGE SQ SCH (20:07)
[2018-10-28] MEDS: ENOXAPARIN SODIUM 30 MG/0.3 ML DISP.SYRIN SUBCUT SCH (20:08)
[2018-10-29] VITALS (24 sets, daily range): BP systolic 98–141; BP diastolic 36–78
[2018-10-29] MEDS: BLOOD SUGAR DIAGNOSTIC 1 EACH STRIP VI SCH ×6 (00:22→21:26)
[2018-10-29] MEDS: INSULIN REGULAR, HUMAN 300 UNIT/3 ML VIAL SQ PRN ×4 (00:31→17:11)
[2018-10-29] MEDS: IPRATROPIUM BROMIDE 0.5 MG/2.5 ML NEBU NEB SCH ×4 (01:25→18:59)
[2018-10-29] MEDS: ALBUTEROL SULFATE 1.25 MG/3 ML NEBU NEB SCH ×4 (01:25→18:59)
[2018-10-29] MEDS: ALPRAZOLAM 0.5 MG TABLET PO PRN ×3 (04:12→23:24)
[2018-10-29] MEDS: MEROPENEM 1 G in IV NORMAL SALINE 100 ML IV SCH ×3 (05:00→21:27)
[2018-10-29 05:21] LABS: BASOPHILS % (AUTO) 0.3 % (0.0-2.0); EOSINOPHILS % (AUTO) 0.1 % (0.0-7.0); HEMOGLOBIN 9.3 g/dL (10.9-14.3); LYMPHOCYTES # (AUTO) 0.6 K/uL (20.0-40.0); LYMPHOCYTES % (AUTO) 5.4 % (20.5-51.5); MEAN CORPUSCULAR HEMOGLOBIN 25.2 uug (24.7-32.8); MEAN CORPUSCULAR HGB CONC 31 g/dL (32.3-35.6); MEAN CORPUSCULAR VOLUME 81.2 fL (75.5-95.3); MONOCYTES # (AUTO) 0.8 K/uL (2.0-10.0); NEUTROPHILS # (AUTO) 9.8 K/uL (1.8-8.9); NEUTROPHILS % (AUTO) 87.2 % (38.5-71.5); PLATELET COUNT (AUTO) 251 K/uL (179-408); RED BLOOD CELL COUNT(AUTO) 3.69 MIL/uL (3.63-4.92); WHITE BLOOD COUNT (AUTO) 11.3 K/uL (3.8-11.8)
[2018-10-29 05:24] LABS: CARBON DIOXIDE 32 mmol/L (21-32); CHLORIDE 107 mmol/L (98-107); CREATININE 1.7 mg/dL (0.6-1.3); GLUCOSE 197 mg/dL (74-106); MAGNESIUM 3.1 mg/dL (1.8-2.4); PHOSPHOROUS 5.5 mg/dL (2.5-4.9); POTASSIUM 4.8 mmol/L (3.5-5.1); UREA NITROGEN, BLOOD 68 mg/dL (7-18)
--- NOTE | 2018-10-29 06:10 | NUR ---
end of shift report: Patient resting comfortably in bed. Patient is forgetful and confused during interaction and communicative sessions. Patient shows no signs/symptoms of respiratory distress. Patient denies any pain/discomfort at this time. Patient has right upper arm PICC line that is patent and intact. PICC lien dressing changed was done and no s/s of infection at the site. Patient has an anxiety episode during the shift and requested her PRN Xanax. Patient has ewing catheter that is intact and patent. will continue to monitor the patient and endorse plan of care to oncoming day shift nurse.
[2018-10-29] MEDS: LEVOTHYROXINE SODIUM 50 MCG TABLET PO SCH (06:22)
--- NOTE | 2018-10-29 07:24 | NUR ---
SBAR REPORT RECEIVED FROM TARUNPT.A/A/O ,FORGETFUL. GETTING HHN TX.
[2018-10-29] MEDS: HYDROCORTISONE RECTAL SUPP 25 MG EACH RC SCH ×2 (08:30→21:15)
[2018-10-29] MEDS: Z GUARD REMEDY PASTE 57 GM TUBE TOP PRN ×2 (08:31→11:56)
[2018-10-29] MEDS: ASPIRIN 81 MG TAB.CHEW PO SCH (08:34)
[2018-10-29] MEDS: methylPREDNISolone SOD SUCC 40 MG/ML VIAL IV SCH ×2 (08:34→21:15)
[2018-10-29] MEDS: FAMOTIDINE 20 MG TABLET PO SCH (08:34)
[2018-10-29] MEDS: CULTURELLE CAPSULE PO SCH ×2 (08:34→21:15)
[2018-10-29] MEDS: CLOTRIMAZOLE 1% CREAM 30 GM TUBE TOP SCH ×2 (08:35→17:09)
[2018-10-29] MEDS: MORPHINE SULFATE 2 MG/1 ML DISP.SYRIN IV PRN (08:56)
--- NOTE | 2018-10-29 10:17 | NUR ---
Pt. was seen by with new orders.
[2018-10-29] MEDS ORDERED: DEXTROSE 50% 50 ML DISP.SYRIN IV PRN (11:00)
[2018-10-29] MEDS ORDERED: BLOOD SUGAR DIAGNOSTIC 1 EACH STRIP VI SCH (11:30)
--- NOTE | 2018-10-29 12:50 | NUR ---
Pt. was seen by HECTOR TONG MD & Ramiro Mejia.
--- NOTE | 2018-10-29 13:30 | NUR ---
Pt.was seen by PT c/o on dizziness.
--- NOTE | 2018-10-29 16:05 | NUR ---
Pt.was seen by .
[2018-10-29] MEDS: IV NORMAL SALINE 250 ML IV PRN (17:17)
[2018-10-29] MEDS ORDERED: VANCOMYCIN IV 1,500 MG in IV DEXTROSE 5% 500 ML IV ONE (21:00)
[2018-10-29] MEDS ORDERED: ENOXAPARIN SODIUM 40 MG/0.4 ML DISP.SYRIN SQ SCH (21:00)
[2018-10-29] MEDS: INSULIN GLARGINE,HUM 300 UNITS/3 ML CARTRIDGE SQ SCH (21:24)
[2018-10-29] MEDS: INSULIN REGULAR, HUMAN 300 UNITS/3 ML VIAL SQ PRN (21:24)
[2018-10-30] VITALS (16 sets, daily range): BP systolic 91–136; BP diastolic 39–85
[2018-10-30] MEDS: ALBUTEROL SULFATE 1.25 MG/3 ML NEBU NEB SCH ×4 (00:58→19:09)
[2018-10-30] MEDS: IPRATROPIUM BROMIDE 0.5 MG/2.5 ML NEBU NEB SCH ×4 (00:58→19:09)
[2018-10-30] MEDS: MEROPENEM 1 G in IV NORMAL SALINE 100 ML IV SCH ×3 (05:20→21:21)
[2018-10-30 05:41] LABS: BASOPHILS % (AUTO) 0.1 % (0.0-2.0); EOSINOPHILS % (AUTO) 0.2 % (0.0-7.0); HEMATOCRIT 28.7 % (31.2-41.9); HEMOGLOBIN 8.6 g/dL (10.9-14.3); LYMPHOCYTES # (AUTO) 0.7 K/uL (20.0-40.0); LYMPHOCYTES % (AUTO) 6.3 % (20.5-51.5); MEAN CORPUSCULAR HEMOGLOBIN 25.2 uug (24.7-32.8); MEAN CORPUSCULAR HGB CONC 30 g/dL (32.3-35.6); MEAN CORPUSCULAR VOLUME 83.7 fL (75.5-95.3); MONOCYTES # (AUTO) 0.5 K/uL (2.0-10.0); MONOCYTES % (AUTO) 4.6 % (0.0-11.0); NEUTROPHILS # (AUTO) 9.2 K/uL (1.8-8.9); NEUTROPHILS % (AUTO) 88.8 % (38.5-71.5); PLATELET COUNT (AUTO) 249 K/uL (179-408); RED BLOOD CELL COUNT(AUTO) 3.43 MIL/uL (3.63-4.92); WHITE BLOOD COUNT (AUTO) 10.3 K/uL (3.8-11.8)
[2018-10-30 05:52] LABS: CARBON DIOXIDE 34 mmol/L (21-32); CHLORIDE 106 mmol/L (98-107); CREATININE 1.6 mg/dL (0.6-1.3); MAGNESIUM 3.1 mg/dL (1.8-2.4); PHOSPHOROUS 4.9 mg/dL (2.5-4.9); UREA NITROGEN, BLOOD 72 mg/dL (7-18)
[2018-10-30 05:55] LABS: GLUCOSE 351 mg/dL (74-106)
[2018-10-30 06:24] LABS: BAND % (MANUAL) 1 % (0-10); LYMPHOCYTES % (MANUAL) 3 % (20-40); METAMYELOCYTES % 2 % (0-1); NEUTROPHILS % (MANUAL) 93 % (42-75)
[2018-10-30] MEDS ORDERED: FUROSEMIDE 40 MG/4 ML VIAL IV ONE (06:30)
[2018-10-30] MEDS: LEVOTHYROXINE SODIUM 50 MCG TABLET PO SCH (06:41)
[2018-10-30 07:05] LABS: CARBON DIOXIDE 34 mmol/L (21-32); CHLORIDE 105 mmol/L (98-107); CREATININE 1.5 mg/dL (0.6-1.3); POTASSIUM 6.1 mmol/L (3.5-5.1); UREA NITROGEN, BLOOD 71 mg/dL (7-18)
[2018-10-30 07:11] LABS: GLUCOSE 413 mg/dL (74-106)
[2018-10-30] MEDS: CULTURELLE CAPSULE PO SCH ×2 (07:26→20:53)
[2018-10-30] MEDS: ASPIRIN 81 MG TAB.CHEW PO SCH (07:26)
[2018-10-30] MEDS: methylPREDNISolone SOD SUCC 40 MG/ML VIAL IV SCH (07:26)
[2018-10-30] MEDS: FAMOTIDINE 20 MG TABLET PO SCH (07:26)
[2018-10-30] MEDS: CLOTRIMAZOLE 1% CREAM 30 GM TUBE TOP SCH ×2 (07:26→16:12)
[2018-10-30] MEDS: HYDROCORTISONE RECTAL SUPP 25 MG EACH RC SCH ×2 (07:27→21:06)
[2018-10-30] MEDS: BLOOD SUGAR DIAGNOSTIC 1 EACH STRIP VI SCH ×4 (07:42→21:01)
[2018-10-30] MEDS: INSULIN REGULAR, HUMAN 300 UNIT/3 ML VIAL SQ PRN ×3 (07:46→16:16)
[2018-10-30 09:17] LABS: ABG BASE EXCESS 6.1 mmol/L; ABG HCO3 34.3 mmol/L; ABG PCO2 73.7 mmHg (35.0-45.0); ABG PH 7.286 (7.350-7.450); ABG PO2 88.2 mmHg (75.0-100.0); ABG SITE RIGHT RADIAL; ABG TOTAL HEMOGLOBIN 9.7 G/dL (12.0-16.0); COHb 1.4 % (0.5-1.5); MetHb 0.3 % (0.0-1.5); O2Hb 94.6 % (94.0-97.0); VENT MODE Nasal Cannula
--- NOTE | 2018-10-30 09:21 | NUR ---
PT RECEIVED AWAKE ALERT AND RESPONSIVE SHOWING NO S/S OF RESP DISTRESS OR SOB. ROUTINE ABG PERFORMED. RESULTS VIEWABLE IN [facility]. FIO2 TITRATED DOWN TO 1 LPM NASAL CANULA.
[2018-10-30] MEDS ORDERED: DEXTROSE 50% 50 ML DISP.SYRIN IV ONE (09:30)
[2018-10-30] MEDS ORDERED: INSULIN REGULAR, HUMAN 300 UNIT/3 ML VIAL IV ONE (09:30)
[2018-10-30] MEDS: INSULIN GLARGINE,HUM 300 UNITS/3 ML CARTRIDGE SQ SCH ×2 (09:49→21:06)
[2018-10-30] MEDS: MORPHINE SULFATE 2 MG/1 ML DISP.SYRIN IV PRN ×2 (10:10→18:10)
--- NOTE | 2018-10-30 10:29 | NUR ---
Dr. Ramey here to see pt. Full report given. New orders received.
--- NOTE | 2018-10-30 10:37 | NUR ---
Physical therapy here to see pt.
--- NOTE | 2018-10-30 12:24 | NUR ---
Spoke with Dr. Gonzalez on the telephone. Full report given. New orders received. stated it was okay downgrade pt to VALDEZ status.
[2018-10-30] MEDS ORDERED: SODIUM POLYSTYRENE SULFONATE 15 G/60 ML LIQUID UDC PO ONE (14:15)
--- NOTE | 2018-10-30 14:44 | NUR ---
Dr. Jaramillo here to see pt. Full report given. New orders received.
--- NOTE | 2018-10-30 16:10 | NUR ---
Pt's pediatric physical therapist at the bedside with the pt. pst manager and Smiley (step-daughter) notified and made aware of pediatric physical therapist's presence in the hospital. Per [employer] and daughter, pediatric physical therapist is okay to visit the pt. Pt alert and oriented and stated to know who the pediatric physical therapist was.
[2018-10-30 16:15] LABS: CARBON DIOXIDE 33 mmol/L (21-32); CHLORIDE 106 mmol/L (98-107); CREATININE 1.4 mg/dL (0.6-1.3); GLUCOSE 289 mg/dL (74-106); POTASSIUM 4.8 mmol/L (3.5-5.1); UREA NITROGEN, BLOOD 73 mg/dL (7-18)
[2018-10-30] MEDS: predniSONE 20 MG TABLET PO SCH (17:09)
--- NOTE | 2018-10-30 17:52 | NUR ---
Dr. Gonzalez here to see pt. Full report given. No new orders received.
[2018-10-30] MEDS: ALPRAZOLAM 0.5 MG TABLET PO PRN (20:53)
[2018-10-30] MEDS: Z GUARD REMEDY PASTE 57 GM TUBE TOP PRN (20:54)
[2018-10-30] MEDS: ENOXAPARIN SODIUM 40 MG/0.4 ML DISP.SYRIN SQ SCH (20:54)
[2018-10-30] MEDS ORDERED: ENOXAPARIN SODIUM 30 MG/0.3 ML DISP.SYRIN SUBCUT SCH (21:00)
[2018-10-30] MEDS: INSULIN REGULAR, HUMAN 300 UNITS/3 ML VIAL SQ PRN (21:05)
[2018-10-30] MEDS: IV NORMAL SALINE 250 ML IV PRN (21:59)
[2018-10-30] MEDS: diphenhydrAMINE 50 MG CAPSULE PO PRN (22:44)
--- NOTE | 2018-10-30 23:00 | NUR ---
Patient scratched out PICC line & scratched parts of her body until bloody. MD notified, Benadryl / eMar given.
[2018-10-30] MEDS: BENZOCAINE/MENTH/CETYLPYRD LOZENGE MM PRN (23:25)
[2018-10-31 00:01] VITALS: BP 114/51
[2018-10-31] MEDS: MORPHINE SULFATE 2 MG/1 ML DISP.SYRIN IV PRN (00:39)
[2018-10-31] MEDS: IPRATROPIUM BROMIDE 0.5 MG/2.5 ML NEBU NEB SCH ×4 (01:08→20:47)
[2018-10-31] MEDS: ALBUTEROL SULFATE 1.25 MG/3 ML NEBU NEB SCH ×4 (01:08→20:48)
[2018-10-31 04:00] VITALS: BP 125/73
[2018-10-31] MEDS: BENZOCAINE/MENTH/CETYLPYRD LOZENGE MM PRN (04:23)
[2018-10-31 04:54] LABS: BASOPHILS % (AUTO) 0.2 % (0.0-2.0); EOSINOPHILS % (AUTO) 0.3 % (0.0-7.0); HEMATOCRIT 32.2 % (31.2-41.9); HEMOGLOBIN 9.8 g/dL (10.9-14.3); LYMPHOCYTES # (AUTO) 0.7 K/uL (20.0-40.0); LYMPHOCYTES % (AUTO) 7.3 % (20.5-51.5); MEAN CORPUSCULAR HGB CONC 31 g/dL (32.3-35.6); MEAN CORPUSCULAR VOLUME 81.7 fL (75.5-95.3); MONOCYTES # (AUTO) 0.4 K/uL (2.0-10.0); MONOCYTES % (AUTO) 4.2 % (0.0-11.0); NEUTROPHILS # (AUTO) 8.8 K/uL (1.8-8.9); PLATELET COUNT (AUTO) 258 K/uL (179-408); RED BLOOD CELL COUNT(AUTO) 3.94 MIL/uL (3.63-4.92)
[2018-10-31] MEDS: ALPRAZOLAM 0.5 MG TABLET PO PRN ×2 (04:56→17:25)
[2018-10-31] MEDS: Z GUARD REMEDY PASTE 57 GM TUBE TOP PRN (05:04)
[2018-10-31] MEDS: MEROPENEM 1 G in IV NORMAL SALINE 100 ML IV SCH ×3 (05:04→22:01)
[2018-10-31 05:24] LABS: ALANINE AMINOTRANSFERASE 30 U/L (14-59); ALKALINE PHOSPHATASE 61 U/L (50-136); ASPARTATE AMINOTRANSFERASE 21 U/L (15-37); BILIRUBIN,TOTAL 0.6 mg/dL (0.2-1.0); CARBON DIOXIDE 36 mmol/L (21-32); CHLORIDE 107 mmol/L (98-107); CREATININE 1.5 mg/dL (0.6-1.3); GLUCOSE 238 mg/dL (74-106); MAGNESIUM 3.1 mg/dL (1.8-2.4); PHOSPHOROUS 4.7 mg/dL (2.5-4.9); POTASSIUM 5.2 mmol/L (3.5-5.1); TOTAL PROTEIN, SERUM 7.6 g/dL (6.4-8.2); UREA NITROGEN, BLOOD 70 mg/dL (7-18)
[2018-10-31 06:02] LABS: EOSINOPHILS % (MANUAL) 1 % (0-8); LYMPHOCYTES % (MANUAL) 5 % (20-40); MONOCYTES % (MANUAL) 2 % (2-10); NEUTROPHILS % (MANUAL) 92 % (42-75)
[2018-10-31] MEDS: LEVOTHYROXINE SODIUM 50 MCG TABLET PO SCH (06:15)
[2018-10-31] MEDS: BLOOD SUGAR DIAGNOSTIC 1 EACH STRIP VI SCH ×4 (07:50→20:21)
[2018-10-31 08:00] VITALS: BP 110/51
[2018-10-31] MEDS: INSULIN REGULAR, HUMAN 300 UNIT/3 ML VIAL SQ PRN ×3 (08:07→17:28)
[2018-10-31] MEDS: predniSONE 20 MG TABLET PO SCH ×2 (08:09→17:25)
[2018-10-31] MEDS: FAMOTIDINE 20 MG TABLET PO SCH (08:09)
[2018-10-31] MEDS: ASPIRIN 81 MG TAB.CHEW PO SCH (08:09)
[2018-10-31] MEDS: CULTURELLE CAPSULE PO SCH ×2 (08:09→20:25)
[2018-10-31] MEDS: FUROSEMIDE 20 MG TABLET PO SCH (08:09)
[2018-10-31] MEDS: HYDROCORTISONE RECTAL SUPP 25 MG EACH RC SCH ×2 (08:15→20:25)
[2018-10-31] MEDS: INSULIN GLARGINE,HUM 300 UNITS/3 ML CARTRIDGE SQ SCH ×2 (08:28→20:24)
[2018-10-31] MEDS: CLOTRIMAZOLE 1% CREAM 30 GM TUBE TOP SCH ×2 (09:00→17:32)
[2018-10-31 12:00] VITALS: BP 122/56
--- NOTE | 2018-10-31 13:30 | NUR ---
PT IS TRANSFERRED UP ON THE THIRD FLOOR VIA BED. CONDITION IS STABLE. [id number] MAINTAINED AROUND 88-92% ON 1LNC. PT HAS BEED DOWNGRADED TO TELEMETRY STATUS BY DR CASTILLO.
--- NOTE | 2018-10-31 14:20 | NUR ---
PT IS CONFUSE AND ALWAYS SCREAMING. ACCIDENTALLY PULLED OUT HER IV LINE. RESTARTED G22 ON THE LEFT HAND.
--- NOTE | 2018-10-31 15:25 | NUR ---
PT IS C/O SHE CANNOT BREATHE. O2SAT IS DROPPING IN LOW 80'S ON 1L. INCREASED O2 UP TO 2L. NOTIFIED RT TO ASSESS PT'S RESPIRATORY CONDITION. ABG ORDERED STAT. PT IS GETTING MORE LETHARGIC AND CONFUSED. HEEL VARNISHER IS NOTIFIED AND ASKED TO CALL FOR PICC LINE INSERTION.
--- NOTE | 2018-10-31 15:45 | NUR ---
ABG DONE AT THE BEDSIDE ORDERED.
[2018-10-31 15:53] LABS: ABG BASE EXCESS 9.9 mmol/L; ABG HCO3 38.4 mmol/L; ABG PH 7.294 (7.350-7.450); ABG PO2 101.7 mmHg (75.0-100.0); ABG SITE RIGHT RADIAL; ABG TOTAL HEMOGLOBIN 9.5 G/dL (12.0-16.0); COHb 1.8 % (0.5-1.5); MetHb 0.2 % (0.0-1.5); O2Hb 95.5 % (94.0-97.0); VENT MODE Nasal Cannula
[2018-10-31 16:00] VITALS: BP 146/57
--- NOTE | 2018-10-31 16:00 | NUR ---
SEEN AND EXAMINED BY DR REYNA. SAW THE ABG RESULT ALSO. O2 PLACED ON 1.5LNC. SATURATION IS 92%.
--- NOTE | 2018-10-31 17:00 | NUR ---
PICC LINE REINSERTED BY PICC LINE NURSE AT THE BEDSIDE WITH CONSENT.
--- NOTE | 2018-10-31 17:30 | NUR ---
PT FOUND CONFUSED AND LETHARGIC, PT SPO2 LOW. PT PLACED ON BIPAP ON SETTINGS ORDERED BY MD. IPAP 15, EPAP 5, RATE 16, AND 24% FIO2. RN IS AWARE. PT IS TOLERATING BIPAP MASK AND SETTINGS WELL, SPO2 IMPROVED, PT APPEARS COMFORTABLE. NO SOB NOTED. WILL CONTINUE TO MONITOR.
--- NOTE | 2018-10-31 17:30 | NUR ---
PT SEEN AND EXAMINED BY DR PERSAUD WITH NEW ORDERS. PLACED ON BIPAP ORDERED SETTING OF 15/5, R-16. FIO2-24%. PT IS SATURATING 95-98% PT TOLERATING WELL.
[2018-10-31 20:00] VITALS: BP 98/34
--- NOTE | 2018-10-31 20:00 | NUR ---
Received patient lying in bed. Asleep but arouse to verbal and tactile stimuli. AOx3. In no acute distress. Denies any pain or SOB. Bi-pap in place with setting of 15/5, R 16, FIO2 at 24%. O2 sat at 92%. PICC line on right upper arm intact and patent. NSR on tele with sinus arrhythmia at 66/min. Jain catheter intact and draining via gravity with yellow urine output. Turn and reposition for comfort. Safety measure initiated and call blue within reach.
[2018-10-31] MEDS: INSULIN REGULAR, HUMAN 300 UNITS/3 ML VIAL SQ PRN (20:24)
[2018-10-31] MEDS: ENOXAPARIN SODIUM 40 MG/0.4 ML DISP.SYRIN SQ SCH (20:26)
--- NOTE | 2018-10-31 21:00 | NUR ---
Patient arouses to name, follows commands. Able to take po meds but desaturates easily when taken off BIPAP. Reoriented to place and time. Turned and repositioned; skin care provided. Addendum: 10/31/18 at 2255 by JATINDER COE RN Amended: Links added.
--- NOTE | 2018-10-31 22:00 | NUR ---
Dr. Segundo visited for psyche consult. Patient calm, sleeping. Sat above 90%. informed that patient won't be able to participate with his assessment at this time because patient desaturates easily when taken off BIPAP. Addendum: 10/31/18 at 2246 by JATINDER COE RN Amended: Links added. Addendum: 10/31/18 at 2440 by JATINDER COE RN Amended: Links added.
[2018-11-01] VITALS: BP 104/44
--- NOTE | 2018-11-01 01:15 | NUR ---
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 Glenny DAILEY RCP Addendum: 11/01/18 at 0118 by ROCK DAILEY RT Amended: Links added.
[2018-11-01] MEDS: IPRATROPIUM BROMIDE 0.5 MG/2.5 ML NEBU NEB SCH ×4 (02:11→20:40)
[2018-11-01] MEDS: ALBUTEROL SULFATE 1.25 MG/3 ML NEBU NEB SCH ×4 (02:11→20:41)
[2018-11-01 04:00] VITALS: BP 136/47
[2018-11-01] MEDS: MEROPENEM 1 G in IV NORMAL SALINE 100 ML IV SCH ×2 (05:04→13:59)
[2018-11-01] MEDS: LEVOTHYROXINE SODIUM 50 MCG TABLET PO SCH (06:03)
--- NOTE | 2018-11-01 06:15 | NUR ---
Patient arouses to name able to follows commands. AOx3. In no acute distress. Denies any pain or SOB. Bi-pap in place with setting of 15/5, R 16, FIO2 at 24%. O2 sat at 95%. Patient desaturates easily when taken off BIPAP. PICC line on right upper arm remains intact and patent. No adverse reaction noted from IV ABX. NSR on tele with sinus arrhythmia at 67/min. Jain catheter intact and draining via gravity. Turned and repositioned for comfort. Needs assessed and attended to. Safety measure maintained and call blue within reach.
[2018-11-01] MEDS: BLOOD SUGAR DIAGNOSTIC 1 EACH STRIP VI SCH ×4 (06:30→20:23)
--- NOTE | 2018-11-01 06:31 | NUR ---
Patient requested to remove Bi-pap. Place on O2 at 1LMP via NC. O2 saturation maintaining on 93-94%.
[2018-11-01 06:37] LABS: HEMOGLOBIN 8.1 g/dL (10.9-14.3); MEAN CORPUSCULAR HEMOGLOBIN 25.2 uug (24.7-32.8); MEAN CORPUSCULAR HGB CONC 31 g/dL (32.3-35.6); MEAN CORPUSCULAR VOLUME 81.3 fL (75.5-95.3); PLATELET COUNT (AUTO) 218 K/uL (179-408); WHITE BLOOD COUNT (AUTO) 6.8 K/uL (3.8-11.8)
[2018-11-01 06:44] LABS: CARBON DIOXIDE 36 mmol/L (21-32); CHLORIDE 110 mmol/L (98-107); CREATININE 1.2 mg/dL (0.6-1.3); GLUCOSE 127 mg/dL (74-106); MAGNESIUM 2.5 mg/dL (1.8-2.4); PHOSPHOROUS 2.6 mg/dL (2.5-4.9); POTASSIUM 4.4 mmol/L (3.5-5.1); UREA NITROGEN, BLOOD 63 mg/dL (7-18)
[2018-11-01 07:13] VITALS: BP 108/52
[2018-11-01 07:47] LABS: BASOPHILS % (AUTO) 0.1 % (0.0-2.0); EOSINOPHILS % (AUTO) 0.3 % (0.0-7.0); LYMPHOCYTES # (AUTO) 1.1 K/UL (0.8-4.8); LYMPHOCYTES % (AUTO) 15.7 % (20.5-51.5); MONOCYTES # (AUTO) 0.5 K/UL (0.1-1.30); MONOCYTES % (AUTO) 7.4 % (0.0-11.0); NEUTROPHILS # (AUTO) 5.2 K/UL (1.8-8.9); NEUTROPHILS % (AUTO) 76.5 % (38.5-71.5)
[2018-11-01 07:48] LABS: NEUTROPHILS % (MANUAL) 0 % (42-75)
[2018-11-01] MEDS: ASPIRIN 81 MG TAB.CHEW PO SCH (08:07)
[2018-11-01] MEDS: FAMOTIDINE 20 MG TABLET PO SCH (08:07)
[2018-11-01] MEDS: HYDROCORTISONE RECTAL SUPP 25 MG EACH RC SCH ×2 (08:07→20:23)
[2018-11-01] MEDS: predniSONE 20 MG TABLET PO SCH ×2 (08:07→17:02)
[2018-11-01] MEDS: FUROSEMIDE 20 MG TABLET PO SCH (08:07)
[2018-11-01] MEDS: CULTURELLE CAPSULE PO SCH ×2 (08:07→20:23)
[2018-11-01] MEDS: CLOTRIMAZOLE 1% CREAM 30 GM TUBE TOP SCH ×2 (08:08→16:54)
[2018-11-01] MEDS: MORPHINE SULFATE 2 MG/1 ML DISP.SYRIN IV PRN ×3 (08:09→21:53)
[2018-11-01] MEDS: INSULIN GLARGINE,HUM 300 UNITS/3 ML CARTRIDGE SQ SCH ×2 (08:09→20:28)
[2018-11-01 08:10] LABS: ABG BASE EXCESS 11.3 mmol/L; ABG PCO2 48.6 mmHg (35.0-45.0); ABG PH 7.487 (7.350-7.450); ABG PO2 74.6 mmHg (75.0-100.0); ABG SITE RIGHT RADIAL; ABG TOTAL HEMOGLOBIN 9.5 G/dL (12.0-16.0); COHb 2.6 % (0.5-1.5); MetHb 0.1 % (0.0-1.5); O2Hb 92.7 % (94.0-97.0); VENT MODE Nasal Cannula
[2018-11-01] MEDS ORDERED: FUROSEMIDE 20 MG/2 ML VIAL IV ONE (11:00)
[2018-11-01 11:05] VITALS: BP 147/47
[2018-11-01] MEDS: INSULIN REGULAR, HUMAN 300 UNIT/3 ML VIAL SQ PRN ×2 (11:41→17:01)
[2018-11-01 15:10] VITALS: BP 131/48
--- NOTE | 2018-11-01 17:29 | NUR ---
Spoke with Dr. Gonzalez and made aware of pt's blood sugar 401 per protocol. No new orders received at this time.
[2018-11-01 20:00] VITALS: BP 120/64
--- NOTE | 2018-11-01 20:00 | NUR ---
RECEIVED PT. AGITATED & RESTLESS. ON O2 @ 1LNC W/ O2 SAT OF 90%. PICC LINE INTACT & PATENT ON DEEP. NS @ 10CC/HR FOR IVPB MEDS. RESP. TX GIVEN BY RT.
[2018-11-01] MEDS: ALPRAZOLAM 0.5 MG TABLET PO PRN (20:23)
--- NOTE | 2018-11-01 20:23 | NUR ---
XANAX 0.5MG GIVEN PO FOR AGITATION. HS CARE DONE & REPOSITIONED ON HER SIDE W/ HOB ELEVATED.
[2018-11-01] MEDS: ENOXAPARIN SODIUM 40 MG/0.4 ML DISP.SYRIN SQ SCH (20:24)
[2018-11-01] MEDS: INSULIN REGULAR, HUMAN 300 UNITS/3 ML VIAL SQ PRN (20:25)
[2018-11-01] MEDS: diphenhydrAMINE 50 MG CAPSULE PO PRN (21:01)
[2018-11-02] VITALS: BP 108/49
[2018-11-02] MEDS: IPRATROPIUM BROMIDE 0.5 MG/2.5 ML NEBU NEB SCH ×3 (01:46→12:30)
[2018-11-02] MEDS: ALBUTEROL SULFATE 1.25 MG/3 ML NEBU NEB SCH ×3 (01:47→12:30)
[2018-11-02 04:00] VITALS: BP 148/53
--- NOTE | 2018-11-02 04:00 | NUR ---
AM CARE DONE. ORAL CARE DONE. REPOSITIONED ON HER SIDE W/ HOB ELEVATED.
[2018-11-02] MEDS: IV NORMAL SALINE 250 ML IV PRN (05:02)
[2018-11-02] MEDS: ALPRAZOLAM 0.5 MG TABLET PO PRN (05:59)
[2018-11-02] MEDS: LEVOTHYROXINE SODIUM 50 MCG TABLET PO SCH (06:17)
[2018-11-02] MEDS: BLOOD SUGAR DIAGNOSTIC 1 EACH STRIP VI SCH ×2 (06:18→11:59)
[2018-11-02 06:38] LABS: CHLORIDE 106 mmol/L (98-107); CREATININE 1.2 mg/dL (0.6-1.3); GLUCOSE 249 mg/dL (74-106); MAGNESIUM 2.3 mg/dL (1.8-2.4); PHOSPHOROUS 3.9 mg/dL (2.5-4.9); POTASSIUM 4.4 mmol/L (3.5-5.1); UREA NITROGEN, BLOOD 53 mg/dL (7-18)
[2018-11-02 06:43] LABS: CARBON DIOXIDE 40 mmol/L (21-32)
--- NOTE | 2018-11-02 07:00 | NUR ---
Received patient awake alert and in bed. Patient is anxious. No apparent distress noted . Bed alarm on, bed in lowest position. On 02 at 1L via nasal canula. Call light is within reach.
[2018-11-02 07:04] LABS: HEMOGLOBIN 8.7 g/dL (10.9-14.3)
[2018-11-02 07:38] LABS: BASOPHILS % (AUTO) 0.2 % (0.0-2.0); EOSINOPHILS % (AUTO) 0.6 % (0.0-7.0); HEMATOCRIT 27.5 % (31.2-41.9); LYMPHOCYTES # (AUTO) 1.1 K/uL (20.0-40.0); LYMPHOCYTES % (AUTO) 15.1 % (20.5-51.5); MEAN CORPUSCULAR HEMOGLOBIN 25.7 uug (24.7-32.8); MEAN CORPUSCULAR HGB CONC 32 g/dL (32.3-35.6); MEAN CORPUSCULAR VOLUME 80.8 fL (75.5-95.3); MONOCYTES # (AUTO) 0.6 K/uL (2.0-10.0); NEUTROPHILS # (AUTO) 5.3 K/uL (1.8-8.9); NEUTROPHILS % (AUTO) 75.1 % (38.5-71.5); PLATELET COUNT (AUTO) 229 K/uL (179-408)
[2018-11-02 08:00] VITALS: BP 145/46
[2018-11-02] MEDS: INSULIN REGULAR, HUMAN 300 UNIT/3 ML VIAL SQ PRN ×2 (08:31→12:04)
--- NOTE | 2018-11-02 09:30 | NUR ---
Pt came to see the patient , patient was able to get on the commode and sit up. Tolerated well.
[2018-11-02] MEDS: HYDROCORTISONE RECTAL SUPP 25 MG EACH RC SCH (09:32)
[2018-11-02] MEDS: FUROSEMIDE 20 MG TABLET PO SCH (09:32)
[2018-11-02] MEDS: CULTURELLE CAPSULE PO SCH (09:32)
[2018-11-02] MEDS: FAMOTIDINE 20 MG TABLET PO SCH (09:33)
[2018-11-02] MEDS: ASPIRIN 81 MG TAB.CHEW PO SCH (09:33)
[2018-11-02] MEDS: predniSONE 20 MG TABLET PO SCH (09:33)
[2018-11-02] MEDS: INSULIN GLARGINE,HUM 300 UNITS/3 ML CARTRIDGE SQ SCH (09:34)
[2018-11-02] MEDS: diphenhydrAMINE 50 MG CAPSULE PO PRN (11:28)
[2018-11-02 12:22] VITALS: BP 158/60
[2018-11-02] MEDS: CLOTRIMAZOLE 1% CREAM 30 GM TUBE TOP SCH (14:25)
[2018-11-02] MEDS ORDERED: MENT71OI TOP (14:47)
[2018-11-02] MEDS ORDERED: INSU100V7 SQ (14:47)
[2018-11-02] MEDS ORDERED: FURO20TA4 PO (14:47)
[2018-11-02] MEDS ORDERED: ALBU2.5V7 NEB (14:47)
[2018-11-02] MEDS ORDERED: BISA10SU12 RC (14:47)
[2018-11-02] MEDS ORDERED: ENOX40DI SQ (14:47)
[2018-11-02] MEDS ORDERED: DEXT50DI8 IV (14:47)
[2018-11-02] MEDS ORDERED: IPRA0.2S6 NEB (14:47)
[2018-11-02] MEDS ORDERED: Blood Sugar Diagnostic VI (14:47)
[2018-11-02] MEDS ORDERED: CLOT30CR24 TOP (14:47)
[2018-11-02] MEDS ORDERED: LACT1CAP57 PO (14:47)
[2018-11-02] MEDS ORDERED: HYDR25SU13 RC (14:47)
[2018-11-02] MEDS ORDERED: DIPH50CA37 PO (14:47)
[2018-11-02] MEDS ORDERED: METH4TAB3 PO (14:47)
[2018-11-02] MEDS ORDERED: ALPR0.5T PO (14:47)
[2018-11-02] MEDS ORDERED: INSU100V28 SQ ×2 (14:47)
--- NOTE | 2018-11-02 15:00 | NUR ---
SEEN AND EXAMINED BY DR CASTILLO WITH OK DISCHARGE ORDER TO [facility]. PT IS AWARE AND AGREEABLE. NO APPARENT RESPIRATORY DISTRESS NOTED SINCE THIS MORNING.
--- NOTE | 2018-11-02 15:30 | NUR ---
PT REFUSED TO HAVE A PICTURE TAKEN . VERY IRRITABLE AND ANXIOUS.
--- NOTE | 2018-11-02 16:00 | NUR ---
TOTAL PM CARE DONE AT THE BEDSIDE. PT'S EXCORIATION IS HEALING WELL. APPLIED ZGUARD AND LOTRIMIN CREAM AROUND THE EXCORIATED AREAS.
--- NOTE | 2018-11-02 17:00 | NUR ---
REPORT GIVEN OVER THE PHONE TO NELSON RN MARKETING CO OP IN [facility]. PT IS DISCHARGED VIA AMBULANCE ACCOMPANIED BY A FAMILY FRIEND GABRIELLA. CONDITION IS STABLE.
== END 2018-11-02 16:40 | DRG 871 ==
LOC: ER 14:24 → CCU 18:32 → TELE3 10-31 17:18 → TELE-TD3 10-31 19:28
PROVIDERS: ADMIT Nurse Practitioner Acute Care; ATTEND Nurse Practitioner Acute Care
PROC: 5A1945Z Respiratory Ventilation, 24-96 Consecutive Hours (ICD-10-PCS; principal; 2018-10-23)
PROC: 0BH17EZ Insertion of Endotracheal Airway into Trachea, Via Natural or Artificial Opening (ICD-10-PCS; 2018-10-23)
PROC: 0DH67UZ Insertion of Feeding Device into Stomach, Via Natural or Artificial Opening (ICD-10-PCS; 2018-10-23)
PROC: 05HY33Z Insertion of Infusion Device into Upper Vein, Percutaneous Approach (ICD-10-PCS; 2018-10-31)
PROC: 5A09357 Assistance with Respiratory Ventilation, Less than 24 Consecutive Hours, Continuous Positive Airway Pressure (ICD-10-PCS; 2018-10-31)
DX: A41.9 Sepsis, unspecified organism (principal); N17.0 Acute kidney failure with tubular necrosis; J96.21 Acute and chronic respiratory failure with hypoxia; J96.22 Acute and chronic respiratory failure with hypercapnia; I50.33 Acute on chronic diastolic (congestive) heart failure; G92 Toxic encephalopathy; J69.0 Pneumonitis due to inhalation of food and vomit; E43 Unspecified severe protein-calorie malnutrition; E87.2 Acidosis; I13.0 Hypertensive heart and chronic kidney disease with heart failure and stage 1 through stage 4 chronic kidney disease, or unspecified chronic kidney disease; D68.59 Other primary thrombophilia; E87.4 Mixed disorder of acid-base balance; E66.2 Morbid (severe) obesity with alveolar hypoventilation; E87.0 Hyperosmolality and hypernatremia; N39.0 Urinary tract infection, site not specified; E11.65 Type 2 diabetes mellitus with hyperglycemia; L40.9 Psoriasis, unspecified; E78.5 Hyperlipidemia, unspecified; E11.22 Type 2 diabetes mellitus with diabetic chronic kidney disease; N18.9 Chronic kidney disease, unspecified; I48.0 Paroxysmal atrial fibrillation; Z74.09 Other reduced mobility; I25.2 Old myocardial infarction; I89.0 Lymphedema, not elsewhere classified; T24.30 Burn of third degree of unspecified site of lower limb, except ankle and foot; X08.8XXS Exposure to other specified smoke, fire and flames, sequela; G89.4 Chronic pain syndrome; F41.0 Panic disorder [episodic paroxysmal anxiety]; D63.8 Anemia in other chronic diseases classified elsewhere; E83.42 Hypomagnesemia; E83.39 Other disorders of phosphorus metabolism; E86.9 Volume depletion, unspecified; I25.10 Atherosclerotic heart disease of native coronary artery without angina pectoris; K59.09 Other constipation; J43.9 Emphysema, unspecified; M48.00 Spinal stenosis, site unspecified; K64.9 Unspecified hemorrhoids; I05.0 Rheumatic mitral stenosis; E87.5 Hyperkalemia; Z85.828 Personal history of other malignant neoplasm of skin; Z82.49 Family history of ischemic heart disease and other diseases of the circulatory system; Z79.899 Other long term (current) drug therapy; Z79.890 Hormone replacement therapy; Z79.51 Long term (current) use of inhaled steroids; Z79.01 Long term (current) use of anticoagulants; Z88.2 Allergy status to sulfonamides; Z88.1 Allergy status to other antibiotic agents; Z90.710 Acquired absence of both cervix and uterus; Z88.0 Allergy status to penicillin; Z87.440 Personal history of urinary (tract) infections; Z87.01 Personal history of pneumonia (recurrent); Z86.718 Personal history of other venous thrombosis and embolism; T36.8X5A Adverse effect of other systemic antibiotics, initial encounter; Y92.9 Unspecified place or not applicable; I70.0 Atherosclerosis of aorta; T38.0X5A Adverse effect of glucocorticoids and synthetic analogues, initial encounter; Z90.49 Acquired absence of other specified parts of digestive tract; Z79.2 Long term (current) use of antibiotics; R65.20 Severe sepsis without septic shock
CPT/HCPCS: 36415; 36600; 70030-TC; 71045; 76604; 83605; 83735; 84100; 84443; 85025; 85730; 87040; 87070; 87086; 92526; 92610; 93005; 94002; 94003; 94640; 94660; 97110; 97116; 97530; A4663; C1758; G0378; J0456; J1120; J1650; J1815; J1940; J2185; J2270; J2310; J2920; J2930; J3370; J3475; J3490; J3590; J7030; J7050; J7060; J7512; Q0163